=== PATIENT | female | born 1970 | race American Indian/Alaskan Native ===

== ENCOUNTER 2018-08-26 12:09 | Inpatient (IN) | payer MEDICAID, MEDICARE, OTHER ==
[2018-08-26] MEDS ORDERED: NACL 0.9% 1000 ML 1,000 ML IV ONE ×2 (14:43→14:45)
--- NOTE | 2018-08-26 14:50 | Emergency Department Report ---
HPI - General Chief Complaint: Fever Time Seen by Provider: 08/26/18 14:37 - HPI HPI: Room 4 The patient is a 47-year-old female presenting with chief complaint of dislodged nephrostomy tube. The patient is from [facility] reportedly her right ne phrostomy tube became dislodged earlier today. Nephrostomy tubes were reportedly placed at [place]. EMS brought the patient to the ED for management of dislodged nephrostomy tube. Patient is nonverbal and has a history of traumatic brain injury. Location: [See above] Duration: [See above] Quality: [See above] Severity: [See above] Modifying factors: [see above] Context: [see above] Mode of transportation: [not driving] ED Past Medical Hx - Past Medical History Additional medical history: G tube, nephrostomy tube, dysphagia TBI - Surgical History Additional Surgical History: G-tube, bilateral nephrostomy tubes - Family History Family history: no significant - Social History Smoking Status: Unknown if ever smoked ED Review of Systems ROS: Stated complaint: NEPHROSTOMY TUBE DISPLACED Other details as noted in HPI Comment: Unobtainable due to pts medical conditions Physical Exam - Physical Exam Vital Signs: Vital Signs 08/26/18 13:56 Temperature 99.2 F Pulse Rate 124 H Blood Pressure 113/78 O2 Sat by Pulse 98 Oximetry Physical Exam: GENERAL: The patient is well-developed female lying on stretcher nonverbal HEENT: Normocephalic. Atraumatic. Patient has dry mucous membranes. NECK: Trachea midline CHEST/LUNGS: Clear to auscultation. There is no respiratory distress noted. HEART/CARDIOVASCULAR: Regular. There is tachycardia. There is no gallop rub or murmur. ABDOMEN: Abdomen is soft, nontender. Patient has normal bowel sounds. There is no abdominal distention. SKIN: There is no rash. There is no edema. There is no diaphoresis. NEURO: The patient is awake but nonverbal MUSCULOSKELETAL: There is no evidence of acute injury. ED Course Vital Signs 08/26/18 13:56 Temperature 99.2 F Pulse Rate 124 H Blood Pressure 113/78 O2 Sat by Pulse 98 Oximetry - Consultations Consultation #1: 08/26/18 15:[address] Quezada (interventional radiology)- recommends having hospitalist admit, obtain CT scan. We will consult ED Medical Decision Making - Lab Data Result diagrams: 08/26/18 15:02 08/26/18 15:02 Laboratory Tests 08/26/18 08/26/18 08/26/18 15:02 15:02 Unknown WBC 15.7 H RBC 3.81 Hgb 11.9 Hct 35.7 MCV 94 MCH 31 MCHC 33 RDW 17.3 H Plt Count 319 Add Manual Diff Complete Total Counted 100 Seg Neuts % (Manual) 59.0 Band Neutrophils % 30.0 Lymphocytes % (Manual) 5.0 L Reactive Lymphs % (Man) 0 Monocytes % (Manual) 5.0 Eosinophils % (Manual) 1.0 Basophils % (Manual) 0 Metamyelocytes % 0 Myelocytes % 0 Promyelocytes % 0 Blast Cells % 0 Nucleated RBC % Not Reportable Seg Neutrophils # Man 9.3 H Band Neutrophils # 4.7 Lymphocytes # (Manual) 0.8 L Abs React Lymphs (Man) 0.0 Monocytes # (Manual) 0.8 Eosinophils # (Manual) 0.2 Basophils # (Manual) 0.0 Metamyelocytes # 0.0 Myelocytes # 0.0 Promyelocytes # 0.0 Blast Cells # 0.0 WBC Morphology Not Reportable Hypersegmented Neuts Not Reportable Hyposegmented Neuts Not Reportable Hypogranular Neuts Not Reportable Smudge Cells Not Reportable Toxic Granulation Not Reportable Toxic Vacuolation Not Reportable Dohle Bodies Not Reportable Pelger-Huet Anomaly Not Reportable Alondra Rods Not Reportable Platelet Estimate Consistent w auto Clumped Platelets Not Reportable Plt Clumps, EDTA Not Reportable Large Platelets Not Reportable Giant Platelets Not Reportable Platelet Satelliting Not Reportable Plt Morphology Comment Not Reportable RBC Morphology Not Reportable Dimorphic RBCs Not Reportable Polychromasia Few Hypochromasia 1+ Poikilocytosis Not Reportable Anisocytosis 1+ Microcytosis Not Reportable Macrocytosis Not Reportable Spherocytes Not Reportable Pappenheimer Bodies Not Reportable Sickle Cells Not Reportable Target Cells Not Reportable Tear Drop Cells Not Reportable Ovalocytes Not Reportable Stomatocytes Few Helmet Cells Not Reportable [place] Bodies Not Reportable Tracy Rings Not Reportable Caliente Cells Not Reportable Bite Cells Not Reportable Crenated Cell Not Reportable Elliptocytes Not Reportable Acanthocytes (Spur) Not Reportable Rouleaux Not Reportable Hemoglobin C Crystals Not Reportable Schistocytes Not Reportable Malaria parasites Not Reportable Marshall Bodies Not Reportable Hem Pathologist Commnt No Sodium 152 H Potassium 3.3 L Chloride 110.5 H Carbon Dioxide 29 Anion Gap 16 BUN 39 H Creatinine 1.2 Estimated GFR 58 BUN/Creatinine Ratio 33 Glucose 116 H Calcium 13.7 H* Total Bilirubin 0.20 AST 39 ALT 55 Alkaline Phosphatase 172 H Total Protein 8.6 H Albumin 2.9 L Albumin/Globulin Ratio 0.5 Urine Color Yellow Urine Turbidity Cloudy Urine pH 8.0 H Ur Specific Clifford 1.012 Urine Protein 30 mg/dl Urine Glucose (UA) Neg Urine Ketones Neg Urine Blood Lg Urine Nitrite Neg Urine Bilirubin Neg Urine Urobilinogen < 2.0 Ur Leukocyte Esterase Lg Urine WBC (Auto) 139.0 H Urine RBC (Auto) 173.0 U Epithel Cells (Auto) 2.0 Urine Bacteria (Auto) 1+ Urine WBC Clumps 2+ Calcium Oxalate Crystal 1+ Urine Mucus Few Urine Yeast (Budding) 2+ - Radiology Data Radiology results: report reviewed (CT abdomen and pelvis), image reviewed (CT abdomen and pelvis) [address] [address] Cat Scan Report Signed Patient: KEVON COCHRAN MR#: [id number] : 1970 Acct:[id number] Age/Sex: 47 / F ADM Date: 08/26/18 Loc: ED Attending Dr: Ordering Physician: BEN TUBBS MD Date of Service: 08/26/18 Procedure(s): CT abdomen pelvis wo con Accession Number(s): [id number] cc: BEN TUBBS MD PROCEDURE: CT ABDOMEN PELVIS WO CON TECHNIQUE: CT of the abdomen and pelvis was performed. No IV contrast administered. Axial images and coronal and sagittal reformatted images were obtained. HISTORY: right nephrostomy tube dislodged COMPARISON: None FINDINGS: There are bilateral lower lobe infiltrates including consolidation in the posterior right lower lobe. There is mild lower lobe bronchiectasis. There is a gastrostomy tube present. There is a left-sided nephrostomy tube in place. There is no right nephrostomy tube but there is evidence of a nephrostomy tract. There are renal calculi bilaterally. There is dependent gravel-like calculi on the right versus milk of calcium. There is a moderate degree of right hydronephrosis. There may be a punctate calculus in the proximal right ureter. There is fluid, gas and stool distending the colon. There is some nonspecific internal rectal wall thickening. Within the limitations of a noncontrast exam, the visualized liver, spleen, pancreas, adrenal glands demonstrate no significant abnormality. There is no abdominal aortic aneurysm. There is no small bowel obstruction. The appendix is normal. There is no free intraperitoneal air. Bladder is unremarkable. IMPRESSION: There is moderate right hydronephrosis. Bilateral renal calculi. There are dependent gravel-like renal calculi versus milk of calcium dependently in right renal collecting system. There may be a p unctate calculus in the proximal right ureter versus artifact series 602 image 69. Left nephrostomy tube in place. Colonic distention with gas, fluid and stool. There is nonspecific anorectal wall thickening which could be inflammatory or mass. Bilateral lower lobe infiltrates including right lower lobe consolidation. Mild lower lobe bronchiectasis. This document is electronically signed by Marilu Barrios MD., August 26 2018 04:00:36 PM ET Transcribed By: [place] Dictated By: MARILU BARRIOS MD Electronically Authenticated By: MARILU BARRIOS MD Signed Date/Time: 08/26/18 1602 DD/ 1544 TD/TT: 08/26/18 1544 - Differential Diagnosis UTI, renal colic, Critical care attestation.: If time is entered above; I have spent that time in minutes in the direct care of this critically ill patient, excluding procedure time. ED Disposition Clinical Impression: Nephrostomy tube displaced, Pneumonia, Dehydration, Leukocytosis, UTI (urinary tract infection) Disposition: OP ADMIT IP TO THIS HOSP Is pt being admited?: Yes Does the pt Need Aspirin: No Condition: Fair Instructions: Bacterial Pneumonia (ED) Referrals: ALYCIA CHAUDHARY [Other] - 3-5 Days Time of Disposition: 17:37 (hospitalist notified (Dr Levy))
[2018-08-26 15:31] LABS: Hematocrit 35.7 % (30.3-42.9); Hemoglobin 11.9 gm/dl (10.1-14.3); Mean Corpuscular HGB Conc 33 % (30-34); Mean Corpuscular Volume 94 fl (79-97); Platelet Count 319 K/mm3 (140-440); Red Blood Count 3.81 M/mm3 (3.65-5.03); Red Cell Distribution Width 17.3 % (13.2-15.2)
[2018-08-26 15:39] LABS: Albumin 2.9 g/dL (3.9-5)
--- NOTE | 2018-08-26 16:02 | Cat Scan Report ---
PROCEDURE: CT ABDOMEN PELVIS WO CON TECHNIQUE: CT of the abdomen and pelvis was performed. No IV contrast administered. Axial images and coronal and sagittal reformatted images were obtained. HISTORY: right nephrostomy tube dislodged COMPARISON: None FINDINGS: There are bilateral lower lobe infiltrates including consolidation in the posterior right lower lobe. There is mild lower lobe bronchiectasis. There is a gastrostomy tube present. There is a left-sided nephrostomy tube in place. There is no right nephrostomy tube but there is evidence of a nephrostomy tract. There are renal calculi bilaterally. There is dependent gravel-like calculi on the right versus milk of calcium. There is a moderate degree of right hydronephrosis. There may be a punctate calculus in t he proximal right ureter. There is fluid, gas and stool distending the colon. There is some nonspecific internal rectal wall th ickening. Within the limitations of a noncontrast exam, the visualized liver, spleen, pancreas, adrenal glands demonstrate no significant abnormality. There is no abdominal aortic aneurysm. There is no small bowel obstruction. The appendix is normal. There is no free intraperitoneal air. Bladder is unremarkable. IMPRESSION: There is moderate right hydronephrosis. Bilateral renal calculi. There are dependent gravel-like fred l calculi versus milk of calcium dependently in right renal collecting system. There may be a punctat e calculus in the proximal right ureter versus artifact series 602 image 69. Left nephrostomy tube in place. Colonic distention with gas, fluid and stool. There is nonspecific anorectal wall thickening which co uld be inflammatory or mass. Bilateral lower lobe infiltrates including right lower lobe consolidation. Mild lower lobe bronchiect asis. This document is electronically signed by Marilu Barrios MD., August 26 2018 04:00:36 PM ET
[2018-08-26 16:24] LABS: Anisocytosis 1+; Band Neutrophils # (Manual) 4.7 K/mm3; Basophils % (Manual) 0 % (0.0-1.8); Hypochromasia 1+; Total Cells Counted 100
[2018-08-26 16:25] LABS: Platelet Estimate Consistent w Auto; Stomatocytes Few
[2018-08-26 16:38] LABS: Calcium 13.7 mg/dL (8.4-10.2)
[2018-08-26] MEDS ORDERED: ROCEPHIN/NS 2 GM/100 ML 2 GM/100 ML BAG IV ONE (17:00)
[2018-08-26 17:29] LABS: Bacteria,Urine 1+ /HPF (Negative); Bilirubin,Urine NEG (Negative); Blood,Urine LG (Negative); Calcium Oxalate Crystals,Urine 1+; Color,Urine Yellow (Yellow); Mucus,Urine FEW /HPF; Urobilinogen,Urine < 2.0 mg/dL (<2.0)
--- NOTE | 2018-08-26 17:50 | History and Physical Report ---
History of Present Illness Chief complaint: nephrostomy tube came out History of present illness: 47 YO Female SNF Resident at [facility] with Encephalopathy S/P TBI, Debility, Dysphagia, presents to ED for evaluation. Pt is nonverbal and unable to provide history. Pt history taken from ED staff, and [facility] staff. As per staff, the patient was found to have a dislodged Nephrostomy tube this morning. EMS notified, and patient transported to [facility]. Pt seen and evaluated in ED and found to have UTI complicated by SIRS, Volume depletion, as well as dislodged nephrostomy tube. Pt admitted to medical floor. IR team consulted in ED. Pending replacement of nephrostomy tube. No further history obtainable. Pt is able to protect her airway. No prior admission for review. All listed medication reconciled at time of admission. Past History Past Medical History: other (TBI, Encephalopathy) Past Surgical History: Other (G Tube, Nephrostomy tube) Social history: Family history: no significant family history Medications and Allergies Allergies Allergy/AdvReac Type Severity Reaction Status Date / Time No Known Allergies Allergy Unverified 08/26/18 14:14 Review of Systems ROS unobtainable: due to mental status Exam - Constitutional Vitals: Temp Pulse Resp BP Pulse Ox 99.2 F 124 H 16 113/78 98 08/26/18 13:56 08/26/18 13:56 08/26/18 15:00 08/26/18 13:56 08/26/18 13:56 General appearance: Present: mild distress, cachectic - EENT Eyes: Present: PERRL ENT: hearing intact, clear oral mucosa - Neck Neck: Present: supple, normal ROM - Respiratory Respiratory effort: normal Respiratory: bilateral: CTA - Cardiovascular Heart Sounds: Present: S1 & S2. Absent: rub, click - Extremities Extremities: abnormal (contracture) Peripheral Pulses: within normal limits - Abdominal General gastrointestinal: Present: soft, non-tender, non-distended, normal bowel sounds Female genitourinary: Present: normal - Integumentary Integumentary: Present: clear, warm, dry - Musculoskeletal Musculoskeletal: generalized weakness - Psychiatric Psychiatric: no appropriate mood/affect, no intact judgment & insight, no memory intact - Neurologic Neurologic: CNII-XII intact, moves all extremities, no gait normal Results - Labs CBC & Chem 7: 08/26/18 15:02 08/26/18 15:02 Labs: Abnormal lab results 08/26/18 08/26/18 08/26/18 Range/Units 15:02 15:02 Unknown WBC 15.7 H (4.5-11.0) K/mm3 RDW 17.3 H (13.2-15.2) % Lymphocytes % (Manual) 5.0 L (13.4-35.0) % Seg Neutrophils # Man 9.3 H (1.8-7.7) K/mm3 Lymphocytes # (Manual) 0.8 L (1.2-5.4) K/mm3 Sodium 152 H (137-145) mmol/L Potassium 3.3 L (3.6-5.0) mmol/L Chloride 110.5 H (98-107) mmol/L BUN 39 H (7-17) mg/dL Glucose 116 H (65-100) mg/dL Calcium 13.7 H* (8.4-10.2) mg/dL Alkaline Phosphatase 172 H (35-129) units/L Total Protein 8.6 H (6.3-8.2) g/dL Albumin 2.9 L (3.9-5) g/dL Urine pH 8.0 H (5.0-7.0) Urine WBC (Auto) 139.0 H (0.0-6.0) /HPF Assessment and Plan - Patient Problems (1) SIRS (systemic inflammatory response syndrome) Current Visit: Yes Status: Acute Plan to address problem: IV antibiotic therapy, IVF resuscitation, CBC, CMP, Chest x ray, CT Abdomen pelvis. (2) Dehydration Current Visit: Yes Status: Acute (3) Nephrostomy tube displaced Current Visit: Yes Status: Acute Plan to address problem: IR consulted in ED, Pending nephrostomy tube placement, (4) UTI (urinary tract infection) Current Visit: Yes Status: Acute Qualifiers: Encounter type: initial encounter Plan to address problem: IV antibiotic therapy, supportive care. (5) Severe malnutrition Current Visit: Yes Status: Acute Plan to address problem: Nutrition consulted for tube feeding. (6) DVT prophylaxis Current Visit: Yes Status: Acute Plan to address problem: SCD to BLE while in bed, prophylactic lovenox
[2018-08-26] MEDS ORDERED: SODIUM CHLORIDE FLUSH SYRINGE 10 ML IV PRN (17:51)
[2018-08-26] MEDS ORDERED: ZOFRAN IV PRN (17:51)
[2018-08-26] MEDS ORDERED: PROVENTIL IH PRN (17:51)
[2018-08-26] MEDS: NACL 0.45% 1000 ML 1,000 ML IV SCH (19:55)
[2018-08-26] MEDS: LOVENOX SUB-Q SCH (22:56)
[2018-08-26] MEDS: SODIUM CHLORIDE FLUSH SYRINGE 10 ML IV SCH (22:56)
[2018-08-27] MEDS: NACL 0.45% 1000 ML 1,000 ML IV SCH ×2 (04:17→18:21)
[2018-08-27 06:40] LABS: Basophils % (Auto) 0.2 % (0.0-1.8); Eosinophils % (Auto) 0.2 % (0.0-4.3); Hematocrit 30.4 % (30.3-42.9); Hemoglobin 9.9 gm/dl (10.1-14.3); Lymphocytes # (Auto) 2.4 K/mm3 (1.2-5.4); Lymphocytes % (Auto) 15.7 % (13.4-35.0); Mean Corpuscular HGB Conc 33 % (30-34); Mean Corpuscular Volume 95 fl (79-97); Monocytes # (Auto) 1.1 K/mm3 (0.0-0.8); Monocytes % (Auto) 7.5 % (0.0-7.3); Platelet Count 260 K/mm3 (140-440); Red Blood Count 3.22 M/mm3 (3.65-5.03); Red Cell Distribution Width 17.4 % (13.2-15.2)
[2018-08-27 07:02] LABS: Alanine Aminotransferase 36 units/L (7-56); Albumin 2.4 g/dL (3.9-5); BUN/Creatinine Ratio 34; Blood Urea Nitrogen 37 mg/dL (7-17); Hemolysis Index 0
[2018-08-27] MEDS: SODIUM CHLORIDE FLUSH SYRINGE 10 ML IV SCH ×2 (10:07→23:41)
[2018-08-27] MEDS: ROCEPHIN/NS 1 GM/50 ML 1 GM/50 ML BAG IV SCH (10:07)
--- NOTE | 2018-08-27 10:40 | Progress Note ---
Assessment and Plan Assessment and plan: Sepsis. Follow-up blood and urine cultures. Continue IV antibiotics. Serial lactic acid levels. UTI. Follow-up cultures as noted above. Continue IV antibiotics. Nephrostomy tube dislodged. IR consulted in ED, Pending nephrostomy tube placement Severe protein calorie malnutrition. Continue tube feedings per dietitian. Chronic encephalopathy s/p TBI. Supportive care. Debility. Mobility protocols for pressure ulcer prophylaxis. History Interval history: 47 YO Female SNF Resident at [facility] with Encephalopathy S/P TBI, Debility, Dysphagia, presents to ED for evaluation. Pt is nonverbal and unable to provide history. Pt history taken from ED staff, and [facility] staff. As per staff, the patient was found to have a dislodged Nephrostomy tube. The patient was admitted with diagnosis of sepsis with UTI. IR team to replace ne phrostomy tube Hospitalist Physical - Constitutional Vitals: Temp Pulse Resp BP Pulse Ox 97.5 F L 90 12 99/55 98 08/27/18 05:20 08/27/18 05:20 08/27/18 05:20 08/27/18 05:20 08/27/18 09:05 General appearance: Present: no acute distress, cachectic - EENT Eyes: Present: PERRL, EOM intact ENT: hearing intact, clear oral mucosa, dentition normal - Neck Neck: Present: supple, normal ROM - Respiratory Respiratory effort: normal Respiratory: bilateral: CTA - Cardiovascular Rhythm: regular Heart Sounds: Present: S1 & S2. Absent: gallop, rub - Extremities Extremities: no ischemia, No edema, Full ROM - Abdominal General gastrointestinal: soft, non-tender, non-distended, normal bowel sounds - Integumentary Integumentary: Present: clear, warm, dry - Neurologic Neurologic: CNII-XII intact, moves all extremities Results - Labs CBC & Chem 7: 08/27/18 06:11 08/27/18 06:11 Labs: Laboratory Last Values WBC 15.0 K/mm3 (4.5-11.0) H 08/27/18 06:11 RBC 3.22 M/mm3 (3.65-5.03) L 08/27/18 06:11 Hgb 9.9 gm/dl (10.1-14.3) L 08/27/18 06:11 Hct 30.4 % (30.3-42.9) 08/27/18 06:11 MCV 95 fl (79-97) 08/27/18 06:11 MCH 31 pg (28-32) 08/27/18 06:11 MCHC 33 % (30-34) 08/27/18 06:11 RDW 17.4 % (13.2-15.2) H 08/27/18 06:11 Plt Count 260 K/mm3 (140-440) 08/27/18 06:11 Lymph % (Auto) 15.7 % (13.4-35.0) 08/27/18 06:11 [place] % (Auto) 7.5 % (0.0-7.3) H 08/27/18 06:11 Eos % (Auto) 0.2 % (0.0-4.3) 08/27/18 06:11 Baso % (Auto) 0.2 % (0.0-1.8) 08/27/18 06:11 Lymph # 2.4 K/mm3 (1.2-5.4) 08/27/18 06:11 [place] # 1.1 K/mm3 (0.0-0.8) H 08/27/18 06:11 Eos # 0.0 K/mm3 (0.0-0.4) 08/27/18 06:11 Baso # 0.0 K/mm3 (0.0-0.1) 08/27/18 06:11 Add Manual Diff Complete 08/26/18 15:02 Total Counted 100 08/26/18 15:02 Seg Neutrophils % 76.4 % (40.0-70.0) H 08/27/18 06:11 Seg Neuts % (Manual) 59.0 % (40.0-70.0) 08/26/18 15:02 30.0 % 08/26/18 15:02 5.0 % (13.4-35.0) L 08/26/18 15:02 Reactive Lymphs % (Man) 0 % 08/26/18 15:02 5.0 % (0.0-7.3) 08/26/18 15:02 1.0 % (0.0-4.3) 08/26/18 15:02 0 % (0.0-1.8) 08/26/18 15:02 0 % 08/26/18 15:02 0 % 08/26/18 15:02 0 % 08/26/18 15:02 0 % 08/26/18 15:02 Nucleated RBC % Not Reportable 08/26/18 15:02 Seg Neutrophils # 11.5 K/mm3 (1.8-7.7) H 08/27/18 06:11 Seg Neutrophils # Man 9.3 K/mm3 (1.8-7.7) H 08/26/18 15:02 Band Neutrophils # 4.7 K/mm3 08/26/18 15:02 0.8 K/mm3 (1.2-5.4) L 08/26/18 15:02 Abs React Lymphs (Man) 0.0 K/mm3 08/26/18 15:02 0.8 K/mm3 (0.0-0.8) 08/26/18 15:02 0.2 K/mm3 (0.0-0.4) 08/26/18 15:02 0.0 K/mm3 (0.0-0.1) 08/26/18 15:02 0.0 K/mm3 08/26/18 15:02 0.0 K/mm3 08/26/18 15:02 0.0 K/mm3 08/26/18 15:02 Blast Cells # 0.0 K/mm3 08/26/18 15:02 WBC Morphology Not Reportable 08/26/18 15:02 Hypersegmented Neuts Not Reportable 08/26/18 15:02 Hyposegmented Neuts Not Reportable 08/26/18 15:02 Hypogranular Neuts Not Reportable 08/26/18 15:02 Not Reportable 08/26/18 15:02 Not Reportable 08/26/18 15:02 Not Reportable 08/26/18 15:02 Not Reportable 08/26/18 15:02 Not Reportable 08/26/18 15:02 Not Reportable 08/26/18 15:02 Consistent w auto 08/26/18 15:02 Not Reportable 08/26/18 15:02 Plt Clumps, EDTA Not Reportable 08/26/18 15:02 Not Reportable 08/26/18 15:02 Not Reportable 08/26/18 15:02 Not Reportable 08/26/18 15:02 Plt Morphology Comment Not Reportable 08/26/18 15:02 RBC Morphology Not Reportable 08/26/18 15:02 Dimorphic RBCs Not Reportable 08/26/18 15:02 Few 08/26/18 15:02 1+ 08/26/18 15:02 Not Reportable 08/26/18 15:02 1+ 08/26/18 15:02 Not Reportable 08/26/18 15:02 Not Reportable 08/26/18 15:02 Not Reportable 08/26/18 15:02 Not Reportable 08/26/18 15:02 Not Reportable 08/26/18 15:02 Not Reportable 08/26/18 15:02 Not Reportable 08/26/18 15:02 Not Reportable 08/26/18 15:02 Few 08/26/18 15:02 Not Reportable 08/26/18 15:02 Not Reportable 08/26/18 15:02 Not Reportable 08/26/18 15:02 Not Reportable 08/26/18 15:02 Not Reportable 08/26/18 15:02 Not Reportable 08/26/18 15:02 Not Reportable 08/26/18 15:02 Acanthocytes (Spur) Not Reportable 08/26/18 15:02 Rouleaux Not Reportable 08/26/18 15:02 Not Reportable 08/26/18 15:02 Not Reportable 08/26/18 15:02 Not Reportable 08/26/18 15:02 Not Reportable 08/26/18 15:02 Hem Pathologist Commnt No 08/26/18 15:02 Sodium 153 mmol/L (137-145) H 08/27/18 06:11 Potassium 3.4 mmol/L (3.6-5.0) L 08/27/18 06:11 Chloride 114.7 mmol/L (98-107) H 08/27/18 06:11 Carbon Dioxide 28 mmol/L (22-30) 08/27/18 06:11 14 mmol/L 08/27/18 06:11 BUN 37 mg/dL (7-17) H 08/27/18 06:11 1.1 mg/dL (0.7-1.2) 08/27/18 06:11 Estimated GFR > 60 ml/min 08/27/18 06:11 34 % 08/27/18 06:11 Glucose 81 mg/dL (65-100) 08/27/18 06:11 Calcium 13.0 mg/dL (8.4-10.2) H* 08/27/18 06:11 0.20 mg/dL (0.1-1.2) 08/27/18 06:11 AST 20 units/L (5-40) 08/27/18 06:11 ALT 36 units/L (7-56) 08/27/18 06:11 140 units/L (35-129) H 08/27/18 06:11 7.4 g/dL (6.3-8.2) 08/27/18 06:11 2.4 g/dL (3.9-5) L 08/27/18 06:11 0.5 % 08/27/18 06:11 Yellow (Yellow) 08/26/18 Unknown Cloudy (Clear) 08/26/18 Unknown 8.0 (5.0-7.0) H 08/26/18 Unknown Ur Specific [place] 1.012 (1.003-1.030) 08/26/18 Unknown 30 mg/dl mg/dL (Negative) 08/26/18 Unknown Neg mg/dL (Negative) 08/26/18 Unknown Neg mg/dL (Negative) 08/26/18 Unknown Lg (Negative) 08/26/18 Unknown Neg (Negative) 08/26/18 Unknown Neg (Negative) 08/26/18 Unknown < 2.0 mg/dL (<2.0) 08/26/18 Unknown Ur Leukocyte Esterase Lg (Negative) 08/26/18 Unknown 139.0 /HPF (0.0-6.0) H 08/26/18 Unknown 173.0 /HPF (0.0-6.0) 08/26/18 Unknown U Epithel Cells (Auto) 2.0 /HPF (0-13.0) 08/26/18 Unknown 1+ /HPF (Negative) 08/26/18 Unknown 2+ /HPF 08/26/18 Unknown Calcium Oxalate Crystal 1+ 08/26/18 Unknown Few /HPF 08/26/18 Unknown 2+ /HPF 08/26/18 Unknown Active Medications - Current Medications Current Medications: Generic Name Dose Route Start Last Admin Trade Name Freq PRN Reason Stop Dose Admin Acetaminophen 650 mg 08/26/18 17:51 Tylenol PO Q4H PRN Pain MILD(1-3)/Fever >100.5/RENEE Albuterol 2.5 mg 08/26/18 17:51 Proventil IH Q4HRT PRN Shortness Of Breath Enoxaparin Sodium 40 mg 08/26/18 22:00 08/26/18 22:56 Lovenox SUB-Q 40 mg QDAY@2200 ANU Administration Sodium Chloride 1,000 mls @ 125 mls/hr 08/26/18 18:00 08/27/18 04:17 Nacl 0.45% 1000 Ml IV 125 mls/hr DIRECT ANU Administration Ceftriaxone Sodium 1 gm in 50 mls @ 100 mls/hr 08/27/18 10:00 08/27/18 10:07 Rocephin/Ns 1 Gm/50 Ml IV 100 mls/hr Q24HR ANU Administration Protocol Ondansetron HCl 4 mg 08/26/18 17:51 Zofran IV Q8H PRN Nausea And Vomiting Oxycodone/Acetaminophen 1 tab 08/26/18 17:51 Percocet 5/325 PO Q6H PRN Pain, Moderate (4-6) Sodium Chloride 10 ml 08/26/18 22:00 08/27/18 10:07 Sodium Chloride Flush Syringe 10 Ml IV 10 ml BID ANU Administration Sodium Chloride 10 ml 08/26/18 17:51 Sodium Chloride Flush Syringe 10 Ml IV PRN PRN LINE FLUSH
[2018-08-27] MEDS ORDERED: VERSED ONE (11:53)
[2018-08-27] MEDS ORDERED: NACL 0.9% 500 ML IR ONE (11:53)
[2018-08-27] MEDS ORDERED: XYLOCAINE 1%/ EPI 1:100,000 INFILTRATI ONE (11:53)
[2018-08-27] MEDS ORDERED: SUBLIMAZE ONE (11:54)
[2018-08-27] MEDS ORDERED: ANCEF/STERILE WATER 2 GM/20 ML 0 GM/0 ML SYRINGE IV ONE (11:54)
[2018-08-27] MEDS ORDERED: LEVAQUIN 500MG/100ML 500 MG/100 ML BAG IV ONE (11:56)
[2018-08-27] MEDS ORDERED: NACL 0.9% 500 ML 500 ML ONE (12:15)
--- NOTE | 2018-08-27 12:22 | Consultation ---
History of Present Illness - Reason for Consult Consult date: 08/27/18 Nephrostomy tube dislodgement - History of Present Illness 47 year old Female SNF Resident at [facility] with Encephalopathy S/P TBI, Debility, Dysphagia, presents to ED for evaluation. Pt is nonverbal and unable to provide history. Pt history taken from ED staff, and [facility] staff. As per staff, the patient was found to have a dislodged Nephrostomy tube this morning. EMS notified, and patient transported to [facility]. Pt seen and evaluated in ED and found to have UTI complicated by SIRS, Volume depletion, as well as dislodged nephrostomy tube. Pt admitted to medical floor. IR team consulted in ED. Pending replacement of nephrostomy tube. No further history obtainable. Pt is able to protect her airway. No prior admission for review. All listed medication reconciled at time of admission. Reviewed chart and contacted family who told me that the patient has had most of her care at [place] and is scheduled for nephrostomy tube changes this week. I tried to contact the son multiple times, but he was only available some times and for short periods of time. The other times he did not machine pecan picker. Ultimately, consent was obtained. Past History Past Medical History: other (TBI, Encephalopathy) Past Surgical History: Other (G Tube, Nephrostomy tube) Social history: Family history: no significant family history Medications and Allergies Allergies Allergy/AdvReac Type Severity Reaction Status Date / Time No Known Allergies Allergy Unverified 08/26/18 14:14 Active Meds: Active Medications Acetaminophen (Tylenol) 650 mg PO Q4H PRN PRN Reason: Pain MILD(1-3)/Fever >100.5/RENEE Albuterol (Proventil) 2.5 mg IH Q4HRT PRN PRN Reason: Shortness Of Breath Enoxaparin Sodium (Lovenox) 40 mg SUB-Q QDAY@2200 [facility] Last Admin: 08/26/18 22:56 Dose: 40 mg Documented by: Sodium Chloride (Nacl 0.45% 1000 Ml) 1,000 mls @ 125 mls/hr IV DIRECT ANU Last Admin: 08/27/18 04:17 Dose: 125 mls/hr Documented by: Ceftriaxone Sodium (Rocephin/Ns 1 Gm/50 Ml) 1 gm in 50 mls @ 100 mls/hr IV Q24HR [facility]; Protocol Last Admin: 08/27/18 10:07 Dose: 100 mls/hr Documented by: Ondansetron HCl (Zofran) 4 mg IV Q8H PRN PRN Reason: Nausea And Vomiting Oxycodone/Acetaminophen (Percocet 5/325) 1 tab PO Q6H PRN PRN Reason: Pain, Moderate (4-6) Sodium Chloride (Sodium Chloride Flush Syringe 10 Ml) 10 ml IV BID [facility] Last Admin: 08/27/18 10:07 Dose: 10 ml Documented by: Sodium Chloride (Sodium Chloride Flush Syringe 10 Ml) 10 ml IV PRN PRN PRN Reason: LINE FLUSH Review of Systems ROS unobtainable: due to mental status Exam - Constitutional Vitals: Temp Pulse Resp BP Pulse Ox 98.6 F 95 H 18 96/56 98 08/27/18 11:31 08/27/18 11:31 08/27/18 11:31 08/27/18 11:31 08/27/18 11:31 General appearance: Present: no acute distress - EENT Eyes: Present: EOM intact ENT: hearing intact - Respiratory Respiratory effort: normal - Abdominal General gastrointestinal: Present: other (discharge from left nephrostomy tube site, right site is healed without drainage) - Psychiatric Psychiatric: no intact judgment & insight, no memory intact Results - Labs CBC & Chem 7: 08/27/18 06:11 08/27/18 06:11 Labs: Abnormal lab results 08/26/18 08/26/18 08/26/18 Range/Units 15:02 15:02 17:06 WBC 15.7 H (4.5-11.0) K/mm3 RBC (3.65-5.03) M/mm3 Hgb (10.1-14.3) gm/dl RDW 17.3 H (13.2-15.2) % [place] % (Auto) (0.0-7.3) % [place] # (0.0-0.8) K/mm3 Seg Neutrophils % (40.0-70.0) % Lymphocytes % (Manual) 5.0 L (13.4-35.0) % Seg Neutrophils # (1.8-7.7) K/mm3 Seg Neutrophils # Man 9.3 H (1.8-7.7) K/mm3 Lymphocytes # (Manual) 0.8 L (1.2-5.4) K/mm3 Sodium 152 H (137-145) mmol/L Potassium 3.3 L (3.6-5.0) mmol/L Chloride 110.5 H (98-107) mmol/L BUN 39 H (7-17) mg/dL Glucose 116 H (65-100) mg/dL Calcium 13.7 H* 13.1 H* (8.4-10.2) mg/dL Alkaline Phosphatase 172 H (35-129) units/L Total Protein 8.6 H (6.3-8.2) g/dL Albumin 2.9 L (3.9-5) g/dL Urine pH (5.0-7.0) Urine WBC (Auto) (0.0-6.0) /HPF 08/26/18 08/27/18 08/27/18 Range/Units Unknown 06:11 06:11 WBC 15.0 H (4.5-11.0) K/mm3 RBC 3.22 L (3.65-5.03) M/mm3 Hgb 9.9 L (10.1-14.3) gm/dl RDW 17.4 H (13.2-15.2) % [place] % (Auto) 7.5 H (0.0-7.3) % [place] # 1.1 H (0.0-0.8) K/mm3 Seg Neutrophils % 76.4 H (40.0-70.0) % Lymphocytes % (Manual) (13.4-35.0) % Seg Neutrophils # 11.5 H (1.8-7.7) K/mm3 Seg Neutrophils # Man (1.8-7.7) K/mm3 Lymphocytes # (Manual) (1.2-5.4) K/mm3 Sodium 153 H (137-145) mmol/L Potassium 3.4 L (3.6-5.0) mmol/L Chloride 114.7 H (98-107) mmol/L BUN 37 H (7-17) mg/dL Glucose (65-100) mg/dL Calcium 13.0 H* (8.4-10.2) mg/dL Alkaline Phosphatase 140 H (35-129) units/L Total Protein (6.3-8.2) g/dL Albumin 2.4 L (3.9-5) g/dL Urine pH 8.0 H (5.0-7.0) Urine WBC (Auto) 139.0 H (0.0-6.0) /HPF - Imaging and Cardiology CT scan - abdomen: report reviewed, image reviewed Assessment and Plan 47-year-old female with multiple medical issues who is a custodial resident with bilateral nephrostomy tubes. Right-sided nephrostomy tube was dislodged. The site has been completely healed. May need to proceed with the nova nephrostomy tube, or may be able to recanalize the tract. Left nephrostomy tube has some drainage around it and likely requires exchange. Verbal consent was obtained from the family. Risks, benefits, and alternatives discussed. Plan for nephrostomy tube placement/exchange today.
--- NOTE | 2018-08-27 13:17 | Operative Report ---
Operative Report Operative Report: EXAM: 1. Fluoroscopic guided cannulation of the right nephrostomy tube tract 2. Right-sided nephrostogram 3. Fluoroscopic-guided placement of an 8 [place] right-sided nephrostomy tube 4. Nephrostogram through the indwelling left nephrostomy tube. 5. Left-sided 8 [place] nephrostomy tube exchange DATE: 08/27/18 [employer] ENGINEER: BEAN DANIELSON MD INDICATION: Fever, leukocytosis, urinary tract infection with nephrostomy tubes and right-sided nephrostomy tube dislodgment and left-sided nephrostomy tube with some jordi-tract drainage MEDICATIONS: Please see nursing report for full details. DEVICES: Bilateral 8 [place] nephrostomy tube CONTRAST: Please see labour market economist report for full details. PROCEDURE: The risks, benefits, and alternatives were discussed with the patient; written informed consent was obtained. The patient was brought to the angiography suite in satisfactory condition. The patient was placed in a prone position. The left tube was prepped and draped in a sterile fashion. The right flank was prepped and draped in a sterile fashion. RIGHT SIDE: Fluoroscopy was used to evaluate the right flank which demonstrated no indwelling nephrostomy tube. Left sided nephrostomy tube did not have a [place] loop formed and the stitch was broken. The healed nephrostomy tube tract site was evaluated and probed and ultimately cannulated with a cheater device. 0.035 inch Glidewire was then passed into the right-sided collecting system. This was exchanged for a 4 [place] catheter and contrast was injecting confirming moderate right-sided hydronephrosis and hydroureter. Although large amount of contrast required injection, this ultimately passed spontaneously into the bladder. 0.035 inch wire was passed into the ureter. The tract was dilated and a 8 [place] nephrostomy tube with a plastic stiffener was advanced over the wire. [place] loop forming in the right renal pelvis. Urine was aspirated and sent to the lab for urine culture. The catheter was sutured in place with 2 2-0 Ethilon sutures. LEFT SIDE: The left nephrostomy tube was evaluated and determined to be intact. The tract demonstrated mild jordi-tract discharge compatible with a mild superficial tract infection. 1% lidocaine was injected around the nephrostomy tube for local anesthetic. Urine aspirated and sent for culture. Contrast was injected through the existing nephrostomy tube demonstrating moderate hydronephrosis and hydroureter. Although large amount of contrast required injection, this ultimately passed spon taneously into the bladder. The nephrostomy tube was cut. 0.035 inch [place] wire was passed into the nephrostomy tube but was unable to pass into the collecting system. 0.035 inch Glidewire was passed into the left renal collecting system. The nephrostomy tube was removed over the wire. A new nephrostomy tube was advanced over the wire into the collecting system. The wire and plastic stiffener were removed under fluoroscopic guidance. [place] loop was formed in the renal pelvis. Contrast was injected confirming position in the renal pelvis. Contrast was then aspirated and saline was inj ected and aspirated through the collecting system. The catheter was secured with 2, 2-0 Ethilon. Sterile dressing was applied. The patient tolerated the procedure without issue. The patient was transferred to the OPPU area without issue. FINDINGS: Please see procedure note above. IMPRESSION: 1. Right-sided fluoroscopic nephrostomy tube placement. 2. Left-sided fluoroscopic nephrostomy tube exchange.
--- NOTE | 2018-08-27 13:17 | Post Operative Note ---
Date of procedure: 08/27/18 Pre-op diagnosis: Bilateral hydronephrosis Post-op diagnosis: same Procedure: Right nephrostomy tube placement Left nephrostomy tube exchange Anesthesia: local (w/ conscious sedation) Surgeon: BEAN DANIELSON Estimated blood loss: minimal Condition: stable Disposition: floor
[2018-08-27] MEDS ORDERED: PANCREAZE DR 10,500 UNIT FEEDTUBE PRN (17:23)
[2018-08-27] MEDS ORDERED: SIMPLE SYRUP FEEDTUBE PRN ×2 (17:23)
[2018-08-27] MEDS ORDERED: SODIUM BICARBONATE FEEDTUBE PRN (17:23)
[2018-08-27] MEDS: LOVENOX SUB-Q SCH (22:33)
[2018-08-28] MEDS: NACL 0.45% 1000 ML 1,000 ML IV SCH ×3 (04:10→20:40)
[2018-08-28 06:51] LABS: Basophils % (Auto) 0.1 % (0.0-1.8); Eosinophils % (Auto) 0.2 % (0.0-4.3); Hemoglobin 9.6 gm/dl (10.1-14.3); Lymphocytes % (Auto) 12.8 % (13.4-35.0); Mean Corpuscular HGB Conc 32 % (30-34); Mean Corpuscular Volume 95 fl (79-97); Monocytes % (Auto) 6.9 % (0.0-7.3); Platelet Count 288 K/mm3 (140-440); Red Blood Count 3.16 M/mm3 (3.65-5.03); Red Cell Distribution Width 17.3 % (13.2-15.2)
[2018-08-28 06:52] LABS: Lymphocytes # (Auto) 1.8 K/mm3 (1.2-5.4)
[2018-08-28 06:58] LABS: BUN/Creatinine Ratio 39; Blood Urea Nitrogen 39 mg/dL (7-17); Hemolysis Index 3
--- NOTE | 2018-08-28 08:35 | Consultation ---
History of Present Illness - Reason for Consult Consult date: 08/28/18 hypernatremia, other (hypercalcemia) - History of Present Illness The patient is a 47 YO Female from [facility] with significant for Encephalopathy 2/2 TBI, Debility and Dysphagia s/p PEG who presented to [facility] ED for evaluation of dislodged Nephrostomy tube. Pt is nonverbal and unable to provide history. No family member at the bedside. The patient was found to have a dislodged Nephrostomy and EMS transported her to [facility] ED. Pt seen and evaluated in ED and found to have UTI complicated by SIRS, Volume depletion and as well as dislodged nephrostomy tube. Patient is now s/p new nephrostomy tubes by IR. Nephrology was consulted fo evaluation of multiple electrolyte abnormalities. Past History Past Medical History: other (TBI, Encephalopathy) Past Surgical History: Other (G Tube, Nephrostomy tube) Social history: Family history: no significant family history Medications and Allergies Allergies Allergy/AdvReac Type Severity Reaction Status Date / Time No Known Allergies Allergy Unverified 08/26/18 14:14 Active Meds: Active Medications Acetaminophen (Tylenol) 650 mg PO Q4H PRN PRN Reason: Pain MILD(1-3)/Fever >100.5/RENEE Albuterol (Proventil) 2.5 mg IH Q4HRT PRN PRN Reason: Shortness Of Breath Lipase/Protease/Amylase (Pancreaze Dr 10,500 Unit) 1 each FEEDTUBE PRN PRN PRN Reason: For Clogged Feeding Tube Enoxaparin Sodium (Lovenox) 40 mg SUB-Q QDAY@2200 [facility] Last Admin: 08/27/18 22:33 Dose: 40 mg Documented by: Sodium Chloride (Nacl 0.45% 1000 Ml) 1,000 mls @ 125 mls/hr IV DIRECT [facility] Last Admin: 08/28/18 04:10 Dose: 125 mls/hr Documented by: Ceftriaxone Sodium (Rocephin/Ns 1 Gm/50 Ml) 1 gm in 50 mls @ 100 mls/hr IV Q24HR [facility]; Protocol Last Admin: 08/27/18 10:07 Dose: 100 mls/hr Documented by: Ondansetron HCl (Zofran) 4 mg IV Q8H PRN PRN Reason: Nausea And Vomiting Oxycodone/Acetaminophen (Percocet 5/325) 1 tab PO Q6H PRN PRN Reason: Pain, Moderate (4-6) Simple Syrup (Simple Syrup) 15 ml FEEDTUBE PRN PRN PRN Reason: Hypoglycemia Simple Syrup (Simple Syrup) 30 ml FEEDTUBE PRN PRN PRN Reason: Hypoglycemia Sodium Bicarbonate (Sodium Bicarbonate) 325 mg FEEDTUBE PRN PRN PRN Reason: For Clogged Feeding Tube Sodium Chloride (Sodium Chloride Flush Syringe 10 Ml) 10 ml IV BID ANU Last Admin: 08/27/18 23:41 Dose: 10 ml Documented by: Sodium Chloride (Sodium Chloride Flush Syringe 10 Ml) 10 ml IV PRN PRN PRN Reason: LINE FLUSH Review of Systems ROS unobtainable: due to mental status Exam - Vital Signs Vital signs: Vital Signs Temp Pulse BP Pulse Ox 99.2 F 124 H 113/78 98 08/26/18 13:56 08/26/18 13:56 08/26/18 13:56 08/26/18 13:56 - General Appearance General appearance: well-developed, appears stated age, cachectic, other (no distress) EENT: ATNC, PERRL Neck: Present: trachea midline Respiratory: Clear to Ascultation Heart: regular, S1S2, no murmurs Gastrointestinal: Present: normoactive bowel sounds, other (PEG tube noted). Absent: tenderness, distended Integumentary: no rash, warm and dry Neurologic: other (non-verbal, not following any command) Musculoskeletal: Present: other (no edema, muscle atrophy noted) Results - Lab Results 08/28/18 Unknown 08/28/18 Unknown Most recent lab results Calcium 13.0 mg/dL (8.4-10.2) H* 08/28/18 Unknown - Image Kidney/bladder ultrasound: other Assessment and Plan 1. Hypercalcemia: Likely due to volume depletion. Hyperparathyroidism and Myeloma is a consideration. Continue IV fluids to correct volume depletion. PTH, Vitamin D level and SPEP ordeed. 2. Acute kidney injury: Vasomotor RUDI in the setting of volume depletion. Continue IV fluids. Monitor renal function. Avoid nephrotoxic agents. 3. FEN: Hypernatremia, 1/2 NS. Monitor lytes. 4. UTI. 5. Dysfunctional nephrostomy tubes: S/p new nephrostomy tubes. 6. Anemia.
[2018-08-28] MEDS ORDERED: K-DUR PO ONE (09:00)
[2018-08-28] MEDS: SODIUM CHLORIDE FLUSH SYRINGE 10 ML IV SCH ×2 (09:37→21:03)
[2018-08-28] MEDS: ROCEPHIN/NS 1 GM/50 ML 1 GM/50 ML BAG IV SCH (09:37)
[2018-08-28] MEDS: KCL 10MEQ/100ML 10 MEQ/100 ML BAG IV SCH ×4 (10:15→14:16)
--- NOTE | 2018-08-28 11:24 | Progress Note ---
Assessment and Plan Assessment and plan: Sepsis. Follow-up blood and urine cultures. Continue IV antibiotics. Serial lactic acid levels. UTI. Follow-up cultures as noted above. Continue IV antibiotics. Nephrostomy tube dislodged. IR consulted, s/p replaced Hypercalcemia. Persistent. consult Nephrology Hypernatremia Hypokalemia replace and recheck in am Severe protein calorie malnutrition. Continue tube feedings per dietitian. Chronic encephalopathy s/p TBI. Supportive care. Debility. Mobility protocols for pressure ulcer prophylaxis. History Interval history: Patient is nonverbal, was brought to ED for dislodged nephrostomy tube Hospitalist Physical - Physical exam Narrative exam: Gen: Not in acute distress, lying in bed,malnourished HEENT: Normocephalic, atraumatic Neck: supple, no JVD Heart: S1 and S2 reg, no murmurs, rubs or gallop Lungs: Clear, no crackles, no wheeze Abd: soft, non tender, non distended, normal BS Ext: No edema, no clubbing, no cyanosis, Neuro: Non verbal, - Constitutional Vitals: Temp Pulse Resp BP Pulse Ox 98.9 F 89 16 96/57 98 08/28/18 05:51 08/28/18 05:51 08/28/18 05:51 08/28/18 05:51 08/28/18 10:45 General appearance: Present: no acute distress Results - Labs CBC & Chem 7: 08/28/18 Unknown 08/28/18 Unknown Labs: Laboratory Last Values WBC 14.1 K/mm3 (4.5-11.0) H 08/28/18 Unknown RBC 3.16 M/mm3 (3.65-5.03) L 08/28/18 Unknown Hgb 9.6 gm/dl (10.1-14.3) L 08/28/18 Unknown Hct 30.0 % (30.3-42.9) L 08/28/18 Unknown MCV 95 fl (79-97) 08/28/18 Unknown MCH 30 pg (28-32) 08/28/18 Unknown MCHC 32 % (30-34) 08/28/18 Unknown RDW 17.3 % (13.2-15.2) H 08/28/18 Unknown Plt Count 288 K/mm3 (140-440) 08/28/18 Unknown Lymph % (Auto) 12.8 % (13.4-35.0) L 08/28/18 Unknown [place] % (Auto) 6.9 % (0.0-7.3) 08/28/18 Unknown Eos % (Auto) 0.2 % (0.0-4.3) 08/28/18 Unknown Baso % (Auto) 0.1 % (0.0-1.8) 08/28/18 Unknown Lymph # 1.8 K/mm3 (1.2-5.4) 08/28/18 Unknown [place] # 1.0 K/mm3 (0.0-0.8) H 08/28/18 Unknown Eos # 0.0 K/mm3 (0.0-0.4) 08/28/18 Unknown Baso # 0.0 K/mm3 (0.0-0.1) 08/28/18 Unknown Add Manual Diff Complete 08/26/18 15:02 Total Counted 100 08/26/18 15:02 Seg Neutrophils % 80.0 % (40.0-70.0) H 08/28/18 Unknown Seg Neuts % (Manual) 59.0 % (40.0-70.0) 08/26/18 15:02 30.0 % 08/26/18 15:02 5.0 % (13.4-35.0) L 08/26/18 15:02 Reactive Lymphs % (Man) 0 % 08/26/18 15:02 5.0 % (0.0-7.3) 08/26/18 15:02 1.0 % (0.0-4.3) 08/26/18 15:02 0 % (0.0-1.8) 08/26/18 15:02 0 % 08/26/18 15:02 0 % 08/26/18 15:02 0 % 08/26/18 15:02 0 % 08/26/18 15:02 Nucleated RBC % Not Reportable 08/26/18 15:02 Seg Neutrophils # 11.3 K/mm3 (1.8-7.7) H 08/28/18 Unknown Seg Neutrophils # Man 9.3 K/mm3 (1.8-7.7) H 08/26/18 15:02 Band Neutrophils # 4.7 K/mm3 08/26/18 15:02 0.8 K/mm3 (1.2-5.4) L 08/26/18 15:02 Abs React Lymphs (Man) 0.0 K/mm3 08/26/18 15:02 0.8 K/mm3 (0.0-0.8) 08/26/18 15:02 0.2 K/mm3 (0.0-0.4) 08/26/18 15:02 0.0 K/mm3 (0.0-0.1) 08/26/18 15:02 0.0 K/mm3 08/26/18 15:02 0.0 K/mm3 08/26/18 15:02 0.0 K/mm3 08/26/18 15:02 Blast Cells # 0.0 K/mm3 08/26/18 15:02 WBC Morphology Not Reportable 08/26/18 15:02 Hypersegmented Neuts Not Reportable 08/26/18 15:02 Hyposegmented Neuts Not Reportable 08/26/18 15:02 Hypogranular Neuts Not Reportable 08/26/18 15:02 Not Reportable 08/26/18 15:02 Not Reportable 08/26/18 15:02 Not Reportable 08/26/18 15:02 Not Reportable 08/26/18 15:02 Not Reportable 08/26/18 15:02 Not Reportable 08/26/18 15:02 Consistent w auto 08/26/18 15:02 Not Reportable 08/26/18 15:02 Plt Clumps, EDTA Not Reportable 08/26/18 15:02 Not Reportable 08/26/18 15:02 Not Reportable 08/26/18 15:02 Not Reportable 08/26/18 15:02 Plt Morphology Comment Not Reportable 08/26/18 15:02 RBC Morphology Not Reportable 08/26/18 15:02 Dimorphic RBCs Not Reportable 08/26/18 15:02 Few 08/26/18 15:02 1+ 08/26/18 15:02 Not Reportable 08/26/18 15:02 1+ 08/26/18 15:02 Not Reportable 08/26/18 15:02 Not Reportable 08/26/18 15:02 Not Reportable 08/26/18 15:02 Not Reportable 08/26/18 15:02 Not Reportable 08/26/18 15:02 Not Reportable 08/26/18 15:02 Not Reportable 08/26/18 15:02 Not Reportable 08/26/18 15:02 Few 08/26/18 15:02 Not Reportable 08/26/18 15:02 Not Reportable 08/26/18 15:02 Not Reportable 08/26/18 15:02 Not Reportable 08/26/18 15:02 Not Reportable 08/26/18 15:02 Not Reportable 08/26/18 15:02 Not Reportable 08/26/18 15:02 Acanthocytes (Spur) Not Reportable 08/26/18 15:02 Rouleaux Not Reportable 08/26/18 15:02 Not Reportable 08/26/18 15:02 Not Reportable 08/26/18 15:02 Not Reportable 08/26/18 15:02 Not Reportable 08/26/18 15:02 Hem Pathologist Commnt No 08/26/18 15:02 Sodium 148 mmol/L (137-145) H 08/28/18 Unknown Potassium 2.6 mmol/L (3.6-5.0) L* D 08/28/18 Unknown Chloride 112.7 mmol/L (98-107) H 08/28/18 Unknown Carbon Dioxide 25 mmol/L (22-30) 08/28/18 Unknown 13 mmol/L 08/28/18 Unknown BUN 39 mg/dL (7-17) H 08/28/18 Unknown 1.0 mg/dL (0.7-1.2) 08/28/18 Unknown Estimated GFR > 60 ml/min 08/28/18 Unknown 39 % 08/28/18 Unknown Glucose 97 mg/dL (65-100) 08/28/18 Unknown Calcium 13.0 mg/dL (8.4-10.2) H* 08/28/18 Unknown 0.20 mg/dL (0.1-1.2) 08/27/18 06:11 AST 20 units/L (5-40) 08/27/18 06:11 ALT 36 units/L (7-56) 08/27/18 06:11 140 units/L (35-129) H 08/27/18 06:11 7.4 g/dL (6.3-8.2) 08/27/18 06:11 2.4 g/dL (3.9-5) L 08/27/18 06:11 0.5 % 08/27/18 06:11 Yellow (Yellow) 08/26/18 Unknown Cloudy (Clear) 08/26/18 Unknown 8.0 (5.0-7.0) H 08/26/18 Unknown Ur Specific [place] 1.012 (1.003-1.030) 08/26/18 Unknown 30 mg/dl mg/dL (Negative) 08/26/18 Unknown Neg mg/dL (Negative) 08/26/18 Unknown Neg mg/dL (Negative) 08/26/18 Unknown Lg (Negative) 08/26/18 Unknown Neg (Negative) 08/26/18 Unknown Neg (Negative) 08/26/18 Unknown < 2.0 mg/dL (<2.0) 08/26/18 Unknown Ur Leukocyte Esterase Lg (Negative) 08/26/18 Unknown 139.0 /HPF (0.0-6.0) H 08/26/18 Unknown 173.0 /HPF (0.0-6.0) 08/26/18 Unknown U Epithel Cells (Auto) 2.0 /HPF (0-13.0) 08/26/18 Unknown 1+ /HPF (Negative) 08/26/18 Unknown 2+ /HPF 08/26/18 Unknown Calcium Oxalate Crystal 1+ 08/26/18 Unknown Few /HPF 08/26/18 Unknown 2+ /HPF 08/26/18 Unknown Active Medications - Current Medications Current Medications: Generic Name Dose Route Start Last Admin Trade Name Freq PRN Reason Stop Dose Admin Acetaminophen 650 mg 08/26/18 17:51 Tylenol PO Q4H PRN Pain MILD(1-3)/Fever >100.5/RENEE Albuterol 2.5 mg 08/26/18 17:51 Proventil IH Q4HRT PRN Shortness Of Breath Lipase/Protease/Amylase 1 each 08/27/18 17:23 Pancreaze 10,500 Unit FEEDTUBE PRN PRN For Clogged Feeding Tube Enoxaparin Sodium 40 mg 08/26/18 22:00 08/27/18 22:33 Lovenox SUB-Q 40 mg QDAY@2200 ANU Administration Sodium Chloride 1,000 mls @ 125 mls/hr 08/26/18 18:00 08/28/18 09:37 Nacl 0.45% 1000 Ml IV 125 mls/hr DIRECT ANU Administration Ceftriaxone Sodium 1 gm in 50 mls @ 100 mls/hr 08/27/18 10:00 08/28/18 09:37 Rocephin/Ns 1 Gm/50 Ml IV 100 mls/hr Q24HR ANU Administration Protocol Potassium Chloride 10 meq in 100 mls @ 100 mls/hr 08/28/18 10:00 08/28/18 11:20 Kcl 10meq/100ml IV 08/28/18 13:59 100 mls/hr Q1H ANU Administration Ondansetron HCl 4 mg 08/26/18 17:51 Zofran IV Q8H PRN Nausea And Vomiting Oxycodone/Acetaminophen 1 tab 08/26/18 17:51 Percocet 5/325 PO Q6H PRN Pain, Moderate (4-6) Simple Syrup 15 ml 08/27/18 17:23 Simple Syrup FEEDTUBE PRN PRN Hypoglycemia Simple Syrup 30 ml 08/27/18 17:23 Simple Syrup FEEDTUBE PRN PRN Hypoglycemia Sodium Bicarbonate 325 mg 08/27/18 17:23 Sodium Bicarbonate FEEDTUBE PRN PRN For Clogged Feeding Tube Sodium Chloride 10 ml 08/26/18 22:00 08/28/18 09:37 Sodium Chloride Flush Syringe 10 Ml IV 10 ml BID ANU Administration Sodium Chloride 10 ml 08/26/18 17:51 Sodium Chloride Flush Syringe 10 Ml IV PRN PRN LINE FLUSH Nutrition/Malnutrition Assess - Dietary Evaluation Nutrition/Malnutrition Findings: Nutrition Notes Start: 08/27/18 17:13 Freq: Status: Active Protocol: Document 08/27/18 17:13 RM (Rec: 08/27/18 17:23 [id number]) Nutrition Notes Need for Assessment generated from: MD Order Initial or Follow up Assessment Current Diagnosis Sepsis Other Pertinent Diagnosis G tube, Dysphagia, Nonverbal, SIRS, UTI, Neprostomy tube displace, Current Diet NPO Labs/Tests Na 153 Pertinent Medications Reviewed Height 5 ft 5 in Weight 48.2 kg [place] Body Weight (kg) 56.81 BMI 17.6 Subjective/Other Information Consulted for Tf recommendation. Noted temporal wasting. From NH. Burn Absent Trauma Absent #1 Nutrition Diagnosis Malnutrition Etiology unknown As Evidenced by Signs and Symptoms temporal wasting, BMI 17.7 Is patient on ventilator? No Is Patient Ambulatory and/or Out of Bed No REE-(Assumption-[facility]-confined to bed) 1345.380 Kcal/Kg value to use for calculation 38 Approximate Energy Requirements Using 1832 kcal/Kg Calculation Used for Recommendations Kcal/kg Additional Notes Protein Needs: 72-82g (1.5-1. 7g/kg) Fluid Needs: 1 ml/kcal Nutrition Intervention Nutrition Support: Jevity 1.2 at 65 ml/hr. Water flush of 100 mls q 4 hrs . Kcal 1,872 Protein (gm) 87 Fluid (mL) 1,259 Goal #1 TF tolerance Goal #2 Meet at least 75% of calorie and protein needs via TF Anticipated Discharge Needs: TF Follow-Up By: 08/29/18 Additional Comments Follow for new TF
[2018-08-28] MEDS ORDERED: POTASSIUM CHLORIDE FEEDTUBE ONE (12:00)
[2018-08-28] MEDS: PERCOCET 5/325 PO PRN (17:20)
[2018-08-28] MEDS: LOVENOX SUB-Q SCH (21:03)
[2018-08-29] MEDS: NACL 0.45% 1000 ML 1,000 ML IV SCH ×2 (05:05→23:39)
[2018-08-29 07:34] LABS: BUN/Creatinine Ratio 32; Blood Urea Nitrogen 29 mg/dL (7-17); Calcium 11.6 mg/dL (8.4-10.2); Hemolysis Index 2
--- NOTE | 2018-08-29 09:12 | Consultation ---
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 Patient is non verbal, unable to provide a history. She is resident of [facility]. Details of history are unclear. In the ED, temp 99.2-->100.2, HR 124, R20, BP 113/78. WBC 15. Hg 9.9. Plat 26. Creat 1.1. Na 153. Calcium 13. UA with 139 wbc, large LE. Blood cultures 08/26/2018 Pseudomonas aeruginosa 4 of 4 bottles. Urine culture 08/26/2018 10-100K multiple sp. Patient was found septic with right-sided nephrostomy tube dislodgment and left-sided nephrostomy tube with some jordi-tract drainage. CT showed moderate right hydronephrosis, bilateral renal calculi, right renal collecting system gravel-like renal calculi, colonic distention, bilateral infiltrate with RLL consolidation. Patient taken to the OR on 08/27/2018 underwent Fl-guided right ATTEND[employer] C[employer] tube insertion and left NT exchange. Urine culture from right ATTENDANT CAMP[employer] tube 08/27/2018 Pseudomonas and E faecium. Urine culture from left ATTEND[employer] C[employer] tube 08/27/2018 GNR and Enterocccus. ID consulted to [facility] sepsis. Review of Systems: unable to obtain Past History Past Medical History: other (TBI, Encephalopathy) Past Surgical History: Other (G Tube, Nephrostomy tube) Social history: Family history: no significant family history Medications and Allergies Allergies Allergy/AdvReac Type Severity Reaction Status Date / Time No Known Allergies Allergy Unverified 08/26/18 14:14 Active Meds: Active Medications Acetaminophen (Tylenol) 650 mg PO Q4H PRN PRN Reason: Pain MILD(1-3)/Fever >100.5/RENEE Albuterol (Proventil) 2.5 mg IH Q4HRT PRN PRN Reason: Shortness Of Breath Lipase/Protease/Amylase (Pancreaze Dr 10,500 Unit) 1 each FEEDTUBE PRN PRN PRN Reason: For Clogged Feeding Tube Last Admin: 08/28/18 22:00 Dose: 1 each Documented by: Enoxaparin Sodium (Lovenox) 40 mg SUB-Q QDAY@2200 ANU Last Admin: 08/28/18 21:03 Dose: 40 mg Documented by: Sodium Chloride (Nacl 0.45% 1000 Ml) 1,000 mls @ 125 mls/hr IV DIRECT ANU Last Admin: 08/29/18 05:05 Dose: 125 mls/hr Documented by: Ceftriaxone Sodium (Rocephin/Ns 1 Gm/50 Ml) 1 gm in 50 mls @ 100 mls/hr IV Q24HR [facility]; Protocol Last Admin: 08/28/18 09:37 Dose: 100 mls/hr Documented by: Potassium Chloride (Kcl 10meq/100ml) 10 meq in 100 mls @ 100 mls/hr IV Q1H [facility] Stop: 08/29/18 11:59 Ondansetron HCl (Zofran) 4 mg IV Q8H PRN PRN Reason: Nausea And Vomiting Oxycodone/Acetaminophen (Percocet 5/325) 1 tab PO Q6H PRN PRN Reason: Pain, Moderate (4-6) Last Admin: 08/28/18 17:20 Dose: 1 tab Documented by: Potassium Chloride (Potassium Chloride) 40 meq FEEDTUBE Q6H [facility] Stop: 08/29/18 15:01 Simple Syrup (Simple Syrup) 15 ml FEEDTUBE PRN PRN PRN Reason: Hypoglycemia Simple Syrup (Simple Syrup) 30 ml FEEDTUBE PRN PRN PRN Reason: Hypoglycemia Sodium Bicarbonate (Sodium Bicarbonate) 325 mg FEEDTUBE PRN PRN PRN Reason: For Clogged Feeding Tube Last Admin: 08/28/18 22:00 Dose: 325 mg Documented by: Sodium Chloride (Sodium Chloride Flush Syringe 10 Ml) 10 ml IV BID [facility] Last Admin: 08/28/18 21:03 Dose: 10 ml Documented by: Sodium Chloride (Sodium Chloride Flush Syringe 10 Ml) 10 ml IV PRN PRN PRN Reason: LINE FLUSH Physical Examination - Physical Exam Narrative exam: General appearance: alert non verbal in NAD Eyes: anicteric sclerae, moist conjunctivae; no lid-lag; PERRLA HENT: Atraumatic; oropharynx clear with moist mucous membranes and no mucosal ulcerations/no oral thrush; normal hard and soft palate. Normal external ears. Neck: Trachea midline; supple, no thyromegaly or lymphadenopathy Lungs: CTA, with normal respiratory effort and no intercostal retractions CV: RRR no murmur Abdomen: Soft, non-tender; +PEG +Pedro Luis ATTEND[employer] tube Extremities: no edema, cyanosis Skin: Normal temperature, turgor and texture; no rash, ulcers or subcutaneous nodules Psych: no agitated Neuro: alert no agitated - Constitutional Vitals: Vital Signs Temp Pulse Resp BP Pulse Ox 97.7 F 69 16 105/62 99 08/29/18 05:35 08/29/18 05:35 08/29/18 05:35 08/29/18 05:35 08/29/18 05:35 Temperature -Last 24 Hours Temperature 97.7 F Temperature 97.9 F Temperature 98.2 F Temperature 97.8 F Results - Labs CBC & Chem 7: 08/28/18 Unknown 08/29/18 Unknown Labs: Abnormal lab results 08/28/18 08/29/18 Range/Units Unknown Unknown Potassium 3.1 L (3.6-5.0) mmol/L Chloride 109.2 H (98-107) mmol/L BUN 29 H (7-17) mg/dL Glucose 114 H (65-100) mg/dL Calcium 11.6 H (8.4-10.2) mg/dL Phosphorus 6.80 H (2.5-4.5) mg/dL Assessment and Plan Cultures: Blood cultures 08/26/2018 Pseudomonas aeruginosa 4 of 4 bottles. Urine culture 08/26/2018 10-100K multiple sp. Urine culture from right ATTEND[employer] tube 08/27/2018 Pseudomonas and E faecium. Urine culture from left ATTEND[employer] tube 08/27/2018 GNR and Enterocccus. 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 Etiology most likely complicated UTI. 2) Complicated UTI with bilateral nephrostomy tubes and kidney stones: due to Pseudomonas and E faecium. UA with 139 wbc, large LE. Blood cultures 08/26/2018 Pseudomonas aeruginosa 4 of 4 bottles. Urine culture 08/26/2018 10-100K multiple sp. Patient was found septic with right-sided nephrostomy tube dislodgment and left-sided nephrostomy tube with some jordi-tract drainage. CT showed moderate right hydronephrosis, bilateral renal calculi, right renal collecting system gravel-like renal calculi, colonic distention, bilateral infiltrate with RLL consolidation. Patient taken to the OR on 08/27/2018 underwent Fl-guided right ATTEND[employer] tube insertion and left NT exchange. Urine culture from right ATTENDANT C[employer] tube 08/27/2018 Pseudomonas and E faecium. Urine culture from left ATTEND[employer] tube 08/27/2018 GNR and Enterocccus. ID consulted to [facility] sepsis. 3) Pseudomonas bacteremia: from UTI. Blood cultures 08/26/2018 Pseudomonas aeruginosa 4 of 4 bottles. 4) Hypernatremia/hypercalcemia Recommendations: - follow-up blood cultures, urine culture - stop ceftriaxone - start cefepime 2gm IV q8 hour - start vancomycin with PK consult - she will prob need IV antibiotics for 3 weeks Will follow. Sarah Ojeda MD Infectious Diseases [employer] [facility] M [phone] O [phone]
[2018-08-29] MEDS: POTASSIUM CHLORIDE FEEDTUBE SCH ×2 (09:55→20:28)
[2018-08-29] MEDS: ROCEPHIN/NS 1 GM/50 ML 1 GM/50 ML BAG IV SCH (09:56)
[2018-08-29] MEDS: SODIUM CHLORIDE FLUSH SYRINGE 10 ML IV SCH ×2 (10:02→23:43)
[2018-08-29] MEDS: KCL 10MEQ/100ML 10 MEQ/100 ML BAG IV SCH ×2 (10:37→12:08)
--- NOTE | 2018-08-29 14:05 | Progress Note ---
Assessment and Plan Assessment and plan: Sepsis. Follow-up blood and urine cultures. Continue IV antibiotics. Serial lactic acid levels. UTI. Follow-up cultures as noted above. Continue IV antibiotics. Nephrostomy tube dislodged. IR consulted, s/p replaced Hypercalcemia. Improved Will get Ct Chest Nephrology following Hypernatremia Improving Na 145 today Hypokalemia Improving. Give more Potassium and recheck Severe protein calorie malnutrition. Continue tube feedings per dietitian. Chronic encephalopathy s/p TBI. Supportive care. Debility. Mobility protocols for pressure ulcer prophylaxis. History Interval history: Patient is nonverbal, was brought to ED for dislodged nephrostomy tube Hospitalist Physical - Physical exam Narrative exam: Gen: Not in acute distress, lying in bed, malnourished HEENT: Normocephalic, atraumatic Neck: supple, no JVD Heart: S1 and S2 reg, no murmurs, rubs or gallop Lungs: Clear, no crackles, no wheeze Abd: soft, non tender, non distended, normal BS Ext: No edema, no clubbing, no cyanosis, Neuro: Non verbal, - Constitutional Vitals: Temp Pulse Resp BP Pulse Ox 97.7 F 93 H 22 95/62 97 08/29/18 11:38 08/29/18 11:38 08/29/18 11:38 08/29/18 11:38 08/29/18 11:38 General appearance: Present: no acute distress Results - Labs CBC & Chem 7: 08/28/18 Unknown 08/29/18 Unknown Labs: Laboratory Last Values WBC 14.1 K/mm3 (4.5-11.0) H 08/28/18 Unknown RBC 3.16 M/mm3 (3.65-5.03) L 08/28/18 Unknown Hgb 9.6 gm/dl (10.1-14.3) L 08/28/18 Unknown Hct 30.0 % (30.3-42.9) L 08/28/18 Unknown MCV 95 fl (79-97) 08/28/18 Unknown MCH 30 pg (28-32) 08/28/18 Unknown MCHC 32 % (30-34) 08/28/18 Unknown RDW 17.3 % (13.2-15.2) H 08/28/18 Unknown Plt Count 288 K/mm3 (140-440) 08/28/18 Unknown Lymph % (Auto) 12.8 % (13.4-35.0) L 08/28/18 Unknown [place] % (Auto) 6.9 % (0.0-7.3) 08/28/18 Unknown Eos % (Auto) 0.2 % (0.0-4.3) 08/28/18 Unknown Baso % (Auto) 0.1 % (0.0-1.8) 08/28/18 Unknown Lymph # 1.8 K/mm3 (1.2-5.4) 08/28/18 Unknown [place] # 1.0 K/mm3 (0.0-0.8) H 08/28/18 Unknown Eos # 0.0 K/mm3 (0.0-0.4) 08/28/18 Unknown Baso # 0.0 K/mm3 (0.0-0.1) 08/28/18 Unknown Add Manual Diff Complete 08/26/18 15:02 Total Counted 100 08/26/18 15:02 Seg Neutrophils % 80.0 % (40.0-70.0) H 08/28/18 Unknown Seg Neuts % (Manual) 59.0 % (40.0-70.0) 08/26/18 15:02 30.0 % 08/26/18 15:02 5.0 % (13.4-35.0) L 08/26/18 15:02 Reactive Lymphs % (Man) 0 % 08/26/18 15:02 5.0 % (0.0-7.3) 08/26/18 15:02 1.0 % (0.0-4.3) 08/26/18 15:02 0 % (0.0-1.8) 08/26/18 15:02 0 % 08/26/18 15:02 0 % 08/26/18 15:02 0 % 08/26/18 15:02 0 % 08/26/18 15:02 Nucleated RBC % Not Reportable 08/26/18 15:02 Seg Neutrophils # 11.3 K/mm3 (1.8-7.7) H 08/28/18 Unknown Seg Neutrophils # Man 9.3 K/mm3 (1.8-7.7) H 08/26/18 15:02 Band Neutrophils # 4.7 K/mm3 08/26/18 15:02 0.8 K/mm3 (1.2-5.4) L 08/26/18 15:02 Abs React Lymphs (Man) 0.0 K/mm3 08/26/18 15:02 0.8 K/mm3 (0.0-0.8) 08/26/18 15:02 0.2 K/mm3 (0.0-0.4) 08/26/18 15:02 0.0 K/mm3 (0.0-0.1) 08/26/18 15:02 0.0 K/mm3 08/26/18 15:02 0.0 K/mm3 08/26/18 15:02 0.0 K/mm3 08/26/18 15:02 Blast Cells # 0.0 K/mm3 08/26/18 15:02 WBC Morphology Not Reportable 08/26/18 15:02 Hypersegmented Neuts Not Reportable 08/26/18 15:02 Hyposegmented Neuts Not Reportable 08/26/18 15:02 Hypogranular Neuts Not Reportable 08/26/18 15:02 Not Reportable 08/26/18 15:02 Not Reportable 08/26/18 15:02 Not Reportable 08/26/18 15:02 Not Reportable 08/26/18 15:02 Not Reportable 08/26/18 15:02 Not Reportable 08/26/18 15:02 Consistent w auto 08/26/18 15:02 Not Reportable 08/26/18 15:02 Plt Clumps, EDTA Not Reportable 08/26/18 15:02 Not Reportable 08/26/18 15:02 Not Reportable 08/26/18 15:02 Not Reportable 08/26/18 15:02 Plt Morphology Comment Not Reportable 08/26/18 15:02 RBC Morphology Not Reportable 08/26/18 15:02 Dimorphic RBCs Not Reportable 08/26/18 15:02 Few 08/26/18 15:02 1+ 08/26/18 15:02 Not Reportable 08/26/18 15:02 1+ 08/26/18 15:02 Not Reportable 08/26/18 15:02 Not Reportable 08/26/18 15:02 Not Reportable 08/26/18 15:02 Not Reportable 08/26/18 15:02 Not Reportable 08/26/18 15:02 Not Reportable 08/26/18 15:02 Not Reportable 08/26/18 15:02 Not Reportable 08/26/18 15:02 Few 08/26/18 15:02 Not Reportable 08/26/18 15:02 Not Reportable 08/26/18 15:02 Not Reportable 08/26/18 15:02 Not Reportable 08/26/18 15:02 Not Reportable 08/26/18 15:02 Not Reportable 08/26/18 15:02 Not Reportable 08/26/18 15:02 Acanthocytes (Spur) Not Reportable 08/26/18 15:02 Rouleaux Not Reportable 08/26/18 15:02 Not Reportable 08/26/18 15:02 Not Reportable 08/26/18 15:02 Not Reportable 08/26/18 15:02 Not Reportable 08/26/18 15:02 Hem Pathologist Commnt No 08/26/18 15:02 Sodium 145 mmol/L (137-145) 08/29/18 Unknown Potassium 3.1 mmol/L (3.6-5.0) L 08/29/18 Unknown Chloride 109.2 mmol/L (98-107) H 08/29/18 Unknown Carbon Dioxide 26 mmol/L (22-30) 08/29/18 Unknown 13 mmol/L 08/29/18 Unknown BUN 29 mg/dL (7-17) H 08/29/18 Unknown 0.9 mg/dL (0.7-1.2) 08/29/18 Unknown Estimated GFR > 60 ml/min 08/29/18 Unknown 32 % 08/29/18 Unknown Glucose 114 mg/dL (65-100) H 08/29/18 Unknown Calcium 11.6 mg/dL (8.4-10.2) H 08/29/18 Unknown Phosphorus 3.30 mg/dL (2.5-4.5) D 08/29/18 Unknown Magnesium 2.20 mg/dL (1.7-2.3) 08/28/18 Unknown 0.20 mg/dL (0.1-1.2) 08/27/18 06:11 AST 20 units/L (5-40) 08/27/18 06:11 ALT 36 units/L (7-56) 08/27/18 06:11 140 units/L (35-129) H 08/27/18 06:11 7.4 g/dL (6.3-8.2) 08/27/18 06:11 2.4 g/dL (3.9-5) L 08/27/18 06:11 0.5 % 08/27/18 06:11 PTH Intact 17.01 pg/mL (15-65) 08/29/18 Unknown Yellow (Yellow) 08/26/18 Unknown Cloudy (Clear) 08/26/18 Unknown 8.0 (5.0-7.0) H 08/26/18 Unknown Ur Specific [place] 1.012 (1.003-1.030) 08/26/18 Unknown 30 mg/dl mg/dL (Negative) 08/26/18 Unknown Neg mg/dL (Negative) 08/26/18 Unknown Neg mg/dL (Negative) 08/26/18 Unknown Lg (Negative) 08/26/18 Unknown Neg (Negative) 08/26/18 Unknown Neg (Negative) 08/26/18 Unknown < 2.0 mg/dL (<2.0) 08/26/18 Unknown Ur Leukocyte Esterase Lg (Negative) 08/26/18 Unknown 139.0 /HPF (0.0-6.0) H 08/26/18 Unknown 173.0 /HPF (0.0-6.0) 08/26/18 Unknown U Epithel Cells (Auto) 2.0 /HPF (0-13.0) 08/26/18 Unknown 1+ /HPF (Negative) 08/26/18 Unknown 2+ /HPF 08/26/18 Unknown Calcium Oxalate Crystal 1+ 08/26/18 Unknown Few /HPF 08/26/18 Unknown 2+ /HPF 08/26/18 Unknown Active Medications - Current Medications Current Medications: Generic Name Dose Route Start Last Admin Trade Name Freq PRN Reason Stop Dose Admin Acetaminophen 650 mg 08/26/18 17:51 Tylenol PO Q4H PRN Pain MILD(1-3)/Fever >100.5/RENEE Albuterol 2.5 mg 08/26/18 17:51 Proventil IH Q4HRT PRN Shortness Of Breath Lipase/Protease/Amylase 1 each 08/27/18 17:23 08/28/18 22:00 Bertha Henry 10,500 Unit FEEDTUBE 1 each PRN PRN Administration For Clogged Feeding Tube Enoxaparin Sodium 40 mg 08/26/18 22:00 08/28/18 21:03 Lovenox SUB-Q 40 mg QDAY@2200 ANU Administration Sodium Chloride 1,000 mls @ 125 mls/hr 08/26/18 18:00 08/29/18 05:05 Nacl 0.45% 1000 Ml IV 125 mls/hr DIRECT ANU Administration Ceftriaxone Sodium 1 gm in 50 mls @ 100 mls/hr 08/27/18 10:00 08/29/18 09:56 Rocephin/Ns 1 Gm/50 Ml IV 100 mls/hr Q24HR ANU Administration Protocol Ondansetron HCl 4 mg 08/26/18 17:51 Zofran IV Q8H PRN Nausea And Vomiting Oxycodone/Acetaminophen 1 tab 08/26/18 17:51 08/28/18 17:20 Percocet 5/325 PO 1 tab Q6H PRN Administration Pain, Moderate (4-6) Potassium Chloride 40 meq 08/29/18 09:00 08/29/18 09:55 Potassium Chloride FEEDTUBE 08/29/18 15:01 40 meq Q6H ANU Administration Simple Syrup 15 ml 08/27/18 17:23 Simple Syrup FEEDTUBE PRN PRN Hypoglycemia Simple Syrup 30 ml 08/27/18 17:23 Simple Syrup FEEDTUBE PRN PRN Hypoglycemia Sodium Bicarbonate 325 mg 08/27/18 17:23 08/28/18 22:00 Sodium Bicarbonate FEEDTUBE 325 mg PRN PRN Administration For Clogged Feeding Tube Sodium Chloride 10 ml 08/26/18 22:00 08/29/18 10:02 Sodium Chloride Flush Syringe 10 Ml IV Not Given BID ANU Sodium Chloride 10 ml 08/26/18 17:51 Sodium Chloride Flush Syringe 10 Ml IV PRN PRN LINE FLUSH Nutrition/Malnutrition Assess - Dietary Evaluation Nutrition/Malnutrition Findings: Nutrition Notes Start: 08/27/18 17:13 Freq: Status: Active Protocol: Document 08/27/18 17:13 RM (Rec: 08/27/18 17:23 RM [id number]) Nutrition Notes Need for Assessment generated from: MD Order Initial or Follow up Assessment Current Diagnosis Sepsis Other Pertinent Diagnosis G tube, Dysphagia, Nonverbal, SIRS, UTI, Neprostomy tube displace Current Diet NPO Labs/Tests Na 153 Pertinent Medications Reviewed Height 5 ft 5 in Weight 48.2 kg [place] Body Weight (kg) 56.81 BMI 17.6 Subjective/Other Information Consulted for Tf recommendation. Noted temporal wasting. From NH. Burn Absent Trauma Absent #1 Nutrition Diagnosis Malnutrition Etiology unknown As Evidenced by Signs and Symptoms temporal wasting, BMI 17.7 Is patient on ventilator? No Is Patient Ambulatory and/or Out of Bed No REE-([facility]-confined to bed) 1345.380 Kcal/Kg value to use for calculation 38 Approximate Energy Requirements Using 1832 kcal/Kg Calculation Used for Recommendations Kcal/kg Additional Notes Protein Needs: 72-82g (1.5-1. 7g/kg) Fluid Needs: 1 ml/kcal Nutrition Intervention Nutrition Support: Jevity 1.2 at 65 ml/hr. Water flush of 100 mls q 4 hrs . Kcal 1,872 Protein (gm) 87 Fluid (mL) 1,259 Goal #1 TF tolerance Goal #2 Meet at least 75% of calorie and protein needs via TF Anticipated Discharge Needs: TF Follow-Up By: 08/29/18 Additional Comments Follow for new TF
[2018-08-29] MEDS ORDERED: POTASSIUM CHLORIDE FEEDTUBE ONE (18:48)
--- NOTE | 2018-08-29 20:31 | Progress Note ---
Assessment and Plan 1. Hypercalcemia: Likely due to volume depletion. Myeloma is a consideration. PTH level is low, rules out hyperparathyroidism. Continue IV fluids to correct volume depletion. Vitamin D level and SPEP pending. 2. Acute kidney injury: Vasomotor RUDI in the setting of volume depletion. Continue IV fluids. Renal function is improving. Monitor renal function. Avoid nephrotoxic agents. 3. FEN: Hypernatremia, improving with 1/2 NS. Replete K. Monitor lytes. 4. UTI. 5. Dysfunctional nephrostomy tubes: S/p new nephrostomy tubes. 6. Anemia. Subjective Date of service: 08/29/18 Interval history: Patient was seen and examined at the bedside. Objective - Vital Signs Vital signs: Vital Signs - 12hr 08/29/18 08/29/18 11:38 17:33 Temperature 97.7 F 98.5 F Pulse Rate 93 H 89 Respiratory 22 20 Rate Blood Pressure 95/62 103/60 O2 Sat by Pulse 97 97 Oximetry - General Appearance General appearance: well-developed, appears stated age, other (no distress, emaciated) EENT: ATNC, PERRL Neck: other (Trachea midline) Respiratory: Present: Clear to Ascultation Cardiology: regular, S1S2, no murmurs Gastrointestinal: normoactive bowel sounds, no tenderness, no distended, other (PEG tube noted) Integumentary: no rash Neurologic: other (alert, tarcking with eyes, non-verbal, not following any command) Musculoskeletal: other (muscular atrophy noted, no edema) - Lab 08/28/18 Unknown 08/29/18 Unknown Most recent lab results Calcium 11.6 mg/dL (8.4-10.2) H 08/29/18 Unknown Phosphorus 3.30 mg/dL (2.5-4.5) D 08/29/18 Unknown Magnesium 2.20 mg/dL (1.7-2.3) 08/28/18 Unknown Medications & Allergies - Medications Allergies/Adverse Reactions: Allergies No Known Allergies Allergy (Unverified 08/26/18 14:14) Active Medications: Generic Name Dose Route Start Last Admin Trade Name Freq PRN Reason Stop Dose Admin Acetaminophen 650 mg 08/26/18 17:51 Tylenol PO Q4H PRN Pain MILD(1-3)/Fever >100.5/RENEE Albuterol 2.5 mg 08/26/18 17:51 Proventil IH Q4HRT PRN Shortness Of Breath Lipase/Protease/Amylase 1 each 08/27/18 17:23 08/28/18 22:00 Bertha Henry 10,500 Unit FEEDTUBE 1 each PRN PRN Administration For Clogged Feeding Tube Enoxaparin Sodium 40 mg 08/26/18 22:00 08/28/18 21:03 Lovenox SUB-Q 40 mg QDAY@2200 ANU Administration Sodium Chloride 1,000 mls @ 125 mls/hr 08/26/18 18:00 08/29/18 05:05 Nacl 0.45% 1000 Ml IV 125 mls/hr DIRECT ANU Administration Ceftriaxone Sodium 1 gm in 50 mls @ 100 mls/hr 08/27/18 10:00 08/29/18 09:56 Rocephin/Ns 1 Gm/50 Ml IV 100 mls/hr Q24HR ANU Administration Protocol Ondansetron HCl 4 mg 08/26/18 17:51 Zofran IV Q8H PRN Nausea And Vomiting Oxycodone/Acetaminophen 1 tab 08/26/18 17:51 08/28/18 17:20 Percocet 5/325 PO 1 tab Q6H PRN Administration Pain, Moderate (4-6) Simple Syrup 15 ml 08/27/18 17:23 Simple Syrup FEEDTUBE PRN PRN Hypoglycemia Simple Syrup 30 ml 08/27/18 17:23 Simple Syrup FEEDTUBE PRN PRN Hypoglycemia Sodium Bicarbonate 325 mg 08/27/18 17:23 08/28/18 22:00 Sodium Bicarbonate FEEDTUBE 325 mg PRN PRN Administration For Clogged Feeding Tube Sodium Chloride 10 ml 08/26/18 22:00 08/29/18 10:02 Sodium Chloride Flush Syringe 10 Ml IV Not Given BID ANU Sodium Chloride 10 ml 08/26/18 17:51 Sodium Chloride Flush Syringe 10 Ml IV PRN PRN LINE FLUSH
[2018-08-29] MEDS ORDERED: .VANCOMYCIN VIAL 1,000 MG in NACL 0.9% 100 ML IV ONE (21:30)
[2018-08-29] MEDS ORDERED: VANCOMYCIN/NS 1 GM/250 ML 1 GM/250 ML BAG IV ONE (22:00)
[2018-08-29] MEDS: MAXIPIME/NS 2 GM/100 ML 2 GM/100 ML BAG IV SCH (22:42)
[2018-08-29] MEDS: LOVENOX SUB-Q SCH (23:40)
[2018-08-29] MEDS: TYLENOL PO PRN (23:47)
[2018-08-30] MEDS: MAXIPIME/NS 2 GM/100 ML 2 GM/100 ML BAG IV SCH ×3 (05:20→22:25)
[2018-08-30] MEDS: VANCOMYCIN 750 MG in NACL 0.9% 250ML 250 ML IV SCH ×2 (08:28→22:25)
--- NOTE | 2018-08-30 09:28 | Progress Note ---
Assessment and Plan 1. Hypercalcemia: Likely due to volume depletion. Myeloma is a consideration. PTH level is low, rules out hyperparathyroidism. Continue IV fluids to correct volume depletion. Calcium level is improving. Vitamin D level and SPEP pending. 2. Acute kidney injury: Vasomotor RUDI in the setting of volume depletion. Continue IV fluids. Renal function is improving. Monitor renal function. Avoid nephrotoxic agents. 3. FEN: Hypernatremia, improved. Monitor lytes. 4. Severe sepsis: UTI. 5. Dysfunctional nephrostomy tubes: S/p new nephrostomy tubes. 6. Bilateral PE. 7. Anemia. Subjective Date of service: 08/30/18 Interval history: Patient was seen and examined at the bedside. Objective - Vital Signs Vital signs: Vital Signs - 12hr 08/29/18 08/29/18 08/30/18 21:41 22:00 00:14 Temperature 98.0 F Pulse Rate 79 Respiratory 18 12 Rate Blood Pressure 117/62 O2 Sat by Pulse 97 98 Oximetry 08/30/18 08/30/18 05:14 08:50 Temperature 97.6 F Pulse Rate 69 Respiratory 16 Rate Blood Pressure 132/67 O2 Sat by Pulse 97 97 Oximetry - General Appearance General appearance: well-developed, appears stated age, other (no distress, emaciated) EENT: ATNC, PERRL Neck: supple Respiratory: Present: Clear to Ascultation Cardiology: regular, S1S2, no murmurs Gastrointestinal: normoactive bowel sounds, no tenderness, no distended, other (PEG tube noted) Integumentary: no rash Neurologic: other (tracking with eyes, non-verbal, not following any command) Musculoskeletal: other (no edema) - Lab 08/30/18 Unknown 08/30/18 Unknown Most recent lab results Calcium 11.6 mg/dL (8.4-10.2) H 08/29/18 Unknown Phosphorus 3.30 mg/dL (2.5-4.5) D 08/29/18 Unknown Magnesium 2.20 mg/dL (1.7-2.3) 08/28/18 Unknown Medications & Allergies - Medications Allergies/Adverse Reactions: Allergies No Known Allergies Allergy (Unverified 08/26/18 14:14) Active Medications: Generic Name Dose Route Start Last Admin Trade Name Freq PRN Reason Stop Dose Admin Acetaminophen 650 mg 08/26/18 17:51 08/29/18 23:47 Tylenol PO 650 mg Q4H PRN Administration Pain MILD(1-3)/Fever >100.5/RENEE Albuterol 2.5 mg 08/26/18 17:51 Proventil IH Q4HRT PRN Shortness Of Breath Lipase/Protease/Amylase 1 each 08/27/18 17:23 08/28/18 22:00 Bertha Henry 10,500 Unit FEEDTUBE 1 each PRN PRN Administration For Clogged Feeding Tube Enoxaparin Sodium 40 mg 08/26/18 22:00 08/29/18 23:40 Lovenox SUB-Q 40 mg QDAY@2200 ANU Administration Sodium Chloride 1,000 mls @ 125 mls/hr 08/26/18 18:00 08/29/18 23:39 Nacl 0.45% 1000 Ml IV 125 mls/hr DIRECT ANU Administration Cefepime HCl 2 gm in 100 mls @ 200 mls/hr 08/29/18 22:00 08/30/18 06:42 Maxipime/Ns 2 Gm/100 Ml IV Infused Q8HR ANU Infusion Protocol Vancomycin HCl 750 mg/ Sodium 265 mls @ 166.667 mls/hr 08/30/18 09:00 08/30/18 08:28 Chloride IV 166.667 mls/hr Q12H ANU Administration Ondansetron HCl 4 mg 08/26/18 17:51 Zofran IV Q8H PRN Nausea And Vomiting Oxycodone/Acetaminophen 1 tab 08/26/18 17:51 08/28/18 17:20 Percocet 5/325 PO 1 tab Q6H PRN Administration Pain, Moderate (4-6) Simple Syrup 15 ml 08/27/18 17:23 Simple Syrup FEEDTUBE PRN PRN Hypoglycemia Simple Syrup 30 ml 08/27/18 17:23 Simple Syrup FEEDTUBE PRN PRN Hypoglycemia Sodium Bicarbonate 325 mg 08/27/18 17:23 08/28/18 22:00 Sodium Bicarbonate FEEDTUBE 325 mg PRN PRN Administration For Clogged Feeding Tube Sodium Chloride 10 ml 08/26/18 22:00 08/29/18 23:43 Sodium Chloride Flush Syringe 10 Ml IV 10 ml BID ANU Administration Sodium Chloride 10 ml 08/26/18 17:51 Sodium Chloride Flush Syringe 10 Ml IV PRN PRN LINE FLUSH
--- NOTE | 2018-08-30 09:33 | Progress Note ---
Assessment and Plan Cultures: Blood cultures 08/26/2018 Pseudomonas aeruginosa 4 of 4 bottles. Urine culture 08/26/2018 10-100K multiple sp. Urine culture from right SENIOR INSPECTOR tube 08/27/2018 Pseudomonas and E faecium. Urine culture from left SENIOR INSPECTOR tube 08/27/2018 GNR and Enterocccus. 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 leukocytois continuing. Etiology most likely complicated UTI. 2) Complicated UTI with bilateral nephrostomy tubes and kidney stones: due to Pseudomonas and E faecium. UA with 139 wbc, large LE. Blood cultures 08/26/2018 Pseudomonas aeruginosa 4 of 4 bottles. Urine culture 08/26/2018 10-100K multiple sp. Patient was found septic with right-sided nephrostomy tube dislodgment and left-sided nephrostomy tube with some jordi-tract drainage. CT showed moderate right hydronephrosis, bilateral renal calculi, right renal collecting system gravel-like renal calculi, colonic distention, bilateral infiltrate with RLL consolidation. Patient taken to the OR on 08/27/2018 underwent Fl-guided right SENIOR INSPECTOR tube insertion and left NT exchange. Urine culture from right SENIOR INSPECTOR tube 08/27/2018 Pseudomonas and E faecium. Urine culture from left SENIOR INSPECTOR tube 08/27/2018 GNR and Enterocccus. ID consulted to [place] sepsis. 3) Pseudomonas bacteremia: from UTI. Blood cultures 08/26/2018 Pseudomonas aeruginosa 4 of 4 bottles. 4) Hypernatremia/hypercalcemia Recommendations: - follow-up blood cultures, urine culture - continue cefepime 2gm IV q8 hour, D2 - continue vancomycin with PK consult , D2 - she will prob need IV antibiotics for 3 weeks [facility] M: [phone] O:[phone] Subjective Date of service: 08/30/18 Interval history: Patient seen and examined. No acute distress observed. nonverbal. Objective - Exam Narrative Exam: General appearance: alert non verbal in NAD Eyes: anicteric sclerae, moist conjunctivae; no lid-lag; PERRLA HENT: Atraumatic; oropharynx clear with moist mucous membranes and no mucosal ulcerations/no oral thrush; normal hard and soft palate. Normal external ears. Neck: Trachea midline; supple, no thyromegaly or lymphadenopathy Lungs: CTA, with normal respiratory effort and no intercostal retractions CV: RRR no murmur Abdomen: Soft, non-tender; +PEG +Pedro Luis SENIOR INSPECTOR tube Extremities: no edema, cyanosis Skin: Normal temperature, turgor and texture; no rash, ulcers or subcutaneous nodules Psych: no agitated Neuro: alert no agitated - Constitutional Vitals: Vital Signs Temp Pulse Resp BP Pulse Ox 97.6 F 69 16 132/67 97 08/30/18 05:14 08/30/18 05:14 08/30/18 05:14 08/30/18 05:14 08/30/18 08:50 Temperature -Last 24 Hours Temperature 97.6 F Temperature 98.0 F Temperature 98.5 F Temperature 97.7 F - Labs CBC & Chem 7: 08/30/18 Unknown 08/30/18 Unknown
[2018-08-30 09:57] LABS: Hematocrit 34.7 % (30.3-42.9); Hemoglobin 11.6 gm/dl (10.1-14.3); Mean Corpuscular HGB Conc 33 % (30-34); Mean Corpuscular Volume 93 fl (79-97); Platelet Count 293 K/mm3 (140-440); Red Blood Count 3.72 M/mm3 (3.65-5.03); Red Cell Distribution Width 17.4 % (13.2-15.2)
[2018-08-30 10:13] LABS: BUN/Creatinine Ratio 33; Blood Urea Nitrogen 23 mg/dL (7-17); Calcium 11.4 mg/dL (8.4-10.2); Hemolysis Index 10
--- NOTE | 2018-08-30 11:09 | Progress Note ---
Assessment and Plan Assessment and plan: Sepsis. Blood cultures positive Pseudomonas aeruginosa. Continue IV Cefepime as per ID Bilateral pneumonia. cont Cefepime UTI pseudomonas aeruginosa and enterococcus faecium. Continue IV antibiotics. Nephrostomy tube dislodged. IR consulted, s/p replaced Hypercalcemia. Improved Will get CT Chest to r/o malignancy Nephrology following Hypernatremia Improving Na 141 today Hypokalemia Improving. Give more Potassium and recheck Severe protein calorie malnutrition. Continue tube feedings per dietitian. Chronic encephalopathy s/p TBI. Supportive care. Debility. Mobility protocols for pressure ulcer prophylaxis. History Interval history: Patient is nonverbal, was brought to ED for dislodged nephrostomy tube, exchanged fever , now resolved Hospitalist Physical - Physical exam Narrative exam: Gen: Not in acute distress, lying in bed, malnourished HEENT: Normocephalic, atraumatic Neck: supple, no JVD Heart: S1 and S2 reg, no murmurs, rubs or gallop Lungs: Clear, no crackles, no wheeze Abd: soft, non tender, non distended, normal BS Ext: No edema, no clubbing, no cyanosis, Neuro: Non verbal, - Constitutional Vitals: Temp Pulse Resp BP Pulse Ox 97.6 F 69 16 132/67 97 08/30/18 05:14 08/30/18 05:14 08/30/18 05:14 08/30/18 05:14 08/30/18 08:50 General appearance: Present: no acute distress Results - Labs CBC & Chem 7: 08/30/18 Unknown 08/30/18 Unknown Labs: Laboratory Last Values WBC 10.7 K/mm3 (4.5-11.0) 08/30/18 Unknown RBC 3.72 M/mm3 (3.65-5.03) 08/30/18 Unknown Hgb 11.6 gm/dl (10.1-14.3) 08/30/18 Unknown Hct 34.7 % (30.3-42.9) 08/30/18 Unknown MCV 93 fl (79-97) 08/30/18 Unknown MCH 31 pg (28-32) 08/30/18 Unknown MCHC 33 % (30-34) 08/30/18 Unknown RDW 17.4 % (13.2-15.2) H 08/30/18 Unknown Plt Count 293 K/mm3 (140-440) 08/30/18 Unknown Lymph % (Auto) 12.8 % (13.4-35.0) L 08/28/18 Unknown [place] % (Auto) 6.9 % (0.0-7.3) 08/28/18 Unknown Eos % (Auto) 0.2 % (0.0-4.3) 08/28/18 Unknown Baso % (Auto) 0.1 % (0.0-1.8) 08/28/18 Unknown Lymph # 1.8 K/mm3 (1.2-5.4) 08/28/18 Unknown [place] # 1.0 K/mm3 (0.0-0.8) H 08/28/18 Unknown Eos # 0.0 K/mm3 (0.0-0.4) 08/28/18 Unknown Baso # 0.0 K/mm3 (0.0-0.1) 08/28/18 Unknown Add Manual Diff Complete 08/26/18 15:02 Total Counted 100 08/26/18 15:02 Seg Neutrophils % 80.0 % (40.0-70.0) H 08/28/18 Unknown Seg Neuts % (Manual) 59.0 % (40.0-70.0) 08/26/18 15:02 30.0 % 08/26/18 15:02 5.0 % (13.4-35.0) L 08/26/18 15:02 Reactive Lymphs % (Man) 0 % 08/26/18 15:02 5.0 % (0.0-7.3) 08/26/18 15:02 1.0 % (0.0-4.3) 08/26/18 15:02 0 % (0.0-1.8) 08/26/18 15:02 0 % 08/26/18 15:02 0 % 08/26/18 15:02 0 % 08/26/18 15:02 0 % 08/26/18 15:02 Nucleated RBC % Not Reportable 08/26/18 15:02 Seg Neutrophils # 11.3 K/mm3 (1.8-7.7) H 08/28/18 Unknown Seg Neutrophils # Man 9.3 K/mm3 (1.8-7.7) H 08/26/18 15:02 Band Neutrophils # 4.7 K/mm3 08/26/18 15:02 0.8 K/mm3 (1.2-5.4) L 08/26/18 15:02 Abs React Lymphs (Man) 0.0 K/mm3 08/26/18 15:02 0.8 K/mm3 (0.0-0.8) 08/26/18 15:02 0.2 K/mm3 (0.0-0.4) 08/26/18 15:02 0.0 K/mm3 (0.0-0.1) 08/26/18 15:02 0.0 K/mm3 08/26/18 15:02 0.0 K/mm3 08/26/18 15:02 0.0 K/mm3 08/26/18 15:02 Blast Cells # 0.0 K/mm3 08/26/18 15:02 WBC Morphology Not Reportable 08/26/18 15:02 Hypersegmented Neuts Not Reportable 08/26/18 15:02 Hyposegmented Neuts Not Reportable 08/26/18 15:02 Hypogranular Neuts Not Reportable 08/26/18 15:02 Not Reportable 08/26/18 15:02 Not Reportable 08/26/18 15:02 Not Reportable 08/26/18 15:02 Not Reportable 08/26/18 15:02 Not Reportable 08/26/18 15:02 Not Reportable 08/26/18 15:02 Consistent w auto 08/26/18 15:02 Not Reportable 08/26/18 15:02 Plt Clumps, EDTA Not Reportable 08/26/18 15:02 Not Reportable 08/26/18 15:02 Not Reportable 08/26/18 15:02 Not Reportable 08/26/18 15:02 Plt Morphology Comment Not Reportable 08/26/18 15:02 RBC Morphology Not Reportable 08/26/18 15:02 Dimorphic RBCs Not Reportable 08/26/18 15:02 Few 08/26/18 15:02 1+ 08/26/18 15:02 Not Reportable 08/26/18 15:02 1+ 08/26/18 15:02 Not Reportable 08/26/18 15:02 Not Reportable 08/26/18 15:02 Not Reportable 08/26/18 15:02 Not Reportable 08/26/18 15:02 Not Reportable 08/26/18 15:02 Not Reportable 08/26/18 15:02 Not Reportable 08/26/18 15:02 Not Reportable 08/26/18 15:02 Few 08/26/18 15:02 Not Reportable 08/26/18 15:02 Not Reportable 08/26/18 15:02 Not Reportable 08/26/18 15:02 Not Reportable 08/26/18 15:02 Not Reportable 08/26/18 15:02 Not Reportable 08/26/18 15:02 Not Reportable 08/26/18 15:02 Acanthocytes (Spur) Not Reportable 08/26/18 15:02 Rouleaux Not Reportable 08/26/18 15:02 Not Reportable 08/26/18 15:02 Not Reportable 08/26/18 15:02 Not Reportable 08/26/18 15:02 Not Reportable 08/26/18 15:02 Hem Pathologist Commnt No 08/26/18 15:02 Sodium 141 mmol/L (137-145) 08/30/18 Unknown Potassium 4.6 mmol/L (3.6-5.0) D 08/30/18 Unknown Chloride 107.0 mmol/L (98-107) 08/30/18 Unknown Carbon Dioxide 26 mmol/L (22-30) 08/30/18 Unknown 13 mmol/L 08/30/18 Unknown BUN 23 mg/dL (7-17) H 08/30/18 Unknown 0.7 mg/dL (0.7-1.2) 08/30/18 Unknown Estimated GFR > 60 ml/min 08/30/18 Unknown 33 % 08/30/18 Unknown Glucose 104 mg/dL (65-100) H 08/30/18 Unknown Calcium 11.4 mg/dL (8.4-10.2) H 08/30/18 Unknown Phosphorus 3.30 mg/dL (2.5-4.5) D 08/29/18 Unknown Magnesium 2.20 mg/dL (1.7-2.3) 08/28/18 Unknown 0.20 mg/dL (0.1-1.2) 08/27/18 06:11 AST 20 units/L (5-40) 08/27/18 06:11 ALT 36 units/L (7-56) 08/27/18 06:11 140 units/L (35-129) H 08/27/18 06:11 7.4 g/dL (6.3-8.2) 08/27/18 06:11 2.4 g/dL (3.9-5) L 08/27/18 06:11 0.5 % 08/27/18 06:11 PTH Intact 17.01 pg/mL (15-65) 08/29/18 Unknown Yellow (Yellow) 08/26/18 Unknown Cloudy (Clear) 08/26/18 Unknown 8.0 (5.0-7.0) H 08/26/18 Unknown Ur Specific [place] 1.012 (1.003-1.030) 08/26/18 Unknown 30 mg/dl mg/dL (Negative) 08/26/18 Unknown Neg mg/dL (Negative) 08/26/18 Unknown Neg mg/dL (Negative) 08/26/18 Unknown Lg (Negative) 08/26/18 Unknown Neg (Negative) 08/26/18 Unknown Neg (Negative) 08/26/18 Unknown < 2.0 mg/dL (<2.0) 08/26/18 Unknown Ur Leukocyte Esterase Lg (Negative) 08/26/18 Unknown 139.0 /HPF (0.0-6.0) H 08/26/18 Unknown 173.0 /HPF (0.0-6.0) 08/26/18 Unknown U Epithel Cells (Auto) 2.0 /HPF (0-13.0) 08/26/18 Unknown 1+ /HPF (Negative) 08/26/18 Unknown 2+ /HPF 08/26/18 Unknown Calcium Oxalate Crystal 1+ 08/26/18 Unknown Few /HPF 08/26/18 Unknown 2+ /HPF 08/26/18 Unknown Active Medications - Current Medications Current Medications: Generic Name Dose Route Start Last Admin Trade Name Freq PRN Reason Stop Dose Admin Acetaminophen 650 mg 08/26/18 17:51 08/29/18 23:47 Tylenol PO 650 mg Q4H PRN Administration Pain MILD(1-3)/Fever >100.5/RENEE Albuterol 2.5 mg 08/26/18 17:51 Proventil IH Q4HRT PRN Shortness Of Breath Lipase/Protease/Amylase 1 each 08/27/18 17:23 08/28/18 22:00 Pancrejossy Henry 10,500 Unit FEEDTUBE 1 each PRN PRN Administration For Clogged Feeding Tube Enoxaparin Sodium 40 mg 08/26/18 22:00 08/29/18 23:40 Lovenox SUB-Q 40 mg QDAY@2200 ANU Administration Sodium Chloride 1,000 mls @ 125 mls/hr 08/26/18 18:00 08/29/18 23:39 Nacl 0.45% 1000 Ml IV 125 mls/hr DIRECT ANU Administration Cefepime HCl 2 gm in 100 mls @ 200 mls/hr 08/29/18 22:00 08/30/18 06:42 Maxipime/Ns 2 Gm/100 Ml IV Infused Q8HR ANU Infusion Protocol Vancomycin HCl 750 mg/ Sodium 265 mls @ 166.667 mls/hr 08/30/18 09:00 08/30/18 08:28 Chloride IV 166.667 mls/hr Q12H ANU Administration Ondansetron HCl 4 mg 08/26/18 17:51 Zofran IV Q8H PRN Nausea And Vomiting Oxycodone/Acetaminophen 1 tab 08/26/18 17:51 08/28/18 17:20 Percocet 5/325 PO 1 tab Q6H PRN Administration Pain, Moderate (4-6) Simple Syrup 15 ml 08/27/18 17:23 Simple Syrup FEEDTUBE PRN PRN Hypoglycemia Simple Syrup 30 ml 08/27/18 17:23 Simple Syrup FEEDTUBE PRN PRN Hypoglycemia Sodium Bicarbonate 325 mg 08/27/18 17:23 08/28/18 22:00 Sodium Bicarbonate FEEDTUBE 325 mg PRN PRN Administration For Clogged Feeding Tube Sodium Chloride 10 ml 08/26/18 22:00 08/29/18 23:43 Sodium Chloride Flush Syringe 10 Ml IV 10 ml BID ANU Administration Sodium Chloride 10 ml 08/26/18 17:51 Sodium Chloride Flush Syringe 10 Ml IV PRN PRN LINE FLUSH Nutrition/Malnutrition Assess - Dietary Evaluation Nutrition/Malnutrition Findings: Nutrition Notes Start: 08/27/18 17:13 Freq: Status: Active Protocol: Document 08/29/18 17:05 (Rec: 08/29/18 17:08 RM [id number]) Nutrition Notes Initial or Follow up Reassessment Current Diagnosis Sepsis Other Pertinent Diagnosis G tube, Dysphagia, Nonverbal, SIRS, UTI, Neprostomy tube displace Current Diet Jevity 1.2 at 65 ml/hr Labs/Tests Reviewed Pertinent Medications Ceftriaxone Height 5 ft 5 in Weight 49 kg White Body Weight (kg) 56.81 BMI 17.9 Subjective/Other Information Observed Jevity 1.2 infusing at goal rate. Per nurse pt has been having loose stools but has been tolerating TF. Pushcart Peddler stated that loose stools were likely result of antibiotics Burn Absent Trauma Absent #1 Nutrition Diagnosis Malnutrition Diagnosis Progress(for reassessment Continues documentation) Is patient on ventilator? No Is Patient Ambulatory and/or Out of Bed No REE-([facility]-confined to bed) 1354.980 Kcal/Kg value to use for calculation 38 Approximate Energy Requirements Using 1862 kcal/Kg Calculation Used for Recommendations Kcal/kg Additional Notes Protein Needs: 72-82g (1.5-1. 7g/kg) Fluid Needs: 1 ml/kcal Nutrition Intervention Nutrition Support: Jevity 1.2 at 65 ml/hr. Water flush of 100 mls q 4 hrs . Kcal 1,872 Protein (gm) 87 Fluid (mL) 1,259 Goal #1 TF tolerance Goal #2 Meet at least 75% of calorie and protein needs via TF Anticipated Discharge Needs: Jevity 1.2 Follow-Up By: 09/05/18 Additional Comments Follow for TF tolerance
[2018-08-30] MEDS: SODIUM CHLORIDE FLUSH SYRINGE 10 ML IV SCH ×2 (15:03→23:05)
[2018-08-30] MEDS: NACL 0.45% 1000 ML 1,000 ML IV SCH (15:39)
--- NOTE | 2018-08-30 17:04 | Cat Scan Report ---
PROCEDURE: CT CHEST W CON TECHNIQUE: Computerized axial tomography of the chest was performed during the IV injection of iodin ated nonionic contrast. CT DOSE LENGTH PRODUCT: 472.6 mGycm HISTORY: Hypercalcemia COMPARISONS: None . FINDINGS: Heart and pericardium: Normal. Thoracic aorta: Scattered atheromatous calcifications. Conventional branching pattern of the aortic arch. Pulmonary vasculature: There is a saddle embolus. There are multiple filling defects in the distal ma in and right left pulmonary arteries with extension to branches of all lobes of the lung. Lymph nodes: No enlarged thoracic lymph nodes. Lungs: Area of consolidation in the right lower lobe. Scattered peribronchovascular groundglass opac ities in the right upper lobe and bilateral lower lobes. Some areas demonstrate internal cavitation ( for example an area in the right upper lobe, series 2, image 55) . Pleural space: No effusion, thickening, or pneumothorax. Musculoskeletal structures: No suspicious osseous lesions. No acute fracture or dislocation. Multile jacque degenerative changes of the spine.. Upper abdominal structures: Mild bilateral hydronephrosis. Proximal aspect of the bilateral ureteral stents are visualized. IMPRESSION: Extensive pulmonary emboli including large saddle embolus with smaller emboli to arterial branches of all lobes of the lung. Peribronchovascular groundglass opacities in the right upper lobe and bilateral lower lobes. Some of these areas demonstrate internal cavitation. More focal area of consolidation in the right lower lobe . While this airspace disease may reflect sequela from pulmonary emboli, the areas of cavitation and peribronchovascular distribution. The possibility of infection (including atypical infection such as fungus) or inflammation. Findings were discussed with LATOYA Kulkarni at 4:57 PM, Eastern standard time, on 08/30/2018. This document is electronically signed by Kayla Nicole MD., August 30 2018 05:02:31 PM ET
--- NOTE | 2018-08-30 17:24 | Event Note ---
Date: 08/30/18 Contacted about saddle pulmonary embolism. Patient is a nonverbal [facility] patient with multiple comorbidites. Her CT demonstrates saddle pulmonary embolism with some extension. Study is not a CTPA. The RV/LV ratio is less than 0.9. She is hemodynamically stable on 2 L NC. Recommend anticoagulation with heparin with re-evaluation tomorrow. If continues to be stable, will then probably be transitioned to oral anticoagulation.
--- NOTE | 2018-08-30 17:33 | Event Note ---
Date: 08/30/18 CT Chest revealed saddle Pulmonary Embolism. I have started Heparin drip. I consulted and discussed with Dr. Newell. No acute resp distress. her Oxygen sat is 97% on Oxygen at 2 l/min. Will order continuous pulse ox.
[2018-08-30] MEDS: HEPARIN/ 0.45% NACL-25,000 UNIT/500 ML 25,000 UNIT/500 ML BAG IV SCH (18:37)
[2018-08-30 20:22] LABS: Hemoglobin 10.9 gm/dl (10.1-14.3)
[2018-08-30 20:32] LABS: INR 1.08 (0.87-1.13)
[2018-08-30 20:33] LABS: Partial Thromboplastin Time 31.3 Sec. (24.2-36.6)
[2018-08-31] MEDS: MAXIPIME/NS 2 GM/100 ML 2 GM/100 ML BAG IV SCH (05:47)
[2018-08-31] MEDS: NACL 0.45% 1000 ML 1,000 ML IV SCH ×2 (05:47→22:29)
--- NOTE | 2018-08-31 08:51 | Progress Note ---
Assessment and Plan 1. Hypercalcemia: Likely due to volume depletion. Myeloma is a consideration. PTH level is low, rules out hyperparathyroidism. Continue IV fluids to correct volume depletion. Calcium level is improving. Vitamin D level and SPEP pending. 2. Acute kidney injury: Vasomotor RUDI in the setting of volume depletion. Continue IV fluids. Renal function is improving. Monitor renal function. Avoid nephrotoxic agents. 3. FEN: Hypernatremia, improved. Monitor lytes. 4. Severe sepsis: UTI. 5. Dysfunctional nephrostomy tubes: S/p new nephrostomy tubes. 6. Bilateral PE. 7. Anemia. 8. Encephalopathy: Appears to be at baseline. Subjective Date of service: 08/31/18 Interval history: Patient was seen and examined at the bedside. Objective - Vital Signs Vital signs: Vital Signs - 12hr 08/31/18 08/31/18 00:34 06:00 Temperature 98.9 F 97.0 F L Pulse Rate 75 78 Respiratory 16 16 Rate Blood Pressure 117/58 93/56 O2 Sat by Pulse 100 98 Oximetry - General Appearance General appearance: well-developed, appears stated age, other (no distress, emaciated) EENT: ATNC, PERRL Neck: supple Respiratory: Present: Clear to Ascultation Cardiology: regular, S1S2 Gastrointestinal: normoactive bowel sounds, no tenderness, no distended, other (PEG tube, b/i nephrostomy tubes noted) Integumentary: no rash Neurologic: other (not following any command, non-verbal) - Lab 08/30/18 Unknown 08/31/18 07:49 Most recent lab results Calcium 11.4 mg/dL (8.4-10.2) H 08/30/18 Unknown Phosphorus 3.30 mg/dL (2.5-4.5) D 08/29/18 Unknown Magnesium 2.20 mg/dL (1.7-2.3) 08/28/18 Unknown Medications & Allergies - Medications Allergies/Adverse Reactions: Allergies No Known Allergies Allergy (Unverified 08/26/18 14:14) Active Medications: Generic Name Dose Route Start Last Admin Trade Name Freq PRN Reason Stop Dose Admin Acetaminophen 650 mg 08/26/18 17:51 08/29/18 23:47 Tylenol PO 650 mg Q4H PRN Administration Pain MILD(1-3)/Fever >100.5/RENEE Albuterol 2.5 mg 08/26/18 17:51 Proventil IH Q4HRT PRN Shortness Of Breath Lipase/Protease/Amylase 1 each 08/27/18 17:23 08/28/18 22:00 Bertha Henry 10,500 Unit FEEDTUBE 1 each PRN PRN Administration For Clogged Feeding Tube Sodium Chloride 1,000 mls @ 125 mls/hr 08/26/18 18:00 08/31/18 05:47 Nacl 0.45% 1000 Ml IV 125 mls/hr DIRECT ANU Administration Cefepime HCl 2 gm in 100 mls @ 200 mls/hr 08/29/18 22:00 08/31/18 05:47 Maxipime/Ns 2 Gm/100 Ml IV 200 mls/hr Q8HR ANU Administration Protocol Vancomycin HCl 750 mg/ Sodium 265 mls @ 166.667 mls/hr 08/30/18 09:00 08/30/18 22:25 Chloride IV 166.667 mls/hr Q12H ANU Administration Heparin Sodium/Sodium Chloride 25,000 unit in 500 mls @ 14 mls/hr 08/30/18 18:00 08/31/18 02:05 Heparin/ 0.45% Nacl-25,000 Unit/500 Ml IV 750 units/hr TITR ANU 15 mls/hr Titration Protocol 700 UNITS/HR Ondansetron HCl 4 mg 08/26/18 17:51 Zofran IV Q8H PRN Nausea And Vomiting Oxycodone/Acetaminophen 1 tab 08/26/18 17:51 08/28/18 17:20 Percocet 5/325 PO 1 tab Q6H PRN Administration Pain, Moderate (4-6) Simple Syrup 15 ml 08/27/18 17:23 Simple Syrup FEEDTUBE PRN PRN Hypoglycemia Simple Syrup 30 ml 08/27/18 17:23 Simple Syrup FEEDTUBE PRN PRN Hypoglycemia Sodium Bicarbonate 325 mg 08/27/18 17:23 08/28/18 22:00 Sodium Bicarbonate FEEDTUBE 325 mg PRN PRN Administration For Clogged Feeding Tube Sodium Chloride 10 ml 08/26/18 22:00 08/30/18 23:05 Sodium Chloride Flush Syringe 10 Ml IV 10 ml BID ANU Administration Sodium Chloride 10 ml 06/16/19 17:51 Sodium Chloride Flush Syringe 10 Ml IV PRN PRN LINE FLUSH
[2018-08-31 09:24] LABS: BUN/Creatinine Ratio 33; Blood Urea Nitrogen 20 mg/dL (7-17); Calcium 10.8 mg/dL (8.4-10.2); Hemolysis Index 13
--- NOTE | 2018-08-31 09:47 | Progress Note ---
Assessment and Plan Cultures: Blood cultures 08/26/2018 Pseudomonas aeruginosa , MDR Acinetobacter (indeterminate to Cefepime) Urine culture 08/26/2018 10-100K multiple sp. Urine culture from right SAP PORTAL ARCHITECT tube 08/27/2018 VRE Pseudomonas and Enterococcus Urine culture from left SAP PORTAL ARCHITECT tube 08/27/2018 MDR Pseudomonas and Enterocccus. Assessment: 47 y/o female with history of chronic encephalopathy due to traumatic brain injury, dysphagia s/p PEG and bilateral nephrostomy tubes admitted on 08/26/2018 due to right-sided nephrostomy tube dislodgement for 24 hour: 1) Severe sepsis: Improved. leukocytois continuing. Etiology most likely complicated UTI. 2) Complicated UTI with bilateral nephrostomy tubes and kidney stones: due to Pseudomonas and E faecium. UA with 139 wbc, large LE. Urine culture 08/26/2018 10-100K multiple sp. Patient was found septic with right-sided nephrostomy tube dislodgment and left-sided nephrostomy tube with some jordi-tract drainage. CT showed moderate right hydronephrosis, bilateral renal calculi, right renal collecting system gravel-like renal calculi, colonic distention, bilateral infiltrate with RLL consolidation. Patient taken to the OR on 08/27/2018 underwent Fl-guided right SAP PORTAL ARCHITECT tube insertion and left NT exchange. Urine culture from right SAP PORTAL ARCHITECT tube 08/27/2018 VRE Pseudomonas and Enterococcus Urine culture from left SAP PORTAL ARCHITECT tube 08/27/2018 MDR Pseudomonas and Enterocccus. Will discontinue Vancomycin. 3) Pseudomonas and MDR Acinetobacter Bacteremia: from UTI. Blood cultures 08/11 grew Pseudomonas aeruginosa , MDR Acinetobacter (indeterminate to Cefepime). Will discontinue cefepime and start Vabomere. 4) Hypernatremia/hypercalcemia 5) Saddle Pulmonary Embolism: CT demonstrates saddle pulmonary embolism with some extension. Started on heparin. Pulmonary on board. Recommendations: - follow-up blood cultures, urine culture - discontinue cefepime 2gm IV q8 hour, D2 - discontiue vancomycin -Start Linezolid 600mg PO for VRE UTI, D1 of D7 -Contact isolation for VRE -Start Vabomere 4 gms IV every 8 hours to cover Acintobacter -Anticipate discharge on Vabomere 4 gms IV every 8 hours for total 3 weeks ending September 21, 2018 and linezolid 600mg PO bid for total 7 days ending September 06, 2018 -order placed with case management We will round on Monday. Dr. Garland will be impregnator carbon products this weekend, . Please call for questions [facility] M: [phone] O:[phone] Subjective Date of service: 08/31/18 Interval history: Patient seen and examined. No acute distress observed. nonverbal. Objective - Exam Narrative Exam: General appearance: Alert. Awake. Nonverbal. Eyes: anicteric sclerae, moist conjunctivae; no lid-lag; PERRLA HENT: Atraumatic; oropharynx clear with moist mucous membranes and no mucosal ulcerations/no oral thrush; normal hard and soft palate. Normal external ears. Neck: Trachea midline; supple, no thyromegaly or lymphadenopathy Lungs: CTA, with normal respiratory effort and no intercostal retractions CV: RRR no murmur Abdomen: Soft, non-tender; +PEG +Pedro Luis SAP PORTAL ARCHITECT tube Extremities: no edema, cyanosis Skin: Normal temperature, turgor and texture; no rash, ulcers or subcutaneous nodules Psych: no agitated Neuro: alert no agitated - Constitutional Vitals: Vital Signs Temp Pulse Resp BP Pulse Ox 97.0 F L 78 16 93/56 98 08/31/18 06:00 08/31/18 06:00 08/31/18 06:00 08/31/18 06:00 08/31/18 06:00 Temperature -Last 24 Hours Temperature 97.0 F Temperature 98.9 F Temperature 98.0 F Temperature 98.4 F - Labs CBC & Chem 7: 08/30/18 Unknown 08/31/18 07:49 Labs: Abnormal lab results 08/30/18 08/30/18 08/31/18 Range/Units Unknown Unknown 00:50 RDW 17.4 H (13.2-15.2) % Heparin Anti-Xa Level 0.15 L (0.3-0.7) U.I./ml Potassium (3.6-5.0) mmol/L BUN 23 H (7-17) mg/dL Creatinine (0.7-1.2) mg/dL Glucose 104 H (65-100) mg/dL Calcium 11.4 H (8.4-10.2) mg/dL 08/31/18 08/31/18 Range/Units 07:49 07:49 RDW (13.2-15.2) % Heparin Anti-Xa Level < 0.10 L (0.3-0.7) U.I./ml Potassium 3.5 L D (3.6-5.0) mmol/L BUN 20 H (7-17) mg/dL Creatinine 0.6 L (0.7-1.2) mg/dL Glucose 105 H (65-100) mg/dL Calcium 10.8 H (8.4-10.2) mg/dL
--- NOTE | 2018-08-31 10:17 | Progress Note ---
Assessment and Plan Assessment and plan: 47 YO Female SNF Resident at [facility] with Encephalopathy S/P TBI, Debility, Dysphagia, presents to ED for evaluation. Pt is nonverbal and unable to provide history. Patient was found to have a dislodged Nephrostomy tube, EMS notified, and patient transported to [facility]. Pt seen and evaluated in ED and found to have UTI, Volume depletion, as well as dislodged nephrostomy tube. Pt admitted to medical floor. IR team consulted in ED. Patient diagnosed with Sepsis, UTI. bilateral pneumonia. Hypercalcemi improved. CT Chest was done to look for malignancy but revealed saddle pulmonary embolism. Patient started on heparin, consulted Vasc Surgery. Sepsis. Blood cultures positive Pseudomonas aeruginosa. Continue IV Cefepime as per ID Bilateral pneumonia. cont Cefepime saddle pulmonary embolism, seen on Ct cvhest started Heparin Consulted and discussed with Dr. Newell echo ordered UTI pseudomonas aeruginosa and enterococcus faecium. Continue IV antibiotics. Nephrostomy tube dislodged. IR consulted, s/p replaced Hypercalcemia. Improved Nephrology following Consulted Oncology Hypernatremia Now resolved Hypokalemia Improving. Give more Potassium and recheck Severe protein calorie malnutrition. Continue tube feedings per dietitian. Chronic encephalopathy s/p TBI. Supportive care. Debility. Mobility protocols for pressure ulcer prophylaxis. History Interval history: Patient is nonverbal, was brought to ED for dislodged nephrostomy tube, exchanged fever , now resolved CT Chest revealed saddle pulmonary embolism Hospitalist Physical - Physical exam Narrative exam: Gen: Not in acute distress, lying in bed, malnourished HEENT: Normocephalic, atraumatic Neck: supple, no JVD Heart: S1 and S2 reg, no murmurs, rubs or gallop Lungs: Clear, no crackles, no wheeze Abd: soft, non tender, non distended, normal BS Ext: No edema, no clubbing, no cyanosis, Neuro: Non verbal, - Constitutional Vitals: Temp Pulse Resp BP Pulse Ox 97.0 F L 78 16 93/56 98 08/31/18 06:00 08/31/18 06:00 08/31/18 06:00 08/31/18 06:00 08/31/18 06:00 General appearance: Present: no acute distress Results - Labs CBC & Chem 7: 09/01/18 05:15 09/01/18 05:15 Labs: Laboratory Last Values WBC 10.7 K/mm3 (4.5-11.0) 08/30/18 Unknown RBC 3.72 M/mm3 (3.65-5.03) 08/30/18 Unknown Hgb 11.6 gm/dl (10.1-14.3) 08/30/18 Unknown Hct 34.7 % (30.3-42.9) 08/30/18 Unknown MCV 93 fl (79-97) 08/30/18 Unknown MCH 31 pg (28-32) 08/30/18 Unknown MCHC 33 % (30-34) 08/30/18 Unknown RDW 17.4 % (13.2-15.2) H 08/30/18 Unknown Plt Count 293 K/mm3 (140-440) 08/30/18 Unknown Lymph % (Auto) 12.8 % (13.4-35.0) L 08/28/18 Unknown [place] % (Auto) 6.9 % (0.0-7.3) 08/28/18 Unknown Eos % (Auto) 0.2 % (0.0-4.3) 08/28/18 Unknown Baso % (Auto) 0.1 % (0.0-1.8) 08/28/18 Unknown Lymph # 1.8 K/mm3 (1.2-5.4) 08/28/18 Unknown [place] # 1.0 K/mm3 (0.0-0.8) H 08/28/18 Unknown Eos # 0.0 K/mm3 (0.0-0.4) 08/28/18 Unknown Baso # 0.0 K/mm3 (0.0-0.1) 08/28/18 Unknown Add Manual Diff Complete 08/26/18 15:02 Total Counted 100 08/26/18 15:02 Seg Neutrophils % 80.0 % (40.0-70.0) H 08/28/18 Unknown Seg Neuts % (Manual) 59.0 % (40.0-70.0) 08/26/18 15:02 30.0 % 08/26/18 15:02 5.0 % (13.4-35.0) L 08/26/18 15:02 Reactive Lymphs % (Man) 0 % 08/26/18 15:02 5.0 % (0.0-7.3) 08/26/18 15:02 1.0 % (0.0-4.3) 08/26/18 15:02 0 % (0.0-1.8) 08/26/18 15:02 0 % 08/26/18 15:02 0 % 08/26/18 15:02 0 % 08/26/18 15:02 0 % 08/26/18 15:02 Nucleated RBC % Not Reportable 08/26/18 15:02 Seg Neutrophils # 11.3 K/mm3 (1.8-7.7) H 08/28/18 Unknown Seg Neutrophils # Man 9.3 K/mm3 (1.8-7.7) H 08/26/18 15:02 Band Neutrophils # 4.7 K/mm3 08/26/18 15:02 0.8 K/mm3 (1.2-5.4) L 08/26/18 15:02 Abs React Lymphs (Man) 0.0 K/mm3 08/26/18 15:02 0.8 K/mm3 (0.0-0.8) 08/26/18 15:02 0.2 K/mm3 (0.0-0.4) 08/26/18 15:02 0.0 K/mm3 (0.0-0.1) 08/26/18 15:02 0.0 K/mm3 08/26/18 15:02 0.0 K/mm3 08/26/18 15:02 0.0 K/mm3 08/26/18 15:02 Blast Cells # 0.0 K/mm3 08/26/18 15:02 WBC Morphology Not Reportable 08/26/18 15:02 Hypersegmented Neuts Not Reportable 08/26/18 15:02 Hyposegmented Neuts Not Reportable 08/26/18 15:02 Hypogranular Neuts Not Reportable 08/26/18 15:02 Not Reportable 08/26/18 15:02 Not Reportable 08/26/18 15:02 Not Reportable 08/26/18 15:02 Not Reportable 08/26/18 15:02 Not Reportable 08/26/18 15:02 Not Reportable 08/26/18 15:02 Consistent w auto 08/26/18 15:02 Not Reportable 08/26/18 15:02 Plt Clumps, EDTA Not Reportable 08/26/18 15:02 Not Reportable 08/26/18 15:02 Not Reportable 08/26/18 15:02 Not Reportable 08/26/18 15:02 Plt Morphology Comment Not Reportable 08/26/18 15:02 RBC Morphology Not Reportable 08/26/18 15:02 Dimorphic RBCs Not Reportable 08/26/18 15:02 Few 08/26/18 15:02 1+ 08/26/18 15:02 Not Reportable 08/26/18 15:02 1+ 08/26/18 15:02 Not Reportable 08/26/18 15:02 Not Reportable 08/26/18 15:02 Not Reportable 08/26/18 15:02 Not Reportable 08/26/18 15:02 Not Reportable 08/26/18 15:02 Not Reportable 08/26/18 15:02 Not Reportable 08/26/18 15:02 Not Reportable 08/26/18 15:02 Few 08/26/18 15:02 Not Reportable 08/26/18 15:02 Not Reportable 08/26/18 15:02 Not Reportable 08/26/18 15:02 Not Reportable 08/26/18 15:02 Not Reportable 08/26/18 15:02 Not Reportable 08/26/18 15:02 Not Reportable 08/26/18 15:02 Acanthocytes (Spur) Not Reportable 08/26/18 15:02 Rouleaux Not Reportable 08/26/18 15:02 Not Reportable 08/26/18 15:02 Not Reportable 08/26/18 15:02 Not Reportable 08/26/18 15:02 Not Reportable 08/26/18 15:02 Hem Pathologist Commnt No 08/26/18 15:02 PT 13.7 Sec. (12.2-14.9) 08/30/18 20:09 INR 1.08 (0.87-1.13) 08/30/18 20:09 APTT 31.3 Sec. (24.2-36.6) 08/30/18 20:09 Heparin Anti-Xa Level < 0.10 U.I./ml (0.3-0.7) L 08/31/18 07:49 Sodium 138 mmol/L (137-145) 08/31/18 07:49 Potassium 3.5 mmol/L (3.6-5.0) L D 08/31/18 07:49 Chloride 102.4 mmol/L (98-107) 08/31/18 07:49 Carbon Dioxide 24 mmol/L (22-30) 08/31/18 07:49 15 mmol/L 08/31/18 07:49 BUN 20 mg/dL (7-17) H 08/31/18 07:49 0.6 mg/dL (0.7-1.2) L 08/31/18 07:49 Estimated GFR > 60 ml/min 08/31/18 07:49 33 % 08/31/18 07:49 Glucose 105 mg/dL (65-100) H 08/31/18 07:49 Calcium 10.8 mg/dL (8.4-10.2) H 08/31/18 07:49 Phosphorus 3.30 mg/dL (2.5-4.5) D 08/29/18 Unknown Magnesium 2.20 mg/dL (1.7-2.3) 08/28/18 Unknown 0.20 mg/dL (0.1-1.2) 08/27/18 06:11 AST 20 units/L (5-40) 08/27/18 06:11 ALT 36 units/L (7-56) 08/27/18 06:11 140 units/L (35-129) H 08/27/18 06:11 7.4 g/dL (6.3-8.2) 08/27/18 06:11 2.4 g/dL (3.9-5) L 08/27/18 06:11 0.5 % 08/27/18 06:11 PTH Intact 17.01 pg/mL (15-65) 08/29/18 Unknown Yellow (Yellow) 08/26/18 Unknown Cloudy (Clear) 08/26/18 Unknown 8.0 (5.0-7.0) H 08/26/18 Unknown Ur Specific [place] 1.012 (1.003-1.030) 08/26/18 Unknown 30 mg/dl mg/dL (Negative) 08/26/18 Unknown Neg mg/dL (Negative) 08/26/18 Unknown Neg mg/dL (Negative) 08/26/18 Unknown Lg (Negative) 08/26/18 Unknown Neg (Negative) 08/26/18 Unknown Neg (Negative) 08/26/18 Unknown < 2.0 mg/dL (<2.0) 08/26/18 Unknown Ur Leukocyte Esterase Lg (Negative) 08/26/18 Unknown 139.0 /HPF (0.0-6.0) H 08/26/18 Unknown 173.0 /HPF (0.0-6.0) 08/26/18 Unknown U Epithel Cells (Auto) 2.0 /HPF (0-13.0) 08/26/18 Unknown 1+ /HPF (Negative) 08/26/18 Unknown 2+ /HPF 08/26/18 Unknown Calcium Oxalate Crystal 1+ 08/26/18 Unknown Few /HPF 08/26/18 Unknown 2+ /HPF 08/26/18 Unknown Active Medications - Current Medications Current Medications: Generic Name Dose Route Start Last Admin Trade Name Freq PRN Reason Stop Dose Admin Acetaminophen 650 mg 08/26/18 17:51 08/29/18 23:47 Tylenol PO 650 mg Q4H PRN Administration Pain MILD(1-3)/Fever >100.5/RENEE Albuterol 2.5 mg 08/26/18 17:51 Proventil IH Q4HRT PRN Shortness Of Breath Lipase/Protease/Amylase 1 each 08/27/18 17:23 08/28/18 22:00 Pancrejossy Henry 10,500 Unit FEEDTUBE 1 each PRN PRN Administration For Clogged Feeding Tube Sodium Chloride 1,000 mls @ 125 mls/hr 08/26/18 18:00 08/31/18 05:47 Nacl 0.45% 1000 Ml IV 125 mls/hr DIRECT ANU Administration Cefepime HCl 2 gm in 100 mls @ 200 mls/hr 08/29/18 22:00 08/31/18 05:47 Maxipime/Ns 2 Gm/100 Ml IV 200 mls/hr Q8HR ANU Administration Protocol Vancomycin HCl 750 mg/ Sodium 265 mls @ 166.667 mls/hr 08/30/18 09:00 08/30/18 22:25 Chloride IV 166.667 mls/hr Q12H ANU Administration Heparin Sodium/Sodium Chloride 25,000 unit in 500 mls @ 14 mls/hr 08/30/18 18:00 08/31/18 02:05 Heparin/ 0.45% Nacl-25,000 Unit/500 Ml IV 750 units/hr TITR ANU 15 mls/hr Titration Protocol 700 UNITS/HR Ondansetron HCl 4 mg 08/26/18 17:51 Zofran IV Q8H PRN Nausea And Vomiting Oxycodone/Acetaminophen 1 tab 08/26/18 17:51 08/28/18 17:20 Percocet 5/325 PO 1 tab Q6H PRN Administration Pain, Moderate (4-6) Potassium Chloride 40 meq 08/31/18 10:30 Potassium Chloride FEEDTUBE 08/31/18 10:31 ONCE ONE Simple Syrup 15 ml 08/27/18 17:23 Simple Syrup FEEDTUBE PRN PRN Hypoglycemia Simple Syrup 30 ml 08/27/18 17:23 Simple Syrup FEEDTUBE PRN PRN Hypoglycemia Sodium Bicarbonate 325 mg 08/27/18 17:23 08/28/18 22:00 Sodium Bicarbonate FEEDTUBE 325 mg PRN PRN Administration For Clogged Feeding Tube Sodium Chloride 10 ml 08/26/18 22:00 08/30/18 23:05 Sodium Chloride Flush Syringe 10 Ml IV 10 ml BID ANU Administration Sodium Chloride 10 ml 08/26/18 17:51 Sodium Chloride Flush Syringe 10 Ml IV PRN PRN LINE FLUSH Nutrition/Malnutrition Assess - Dietary Evaluation Nutrition/Malnutrition Findings: Nutrition Notes Start: 08/27/18 17:13 Freq: Status: Active Protocol: Document 08/29/18 17:05 (Rec: 08/29/18 17:08 [id number]) Nutrition Notes Initial or Follow up Reassessment Current Diagnosis Sepsis Other Pertinent Diagnosis G tube, Dysphagia, Nonverbal, SIRS, UTI, Neprostomy tube displace Current Diet Jevity 1.2 at 65 ml/hr Labs/Tests Reviewed Pertinent Medications Ceftriaxone Height 5 ft 5 in Weight 49 kg [place] Body Weight (kg) 56.81 BMI 17.9 Subjective/Other Information Observed Jevity 1.2 infusing at goal rate. Per nurse pt has been having loose stools but has been tolerating TF. 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 No Is Patient Ambulatory and/or Out of Bed No REE-([place]-confined to bed) 1354.980 Kcal/Kg value to use for calculation 38 Approximate Energy Requirements Using 1862 kcal/Kg Calculation Used for Recommendations Kcal/kg Additional Notes Protein Needs: 72-82g (1.5-1. 7g/kg) Fluid Needs: 1 ml/kcal Nutrition Intervention Nutrition Support: Jevity 1.2 at 65 ml/hr. Water flush of 100 mls q 4 hrs . Kcal 1,872 Protein (gm) 87 Fluid (mL) 1,259 Goal #1 TF tolerance Goal #2 Meet at least 75% of calorie and protein needs via TF Anticipated Discharge Needs: Jevity 1.2 Follow-Up By: 09/05/18 Additional Comments Follow for TF tolerance
[2018-08-31] MEDS ORDERED: POTASSIUM CHLORIDE FEEDTUBE ONE (10:30)
[2018-08-31] MEDS: VANCOMYCIN 750 MG in NACL 0.9% 250ML 250 ML IV SCH (10:47)
[2018-08-31] MEDS: SODIUM CHLORIDE FLUSH SYRINGE 10 ML IV SCH ×2 (10:47→22:30)
[2018-08-31] MEDS ORDERED: HEPARIN 10,000 UNITS/10 ML IV ONE (11:00)
[2018-08-31] MEDS ORDERED: ZYVOX PO SCH (13:00)
[2018-08-31] MEDS ORDERED: VABOMERE 4 GM in NACL 0.9% 250ML 250 ML IV SCH (14:00)
--- NOTE | 2018-08-31 15:16 | Consultation ---
History of Present Illness Consult date: 08/31/18 Requesting physician: ALYCIA VALENCIA Reason for consult: pulmonary embolism History of present illness: 47 y/o female, nonverbal secondary to TBI who was admitted several days ago form dislodged nephrostomy tube. This was replaced and patient found to be hypercalcemic. During work up of hypercalcemia, CT chest done and patient found to have PE. She has been stable the entire stay with good sats and no respirato ry distress on nasal cannula. There is no family at bedside for any further history. Remainder is negative. Past History Past Medical History: other (TBI, Encephalopathy) Past Surgical History: Other (G Tube, Nephrostomy tube) Social history: Family history: no significant family history Medications and Allergies Allergies Allergy/AdvReac Type Severity Reaction Status Date / Time No Known Allergies Allergy Unverified 08/26/18 14:14 Active Meds: Active Medications Acetaminophen (Tylenol) 650 mg PO Q4H PRN PRN Reason: Pain MILD(1-3)/Fever >100.5/RENEE Last Admin: 08/29/18 23:47 Dose: 650 mg Documented by: Albuterol (Proventil) 2.5 mg IH Q4HRT PRN PRN Reason: Shortness Of Breath Lipase/Protease/Amylase (Pancreaze Dr 10,500 Unit) 1 each FEEDTUBE PRN PRN PRN Reason: For Clogged Feeding Tube Last Admin: 08/28/18 22:00 Dose: 1 each Documented by: Sodium Chloride (Nacl 0.45% 1000 Ml) 1,000 mls @ 125 mls/hr IV DIRECT ANU Last Admin: 08/31/18 05:47 Dose: 125 mls/hr Documented by: Heparin Sodium/Sodium Chloride (Heparin/ 0.45% Nacl-25,000 Unit/500 Ml) 25,000 unit in 500 mls @ 14 mls/hr IV TITR ANU; Protocol Last Titration: 08/31/18 10:44 Dose: 900 units/hr, 18 mls/hr Documented by: CEFTOLOZANE/TAZOBACTAM 1.5 gm/ (Sodium Chloride) 100 mls @ 100 mls/hr IV Q8HR S CH Linezolid (Zyvox) 600 mg PO Q12HR ANU; Protocol Ondansetron HCl (Zofran) 4 mg IV Q8H PRN PRN Reason: Nausea And Vomiting Oxycodone/Acetaminophen (Percocet 5/325) 1 tab PO Q6H PRN PRN Reason: Pain, Moderate (4-6) Last Admin: 08/28/18 17:20 Dose: 1 tab Documented by: Simple Syrup (Simple Syrup) 15 ml FEEDTUBE PRN PRN PRN Reason: Hypoglycemia Simple Syrup (Simple Syrup) 30 ml FEEDTUBE PRN PRN PRN Reason: Hypoglycemia Sodium Bicarbonate (Sodium Bicarbonate) 325 mg FEEDTUBE PRN PRN PRN Reason: For Clogged Feeding Tube Last Admin: 08/28/18 22:00 Dose: 325 mg Documented by: Sodium Chloride (Sodium Chloride Flush Syringe 10 Ml) 10 ml IV BID ANU Last Admin: 08/31/18 10:47 Dose: 10 ml Documented by: Sodium Chloride (Sodium Chloride Flush Syringe 10 Ml) 10 ml IV PRN PRN PRN Reason: LINE FLUSH Review of Systems ROS unobtainable: due to mental status Physical Examination Vital signs: Vital Signs Temp Pulse BP Pulse Ox 99.2 F 124 H 113/78 98 08/26/18 13:56 08/26/18 13:56 08/26/18 13:56 08/26/18 13:56 General appearance: other (eyes open but does not speak) Eyes: non-icteric ENT: oropharynx dry Neck: supple Ascultation: Bilateral: diminished breath sounds Results - Laboratory Findings CBC and BMP: 08/30/18 Unknown 08/31/18 07:49 PT/INR, D-dimer PT 13.7 Sec. (12.2-14.9) 08/30/18 20:09 INR 1.08 (0.87-1.13) 08/30/18 20:09 Abnormal lab findings: Abnormal Labs 08/26/18 08/26/18 08/26/18 15:02 15:02 17:06 WBC 15.7 H RBC Hgb Hct RDW 17.3 H Lymph % (Auto) [place] % (Auto) [place] # Seg Neutrophils % Lymphocytes % (Manual) 5.0 L Seg Neutrophils # Seg Neutrophils # Man 9.3 H Lymphocytes # (Manual) 0.8 L Heparin Anti-Xa Level Sodium 152 H Potassium 3.3 L Chloride 110.5 H BUN 39 H Creatinine Glucose 116 H Calcium 13.7 H* 13.1 H* Phosphorus Alkaline Phosphatase 172 H Total Protein 8.6 H Albumin 2.9 L Urine pH Urine WBC (Auto) 08/26/18 08/27/18 08/27/18 Unknown 06:11 06:11 WBC 15.0 H RBC 3.22 L Hgb 9.9 L Hct RDW 17.4 H Lymph % (Auto) [place] % (Auto) 7.[address] [place] # 1.1 H Seg Neutrophils % 76.4 H Lymphocytes % (Manual) Seg Neutrophils # 11.5 H Seg Neutrophils # Man Lymphocytes # (Manual) Heparin Anti-Xa Level Sodium 153 H Potassium 3.4 L Chloride 114.7 H BUN 37 H Creatinine Glucose Calcium 13.0 H* Phosphorus Alkaline Phosphatase 140 H Total Protein Albumin 2.4 L Urine pH 8.0 H Urine WBC (Auto) 139.0 H 08/28/18 08/28/18 08/28/18 Unknown Unknown Unknown WBC 14.1 H RBC 3.16 L Hgb 9.6 L Hct 30.0 L RDW 17.3 H Lymph % (Auto) 12.[address] [place] % (Auto) [place] # 1.0 H Seg Neutrophils % 80.0 H Lymphocytes % (Manual) Seg Neutrophils # 11.3 H Seg Neutrophils # Man Lymphocytes # (Manual) Heparin Anti-Xa Level Sodium 148 H Potassium 2.6 L* D Chloride 112.7 H BUN 39 H Creatinine Glucose Calcium 13.0 H* Phosphorus 6.80 H Alkaline Phosphatase Total Protein Albumin Urine pH Urine WBC (Auto) 08/29/18 08/30/18 08/30/18 Unknown Unknown Unknown WBC RBC Hgb Hct RDW 17.4 H Lymph % (Auto) [place] % (Auto) [place] # Seg Neutrophils % Lymphocytes % (Manual) Seg Neutrophils # Seg Neutrophils # Man Lymphocytes # (Manual) Heparin Anti-Xa Level Sodium Potassium 3.1 L Chloride 109.2 H BUN 29 H 23 H Creatinine Glucose 114 H 104 H Calcium 11.6 H 11.4 H Phosphorus Alkaline Phosphatase Total Protein Albumin Urine pH Urine WBC (Auto) 08/31/18 08/31/18 08/31/18 00:50 07:49 07:49 WBC RBC Hgb Hct RDW Lymph % (Auto) [place] % (Auto) [place] # Seg Neutrophils % Lymphocytes % (Manual) Seg Neutrophils # Seg Neutrophils # Man Lymphocytes # (Manual) Heparin Anti-Xa Level 0.15 L < 0.10 L Sodium Potassium 3.5 L D Chloride BUN 20 H Creatinine 0.6 L Glucose 105 H Calcium 10.8 H Phosphorus Alkaline Phosphatase Total Protein Albumin Urine pH Urine WBC (Auto) - Diagnostic Findings CT scan - chest: image reviewed Assessment and Plan 47 y/o with incidental finding of pulmonary emboli while working up hypercalcemia. 1. Agree with Vascular recs 2. No preference to oral anticoagulation 3. Not sure about initial clinical presentation, but consolidation seen on right lower lobe consolidation seen on abdominal CT and now current chest CT could be wedge infarct from PE but clinically she appears stable. ID following and treating with abx therapy.
[2018-08-31] MEDS: TAZOBACTAM IV SCH ×2 (16:00→22:30)
[2018-08-31] MEDS: CEFTOLOZANE IV SCH ×2 (16:00→22:30)
[2018-08-31] MEDS: SODIUM CHLORIDE 0.9% IV SCH ×2 (16:00→22:30)
[2018-08-31] MEDS: ZYVOX PO SCH (18:08)
[2018-08-31] MEDS: HEPARIN/ 0.45% NACL-25,000 UNIT/500 ML 25,000 UNIT/500 ML BAG IV SCH (22:30)
--- NOTE | 2018-08-31 23:53 | Event Note ---
Date: 08/31/18
[2018-09-01] MEDS: ZYVOX PO SCH ×4 (00:15→17:55)
[2018-09-01 05:43] LABS: Hematocrit 31.6 % (30.3-42.9); Hemoglobin 10.6 gm/dl (10.1-14.3); Mean Corpuscular HGB Conc 34 % (30-34); Mean Corpuscular Volume 93 fl (79-97); Platelet Count 299 K/mm3 (140-440); Red Blood Count 3.39 M/mm3 (3.65-5.03)
[2018-09-01] MEDS: SODIUM CHLORIDE 0.9% IV SCH ×3 (05:47→21:33)
[2018-09-01] MEDS: TAZOBACTAM IV SCH ×3 (05:47→21:33)
[2018-09-01] MEDS: CEFTOLOZANE IV SCH ×3 (05:47→21:33)
[2018-09-01 06:00] LABS: BUN/Creatinine Ratio 30; Blood Urea Nitrogen 18 mg/dL (7-17); Calcium 11.2 mg/dL (8.4-10.2); Hemolysis Index 2
--- NOTE | 2018-09-01 09:20 | Consultation ---
History of Present Illness - Reason for Consult Consult date: 09/01/18 pulmonary embolism - History of Present Illness Patient is a nonverbal minimally responsive care home patient who initially presented for dislodgment of her nephrostomy tube. Subsequent evaluation demonstrated pulmonary embolism. Patient is clinically stable. On CT, the patient does not have evidence of right heart strain. Echo is pending. Past History Past Medical History: other (TBI, Encephalopathy) Past Surgical History: Other (G Tube, Nephrostomy tube) Social history: Family history: no significant family history Medications and Allergies Allergies Allergy/AdvReac Type Severity Reaction Status Date / Time No Known Allergies Allergy Unverified 08/26/18 14:14 Active Meds: Active Medications Acetaminophen (Tylenol) 650 mg PO Q4H PRN PRN Reason: Pain MILD(1-3)/Fever >100.5/RENEE Last Admin: 08/29/18 23:47 Dose: 650 mg Documented by: Albuterol (Proventil) 2.5 mg IH Q4HRT PRN PRN Reason: Shortness Of Breath Lipase/Protease/Amylase (Pancreaze Dr 10,500 Unit) 1 each FEEDTUBE PRN PRN PRN Reason: For Clogged Feeding Tube Last Admin: 08/28/18 22:00 Dose: 1 each Documented by: Sodium Chloride (Nacl 0.45% 1000 Ml) 1,000 mls @ 125 mls/hr IV DIRECT ANU Last Admin: 08/31/18 22:29 Dose: 125 mls/hr Documented by: Heparin Sodium/Sodium Chloride (Heparin/ 0.45% Nacl-25,000 Unit/500 Ml) 25,000 unit in 500 mls @ 14 mls/hr IV TITR ANU; Protocol Last Titration: 09/01/18 02:01 Dose: 950 units/hr, 19 mls/hr Documented by: CEFTOLOZANE/TAZOBACTAM 1.5 gm/ (Sodium Chloride) 100 mls @ 100 mls/hr IV Q8HR ANU Last Admin: 09/01/18 05:47 Dose: 100 mls/hr Documented by: Linezolid (Zyvox) 600 mg PO Q12H ANU; Protocol Last Admin: 09/01/18 06:10 Dose: 600 mg Documented by: Ondansetron HCl (Zofran) 4 mg IV Q8H PRN PRN Reason: Nausea And Vomiting Oxycodone/Acetaminophen (Percocet 5/325) 1 tab PO Q6H PRN PRN Reason: Pain, Moderate (4-6) Last Admin: 08/28/18 17:20 Dose: 1 tab Documented by: Simple Syrup (Simple Syrup) 15 ml FEEDTUBE PRN PRN PRN Reason: Hypoglycemia Simple Syrup (Simple Syrup) 30 ml FEEDTUBE PRN PRN PRN Reason: Hypoglycemia Sodium Bicarbonate (Sodium Bicarbonate) 325 mg FEEDTUBE PRN PRN PRN Reason: For Clogged Feeding Tube Last Admin: 08/28/18 22:00 Dose: 325 mg Documented by: Sodium Chloride (Sodium Chloride Flush Syringe 10 Ml) 10 ml IV BID ANU Last Admin: 08/31/18 22:30 Dose: 10 ml Documented by: Sodium Chloride (Sodium Chloride Flush Syringe 10 Ml) 10 ml IV PRN PRN PRN Reason: LINE FLUSH Review of Systems ROS unobtainable: due to mental status Exam - Constitutional Vitals: Temp Pulse Resp BP Pulse Ox 97.6 F 74 18 94/53 100 09/01/18 08:48 09/01/18 05:00 09/01/18 08:48 09/01/18 08:48 09/01/18 05:00 General appearance: Present: no acute distress - Neck Neck: Present: supple - Respiratory Respiratory effort: normal - Abdominal General gastrointestinal: Present: deferred Female genitourinary: Present: deferred - Rectal Rectal Exam: deferred Results - Labs CBC & Chem 7: 09/01/18 05:15 09/01/18 05:15 Labs: Abnormal lab results 08/31/18 08/31/18 09/01/18 Range/Units 07:49 07:49 00:00 RBC (3.65-5.03) M/mm3 RDW (13.2-15.2) % Heparin Anti-Xa Level < 0.10 L 0.25 L (0.3-0.7) U.I./ml Potassium 3.5 L D (3.6-5.0) mmol/L BUN 20 H (7-17) mg/dL Creatinine 0.6 L (0.7-1.2) mg/dL Glucose 105 H (65-100) mg/dL Calcium 10.8 H (8.4-10.2) mg/dL 09/01/18 09/01/18 Range/Units 05:15 05:15 RBC 3.39 L (3.65-5.03) M/mm3 RDW 17.0 H (13.2-15.2) % Heparin Anti-Xa Level (0.3-0.7) U.I./ml Potassium (3.6-5.0) mmol/L BUN 18 H (7-17) mg/dL Creatinine 0.6 L (0.7-1.2) mg/dL Glucose (65-100) mg/dL Calcium 11.2 H (8.4-10.2) mg/dL - Imaging and Cardiology CT scan - chest: image reviewed Assessment and Plan Patient with development of pulmonary embolism. Would recommend initiation of oral anticoagulation with Xarelto or Eliquis. She is clinically stable with no evidence of right heart dysfunction.
[2018-09-01] MEDS: SODIUM CHLORIDE FLUSH SYRINGE 10 ML IV SCH ×2 (10:05→21:33)
[2018-09-01] MEDS: NACL 0.45% 1000 ML 1,000 ML IV SCH ×2 (10:06→20:40)
--- NOTE | 2018-09-01 10:11 | Progress Note ---
Assessment and Plan 1. Hypercalcemia: Likely due to volume depletion. Myeloma is a consideration. PTH level is low. Continue IV fluids to correct volume depletion. Calcium level is better. Vitamin D level and SPEP are pending. 2. Acute kidney injury: Vasomotor RUDI in the setting of volume depletion. Continue IV fluids. Renal function is improving. Monitor renal function. Avoid nephrotoxic agents. 3. FEN: Hypernatremia, improved. Monitor lytes. 4. Severe sepsis: UTI. 5. Dysfunctional nephrostomy tubes: S/p new nephrostomy tubes. 6. Bilateral PE. 7. Anemia. 8. Encephalopathy: Likely at baseline. Subjective Date of service: 09/01/18 Interval history: Patient was seen and examined at the bedside. Objective - Vital Signs Vital signs: Vital Signs - 12hr 08/31/18 09/01/18 09/01/18 23:00 05:00 08:48 Temperature 98 F 98.3 F 97.6 F Pulse Rate 76 74 Respiratory 16 16 18 Rate Blood Pressure 94/53 Blood Pressure 98/68 101/16 [Left] O2 Sat by Pulse 99 100 Oximetry - General Appearance General appearance: well-developed, appears stated age, other (no distress, appears emaciated) EENT: ATNC, PERRL Neck: supple Respiratory: Present: Clear to Ascultation Cardiology: regular, S1S2, no murmurs Gastrointestinal: normoactive bowel sounds, no tenderness, no distended, other (PEG tube, b/l nephrostomy tubes noted) Integumentary: no rash Neurologic: other (alert, not following any command, non-verbal) Musculoskeletal: other (no edema) - Lab 09/01/18 05:15 09/01/18 05:15 Most recent lab results Calcium 11.2 mg/dL (8.4-10.2) H 09/01/18 05:15 Phosphorus 3.30 mg/dL (2.5-4.5) D 08/29/18 Unknown Magnesium 2.20 mg/dL (1.7-2.3) 08/28/18 Unknown Medications & Allergies - Medications Allergies/Adverse Reactions: Allergies No Known Allergies Allergy (Unverified 08/26/18 14:14) Active Medications: Generic Name Dose Route Start Last Admin Trade Name Freq PRN Reason Stop Dose Admin Acetaminophen 650 mg 08/26/18 17:51 08/29/18 23:47 Tylenol PO 650 mg Q4H PRN Administration Pain MILD(1-3)/Fever >100.5/RENEE Albuterol 2.5 mg 08/26/18 17:51 Proventil IH Q4HRT PRN Shortness Of Breath Lipase/Protease/Amylase 1 each 08/27/18 17:23 08/28/18 22:00 Bertha Henry 10,500 Unit FEEDTUBE 1 each PRN PRN Administration For Clogged Feeding Tube Sodium Chloride 1,000 mls @ 125 mls/hr 08/26/18 18:00 09/01/18 10:06 Nacl 0.45% 1000 Ml IV 125 mls/hr DIRECT ANU Administration Heparin Sodium/Sodium Chloride 25,000 unit in 500 mls @ 14 mls/hr 08/30/18 18:00 09/01/18 02:01 Heparin/ 0.45% Nacl-25,000 Unit/500 Ml IV 950 units/hr TITR ANU 19 mls/hr Titration Protocol 700 UNITS/HR CEFTOLOZANE/TAZOBACTAM 1.5 gm/ 100 mls @ 100 mls/hr 08/31/18 14:00 09/01/18 05:47 Sodium Chloride IV 100 mls/hr Q8HR ANU Administration Linezolid 600 mg 09/01/18 06:00 09/01/18 06:10 Zyvox PO 600 mg Q12H NAU Administration Protocol Ondansetron HCl 4 mg 08/26/18 17:51 Zofran IV Q8H PRN Nausea And Vomiting Oxycodone/Acetaminophen 1 tab 08/26/18 17:51 08/28/18 17:20 Percocet 5/325 PO 1 tab Q6H PRN Administration Pain, Moderate (4-6) Simple Syrup 15 ml 08/27/18 17:23 Simple Syrup FEEDTUBE PRN PRN Hypoglycemia Simple Syrup 30 ml 08/27/18 17:23 Simple Syrup FEEDTUBE PRN PRN Hypoglycemia Sodium Bicarbonate 325 mg 08/27/18 17:23 08/28/18 22:00 Sodium Bicarbonate FEEDTUBE 325 mg PRN PRN Administration For Clogged Feeding Tube Sodium Chloride 10 ml 08/26/18 22:00 09/01/18 10:05 Sodium Chloride Flush Syringe 10 Ml IV 10 ml BID ANU Administration Sodium Chloride 10 ml 08/26/18 17:51 Sodium Chloride Flush Syringe 10 Ml IV PRN PRN LINE FLUSH
--- NOTE | 2018-09-01 10:43 | Progress Note ---
Assessment and Plan Assessment and plan: 47 YO Female SNF Resident at [facility] with Encephalopathy S/P TBI, Debility, Dysphagia, presents to ED for evaluation. Pt is nonverbal and unable to provide history. Patient was found to have a dislodged Nephrostomy tube, EMS notified, and patient transported to [facility]. Pt seen and evaluated in ED and found to have UTI, Volume depletion, as well as dislodged nephrostomy tube. Pt admitted to medical floor. IR team consulted in ED. Patient diagnosed with Sepsis, UTI. bilateral pneumonia. Hypercalcemi improved. CT Chest was done to look for malignancy but revealed saddle pulmonary embolism. Patient started on heparin, consulted Vasc Surgery. Sepsis. Blood cultures positive Pseudomonas aeruginosa. Continue IV Cefepime as per ID Bilateral pneumonia. cont Cefepime saddle pulmonary embolism, seen on Ct cvhest started Heparin Consulted and discussed with Dr. Newell Echo ordered UTI pseudomonas aeruginosa and enterococcus faecium. Continue IV antibiotics. Nephrostomy tube dislodged. IR consulted, s/p replaced Hypercalcemia. Improved Nephrology following Consulted Oncology Hypernatremia Now resolved Hypokalemia Improving. Give more Potassium and recheck Severe protein calorie malnutrition. Continue tube feedings per dietitian. Chronic encephalopathy s/p TBI. Supportive care. Debility. Mobility protocols for pressure ulcer prophylaxis. History Interval history: Patient is nonverbal, was brought to ED for dislodged nephrostomy tube, exchanged fever , now resolved CT Chest revealed saddle pulmonary embolism Hospitalist Physical - Physical exam Narrative exam: Gen: Not in acute distress, lying in bed, malnourished HEENT: Normocephalic, atraumatic Neck: supple, no JVD Heart: S1 and S2 reg, no murmurs, rubs or gallop Lungs: Clear, no crackles, no wheeze Abd: soft, non tender, non distended, normal BS Ext: No edema, no clubbing, no cyanosis, Neuro: Non verbal, - Constitutional Vitals: Temp Pulse Resp BP Pulse Ox 97.6 F 74 18 94/53 100 09/01/18 08:48 09/01/18 05:00 09/01/18 08:48 09/01/18 08:48 09/01/18 05:00 General appearance: Present: no acute distress Results - Labs CBC & Chem 7: 09/01/18 05:15 09/01/18 05:15 Labs: Laboratory Last Values WBC 9.7 K/mm3 (4.5-11.0) 09/01/18 05:15 RBC 3.39 M/mm3 (3.65-5.03) L 09/01/18 05:15 Hgb 10.6 gm/dl (10.1-14.3) 09/01/18 05:15 Hct 31.6 % (30.3-42.9) 09/01/18 05:15 MCV 93 fl (79-97) 09/01/18 05:15 MCH 31 pg (28-32) 09/01/18 05:15 MCHC 34 % (30-34) 09/01/18 05:15 RDW 17.0 % (13.2-15.2) H 09/01/18 05:15 Plt Count 299 K/mm3 (140-440) 09/01/18 05:15 Lymph % (Auto) 12.8 % (13.4-35.0) L 08/28/18 Unknown [place] % (Auto) 6.9 % (0.0-7.3) 08/28/18 Unknown Eos % (Auto) 0.2 % (0.0-4.3) 08/28/18 Unknown Baso % (Auto) 0.1 % (0.0-1.8) 08/28/18 Unknown Lymph # 1.8 K/mm3 (1.2-5.4) 08/28/18 Unknown Mobile # 1.0 K/mm3 (0.0-0.8) H 08/28/18 Unknown Eos # 0.0 K/mm3 (0.0-0.4) 08/28/18 Unknown Baso # 0.0 K/mm3 (0.0-0.1) 08/28/18 Unknown Add Manual Diff Complete 08/26/18 15:02 Total Counted 100 08/26/18 15:02 Seg Neutrophils % 80.0 % (40.0-70.0) H 08/28/18 Unknown Seg Neuts % (Manual) 59.0 % (40.0-70.0) 08/26/18 15:02 30.0 % 08/26/18 15:02 5.0 % (13.4-35.0) L 08/26/18 15:02 Reactive Lymphs % (Man) 0 % 08/26/18 15:02 5.0 % (0.0-7.3) 08/26/18 15:02 1.0 % (0.0-4.3) 08/26/18 15:02 0 % (0.0-1.8) 08/26/18 15:02 0 % 08/26/18 15:02 0 % 08/26/18 15:02 0 % 08/26/18 15:02 0 % 08/26/18 15:02 Nucleated RBC % Not Reportable 08/26/18 15:02 Seg Neutrophils # 11.3 K/mm3 (1.8-7.7) H 08/28/18 Unknown Seg Neutrophils # Man 9.3 K/mm3 (1.8-7.7) H 08/26/18 15:02 Band Neutrophils # 4.7 K/mm3 08/26/18 15:02 0.8 K/mm3 (1.2-5.4) L 08/26/18 15:02 Abs React Lymphs (Man) 0.0 K/mm3 08/26/18 15:02 0.8 K/mm3 (0.0-0.8) 08/26/18 15:02 0.2 K/mm3 (0.0-0.4) 08/26/18 15:02 0.0 K/mm3 (0.0-0.1) 08/26/18 15:02 0.0 K/mm3 08/26/18 15:02 0.0 K/mm3 08/26/18 15:02 0.0 K/mm3 08/26/18 15:02 Blast Cells # 0.0 K/mm3 08/26/18 15:02 WBC Morphology Not Reportable 08/26/18 15:02 Hypersegmented Neuts Not Reportable 08/26/18 15:02 Hyposegmented Neuts Not Reportable 08/26/18 15:02 Hypogranular Neuts Not Reportable 08/26/18 15:02 Not Reportable 08/26/18 15:02 Not Reportable 08/26/18 15:02 Not Reportable 08/26/18 15:02 Not Reportable 08/26/18 15:02 Not Reportable 08/26/18 15:02 Not Reportable 08/26/18 15:02 Consistent w auto 08/26/18 15:02 Not Reportable 08/26/18 15:02 Plt Clumps, EDTA Not Reportable 08/26/18 15:02 Not Reportable 08/26/18 15:02 Not Reportable 08/26/18 15:02 Not Reportable 08/26/18 15:02 Plt Morphology Comment Not Reportable 08/26/18 15:02 RBC Morphology Not Reportable 08/26/18 15:02 Dimorphic RBCs Not Reportable 08/26/18 15:02 Few 08/26/18 15:02 1+ 08/26/18 15:02 Not Reportable 08/26/18 15:02 1+ 08/26/18 15:02 Not Reportable 08/26/18 15:02 Not Reportable 08/26/18 15:02 Not Reportable 08/26/18 15:02 Not Reportable 08/26/18 15:02 Not Reportable 08/26/18 15:02 Not Reportable 08/26/18 15:02 Not Reportable 08/26/18 15:02 Not Reportable 08/26/18 15:02 Few 08/26/18 15:02 Not Reportable 08/26/18 15:02 Not Reportable 08/26/18 15:02 Not Reportable 08/26/18 15:02 Not Reportable 08/26/18 15:02 Not Reportable 08/26/18 15:02 Not Reportable 08/26/18 15:02 Not Reportable 08/26/18 15:02 Acanthocytes (Spur) Not Reportable 08/26/18 15:02 Rouleaux Not Reportable 08/26/18 15:02 Not Reportable 08/26/18 15:02 Not Reportable 08/26/18 15:02 Not Reportable 08/26/18 15:02 Not Reportable 08/26/18 15:02 Hem Pathologist Commnt No 08/26/18 15:02 PT 13.7 Sec. (12.2-14.9) 08/30/18 20:09 INR 1.08 (0.87-1.13) 08/30/18 20:09 APTT 31.3 Sec. (24.2-36.6) 08/30/18 20:09 Heparin Anti-Xa Level 0.26 U.I./ml (0.3-0.7) L 09/01/18 08:17 Sodium 140 mmol/L (137-145) 09/01/18 05:15 Potassium 3.7 mmol/L (3.6-5.0) 09/01/18 05:15 Chloride 103.7 mmol/L (98-107) 09/01/18 05:15 Carbon Dioxide 25 mmol/L (22-30) 09/01/18 05:15 15 mmol/L 09/01/18 05:15 BUN 18 mg/dL (7-17) H 09/01/18 05:15 0.6 mg/dL (0.7-1.2) L 09/01/18 05:15 Estimated GFR > 60 ml/min 09/01/18 05:15 30 % 09/01/18 05:15 Glucose 91 mg/dL (65-100) 09/01/18 05:15 Calcium 11.2 mg/dL (8.4-10.2) H 09/01/18 05:15 Phosphorus 3.30 mg/dL (2.5-4.5) D 08/29/18 Unknown Magnesium 2.20 mg/dL (1.7-2.3) 08/28/18 Unknown 0.20 mg/dL (0.1-1.2) 08/27/18 06:11 AST 20 units/L (5-40) 08/27/18 06:11 ALT 36 units/L (7-56) 08/27/18 06:11 140 units/L (35-129) H 08/27/18 06:11 7.4 g/dL (6.3-8.2) 08/27/18 06:11 2.4 g/dL (3.9-5) L 08/27/18 06:11 0.5 % 08/27/18 06:11 PTH Intact 17.01 pg/mL (15-65) 08/29/18 Unknown Yellow (Yellow) 08/26/18 Unknown Cloudy (Clear) 08/26/18 Unknown 8.0 (5.0-7.0) H 08/26/18 Unknown Ur Specific [place] 1.012 (1.003-1.030) 08/26/18 Unknown 30 mg/dl mg/dL (Negative) 08/26/18 Unknown Neg mg/dL (Negative) 08/26/18 Unknown Neg mg/dL (Negative) 08/26/18 Unknown Lg (Negative) 08/26/18 Unknown Neg (Negative) 08/26/18 Unknown Neg (Negative) 08/26/18 Unknown < 2.0 mg/dL (<2.0) 08/26/18 Unknown Ur Leukocyte Esterase Lg (Negative) 08/26/18 Unknown 139.0 /HPF (0.0-6.0) H 08/26/18 Unknown 173.0 /HPF (0.0-6.0) 08/26/18 Unknown U Epithel Cells (Auto) 2.0 /HPF (0-13.0) 08/26/18 Unknown 1+ /HPF (Negative) 08/26/18 Unknown 2+ /HPF 08/26/18 Unknown Calcium Oxalate Crystal 1+ 08/26/18 Unknown Few /HPF 08/26/18 Unknown 2+ /HPF 08/26/18 Unknown Active Medications - Current Medications Current Medications: Generic Name Dose Route Start Last Admin Trade Name Freq PRN Reason Stop Dose Admin Acetaminophen 650 mg 08/26/18 17:51 08/29/18 23:47 Tylenol PO 650 mg Q4H PRN Administration Pain MILD(1-3)/Fever >100.5/RENEE Albuterol 2.5 mg 08/26/18 17:51 Proventil IH Q4HRT PRN Shortness Of Breath Lipase/Protease/Amylase 1 each 08/27/18 17:23 08/28/18 22:00 Pancrejossy Henry 10,500 Unit FEEDTUBE 1 each PRN PRN Administration For Clogged Feeding Tube Sodium Chloride 1,000 mls @ 125 mls/hr 08/26/18 18:00 09/01/18 10:06 Nacl 0.45% 1000 Ml IV 125 mls/hr DIRECT ANU Administration Heparin Sodium/Sodium Chloride 25,000 unit in 500 mls @ 14 mls/hr 08/30/18 18:00 09/01/18 02:01 Heparin/ 0.45% Nacl-25,000 Unit/500 Ml IV 950 units/hr TITR ANU 19 mls/hr Titration Protocol 700 UNITS/HR CEFTOLOZANE/TAZOBACTAM 1.5 gm/ 100 mls @ 100 mls/hr 08/31/18 14:00 09/01/18 05:47 Sodium Chloride IV 100 mls/hr Q8HR ANU Administration Linezolid 600 mg 09/01/18 06:00 09/01/18 06:10 Zyvox PO 600 mg Q12H ANU Administration Protocol Ondansetron HCl 4 mg 08/26/18 17:51 Zofran IV Q8H PRN Nausea And Vomiting Oxycodone/Acetaminophen 1 tab 08/26/18 17:51 08/28/18 17:20 Percocet 5/325 PO 1 tab Q6H PRN Administration Pain, Moderate (4-6) Simple Syrup 15 ml 08/27/18 17:23 Simple Syrup FEEDTUBE PRN PRN Hypoglycemia Simple Syrup 30 ml 08/27/18 17:23 Simple Syrup FEEDTUBE PRN PRN Hypoglycemia Sodium Bicarbonate 325 mg 08/27/18 17:23 08/28/18 22:00 Sodium Bicarbonate FEEDTUBE 325 mg PRN PRN Administration For Clogged Feeding Tube Sodium Chloride 10 ml 08/26/18 22:00 09/01/18 10:05 Sodium Chloride Flush Syringe 10 Ml IV 10 ml BID ANU Administration Sodium Chloride 10 ml 08/26/18 17:51 Sodium Chloride Flush Syringe 10 Ml IV PRN PRN LINE FLUSH Nutrition/Malnutrition Assess - Dietary Evaluation Nutrition/Malnutrition Findings: Nutrition Notes Start: 08/27/18 17:13 Freq: Status: Active Protocol: Document 08/29/18 17:05 (Rec: 08/29/18 17:08 [id number]) Nutrition Notes Initial or Follow up Reassessment Current Diagnosis Sepsis Other Pertinent Diagnosis G tube, Dysphagia, Nonverbal, SIRS, UTI, Neprostomy tube displace Current Diet Jevity 1.2 at 65 ml/hr Labs/Tests Reviewed Pertinent Medications Ceftriaxone Height 5 ft 5 in Weight 49 kg [place] Body Weight (kg) 56.81 BMI 17.9 Subjective/Other Information Observed Jevity 1.2 infusing at goal rate. Per nurse pt has been having loose stools but has been tolerating TF. Herbicide Sprayer stated that loose stools were likely result of antibiotics Burn Absent Trauma Absent #1 Nutrition Diagnosis Malnutrition Diagnosis Progress(for reassessment Continues documentation) Is patient on ventilator? No Is Patient Ambulatory and/or Out of Bed No REE-([place]. or-confined to bed) 1354.980 Kcal/Kg value to use for calculation 38 Approximate Energy Requirements Using 1862 kcal/Kg Calculation Used for Recommendations Kcal/kg Additional Notes Protein Needs: 72-82g (1.5-1. 7g/kg) Fluid Needs: 1 ml/kcal Nutrition Intervention Nutrition Support: Jevity 1.2 at 65 ml/hr. Water flush of 100 mls q 4 hrs . Kcal 1,872 Protein (gm) 87 Fluid (mL) 1,259 Goal #1 TF tolerance Goal #2 Meet at least 75% of calorie and protein needs via TF Anticipated Discharge Needs: Jevity 1.2 Follow-Up By: 09/05/18 Additional Comments Follow for TF tolerance
[2018-09-01] MEDS: HEPARIN/ 0.45% NACL-25,000 UNIT/500 ML 25,000 UNIT/500 ML BAG IV SCH ×2 (10:48→18:23)
--- NOTE | 2018-09-01 16:30 | Progress Note ---
Assessment and Plan 47 y/o with incidental finding of pulmonary emboli while working up hypercalcemia. 1. Agree with Vascular recs 2. No preference to oral anticoagulation 3. Will see PRN Subjective Date of service: 09/01/18 Interval history: No acute events. Objective Vital Signs - 12hr 09/01/18 09/01/18 09/01/18 05:00 08:48 11:15 Temperature 98.3 F 97.6 F Pulse Rate 74 82 Respiratory 16 18 Rate Blood Pressure 94/53 Blood Pressure 101/16 [Left] O2 Sat by Pulse 100 Oximetry 09/01/18 12:29 Temperature Pulse Rate Respiratory Rate Blood Pressure Blood Pressure [Left] O2 Sat by Pulse 98 Oximetry Constitutional: other (eyes open but does not speak) Eyes: non-icteric ENT: oropharynx dry Neck: supple Ascultation: Bilateral: diminished breath sounds CBC and BMP: 09/01/18 05:15 09/01/18 05:15 ABG, PT/INR, D-dimer: PT/INR, D-dimer PT 13.7 Sec. (12.2-14.9) 08/30/18 20:09 INR 1.08 (0.87-1.13) 08/30/18 20:09 Abnormal lab findings: Abnormal Labs 08/26/18 08/26/18 08/26/18 15:02 15:02 17:06 WBC 15.7 H RBC Hgb Hct RDW 17.3 H Lymph % (Auto) [place] % (Auto) [place] # Seg Neutrophils % Lymphocytes % (Manual) 5.0 L Seg Neutrophils # Seg Neutrophils # Man 9.3 H Lymphocytes # (Manual) 0.8 L Heparin Anti-Xa Level Sodium 152 H Potassium 3.3 L Chloride 110.5 H BUN 39 H Creatinine Glucose 116 H Calcium 13.7 H* 13.1 H* Phosphorus Alkaline Phosphatase 172 H Total Protein 8.6 H Albumin 2.9 L Urine pH Urine WBC (Auto) 08/26/18 08/27/18 08/27/18 Unknown 06:11 06:11 WBC 15.0 H RBC 3.22 L Hgb 9.9 L Hct RDW 17.4 H Lymph % (Auto) [place] % (Auto) 7.5 H [place] # 1.1 H Seg Neutrophils % 76.4 H Lymphocytes % (Manual) Seg Neutrophils # 11.5 H Seg Neutrophils # Man Lymphocytes # (Manual) Heparin Anti-Xa Level Sodium 153 H Potassium 3.4 L Chloride 114.7 H BUN 37 H Creatinine Glucose Calcium 13.0 H* Phosphorus Alkaline Phosphatase 140 H Total Protein Albumin 2.4 L Urine pH 8.0 H Urine WBC (Auto) 139.0 H 08/28/18 08/28/18 08/28/18 Unknown Unknown Unknown WBC 14.1 H RBC 3.16 L Hgb 9.6 L Hct 30.0 L RDW 17.3 H Lymph % (Auto) 12.8 L [place] % (Auto) [place] # 1.0 H Seg Neutrophils % 80.0 H Lymphocytes % (Manual) Seg Neutrophils # 11.3 H Seg Neutrophils # Man Lymphocytes # (Manual) Heparin Anti-Xa Level Sodium 148 H Potassium 2.6 L* D Chloride 112.7 H BUN 39 H Creatinine Glucose Calcium 13.0 H* Phosphorus 6.80 H Alkaline Phosphatase Total Protein Albumin Urine pH Urine WBC (Auto) 08/29/18 08/30/18 08/30/18 Unknown Unknown Unknown WBC RBC Hgb Hct RDW 17.4 H Lymph % (Auto) [place] % (Auto) [place] # Seg Neutrophils % Lymphocytes % (Manual) Seg Neutrophils # Seg Neutrophils # Man Lymphocytes # (Manual) Heparin Anti-Xa Level Sodium Potassium 3.1 L Chloride 109.2 H BUN 29 H 23 H Creatinine Glucose 114 H 104 H Calcium 11.6 H 11.4 H Phosphorus Alkaline Phosphatase Total Protein Albumin Urine pH Urine WBC (Auto) 08/31/18 08/31/18 08/31/18 00:50 07:49 07:49 WBC RBC Hgb Hct RDW Lymph % (Auto) [place] % (Auto) [place] # Seg Neutrophils % Lymphocytes % (Manual) Seg Neutrophils # Seg Neutrophils # Man Lymphocytes # (Manual) Heparin Anti-Xa Level 0.15 L < 0.10 L Sodium Potassium 3.5 L D Chloride BUN 20 H Creatinine 0.6 L Glucose 105 H Calcium 10.8 H Phosphorus Alkaline Phosphatase Total Protein Albumin Urine pH Urine WBC (Auto) 09/01/18 09/01/18 09/01/18 00:00 05:15 05:15 WBC RBC 3.39 L Hgb Hct RDW 17.0 H Lymph % (Auto) [place] % (Auto) [place] # Seg Neutrophils % Lymphocytes % (Manual) Seg Neutrophils # Seg Neutrophils # Man Lymphocytes # (Manual) Heparin Anti-Xa Level 0.25 L Sodium Potassium Chloride BUN 18 H Creatinine 0.6 L Glucose Calcium 11.2 H Phosphorus Alkaline Phosphatase Total Protein Albumin Urine pH Urine WBC (Auto) 09/01/18 08:17 WBC RBC Hgb Hct RDW Lymph % (Auto) [place] % (Auto) [place] # Seg Neutrophils % Lymphocytes % (Manual) Seg Neutrophils # Seg Neutrophils # Man Lymphocytes # (Manual) Heparin Anti-Xa Level 0.26 L Sodium Potassium Chloride BUN Creatinine Glucose Calcium Phosphorus Alkaline Phosphatase Total Protein Albumin Urine pH Urine WBC (Auto)
--- NOTE | 2018-09-02 00:24 | Consultation ---
PHYSICIAN: Gonzalez Goodwin MD REASON FOR CONSULTATION: PE and hypercalcemia. HISTORY OF PRESENT ILLNESS: I saw the patient, a 47-year-old female in the medical floor. The patient was admitted on 08/26/2018 for dehydration and the nephrostomy tube had come out. [facility], status post traumatic brain injury, debility and dysphagia. The patient is nonverbal. Most of the information comes from the medical records. The nephrostomy tube had dislodged since the patient came to the hospital. The patient also was found to have hypercalcemia. At admission, it was 13.7. On 07/30/2018, CT scan of the chest showed PE. I have been consulted for these issues. REVIEW OF SYSTEMS: Not reliable. PAST MEDICAL HISTORY: As above, traumatic brain injury and encephalopathy. PAST SURGICAL HISTORY: G-tube and nephrostomy tubes. SOCIAL HISTORY: . FAMILY HISTORY: Not available. MEDICAL ALLERGIES: None. PRESENT MEDICATIONS: Includes, Lipase and Amylase, heparin, and Zofran. PHYSICAL EXAMINATION: VITAL SIGNS: Temperature 98, pulse 76, respirations 16, BP 98/68. HEENT: No pallor. No icterus. The patient is nonverbal. HEART: S1, S2. LUNGS: Clear to auscultation anteriorly. ABDOMEN: Soft. EXTREMITIES: No edema. NEUROLOGIC: Nonverbal. LABORATORY DATA: White cell 10, hemoglobin 10.9, MCV 93 and platelets 295. PT/INR is normal. Potassium is 4.6, creatinine 0.7, calcium 11.4, admission, it was 13. Radiology also mentions renal stones, nephrostomy tube on the left side. CT scan of the chest shows extensive pulmonary emboli including large saddle emboli. ASSESSMENT: 1. Large emboli, would need anticoagulation. 2. Hypercalcemia with renal stones, most likely either secondary to immobilization or parathyroid related issue. 3. Radiology shows bronchiectasis, cultures mentioned pseudomonas, heparin for the pulmonary embolism, nephrostomy tube issues. 4. The patient has a history of traumatic brain injury, nonverbal. 5. History of G-tube. 6. I will follow the patient during inpatient stay and then in the clinic setting. The patient would need long-term anticoagulation. NOAC suggested at full dose for now and after a few months to 2.5 of Eliquis q. 12 hours. JOB# [id number] VEDA/MICHELLE
[2018-09-02 01:24] LABS: Gamma Globulin 1.7 g/dL (0.8-1.7)
[2018-09-02] MEDS: HEPARIN/ 0.45% NACL-25,000 UNIT/500 ML 25,000 UNIT/500 ML BAG IV SCH (02:47)
[2018-09-02] MEDS: ZYVOX PO SCH ×2 (05:01→19:29)
[2018-09-02] MEDS: CEFTOLOZANE IV SCH ×3 (05:02→22:55)
[2018-09-02] MEDS: SODIUM CHLORIDE 0.9% IV SCH ×3 (05:02→22:55)
[2018-09-02] MEDS: TAZOBACTAM IV SCH ×3 (05:02→22:55)
[2018-09-02] MEDS: NACL 0.45% 1000 ML 1,000 ML IV SCH ×2 (05:11→16:19)
[2018-09-02 05:40] LABS: BUN/Creatinine Ratio 25; Blood Urea Nitrogen 15 mg/dL (7-17); Calcium 10.4 mg/dL (8.4-10.2); Hemolysis Index 33
[2018-09-02] MEDS ORDERED: POTASSIUM CHLORIDE FEEDTUBE ONE (10:44)
[2018-09-02] MEDS: TYLENOL PO PRN (11:43)
--- NOTE | 2018-09-02 12:16 | Progress Note ---
Assessment and Plan 1. Hypercalcemia: Likely due to volume depletion. PTH level is low. Continue IV fluids to correct volume depletion. Calcium level is improving. Vitamin D level pending. Myeloma is a consideration. SPEP - faint M-spike. Immunofixation ordered. 2. Acute kidney injury: Vasomotor RUDI in the setting of volume depletion. Continue IV fluids. Renal function is improving. Monitor renal function. Avoid nephrotoxic agents. 3. FEN: Hypernatremia, improved. Monitor lytes. 4. Severe sepsis: UTI. 5. Dysfunctional nephrostomy tubes: S/p new nephrostomy tubes. 6. Bilateral PE. 7. Anemia. 8. Encephalopathy: Likely at baseline. Subjective Date of service: 09/02/18 Interval history: Patient was seen and examined at the bedside. Objective - Vital Signs Vital signs: Vital Signs - 12hr 09/02/18 09/02/18 09/02/18 01:00 05:00 06:11 Temperature 97.5 F L Pulse Rate 74 79 Respiratory 16 Rate Blood Pressure 92/49 O2 Sat by Pulse 100 Oximetry 09/02/18 09/02/18 09/02/18 09:14 10:07 11:43 Temperature 98.2 F Pulse Rate 96 H 83 Respiratory 14 20 Rate Blood Pressure 95/48 O2 Sat by Pulse 100 Oximetry - General Appearance General appearance: well-developed, appears stated age, other (no distress, emaciated) EENT: ATNC, PERRL Neck: supple Respiratory: Present: Clear to Ascultation Cardiology: regular, S1S2, no murmurs Gastrointestinal: normoactive bowel sounds, no tenderness, no distended, other (PEG tube, b/l nephrostomy tubes noted) Integumentary: no rash Neurologic: other (alert, not following any command, non-verbal) Musculoskeletal: other (no edema) - Lab 09/01/18 05:15 09/02/18 05:00 Most recent lab results Calcium 10.4 mg/dL (8.4-10.2) H 09/02/18 05:00 Phosphorus 2.90 mg/dL (2.5-4.5) 09/02/18 05:00 Magnesium 2.20 mg/dL (1.7-2.3) 08/28/18 Unknown Medications & Allergies - Medications Allergies/Adverse Reactions: Allergies No Known Allergies Allergy (Unverified 08/26/18 14:14) Active Medications: Generic Name Dose Route Start Last Admin Trade Name Freq PRN Reason Stop Dose Admin Acetaminophen 650 mg 08/26/18 17:51 09/02/18 11:43 Tylenol PO 650 mg Q4H PRN Administration Pain MILD(1-3)/Fever >100.5/RENEE Albuterol 2.5 mg 08/26/18 17:51 Proventil IH Q4HRT PRN Shortness Of Breath Lipase/Protease/Amylase 1 each 08/27/18 17:23 08/28/18 22:00 Pancrejossy Henry 10,500 Unit FEEDTUBE 1 each PRN PRN Administration For Clogged Feeding Tube Sodium Chloride 1,000 mls @ 125 mls/hr 08/26/18 18:00 09/02/18 05:11 Nacl 0.45% 1000 Ml IV 125 mls/hr DIRECT ANU Administration Heparin Sodium/Sodium Chloride 25,000 unit in 500 mls @ 14 mls/hr 08/30/18 18:00 09/02/18 07:03 Heparin/ 0.45% Nacl-25,000 Unit/500 Ml IV 950 units/hr TITR ANU 19 mls/hr Titration Protocol 700 UNITS/HR CEFTOLOZANE/TAZOBACTAM 1.5 gm/ 100 mls @ 100 mls/hr 08/31/18 14:00 09/02/18 05:02 Sodium Chloride IV 100 mls/hr Q8HR ANU Administration Linezolid 600 mg 09/01/18 06:00 09/02/18 05:01 Zyvox PO 600 mg Q12H ANU Administration Protocol Ondansetron HCl 4 mg 08/26/18 17:51 Zofran IV Q8H PRN Nausea And Vomiting Oxycodone/Acetaminophen 1 tab 08/26/18 17:51 08/28/18 17:20 Percocet 5/325 PO 1 tab Q6H PRN Administration Pain, Moderate (4-6) Simple Syrup 15 ml 08/27/18 17:23 Simple Syrup FEEDTUBE PRN PRN Hypoglycemia Simple Syrup 30 ml 08/27/18 17:23 Simple Syrup FEEDTUBE PRN PRN Hypoglycemia Sodium Bicarbonate 325 mg 08/27/18 17:23 08/28/18 22:00 Sodium Bicarbonate FEEDTUBE 325 mg PRN PRN Administration For Clogged Feeding Tube Sodium Chloride 10 ml 08/26/18 22:00 09/01/18 21:33 Sodium Chloride Flush Syringe 10 Ml IV 10 ml BID ANU Administration Sodium Chloride 10 ml 08/26/18 17:51 Sodium Chloride Flush Syringe 10 Ml IV PRN PRN LINE FLUSH
--- NOTE | 2018-09-02 12:41 | Progress Note ---
Assessment and Plan 47 y/o with incidental finding of pulmonary emboli while working up hypercalcemia. 1. Agree with Vascular recs 2. No preference to oral anticoagulation 3. Will sign off. Subjective Date of service: 09/02/18 Interval history: Remains stable. has not been started on oral therapy yet. Vascular left recs yesterday. Objective Vital Signs - 12hr 09/02/18 09/02/18 09/02/18 01:00 05:00 06:11 Temperature 97.5 F L Pulse Rate 74 79 Respiratory 16 Rate Blood Pressure 92/49 O2 Sat by Pulse 100 Oximetry 09/02/18 09/02/18 09/02/18 09:14 10:07 11:43 Temperature 98.2 F Pulse Rate 96 H 83 Respiratory 14 20 Rate Blood Pressure 95/48 O2 Sat by Pulse 100 Oximetry Constitutional: other (eyes open but does not speak) Eyes: non-icteric ENT: oropharynx dry Neck: supple Ascultation: Bilateral: diminished breath sounds CBC and BMP: 09/01/18 05:15 09/02/18 05:00 ABG, PT/INR, D-dimer: PT/INR, D-dimer PT 13.7 Sec. (12.2-14.9) 08/30/18 20:09 INR 1.08 (0.87-1.13) 08/30/18 20:09 Abnormal lab findings: Abnormal Labs 08/26/18 08/26/18 08/26/18 15:02 15:02 17:06 WBC 15.7 H RBC Hgb Hct RDW 17.3 H Lymph % (Auto) [place] % (Auto) [place] # Seg Neutrophils % Lymphocytes % (Manual) 5.0 L Seg Neutrophils # Seg Neutrophils # Man 9.3 H Lymphocytes # (Manual) 0.8 L Heparin Anti-Xa Level Sodium 152 H Potassium 3.3 L Chloride 110.5 H BUN 39 H Creatinine Glucose 116 H Calcium 13.7 H* 13.1 H* Phosphorus Alkaline Phosphatase 172 H Serum Total Protein Total Protein 8.6 H Albumin 2.9 L Aahxn-5-Cpzdihwgq Minba-8-Jkgnkfqwn PEP Interpretation Urine pH Urine WBC (Auto) 08/26/18 08/27/18 08/27/18 Unknown 06:11 06:11 WBC 15.0 H RBC 3.22 L Hgb 9.9 L Hct RDW 17.4 H Lymph % (Auto) [place] % (Auto) 7.5 H [place] # 1.1 H Seg Neutrophils % 76.4 H Lymphocytes % (Manual) Seg Neutrophils # 11.5 H Seg Neutrophils # Man Lymphocytes # (Manual) Heparin Anti-Xa Level Sodium 153 H Potassium 3.4 L Chloride 114.7 H BUN 37 H Creatinine Glucose Calcium 13.0 H* Phosphorus Alkaline Phosphatase 140 H Serum Total Protein Total Protein Albumin 2.4 L Lhkug-2-Xiwzgvlcn Suwax-8-Qvidndjxj PEP Interpretation Urine pH 8.0 H Urine WBC (Auto) 139.0 H 08/28/18 08/28/18 08/28/18 Unknown Unknown Unknown WBC 14.1 H RBC 3.16 L Hgb 9.6 L Hct 30.0 L RDW 17.3 H Lymph % (Auto) 12.8 L [place] % (Auto) [place] # 1.0 H Seg Neutrophils % 80.0 H Lymphocytes % (Manual) Seg Neutrophils # 11.3 H Seg Neutrophils # Man Lymphocytes # (Manual) Heparin Anti-Xa Level Sodium 148 H Potassium 2.6 L* D Chloride 112.7 H BUN 39 H Creatinine Glucose Calcium 13.0 H* Phosphorus 6.80 H Alkaline Phosphatase Serum Total Protein Total Protein Albumin Fjeyu-3-Ikkhowclc Ptkkl-7-Rbszojuhr PEP Interpretation Urine pH Urine WBC (Auto) 08/29/18 08/29/18 08/30/18 Unknown Unknown Unknown WBC RBC Hgb Hct RDW Lymph % (Auto) [place] % (Auto) [place] # Seg Neutrophils % Lymphocytes % (Manual) Seg Neutrophils # Seg Neutrophils # Man Lymphocytes # (Manual) Heparin Anti-Xa Level Sodium Potassium 3.1 L Chloride 109.2 H BUN 29 H 23 H Creatinine Glucose 114 H 104 H Calcium 11.6 H 11.4 H Phosphorus Alkaline Phosphatase Serum Total Protein 6.0 L Total Protein Albumin 2.0 L Ujsls-9-Vkejmylnk 0.4 H Kysvu-3-Bvhdntcpn 1.2 H PEP Interpretation see below H Urine pH Urine WBC (Auto) 08/30/18 08/31/18 08/31/18 Unknown 00:50 07:49 WBC RBC Hgb Hct RDW 17.4 H Lymph % (Auto) [place] % (Auto) [place] # Seg Neutrophils % Lymphocytes % (Manual) Seg Neutrophils # Seg Neutrophils # Man Lymphocytes # (Manual) Heparin Anti-Xa Level 0.15 L Sodium Potassium 3.5 L D Chloride BUN 20 H Creatinine 0.6 L Glucose 105 H Calcium 10.8 H Phosphorus Alkaline Phosphatase Serum Total Protein Total Protein Albumin Wgqji-8-Hhhsyqoyh Pmltu-9-Zpuvquuum PEP Interpretation Urine pH Urine WBC (Auto) 08/31/18 09/01/18 09/01/18 07:49 00:00 05:15 WBC RBC 3.39 L Hgb Hct RDW 17.0 H Lymph % (Auto) [place] % (Auto) [place] # Seg Neutrophils % Lymphocytes % (Manual) Seg Neutrophils # Seg Neutrophils # Man Lymphocytes # (Manual) Heparin Anti-Xa Level < 0.10 L 0.25 L Sodium Potassium Chloride BUN Creatinine Glucose Calcium Phosphorus Alkaline Phosphatase Serum Total Protein Total Protein Albumin Mpabc-1-Gynqbizsp Iwllx-3-Drsapgfrv PEP Interpretation Urine pH Urine WBC (Auto) 09/01/18 09/01/18 09/02/18 05:15 08:17 05:00 WBC RBC Hgb Hct RDW Lymph % (Auto) [place] % (Auto) [place] # Seg Neutrophils % Lymphocytes % (Manual) Seg Neutrophils # Seg Neutrophils # Man Lymphocytes # (Manual) Heparin Anti-Xa Level 0.26 L Sodium Potassium 3.4 L Chloride BUN 18 H Creatinine 0.6 L 0.6 L Glucose 121 H Calcium 11.2 H 10.4 H Phosphorus Alkaline Phosphatase Serum Total Protein Total Protein Albumin Ekxha-1-Uaqefrbta Wthxc-8-Bwihurygw PEP Interpretation Urine pH Urine WBC (Auto)
--- NOTE | 2018-09-02 12:56 | Progress Note ---
Assessment and Plan Assessment and plan: 47 YO Female SNF Resident at [facility] with Encephalopathy S/P TBI, Debility, Dysphagia, presents to ED for evaluation. Pt is nonverbal and unable to provide history. Patient was found to have a dislodged Nephrostomy tube, EMS notified, and patient transported to [facility]. Pt seen and evaluated in ED and found to have UTI, Volume depletion, as well as dislodged nephrostomy tube. Pt admitted to medical floor. IR team consulted in ED. Patient diagnosed with Sepsis, UTI. bilateral pneumonia. Hypercalcemia improved. CT Chest was done to look for malignancy but revealed saddle pulmonary embolism. Patient started on heparin, consulted Vasc Surgery, now to start Eliquis today. Blood cultures grew Pseudomonas Aeurginosa and A, baumani and urine cultures grew Pseudomonas aeruginosa and Enterococcus faecium. Now started on Ceftolozane/Tazobactam and Zyvox by ID Physician. She was on Cefepime. Follow clinically. Discharge planning in conjunction with ID. Sepsis. Blood cultures positive for multiple organisms Pseudomonas aeruginosa. A, Baumani Urune Pseudomonas and Enterococcus fecium contact isolation Now started on Ceftolozane/Tazobactam and Zyvox Multidrug resistant bacteria Discussed with ID Bilateral pneumonia. On Antibiotics saddle pulmonary embolism, seen on Ct cvhest started Heparin Consulted and discussed with Dr. Newell, Dr. Quezada Echo unremarkable, no right ventricle strain Will transition to Eliquis, stop Heparin UTI pseudomonas aeruginosa and enterococcus faecium. Continue IV antibiotics. Nephrostomy tube dislodged. IR consulted, s/p replaced Hypercalcemia. Improved Nephrology following Consulted Oncology Hypernatremia Now resolved Hypokalemia Improving. Give more Potassium and recheck Severe protein calorie malnutrition. Continue tube feedings per dietitian. Chronic encephalopathy s/p TBI. Supportive care. Debility. Mobility protocols for pressure ulcer prophylaxis. History Interval history: Patient is nonverbal, was brought to ED for dislodged nephrostomy tube, exchanged fever , now resolved CT Chest revealed saddle pulmonary embolism Hospitalist Physical - Physical exam Narrative exam: Gen: Not in acute distress, lying in bed, malnourished,ill looking HEENT: Normocephalic, atraumatic Neck: supple, no JVD Heart: S1 and S2 reg, no murmurs, rubs or gallop Lungs: Clear, no crackles, no wheeze Abd: soft, non tender, non distended, normal BS,PEG tube, Bilateral nephrostomy tubes Ext: No edema, no clubbing, no cyanosis, Neuro: Non verbal, - Constitutional Vitals: Temp Pulse Resp BP Pulse Ox 98.2 F 83 20 95/48 100 09/02/18 09:14 09/02/18 10:07 09/02/18 11:43 09/02/18 09:14 09/02/18 09:14 General appearance: Present: no acute distress Results - Labs CBC & Chem 7: 09/01/18 05:15 09/02/18 05:00 Labs: Laboratory Last Values WBC 9.7 K/mm3 (4.5-11.0) 09/01/18 05:15 RBC 3.39 M/mm3 (3.65-5.03) L 09/01/18 05:15 Hgb 10.6 gm/dl (10.1-14.3) 09/01/18 05:15 Hct 31.6 % (30.3-42.9) 09/01/18 05:15 MCV 93 fl (79-97) 09/01/18 05:15 MCH 31 pg (28-32) 09/01/18 05:15 MCHC 34 % (30-34) 09/01/18 05:15 RDW 17.0 % (13.2-15.2) H 09/01/18 05:15 Plt Count 299 K/mm3 (140-440) 09/01/18 05:15 Lymph % (Auto) 12.8 % (13.4-35.0) L 08/28/18 Unknown [place] % (Auto) 6.9 % (0.0-7.3) 08/28/18 Unknown Eos % (Auto) 0.2 % (0.0-4.3) 08/28/18 Unknown Baso % (Auto) 0.1 % (0.0-1.8) 08/28/18 Unknown Lymph # 1.8 K/mm3 (1.2-5.4) 08/28/18 Unknown [place] # 1.0 K/mm3 (0.0-0.8) H 08/28/18 Unknown Eos # 0.0 K/mm3 (0.0-0.4) 08/28/18 Unknown Baso # 0.0 K/mm3 (0.0-0.1) 08/28/18 Unknown Add Manual Diff Complete 08/26/18 15:02 Total Counted 100 08/26/18 15:02 Seg Neutrophils % 80.0 % (40.0-70.0) H 08/28/18 Unknown Seg Neuts % (Manual) 59.0 % (40.0-70.0) 08/26/18 15:02 30.0 % 08/26/18 15:02 5.0 % (13.4-35.0) L 08/26/18 15:02 Reactive Lymphs % (Man) 0 % 08/26/18 15:02 5.0 % (0.0-7.3) 08/26/18 15:02 1.0 % (0.0-4.3) 08/26/18 15:02 0 % (0.0-1.8) 08/26/18 15:02 0 % 08/26/18 15:02 0 % 08/26/18 15:02 0 % 08/26/18 15:02 0 % 08/26/18 15:02 Nucleated RBC % Not Reportable 08/26/18 15:02 Seg Neutrophils # 11.3 K/mm3 (1.8-7.7) H 08/28/18 Unknown Seg Neutrophils # Man 9.3 K/mm3 (1.8-7.7) H 08/26/18 15:02 Band Neutrophils # 4.7 K/mm3 08/26/18 15:02 0.8 K/mm3 (1.2-5.4) L 08/26/18 15:02 Abs React Lymphs (Man) 0.0 K/mm3 08/26/18 15:02 0.8 K/mm3 (0.0-0.8) 08/26/18 15:02 0.2 K/mm3 (0.0-0.4) 08/26/18 15:02 0.0 K/mm3 (0.0-0.1) 08/26/18 15:02 0.0 K/mm3 08/26/18 15:02 0.0 K/mm3 08/26/18 15:02 0.0 K/mm3 08/26/18 15:02 Blast Cells # 0.0 K/mm3 08/26/18 15:02 WBC Morphology Not Reportable 08/26/18 15:02 Hypersegmented Neuts Not Reportable 08/26/18 15:02 Hyposegmented Neuts Not Reportable 08/26/18 15:02 Hypogranular Neuts Not Reportable 08/26/18 15:02 Not Reportable 08/26/18 15:02 Not Reportable 08/26/18 15:02 Not Reportable 08/26/18 15:02 Not Reportable 08/26/18 15:02 Not Reportable 08/26/18 15:02 Not Reportable 08/26/18 15:02 Consistent w auto 08/26/18 15:02 Not Reportable 08/26/18 15:02 Plt Clumps, EDTA Not Reportable 08/26/18 15:02 Not Reportable 08/26/18 15:02 Not Reportable 08/26/18 15:02 Not Reportable 08/26/18 15:02 Plt Morphology Comment Not Reportable 08/26/18 15:02 RBC Morphology Not Reportable 08/26/18 15:02 Dimorphic RBCs Not Reportable 08/26/18 15:02 Few 08/26/18 15:02 1+ 08/26/18 15:02 Not Reportable 08/26/18 15:02 1+ 08/26/18 15:02 Not Reportable 08/26/18 15:02 Not Reportable 08/26/18 15:02 Not Reportable 08/26/18 15:02 Not Reportable 08/26/18 15:02 Not Reportable 08/26/18 15:02 Not Reportable 08/26/18 15:02 Not Reportable 08/26/18 15:02 Not Reportable 08/26/18 15:02 Few 08/26/18 15:02 Not Reportable 08/26/18 15:02 Not Reportable 08/26/18 15:02 Not Reportable 08/26/18 15:02 Not Reportable 08/26/18 15:02 Not Reportable 08/26/18 15:02 Not Reportable 08/26/18 15:02 Not Reportable 08/26/18 15:02 Acanthocytes (Spur) Not Reportable 08/26/18 15:02 Rouleaux Not Reportable 08/26/18 15:02 Not Reportable 08/26/18 15:02 Not Reportable 08/26/18 15:02 Not Reportable 08/26/18 15:02 Not Reportable 08/26/18 15:02 Hem Pathologist Commnt No 08/26/18 15:02 PT 13.7 Sec. (12.2-14.9) 08/30/18 20:09 INR 1.08 (0.87-1.13) 08/30/18 20:09 APTT 31.3 Sec. (24.2-36.6) 08/30/18 20:09 Heparin Anti-Xa Level 0.42 U.I./ml (0.3-0.7) 09/02/18 05:00 Sodium 139 mmol/L (137-145) 09/02/18 05:00 Potassium 3.4 mmol/L (3.6-5.0) L 09/02/18 05:00 Chloride 103.1 mmol/L (98-107) 09/02/18 05:00 Carbon Dioxide 24 mmol/L (22-30) 09/02/18 05:00 15 mmol/L 09/02/18 05:00 BUN 15 mg/dL (7-17) 09/02/18 05:00 0.6 mg/dL (0.7-1.2) L 09/02/18 05:00 Estimated GFR > 60 ml/min 09/02/18 05:00 25 % 09/02/18 05:00 Glucose 121 mg/dL (65-100) H 09/02/18 05:00 Calcium 10.4 mg/dL (8.4-10.2) H 09/02/18 05:00 Phosphorus 2.90 mg/dL (2.5-4.5) 09/02/18 05:00 Magnesium 2.20 mg/dL (1.7-2.3) 08/28/18 Unknown 0.20 mg/dL (0.1-1.2) 08/27/18 06:11 AST 20 units/L (5-40) 08/27/18 06:11 ALT 36 units/L (7-56) 08/27/18 06:11 140 units/L (35-129) H 08/27/18 06:11 6.0 g/dL (6.1-8.1) L 08/29/18 Unknown 7.4 g/dL (6.3-8.2) 08/27/18 06:11 2.0 g/dL (3.8-4.8) L 08/29/18 Unknown 0.5 % 08/27/18 06:11 0.4 g/dL (0.2-0.3) H 08/29/18 Unknown 1.2 g/dL (0.5-0.9) H 08/29/18 Unknown 0.4 g/dL (0.2-0.5) 08/29/18 Unknown 1.7 g/dL (0.8-1.7) 08/29/18 Unknown Abnorm Protein Band 1 see below 08/29/18 Unknown PEP Interpretation see below H 08/29/18 Unknown PTH Intact 17.01 pg/mL (15-65) 08/29/18 Unknown Yellow (Yellow) 08/26/18 Unknown Cloudy (Clear) 08/26/18 Unknown 8.0 (5.0-7.0) H 08/26/18 Unknown Ur Specific [place] 1.012 (1.003-1.030) 08/26/18 Unknown 30 mg/dl mg/dL (Negative) 08/26/18 Unknown Neg mg/dL (Negative) 08/26/18 Unknown Neg mg/dL (Negative) 08/26/18 Unknown Lg (Negative) 08/26/18 Unknown Neg (Negative) 08/26/18 Unknown Neg (Negative) 08/26/18 Unknown < 2.0 mg/dL (<2.0) 08/26/18 Unknown Ur Leukocyte Esterase Lg (Negative) 08/26/18 Unknown 139.0 /HPF (0.0-6.0) H 08/26/18 Unknown 173.0 /HPF (0.0-6.0) 08/26/18 Unknown U Epithel Cells (Auto) 2.0 /HPF (0-13.0) 08/26/18 Unknown 1+ /HPF (Negative) 08/26/18 Unknown 2+ /HPF 08/26/18 Unknown Calcium Oxalate Crystal 1+ 08/26/18 Unknown Few /HPF 08/26/18 Unknown 2+ /HPF 08/26/18 Unknown Active Medications - Current Medications Current Medications: Generic Name Dose Route Start Last Admin Trade Name Freq PRN Reason Stop Dose Admin Acetaminophen 650 mg 08/26/18 17:51 09/02/18 11:43 Tylenol PO 650 mg Q4H PRN Administration Pain MILD(1-3)/Fever >100.5/RENEE Albuterol 2.5 mg 08/26/18 17:51 Proventil IH Q4HRT PRN Shortness Of Breath Lipase/Protease/Amylase 1 each 08/27/18 17:23 08/28/18 22:00 Bertha Henry 10,500 Unit FEEDTUBE 1 each PRN PRN Administration For Clogged Feeding Tube Sodium Chloride 1,000 mls @ 125 mls/hr 08/26/18 18:00 09/02/18 05:11 Nacl 0.45% 1000 Ml IV 125 mls/hr DIRECT ANU Administration Heparin Sodium/Sodium Chloride 25,000 unit in 500 mls @ 14 mls/hr 08/30/18 18:00 09/02/18 07:03 Heparin/ 0.45% Nacl-25,000 Unit/500 Ml IV 950 units/hr TITR ANU 19 mls/hr Titration Protocol 700 UNITS/HR CEFTOLOZANE/TAZOBACTAM 1.5 gm/ 100 mls @ 100 mls/hr 08/31/18 14:00 09/02/18 05:02 Sodium Chloride IV 100 mls/hr Q8HR ANU Administration Linezolid 600 mg 09/01/18 06:00 09/02/18 05:01 Zyvox PO 600 mg Q12H ANU Administration Protocol Ondansetron HCl 4 mg 08/26/18 17:51 Zofran IV Q8H PRN Nausea And Vomiting Oxycodone/Acetaminophen 1 tab 08/26/18 17:51 08/28/18 17:20 Percocet 5/325 PO 1 tab Q6H PRN Administration Pain, Moderate (4-6) Simple Syrup 15 ml 08/27/18 17:23 Simple Syrup FEEDTUBE PRN PRN Hypoglycemia Simple Syrup 30 ml 08/27/18 17:23 Simple Syrup FEEDTUBE PRN PRN Hypoglycemia Sodium Bicarbonate 325 mg 08/27/18 17:23 08/28/18 22:00 Sodium Bicarbonate FEEDTUBE 325 mg PRN PRN Administration For Clogged Feeding Tube Sodium Chloride 10 ml 08/26/18 22:00 09/01/18 21:33 Sodium Chloride Flush Syringe 10 Ml IV 10 ml BID ANU Administration Sodium Chloride 10 ml 08/26/18 17:51 Sodium Chloride Flush Syringe 10 Ml IV PRN PRN LINE FLUSH Nutrition/Malnutrition Assess - Dietary Evaluation Nutrition/Malnutrition Findings: Nutrition Notes Start: 08/27/18 17:13 Freq: Status: Active Protocol: Document 08/29/18 17:05 RM (Rec: 08/29/18 17:08 RM [id number]) Nutrition Notes Initial or Follow up Reassessment Current Diagnosis Sepsis Other Pertinent Diagnosis G tube, Dysphagia, Nonverbal, SIRS, UTI, Neprostomy tube displace Current Diet Jevity 1.2 at 65 ml/hr Labs/Tests Reviewed Pertinent Medications Ceftriaxone Height 5 ft 5 in Weight 49 kg [place] Body Weight (kg) 56.81 BMI 17.9 Subjective/Other Information Observed Jevity 1.2 infusing at goal rate. Per nurse pt has been having loose stools but has been tolerating TF. [employer] stated that loose stools were likely result of antibiotics Burn Absent Trauma Absent #1 Nutrition Diagnosis Malnutrition Diagnosis Progress(for reassessment Continues documentation) Is patient on ventilator? No Is Patient Ambulatory and/or Out of Bed No REE-([facility]-confined to bed) 1354.980 Kcal/Kg value to use for calculation 38 Approximate Energy Requirements Using 1862 kcal/Kg Calculation Used for Recommendations Kcal/kg Additional Notes Protein Needs: 72-82g (1.5-1. 7g/kg) Fluid Needs: 1 ml/kcal Nutrition Intervention Nutrition Support: Jevity 1.2 at 65 ml/hr. Water flush of 100 mls q 4 hrs . Kcal 1,872 Protein (gm) 87 Fluid (mL) 1,259 Goal #1 TF tolerance Goal #2 Meet at least 75% of calorie and protein needs via TF Anticipated Discharge Needs: Jevity 1.2 Follow-Up By: 09/05/18 Additional Comments Follow for TF tolerance
[2018-09-02 14:56] LABS: Vitamin D, 25-OH, D2 <4 ng/mL
[2018-09-02] MEDS: ELIQUIS PO SCH ×2 (19:28→22:55)
[2018-09-03] MEDS: PERCOCET 5/325 PO PRN (00:13)
[2018-09-03] MEDS: SODIUM CHLORIDE FLUSH SYRINGE 10 ML IV SCH ×3 (00:16→21:27)
[2018-09-03] MEDS: ZYVOX PO SCH ×2 (06:09→18:40)
[2018-09-03] MEDS: CEFTOLOZANE IV SCH ×2 (06:41→18:40)
[2018-09-03] MEDS: SODIUM CHLORIDE 0.9% IV SCH ×2 (06:41→18:40)
[2018-09-03] MEDS: TAZOBACTAM IV SCH ×2 (06:41→18:40)
--- NOTE | 2018-09-03 08:13 | Hem/Onc Progress Note ---
Assessment and Plan 1. Large emboli, would need anticoagulation. 2. Hypercalcemia with renal stones, most likely either secondary to immobili zation or parathyroid related issue. 3. Radiology shows bronchiectasis, cultures mentioned pseudomonas, heparin for the pulmonary embolism, nephrostomy tube issues. 4. The patient has a history of traumatic brain injury, nonverbal. 5. History of G-tube. 6. I will follow the patient during inpatient stay and then in the clinic setting. The patient would need long-term anticoagulation. NOAC suggested at full dose for now and after a few months to 2.5 of Eliquis q. 12 hours. - Patient Problems (1) Pulmonary embolism Current Visit: Yes Status: Acute Subjective Date of service: 09/03/18 Objective - Exam Narrative Exam: Pain none General appearance no acute distress Performance status - completely disabled Eyes blank stare ENT does not respond to questions LNs cervical not palpable Neck no mass Respiratory Normal Breath sounds - diminished b/l CVS S1 S2 + Extremities normal temperature General GI Soft non tender PEG + Rectal deferred Female - deferred Skin warm Musculoskeletal generalized weakness Neurologically contracted extremities - Constitutional Vitals: Last Vital Signs Temp 97.4 F L 09/03/18 04:06 Pulse 67 09/03/18 04:06 Resp 20 09/03/18 04:06 BP 102/53 09/03/18 04:06 Pulse Ox 96 09/03/18 04:06 - Labs Lab Results: Laboratory Results - last 24 hr 08/29/18 09/03/18 04:00 06:10 Heparin Anti-Xa Level 1.46 H 25-Hydroxy Vitamin D2 <4 1,25 Dihydroxy Vit D2 <8 25-Hydroxy Vitamin D3 51 1,25 Dihydroxy Vit D3 30 Medications & Allergies - Medications Allergies/Adverse Reactions: Allergies No Known Allergies Allergy (Unverified 08/26/18 14:14) Active Medications: Generic Name Dose Route Start Last Admin Trade Name Freq PRN Reason Stop Dose Admin Acetaminophen 650 mg 08/26/18 17:51 09/02/18 11:43 Tylenol PO 650 mg Q4H PRN Administration Pain MILD(1-3)/Fever >100.5/RENEE Albuterol 2.5 mg 08/26/18 17:51 Proventil IH Q4HRT PRN Shortness Of Breath Lipase/Protease/Amylase 1 each 08/27/18 17:23 08/28/18 22:[address] 10,500 Unit FEEDTUBE 1 each PRN PRN Administration For Clogged Feeding Tube Apixaban 10 mg 09/02/18 18:00 09/02/18 22:55 Eliquis PO 09/08/18 22:01 10 mg Q12HR ANU Administration Protocol Apixaban 5 mg 09/09/18 10:00 Eliquis PO Q12HR ANU Protocol Sodium Chloride 1,000 mls @ 125 mls/hr 08/26/18 18:00 09/02/18 16:19 Nacl 0.45% 1000 Ml IV 125 mls/hr DIRECT ANU Administration CEFTOLOZANE/TAZOBACTAM 1.5 gm/ 100 mls @ 100 mls/hr 08/31/18 14:00 09/03/18 06:41 Sodium Chloride IV 100 mls/hr Q8HR ANU Administration Linezolid 600 mg 09/01/18 06:00 09/03/18 06:09 Zyvox PO 600 mg Q12H ANU Administration Protocol Ondansetron HCl 4 mg 08/26/18 17:51 Zofran IV Q8H PRN Nausea And Vomiting Oxycodone/Acetaminophen 1 tab 08/26/18 17:51 09/03/18 00:13 Percocet 5/325 PO 1 tab Q6H PRN Administration Pain, Moderate (4-6) Simple Syrup 15 ml 08/27/18 17:23 Simple Syrup FEEDTUBE PRN PRN Hypoglycemia Simple Syrup 30 ml 08/27/18 17:23 Simple Syrup FEEDTUBE PRN PRN Hypoglycemia Sodium Bicarbonate 325 mg 08/27/18 17:23 08/28/18 22:00 Sodium Bicarbonate FEEDTUBE 325 mg PRN PRN Administration For Clogged Feeding Tube Sodium Chloride 10 ml 08/26/18 22:00 09/03/18 00:16 Sodium Chloride Flush Syringe 10 Ml IV Not Given BID ANU Sodium Chloride 10 ml 08/26/18 17:51 Sodium Chloride Flush Syringe 10 Ml IV PRN PRN LINE FLUSH
[2018-09-03 08:42] LABS: Hematocrit 31.7 % (30.3-42.9); Hemoglobin 10.6 gm/dl (10.1-14.3); Mean Corpuscular HGB Conc 33 % (30-34); Mean Corpuscular Volume 92 fl (79-97); Platelet Count 364 K/mm3 (140-440); Red Blood Count 3.43 M/mm3 (3.65-5.03); Red Cell Distribution Width 17.5 % (13.2-15.2)
[2018-09-03 08:54] LABS: BUN/Creatinine Ratio 22; Blood Urea Nitrogen 13 mg/dL (7-17); Calcium 10.6 mg/dL (8.4-10.2); Hemolysis Index 3
--- NOTE | 2018-09-03 09:50 | Progress Note ---
Assessment and Plan 1. Hypercalcemia: Likely due to volume depletion. PTH level is low. Continue IV fluids to correct volume depletion. Calcium level is improving. Vitamin D level is not elevated. Myeloma is a consideration. SPEP - faint M-spike. Immunofixation ordered. 2. Acute kidney injury: Vasomotor RUDI in the setting of volume depletion. Continue IV fluids. Renal function is better. Monitor renal function. Avoid nephrotoxic agents. 3. FEN: Hypernatremia, improved. Monitor lytes. 4. Severe sepsis: UTI. 5. Dysfunctional nephrostomy tubes: S/p new nephrostomy tubes. 6. Bilateral PE. 7. Anemia. 8. Encephalopathy: Likely at baseline. Subjective Date of service: 09/03/18 Interval history: Patient was seen and examined at the bedside. Mother and sister at the bedside. Objective - Vital Signs Vital signs: Vital Signs - 12hr 09/02/18 09/03/18 09/03/18 22:00 00:36 04:06 Temperature 97.6 F 97.4 F L Pulse Rate 76 67 Respiratory 21 20 20 Rate Blood Pressure 97/52 102/53 O2 Sat by Pulse 98 98 96 Oximetry - General Appearance General appearance: well-developed, appears stated age, other (no distress, emaciated) EENT: ATNC, PERRL Neck: supple Respiratory: Present: Clear to Ascultation Cardiology: regular, S1S2, no murmurs Gastrointestinal: normoactive bowel sounds, no tenderness, no distended, other (PEG tube noted, b/l nephrostomy tubes noted) Integumentary: no rash Neurologic: other (alert, non-verbal, not following any command) Musculoskeletal: other (no edema) - Lab 09/03/18 08:24 09/03/18 08:24 Most recent lab results Calcium 10.6 mg/dL (8.4-10.2) H 09/03/18 08:24 Phosphorus 2.90 mg/dL (2.5-4.5) 09/02/18 05:00 Magnesium 2.20 mg/dL (1.7-2.3) 08/28/18 Unknown Medications & Allergies - Medications Allergies/Adverse Reactions: Allergies No Known Allergies Allergy (Unverified 08/26/18 14:14) Active Medications: Generic Name Dose Route Start Last Admin Trade Name Freq PRN Reason Stop Dose Admin Acetaminophen 650 mg 08/26/18 17:51 09/02/18 11:43 Tylenol PO 650 mg Q4H PRN Administration Pain MILD(1-3)/Fever >100.5/RENEE Albuterol 2.5 mg 08/26/18 17:51 Proventil IH Q4HRT PRN Shortness Of Breath Lipase/Protease/Amylase 1 each 08/27/18 17:23 08/28/18 22:00 Bertha Henry 10,500 Unit FEEDTUBE 1 each PRN PRN Administration For Clogged Feeding Tube Apixaban 10 mg 09/02/18 18:00 09/02/18 22:55 Eliquis PO 09/08/18 22:01 10 mg Q12HR ANU Administration Protocol Apixaban 5 mg 09/09/18 10:00 Eliquis PO Q12HR ANU Protocol Sodium Chloride 1,000 mls @ 125 mls/hr 08/26/18 18:00 09/02/18 16:19 Nacl 0.45% 1000 Ml IV 125 mls/hr DIRECT ANU Administration CEFTOLOZANE/TAZOBACTAM 1.5 gm/ 100 mls @ 100 mls/hr 08/31/18 14:00 09/03/18 06:41 Sodium Chloride IV 100 mls/hr Q8HR ANU Administration Linezolid 600 mg 09/01/18 06:00 09/03/18 06:09 Zyvox PO 600 mg Q12H ANU Administration Protocol Ondansetron HCl 4 mg 08/26/18 17:51 Zofran IV Q8H PRN Nausea And Vomiting Oxycodone/Acetaminophen 1 tab 08/26/18 17:51 09/03/18 00:13 Percocet 5/325 PO 1 tab Q6H PRN Administration Pain, Moderate (4-6) Simple Syrup 15 ml 08/27/18 17:23 Simple Syrup FEEDTUBE PRN PRN Hypoglycemia Simple Syrup 30 ml 08/27/18 17:23 Simple Syrup FEEDTUBE PRN PRN Hypoglycemia Sodium Bicarbonate 325 mg 08/27/18 17:23 08/28/18 22:00 Sodium Bicarbonate FEEDTUBE 325 mg PRN PRN Administration For Clogged Feeding Tube Sodium Chloride 10 ml 08/26/18 22:00 09/03/18 00:16 Sodium Chloride Flush Syringe 10 Ml IV Not Given BID ANU Sodium Chloride 10 ml 08/26/18 17:51 Sodium Chloride Flush Syringe 10 Ml IV PRN PRN LINE FLUSH
[2018-09-03] MEDS: NACL 0.45% 1000 ML 1,000 ML IV SCH ×2 (10:54→18:47)
[2018-09-03] MEDS: ELIQUIS PO SCH ×2 (10:55→21:27)
--- NOTE | 2018-09-03 11:40 | Progress Note ---
Assessment and Plan Cultures: Blood cultures 08/26/2018 Pseudomonas aeruginosa (carbapenem-resistant) and MDR Acinetobacter (indeterminate to Cefepime) Urine culture 08/26/2018 10-100K multiple sp. 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 Etiology most likely complicated UTI. 2) Complicated UTI with bilateral nephrostomy tubes and kidney stones: due to Pseudomonas and VRE. UA with 139 wbc, large LE. Patient was found septic with right-sided nephrostomy tube dislodgment and left-sided nephrostomy tube with some jordi-tract drainage. CT showed moderate right hydronephrosis, bilateral renal calculi, right renal collecting system gravel-like renal calculi, colonic distention, bilateral infiltrate with RLL consolidation. Patient taken to the OR on 08/27/2018 underwent Fl-guided right DOCUMENT MANAGEMENT TECHNICIAN tube insertion and left NT exchange. Urine culture from right DOCUMENT MANAGEMENT TECHNICIAN tube 08/27/2018 Pseudomonas and VRE. Urine culture from left DOCUMENT MANAGEMENT TECHNICIAN tube 08/27/2018 GNR and Enterocccus. ID consulted to [facility] sepsis. 3) Carbapenem-resistant Pseudomonas and MDR-Acinetobacter bacteremia: from UTI. Blood cultures 08/26/2018 Pseudomonas aeruginosa 4 of 4 bottles and MDR Acinetobacter (indeterminate to Cefepime) 1 of 4. 4) Hypernatremia/hypercalcemia: better 5) Presumed bilateral pneumonia. 6) Saddle pulmonary embolism: on anticoagulation Recommendations: continue zerbaxa (ceftolozane-tazobactam) 1.5 gm IV q8 hours D 4 total 14 days until 09/13/2018. Order sent to complex case manager continue linezolid 600 mg PO BID D3 of 10 until 09/10/2018 Guarded prognosis Will follow. Sarah Ojeda MD Infectious Diseases Inside Sales Supervisor [facility] M [phone] O [phone] Subjective Date of service: 09/03/18 Principal diagnosis: complicated UTI Interval history: Patient is more alert, no fever, family at bedside. Objective - Exam Narrative Exam: General appearance: alert non verbal in NAD Eyes: anicteric sclerae, moist conjunctivae; no lid-lag; PERRLA HENT: Atraumatic; oropharynx limited Neck: Trachea midline; supple, no thyromegaly or lymphadenopathy Lungs: CTA CV: RRR no murmur Abdomen: Soft, non-tender; +PEG +Pedro Luis DOCUMENT MANAGEMENT TECHNICIAN tube Extremities: no edema, cyanosis Skin: Normal temperature, turgor and texture; no rash, ulcers or subcutaneous nodules Psych: no agitated Neuro: alert no agitated - Constitutional Vitals: Vital Signs Temp Pulse Resp BP Pulse Ox 97.4 F L 72 20 91/47 87 09/03/18 04:06 09/03/18 09:48 09/03/18 04:06 09/03/18 09:48 09/03/18 09:48 Temperature -Last 24 Hours Temperature 97.4 F Temperature 97.6 F Temperature 98.5 F Temperature 99.4 F - Labs CBC & Chem 7: 09/03/18 08:24 09/03/18 08:24 Labs: Abnormal lab results 09/03/18 09/03/18 09/03/18 Range/Units 06:10 08:24 08:24 RBC 3.43 L (3.65-5.03) M/mm3 RDW 17.5 H (13.2-15.2) % Heparin Anti-Xa Level 1.46 H (0.3-0.7) U.I./ml Creatinine 0.6 L (0.7-1.2) mg/dL Glucose 132 H (65-100) mg/dL Calcium 10.6 H (8.4-10.2) mg/dL
--- NOTE | 2018-09-03 18:07 | Progress Note ---
Assessment and Plan - Patient Problems (1) Pulmonary embolism Current Visit: Yes Status: Acute Plan to address problem: Patient has bilateral saddle embolus. Heparin has been converted toelaquis. (2) Severe malnutrition Current Visit: Yes Status: Acute Plan to address problem: Continue PEG tube feedings protein deficiency malnutrition. Dietitian involved (3) UTI (urinary tract infection) Current Visit: Yes Status: Acute Qualifiers: Encounter type: initial encounter Plan to address problem: [place] complicated UTI with dislodged nephrostomy tubes. Blood grew Pseudomonas and A baumani. Early on Cefotan was on and Tazo as well as Zyvox. ID following we'll continue further management per ID. (4) Sepsis Current Visit: Yes Status: Acute Plan to address problem: Secondary to complicated UTI. Currently being treated with IV antibiotics. Hemodynamically stable now. History Interval history: Patient encephalopathic status posttraumatic brain injury debility dysphagia currently nonverbal. Does not appear to be any acute distress being clean by staff services. No new problems overnight. Hospitalist Physical - Constitutional Vitals: Temp Pulse Resp BP Pulse Ox 97.4 F L 72 20 91/47 87 09/03/18 04:06 09/03/18 09:48 09/03/18 04:06 09/03/18 09:48 09/03/18 09:48 General appearance: Present: no acute distress, cachectic, other - EENT Eyes: Present: PERRL, EOM intact (O distress chronically ill-appearing) ENT: poor dentition, other (temporal wasting), no hearing decreased, no oropharyngeal erythema, no ulcerations - Neck Neck: Present: supple, normal ROM - Respiratory Respiratory: bilateral: diminished, negative: other (poor inspiratory effort decreased breath sounds.) - Cardiovascular Rhythm: regular Heart Sounds: Present: S1 & S2 - Extremities Extremities: pulses symmetrical, No edema, normal temperature, normal color Extremity abnormal: other (fixed contractures upper extremity.) Peripheral Pulses: within normal limits - Abdominal General gastrointestinal: soft, non-tender, non-distended - Integumentary Integumentary: Present: clear, warm, dry - Neurologic Neurologic: focal deficits Results - Labs CBC & Chem 7: 09/03/18 08:24 09/03/18 08:24 Labs: Laboratory Last Values WBC 9.4 K/mm3 (4.5-11.0) 09/03/18 08:24 RBC 3.43 M/mm3 (3.65-5.03) L 09/03/18 08:24 Hgb 10.6 gm/dl (10.1-14.3) 09/03/18 08:24 Hct 31.7 % (30.3-42.9) 09/03/18 08:24 MCV 92 fl (79-97) 09/03/18 08:24 MCH 31 pg (28-32) 09/03/18 08:24 MCHC 33 % (30-34) 09/03/18 08:24 RDW 17.5 % (13.2-15.2) H 09/03/18 08:24 Plt Count 364 K/mm3 (140-440) 09/03/18 08:24 Lymph % (Auto) 12.8 % (13.4-35.0) L 08/28/18 Unknown [place] % (Auto) 6.9 % (0.0-7.3) 08/28/18 Unknown Eos % (Auto) 0.2 % (0.0-4.3) 08/28/18 Unknown Baso % (Auto) 0.1 % (0.0-1.8) 08/28/18 Unknown Lymph # 1.8 K/mm3 (1.2-5.4) 08/28/18 Unknown [place] # 1.0 K/mm3 (0.0-0.8) H 08/28/18 Unknown Eos # 0.0 K/mm3 (0.0-0.4) 08/28/18 Unknown Baso # 0.0 K/mm3 (0.0-0.1) 08/28/18 Unknown Add Manual Diff Complete 08/26/18 15:02 Total Counted 100 08/26/18 15:02 Seg Neutrophils % 80.0 % (40.0-70.0) H 08/28/18 Unknown Seg Neuts % (Manual) 59.0 % (40.0-70.0) 08/26/18 15:02 30.0 % 08/26/18 15:02 5.0 % (13.4-35.0) L 08/26/18 15:02 Reactive Lymphs % (Man) 0 % 08/26/18 15:02 5.0 % (0.0-7.3) 08/26/18 15:02 1.0 % (0.0-4.3) 08/26/18 15:02 0 % (0.0-1.8) 08/26/18 15:02 0 % 08/26/18 15:02 0 % 08/26/18 15:02 0 % 08/26/18 15:02 0 % 08/26/18 15:02 Nucleated RBC % Not Reportable 08/26/18 15:02 Seg Neutrophils # 11.3 K/mm3 (1.8-7.7) H 08/28/18 Unknown Seg Neutrophils # Man 9.3 K/mm3 (1.8-7.7) H 08/26/18 15:02 Band Neutrophils # 4.7 K/mm3 08/26/18 15:02 0.8 K/mm3 (1.2-5.4) L 08/26/18 15:02 Abs React Lymphs (Man) 0.0 K/mm3 08/26/18 15:02 0.8 K/mm3 (0.0-0.8) 08/26/18 15:02 0.2 K/mm3 (0.0-0.4) 08/26/18 15:02 0.0 K/mm3 (0.0-0.1) 08/26/18 15:02 0.0 K/mm3 08/26/18 15:02 0.0 K/mm3 08/26/18 15:02 0.0 K/mm3 08/26/18 15:02 Blast Cells # 0.0 K/mm3 08/26/18 15:02 WBC Morphology Not Reportable 08/26/18 15:02 Hypersegmented Neuts Not Reportable 08/26/18 15:02 Hyposegmented Neuts Not Reportable 08/26/18 15:02 Hypogranular Neuts Not Reportable 08/26/18 15:02 Not Reportable 08/26/18 15:02 Not Reportable 08/26/18 15:02 Not Reportable 08/26/18 15:02 Not Reportable 08/26/18 15:02 Not Reportable 08/26/18 15:02 Not Reportable 08/26/18 15:02 Consistent w auto 08/26/18 15:02 Not Reportable 08/26/18 15:02 Plt Clumps, EDTA Not Reportable 08/26/18 15:02 Not Reportable 08/26/18 15:02 Not Reportable 08/26/18 15:02 Not Reportable 08/26/18 15:02 Plt Morphology Comment Not Reportable 08/26/18 15:02 RBC Morphology Not Reportable 08/26/18 15:02 Dimorphic RBCs Not Reportable 08/26/18 15:02 Few 08/26/18 15:02 1+ 08/26/18 15:02 Not Reportable 08/26/18 15:02 1+ 08/26/18 15:02 Not Reportable 08/26/18 15:02 Not Reportable 08/26/18 15:02 Not Reportable 08/26/18 15:02 Not Reportable 08/26/18 15:02 Not Reportable 08/26/18 15:02 Not Reportable 08/26/18 15:02 Not Reportable 08/26/18 15:02 Not Reportable 08/26/18 15:02 Few 08/26/18 15:02 Not Reportable 08/26/18 15:02 Not Reportable 08/26/18 15:02 Not Reportable 08/26/18 15:02 Not Reportable 08/26/18 15:02 Not Reportable 08/26/18 15:02 Not Reportable 08/26/18 15:02 Not Reportable 08/26/18 15:02 Acanthocytes (Spur) Not Reportable 08/26/18 15:02 Rouleaux Not Reportable 08/26/18 15:02 Not Reportable 08/26/18 15:02 Not Reportable 08/26/18 15:02 Not Reportable 08/26/18 15:02 Not Reportable 08/26/18 15:02 Hem Pathologist Commnt No 08/26/18 15:02 PT 13.7 Sec. (12.2-14.9) 08/30/18 20:09 INR 1.08 (0.87-1.13) 08/30/18 20:09 APTT 31.3 Sec. (24.2-36.6) 08/30/18 20:09 Heparin Anti-Xa Level 1.46 U.I./ml (0.3-0.7) H 09/03/18 06:10 Sodium 138 mmol/L (137-145) 09/03/18 08:24 Potassium 3.7 mmol/L (3.6-5.0) 09/03/18 08:24 Chloride 103.0 mmol/L (98-107) 09/03/18 08:24 Carbon Dioxide 25 mmol/L (22-30) 09/03/18 08:24 14 mmol/L 09/03/18 08:24 BUN 13 mg/dL (7-17) 09/03/18 08:24 0.6 mg/dL (0.7-1.2) L 09/03/18 08:24 Estimated GFR > 60 ml/min 09/03/18 08:24 22 % 09/03/18 08:24 Glucose 132 mg/dL (65-100) H 09/03/18 08:24 Calcium 10.6 mg/dL (8.4-10.2) H 09/03/18 08:24 Phosphorus 2.90 mg/dL (2.5-4.5) 09/02/18 05:00 Magnesium 2.20 mg/dL (1.7-2.3) 08/28/18 Unknown 0.20 mg/dL (0.1-1.2) 08/27/18 06:11 AST 20 units/L (5-40) 08/27/18 06:11 ALT 36 units/L (7-56) 08/27/18 06:11 140 units/L (35-129) H 08/27/18 06:11 6.0 g/dL (6.1-8.1) L 08/29/18 Unknown 7.4 g/dL (6.3-8.2) 08/27/18 06:11 2.0 g/dL (3.8-4.8) L 08/29/18 Unknown 0.5 % 08/27/18 06:11 0.4 g/dL (0.2-0.3) H 08/29/18 Unknown 1.2 g/dL (0.5-0.9) H 08/29/18 Unknown 0.4 g/dL (0.2-0.5) 08/29/18 Unknown 1.7 g/dL (0.8-1.7) 08/29/18 Unknown Abnorm Protein Band 1 see below 08/29/18 Unknown PEP Interpretation see below H 08/29/18 Unknown <4 ng/mL 08/29/18 04:00 1,25 Dihydroxy Vit D2 <8 pg/mL 08/29/18 04:00 51 ng/mL 08/29/18 04:00 1,25 Dihydroxy Vit D3 30 pg/mL 08/29/18 04:00 PTH Intact 17.01 pg/mL (15-65) 08/29/18 Unknown Yellow (Yellow) 08/26/18 Unknown Cloudy (Clear) 08/26/18 Unknown 8.0 (5.0-7.0) H 08/26/18 Unknown Ur Specific [place] 1.012 (1.003-1.030) 08/26/18 Unknown 30 mg/dl mg/dL (Negative) 08/26/18 Unknown Neg mg/dL (Negative) 08/26/18 Unknown Neg mg/dL (Negative) 08/26/18 Unknown Lg (Negative) 08/26/18 Unknown Neg (Negative) 08/26/18 Unknown Neg (Negative) 08/26/18 Unknown < 2.0 mg/dL (<2.0) 08/26/18 Unknown Ur Leukocyte Esterase Lg (Negative) 08/26/18 Unknown 139.0 /HPF (0.0-6.0) H 08/26/18 Unknown 173.0 /HPF (0.0-6.0) 08/26/18 Unknown U Epithel Cells (Auto) 2.0 /HPF (0-13.0) 08/26/18 Unknown 1+ /HPF (Negative) 08/26/18 Unknown 2+ /HPF 08/26/18 Unknown Calcium Oxalate Crystal 1+ 08/26/18 Unknown Few /HPF 08/26/18 Unknown 2+ /HPF 08/26/18 Unknown Active Medications - Current Medications Current Medications: Generic Name Dose Route Start Last Admin Trade Name Freq PRN Reason Stop Dose Admin Acetaminophen 650 mg 08/26/18 17:51 09/02/18 11:43 Tylenol PO 650 mg Q4H PRN Administration Pain MILD(1-3)/Fever >100.5/RENEE Albuterol 2.5 mg 08/26/18 17:51 Proventil IH Q4HRT PRN Shortness Of Breath Lipase/Protease/Amylase 1 each 08/27/18 17:23 08/28/18 22:[address] 10,500 Unit FEEDTUBE 1 each PRN PRN Administration For Clogged Feeding Tube Apixaban 10 mg 09/02/18 18:00 09/03/18 10:55 Eliquis PO 09/08/18 22:01 10 mg Q12HR ANU Administration Protocol Apixaban 5 mg 09/09/18 10:00 Eliquis PO Q12HR ANU Protocol Sodium Chloride 1,000 mls @ 125 mls/hr 08/26/18 18:00 09/03/18 10:54 Nacl 0.45% 1000 Ml IV 125 mls/hr DIRECT ANU Administration CEFTOLOZANE/TAZOBACTAM 1.5 gm/ 100 mls @ 100 mls/hr 08/31/18 14:00 09/03/18 06:41 Sodium Chloride IV 09/13/18 23:59 100 mls/hr Q8HR ANU Administration Linezolid 600 mg 09/01/18 06:00 09/03/18 06:09 Zyvox PO 09/10/18 23:59 600 mg Q12H ANU Administration Protocol Ondansetron HCl 4 mg 08/26/18 17:51 Zofran IV Q8H PRN Nausea And Vomiting Oxycodone/Acetaminophen 1 tab 08/26/18 17:51 09/03/18 00:13 Percocet 5/325 PO 1 tab Q6H PRN Administration Pain, Moderate (4-6) Simple Syrup 15 ml 08/27/18 17:23 Simple Syrup FEEDTUBE PRN PRN Hypoglycemia Simple Syrup 30 ml 08/27/18 17:23 Simple Syrup FEEDTUBE PRN PRN Hypoglycemia Sodium Bicarbonate 325 mg 08/27/18 17:23 08/28/18 22:00 Sodium Bicarbonate FEEDTUBE 325 mg PRN PRN Administration For Clogged Feeding Tube Sodium Chloride 10 ml 08/26/18 22:00 09/03/18 10:56 Sodium Chloride Flush Syringe 10 Ml IV 10 ml BID ANU Administration Sodium Chloride 10 ml 08/26/18 17:51 Sodium Chloride Flush Syringe 10 Ml IV PRN PRN LINE FLUSH Nutrition/Malnutrition Assess - Dietary Evaluation Nutrition/Malnutrition Findings: Nutrition Notes Start: 08/27/18 17:13 Freq: Status: Active Protocol: Document 08/29/18 17:05 RM (Rec: 08/29/18 17:08 RM [id number]) Nutrition Notes Initial or Follow up Reassessment Current Diagnosis Sepsis Other Pertinent Diagnosis G tube, Dysphagia, Nonverbal, SIRS, UTI, Neprostomy tube displace Current Diet Jevity 1.2 at 65 ml/hr Labs/Tests Reviewed Pertinent Medications Ceftriaxone Height 5 ft 5 in Weight 49 kg [place] Body Weight (kg) 56.81 BMI 17.9 Subjective/Other Information Observed Jevity 1.2 infusing at goal rate. Per nurse pt has been having loose stools but has been tolerating TF. Distribution Agent stated that loose stools were likely result of antibiotics Burn Absent Trauma Absent #1 Nutrition Diagnosis Malnutrition Diagnosis Progress(for reassessment Continues documentation) Is patient on ventilator? No Is Patient Ambulatory and/or Out of Bed No REE-([facility]-confined to bed) 1354.980 Kcal/Kg value to use for calculation 38 Approximate Energy Requirements Using 1862 kcal/Kg Calculation Used for Recommendations Kcal/kg Additional Notes Protein Needs: 72-82g (1.5-1. 7g/kg) Fluid Needs: 1 ml/kcal Nutrition Intervention Nutrition Support: Jevity 1.2 at 65 ml/hr. Water flush of 100 mls q 4 hrs . Kcal 1,872 Protein (gm) 87 Fluid (mL) 1,259 Goal #1 TF tolerance Goal #2 Meet at least 75% of calorie and protein needs via TF Anticipated Discharge Needs: Jevity 1.2 Follow-Up By: 09/05/18 Additional Comments Follow for TF tolerance
[2018-09-04] MEDS: SODIUM CHLORIDE 0.9% IV SCH ×3 (00:46→20:18)
[2018-09-04] MEDS: CEFTOLOZANE IV SCH ×3 (00:46→20:18)
[2018-09-04] MEDS: TAZOBACTAM IV SCH ×3 (00:46→20:18)
[2018-09-04] MEDS: NACL 0.45% 1000 ML 1,000 ML IV SCH ×3 (04:43→20:19)
[2018-09-04] MEDS: ZYVOX PO SCH ×2 (06:29→17:27)
--- NOTE | 2018-09-04 08:07 | Hem/Onc Progress Note ---
Assessment and Plan 1. Large emboli, would need anticoagulation. 2. Hypercalcemia with renal stones, most likely either secondary to immobili zation or parathyroid related issue. 3. Radiology shows bronchiectasis, cultures mentioned pseudomonas, heparin for the pulmonary embolism, nephrostomy tube issues. 4. The patient has a history of traumatic brain injury, nonverbal. 5. History of G-tube. 6. I will follow the patient during inpatient stay and then in the clinic setting. The patient would need long-term anticoagulation. NOAC suggested at full dose for now and after a few months to 2.5 of Eliquis q. 12 hours. 09/04 - eliquis - Patient Problems (1) Pulmonary embolism Current Visit: Yes Status: Acute Subjective Date of service: 09/04/18 Principal diagnosis: PE Interval history: no bleeding Objective - Exam Narrative Exam: Pain none General appearance no acute distress Performance status - completely disabled Eyes blank stare ENT does not respond to questions LNs cervical not palpable Neck no mass Respiratory Normal Breath sounds - diminished b/l CVS S1 S2 + Extremities normal temperature - contracted limbs General GI Soft non tender PEG + Rectal deferred Female - deferred Skin warm Musculoskeletal generalized weakness Neurologically contracted extremities - Constitutional Vitals: Last Vital Signs Temp 97.7 F 09/04/18 05:03 Pulse 90 09/04/18 05:03 Resp 18 09/04/18 05:03 BP 98/68 09/04/18 05:03 Pulse Ox 74 L 09/04/18 05:03 - Labs Lab Results: Laboratory Results - last 24 hr 09/03/18 09/03/18 08:24 08:24 WBC 9.4 RBC 3.43 L Hgb 10.6 Hct 31.7 MCV 92 MCH 31 MCHC 33 RDW 17.5 H Plt Count 364 Sodium 138 Potassium 3.7 Chloride 103.0 Carbon Dioxide 25 Anion Gap 14 BUN 13 Creatinine 0.6 L Estimated GFR > 60 BUN/Creatinine Ratio 22 Glucose 132 H Calcium 10.6 H Medications & Allergies - Medications Allergies/Adverse Reactions: Allergies No Known Allergies Allergy (Unverified 08/26/18 14:14) Active Medications: Generic Name Dose Route Start Last Admin Trade Name Freq PRN Reason Stop Dose Admin Acetaminophen 650 mg 08/26/18 17:51 09/02/18 11:43 Tylenol PO 650 mg Q4H PRN Administration Pain MILD(1-3)/Fever >100.5/RENEE Albuterol 2.5 mg 08/26/18 17:51 Proventil IH Q4HRT PRN Shortness Of Breath Lipase/Protease/Amylase 1 each 08/27/18 17:23 08/28/18 22:00 Bertha Henry 10,500 Unit FEEDTUBE 1 each PRN PRN Administration For Clogged Feeding Tube Apixaban 10 mg 09/02/18 18:00 09/03/18 21:27 Eliquis PO 09/08/18 22:01 10 mg Q12HR ANU Administration Protocol Apixaban 5 mg 09/09/18 10:00 Eliquis PO Q12HR ANU Protocol Sodium Chloride 1,000 mls @ 125 mls/hr 08/26/18 18:00 09/04/18 04:43 Nacl 0.45% 1000 Ml IV 125 mls/hr DIRECT ANU Administration CEFTOLOZANE/TAZOBACTAM 1.5 gm/ 100 mls @ 100 mls/hr 09/04/18 00:00 09/04/18 00:46 Sodium Chloride IV 09/13/18 23:59 100 mls/hr Q8H ANU Administration Linezolid 600 mg 09/01/18 06:00 09/04/18 06:29 Zyvox PO 09/10/18 23:59 600 mg Q12H ANU Administration Protocol Ondansetron HCl 4 mg 08/26/18 17:51 Zofran IV Q8H PRN Nausea And Vomiting Oxycodone/Acetaminophen 1 tab 08/26/18 17:51 09/03/18 00:13 Percocet 5/325 PO 1 tab Q6H PRN Administration Pain, Moderate (4-6) Simple Syrup 15 ml 08/27/18 17:23 Simple Syrup FEEDTUBE PRN PRN Hypoglycemia Simple Syrup 30 ml 08/27/18 17:23 Simple Syrup FEEDTUBE PRN PRN Hypoglycemia Sodium Bicarbonate 325 mg 08/27/18 17:23 08/28/18 22:00 Sodium Bicarbonate FEEDTUBE 325 mg PRN PRN Administration For Clogged Feeding Tube Sodium Chloride 10 ml 08/26/18 22:00 09/03/18 21:27 Sodium Chloride Flush Syringe 10 Ml IV 10 ml BID ANU Administration Sodium Chloride 10 ml 08/26/18 17:51 Sodium Chloride Flush Syringe 10 Ml IV PRN PRN LINE FLUSH
[2018-09-04 08:51] LABS: BUN/Creatinine Ratio 25; Blood Urea Nitrogen 15 mg/dL (7-17); Hemolysis Index 3
--- NOTE | 2018-09-04 09:42 | Progress Note ---
Assessment and Plan 1. Hypercalcemia: Likely due to volume depletion. PTH level is low. Continue IV fluids to correct volume depletion. Calcium level is better but remains high. Vitamin D level is not elevated. Myeloma is a consideration. SPEP - faint M-spike. Immunofixation pending. Per family patient had high Calcium level while at [place]. 2. Acute kidney injury: Vasomotor RUDI in the setting of volume depletion. Continue IV fluids. Renal function is better. Monitor renal function. Avoid nephrotoxic agents. 3. FEN: Hypernatremia, improved. Monitor lytes. 4. Severe sepsis: UTI. 5. Dysfunctional nephrostomy tubes: S/p new nephrostomy tubes. 6. Bilateral PE. 7. Anemia. 8. Encephalopathy: Likely at baseline. Subjective Date of service: 09/04/18 Principal diagnosis: complicated UTI Interval history: Patient was seen and examined at the bedside. Objective - Vital Signs Vital signs: Vital Signs - 12hr 09/04/18 09/04/18 09/04/18 00:24 05:03 07:33 Temperature 97.5 F L 97.7 F 97.6 F Pulse Rate 90 89 Respiratory 21 18 14 Rate Blood Pressure 102/62 98/68 89/43 O2 Sat by Pulse 74 L 99 Oximetry 09/04/18 08:38 Temperature Pulse Rate Respiratory Rate Blood Pressure O2 Sat by Pulse 100 Oximetry - General Appearance General appearance: well-developed, appears stated age, other (no distress, emaciated) EENT: ATNC, PERRL Neck: other (Trachea midline) Respiratory: Present: Clear to Ascultation Cardiology: regular, S1S2, no murmurs Gastrointestinal: normoactive bowel sounds, no tenderness, no distended, other (PEG tube noted, b/l nephrostomy tubes noted) Integumentary: no rash, warm and dry Neurologic: other (non-verbal, not following any command) Musculoskeletal: other (no edema) - Lab 09/03/18 08:24 09/04/18 08:10 Most recent lab results Calcium 11.0 mg/dL (8.4-10.2) H 09/04/18 08:10 Phosphorus 2.90 mg/dL (2.5-4.5) 09/02/18 05:00 Magnesium 2.20 mg/dL (1.7-2.3) 08/28/18 Unknown Medications & Allergies - Medications Allergies/Adverse Reactions: Allergies No Known Allergies Allergy (Unverified 08/26/18 14:14) Active Medications: Generic Name Dose Route Start Last Admin Trade Name Freq PRN Reason Stop Dose Admin Acetaminophen 650 mg 08/26/18 17:51 09/02/18 11:43 Tylenol PO 650 mg Q4H PRN Administration Pain MILD(1-3)/Fever >100.5/RENEE Albuterol 2.5 mg 08/26/18 17:51 Proventil IH Q4HRT PRN Shortness Of Breath Lipase/Protease/Amylase 1 each 08/27/18 17:23 08/28/18 22:00 Pancrejossy Henry 10,500 Unit FEEDTUBE 1 each PRN PRN Administration For Clogged Feeding Tube Apixaban 10 mg 09/02/18 18:00 09/03/18 21:27 Eliquis PO 09/08/18 22:01 10 mg Q12HR ANU Administration Protocol Apixaban 5 mg 09/09/18 10:00 Eliquis PO Q12HR ANU Protocol Sodium Chloride 1,000 mls @ 125 mls/hr 08/26/18 18:00 09/04/18 04:43 Nacl 0.45% 1000 Ml IV 125 mls/hr DIRECT ANU Administration CEFTOLOZANE/TAZOBACTAM 1.5 gm/ 100 mls @ 100 mls/hr 09/04/18 00:00 09/04/18 00:46 Sodium Chloride IV 09/13/18 23:59 100 mls/hr Q8H ANU Administration Linezolid 600 mg 09/01/18 06:00 09/04/18 06:29 Zyvox PO 09/10/18 23:59 600 mg Q12H ANU Administration Protocol Ondansetron HCl 4 mg 08/26/18 17:51 Zofran IV Q8H PRN Nausea And Vomiting Oxycodone/Acetaminophen 1 tab 08/26/18 17:51 09/03/18 00:13 Percocet 5/325 PO 1 tab Q6H PRN Administration Pain, Moderate (4-6) Simple Syrup 15 ml 08/27/18 17:23 Simple Syrup FEEDTUBE PRN PRN Hypoglycemia Simple Syrup 30 ml 08/27/18 17:23 Simple Syrup FEEDTUBE PRN PRN Hypoglycemia Sodium Bicarbonate 325 mg 08/27/18 17:23 08/28/18 22:00 Sodium Bicarbonate FEEDTUBE 325 mg PRN PRN Administration For Clogged Feeding Tube Sodium Chloride 10 ml 08/26/18 22:00 09/03/18 21:27 Sodium Chloride Flush Syringe 10 Ml IV 10 ml BID ANU Administration Sodium Chloride 10 ml 08/26/18 17:51 Sodium Chloride Flush Syringe 10 Ml IV PRN PRN LINE FLUSH
[2018-09-04] MEDS: ELIQUIS PO SCH ×2 (10:05→22:34)
[2018-09-04] MEDS: SODIUM CHLORIDE FLUSH SYRINGE 10 ML IV SCH ×2 (10:21→22:34)
[2018-09-04] MEDS ORDERED: POTASSIUM CHLORIDE FEEDTUBE ONE (10:30)
--- NOTE | 2018-09-04 11:56 | Progress Note ---
Assessment and Plan Assessment and plan: Sepsis. Blood cultures positive for multiple organisms Pseudomonas aeruginosa. A, Baumani Urune Pseudomonas and Enterococcus fecium contact isolation Multidrug resistant bacteria Discussed with ID Cont Zerbaxa Bilateral pneumonia. On Antibiotics saddle pulmonary embolism, seen on Ct chest started Heparin Consulted Dr. Newell, Dr. Quezada Echo unremarkable, no right ventricle strain Transitioned to Eliquis, off Heparin UTI pseudomonas aeruginosa and enterococcus faecium. Continue IV antibiotics. Nephrostomy tube dislodged. IR consulted, s/p replacement Hypercalcemia. Improved Nephrology following Consulted Oncology Hypernatremia Now resolved Hypokalemia Improving. Give more Potassium and recheck Severe protein calorie malnutrition. Continue tube feedings per dietitian. Chronic encephalopathy s/p TBI. Supportive care. Debility. Mobility protocols for pressure ulcer prophylaxis. History Interval history: 47 YO Female SNF Resident at [facility] with Encephalopathy S/P TBI, Debility, Dysphagia, presents to ED for evaluation. Pt is nonverbal and unable to provide history. Patient was found to have a dislodged Nephrostomy tube, EMS notified, and patient transported to [facility]. Pt seen and evaluated in ED and found to have UTI, Volume depletion, as well as dislodged nephrostomy tube. Pt admitted to medical floor. IR team consulted in ED. Patient diagnosed with Sepsis, UTI. bilateral pneumonia. Hypercalcemia improved. CT Chest was done to look for malignancy but revealed saddle pulmonary embolism. Patient started on heparin, consulted Vasc Surgery, now to start Eliquis today. Blood cultures grew Pseudomonas Aeurginosa and A, baumani and urine cultures grew Pseudomonas aeruginosa and Enterococcus faecium. Now started on Ceftolozane/Tazobactam and Zyvox by ID Physician. She was on Cefepime. Follow clinically. Discharge planning in conjunction with ID. Hospitalist Physical - Constitutional Vitals: Temp Pulse Resp BP Pulse Ox 97.6 F 89 14 89/43 100 09/04/18 07:33 09/04/18 07:33 09/04/18 07:33 09/04/18 07:33 09/04/18 08:38 General appearance: Present: no acute distress, cachectic, other - EENT Eyes: Present: PERRL, EOM intact ENT: hearing intact, clear oral mucosa, dentition normal - Neck Neck: Present: supple, normal ROM - Respiratory Respiratory effort: normal Respiratory: bilateral: CTA - Cardiovascular Rhythm: regular Heart Sounds: Present: S1 & S2. Absent: gallop, rub - Extremities Extremities: no ischemia, No edema, Full ROM - Abdominal General gastrointestinal: soft, non-tender, non-distended, normal bowel sounds - Integumentary Integumentary: Present: clear, warm, dry - Neurologic Neurologic: CNII-XII intact, moves all extremities Results - Labs CBC & Chem 7: 09/03/18 08:24 09/04/18 08:10 Labs: Laboratory Last Values WBC 9.4 K/mm3 (4.5-11.0) 09/03/18 08:24 RBC 3.43 M/mm3 (3.65-5.03) L 09/03/18 08:24 Hgb 10.6 gm/dl (10.1-14.3) 09/03/18 08:24 Hct 31.7 % (30.3-42.9) 09/03/18 08:24 MCV 92 fl (79-97) 09/03/18 08:24 MCH 31 pg (28-32) 09/03/18 08:24 MCHC 33 % (30-34) 09/03/18 08:24 RDW 17.5 % (13.2-15.2) H 09/03/18 08:24 Plt Count 364 K/mm3 (140-440) 09/03/18 08:24 Lymph % (Auto) 12.8 % (13.4-35.0) L 08/28/18 Unknown [place] % (Auto) 6.9 % (0.0-7.3) 08/28/18 Unknown Eos % (Auto) 0.2 % (0.0-4.3) 08/28/18 Unknown Baso % (Auto) 0.1 % (0.0-1.8) 08/28/18 Unknown Lymph # 1.8 K/mm3 (1.2-5.4) 08/28/18 Unknown [place] # 1.0 K/mm3 (0.0-0.8) H 08/28/18 Unknown Eos # 0.0 K/mm3 (0.0-0.4) 08/28/18 Unknown Baso # 0.0 K/mm3 (0.0-0.1) 08/28/18 Unknown Add Manual Diff Complete 08/26/18 15:02 Total Counted 100 08/26/18 15:02 Seg Neutrophils % 80.0 % (40.0-70.0) H 08/28/18 Unknown Seg Neuts % (Manual) 59.0 % (40.0-70.0) 08/26/18 15:02 30.0 % 08/26/18 15:02 5.0 % (13.4-35.0) L 08/26/18 15:02 Reactive Lymphs % (Man) 0 % 08/26/18 15:02 5.0 % (0.0-7.3) 08/26/18 15:02 1.0 % (0.0-4.3) 08/26/18 15:02 0 % (0.0-1.8) 08/26/18 15:02 0 % 08/26/18 15:02 0 % 08/26/18 15:02 0 % 08/26/18 15:02 0 % 08/26/18 15:02 Nucleated RBC % Not Reportable 08/26/18 15:02 Seg Neutrophils # 11.3 K/mm3 (1.8-7.7) H 08/28/18 Unknown Seg Neutrophils # Man 9.3 K/mm3 (1.8-7.7) H 08/26/18 15:02 Band Neutrophils # 4.7 K/mm3 08/26/18 15:02 0.8 K/mm3 (1.2-5.4) L 08/26/18 15:02 Abs React Lymphs (Man) 0.0 K/mm3 08/26/18 15:02 0.8 K/mm3 (0.0-0.8) 08/26/18 15:02 0.2 K/mm3 (0.0-0.4) 08/26/18 15:02 0.0 K/mm3 (0.0-0.1) 08/26/18 15:02 0.0 K/mm3 08/26/18 15:02 0.0 K/mm3 08/26/18 15:02 0.0 K/mm3 08/26/18 15:02 Blast Cells # 0.0 K/mm3 08/26/18 15:02 WBC Morphology Not Reportable 08/26/18 15:02 Hypersegmented Neuts Not Reportable 08/26/18 15:02 Hyposegmented Neuts Not Reportable 08/26/18 15:02 Hypogranular Neuts Not Reportable 08/26/18 15:02 Not Reportable 08/26/18 15:02 Not Reportable 08/26/18 15:02 Not Reportable 08/26/18 15:02 Not Reportable 08/26/18 15:02 Not Reportable 08/26/18 15:02 Not Reportable 08/26/18 15:02 Consistent w auto 08/26/18 15:02 Not Reportable 08/26/18 15:02 Plt Clumps, EDTA Not Reportable 08/26/18 15:02 Not Reportable 08/26/18 15:02 Not Reportable 08/26/18 15:02 Not Reportable 08/26/18 15:02 Plt Morphology Comment Not Reportable 08/26/18 15:02 RBC Morphology Not Reportable 08/26/18 15:02 Dimorphic RBCs Not Reportable 08/26/18 15:02 Few 08/26/18 15:02 1+ 08/26/18 15:02 Not Reportable 08/26/18 15:02 1+ 08/26/18 15:02 Not Reportable 08/26/18 15:02 Not Reportable 08/26/18 15:02 Not Reportable 08/26/18 15:02 Not Reportable 08/26/18 15:02 Not Reportable 08/26/18 15:02 Not Reportable 08/26/18 15:02 Not Reportable 08/26/18 15:02 Not Reportable 08/26/18 15:02 Few 08/26/18 15:02 Not Reportable 08/26/18 15:02 Not Reportable 08/26/18 15:02 Not Reportable 08/26/18 15:02 Not Reportable 08/26/18 15:02 Not Reportable 08/26/18 15:02 Not Reportable 08/26/18 15:02 Not Reportable 08/26/18 15:02 Acanthocytes (Spur) Not Reportable 08/26/18 15:02 Rouleaux Not Reportable 08/26/18 15:02 Not Reportable 08/26/18 15:02 Not Reportable 08/26/18 15:02 Not Reportable 08/26/18 15:02 Not Reportable 08/26/18 15:02 Hem Pathologist Commnt No 08/26/18 15:02 PT 13.7 Sec. (12.2-14.9) 08/30/18 20:09 INR 1.08 (0.87-1.13) 08/30/18 20:09 APTT 31.3 Sec. (24.2-36.6) 08/30/18 20:09 Heparin Anti-Xa Level 1.46 U.I./ml (0.3-0.7) H 09/03/18 06:10 Sodium 139 mmol/L (137-145) 09/04/18 08:10 Potassium 3.5 mmol/L (3.6-5.0) L 09/04/18 08:10 Chloride 102.2 mmol/L (98-107) 09/04/18 08:10 Carbon Dioxide 26 mmol/L (22-30) 09/04/18 08:10 14 mmol/L 09/04/18 08:10 BUN 15 mg/dL (7-17) 09/04/18 08:10 0.6 mg/dL (0.7-1.2) L 09/04/18 08:10 Estimated GFR > 60 ml/min 09/04/18 08:10 25 % 09/04/18 08:10 Glucose 121 mg/dL (65-100) H 09/04/18 08:10 Calcium 11.0 mg/dL (8.4-10.2) H 09/04/18 08:10 Phosphorus 2.90 mg/dL (2.5-4.5) 09/02/18 05:00 Magnesium 2.20 mg/dL (1.7-2.3) 08/28/18 Unknown 0.20 mg/dL (0.1-1.2) 08/27/18 06:11 AST 20 units/L (5-40) 08/27/18 06:11 ALT 36 units/L (7-56) 08/27/18 06:11 140 units/L (35-129) H 08/27/18 06:11 6.0 g/dL (6.1-8.1) L 08/29/18 Unknown 7.4 g/dL (6.3-8.2) 08/27/18 06:11 2.0 g/dL (3.8-4.8) L 08/29/18 Unknown 0.5 % 08/27/18 06:11 0.4 g/dL (0.2-0.3) H 08/29/18 Unknown 1.2 g/dL (0.5-0.9) H 08/29/18 Unknown 0.4 g/dL (0.2-0.5) 08/29/18 Unknown 1.7 g/dL (0.8-1.7) 08/29/18 Unknown Abnorm Protein Band 1 see below 08/29/18 Unknown PEP Interpretation see below H 08/29/18 Unknown <4 ng/mL 08/29/18 04:00 1,25 Dihydroxy Vit D2 <8 pg/mL 08/29/18 04:00 51 ng/mL 08/29/18 04:00 1,25 Dihydroxy Vit D3 30 pg/mL 08/29/18 04:00 PTH Intact 17.01 pg/mL (15-65) 08/29/18 Unknown Yellow (Yellow) 08/26/18 Unknown Cloudy (Clear) 08/26/18 Unknown 8.0 (5.0-7.0) H 08/26/18 Unknown Ur Specific [place] 1.012 (1.003-1.030) 08/26/18 Unknown 30 mg/dl mg/dL (Negative) 08/26/18 Unknown Neg mg/dL (Negative) 08/26/18 Unknown Neg mg/dL (Negative) 08/26/18 Unknown Lg (Negative) 08/26/18 Unknown Neg (Negative) 08/26/18 Unknown Neg (Negative) 08/26/18 Unknown < 2.0 mg/dL (<2.0) 08/26/18 Unknown Ur Leukocyte Esterase Lg (Negative) 08/26/18 Unknown 139.0 /HPF (0.0-6.0) H 08/26/18 Unknown 173.0 /HPF (0.0-6.0) 08/26/18 Unknown U Epithel Cells (Auto) 2.0 /HPF (0-13.0) 08/26/18 Unknown 1+ /HPF (Negative) 08/26/18 Unknown 2+ /HPF 08/26/18 Unknown Calcium Oxalate Crystal 1+ 08/26/18 Unknown Few /HPF 08/26/18 Unknown 2+ /HPF 08/26/18 Unknown Active Medications - Current Medications Current Medications: Generic Name Dose Route Start Last Admin Trade Name Freq PRN Reason Stop Dose Admin Acetaminophen 650 mg 08/26/18 17:51 09/02/18 11:43 Tylenol PO 650 mg Q4H PRN Administration Pain MILD(1-3)/Fever >100.5/RENEE Albuterol 2.5 mg 08/26/18 17:51 Proventil IH Q4HRT PRN Shortness Of Breath Lipase/Protease/Amylase 1 each 08/27/18 17:23 08/28/18 22:00 Pancrejossy Henry 10,500 Unit FEEDTUBE 1 each PRN PRN Administration For Clogged Feeding Tube Apixaban 10 mg 09/02/18 18:00 09/04/18 10:05 Eliquis PO 09/08/18 22:01 10 mg Q12HR ANU Administration Protocol Apixaban 5 mg 09/09/18 10:00 Eliquis PO Q12HR ANU Protocol Sodium Chloride 1,000 mls @ 125 mls/hr 08/26/18 18:00 09/04/18 10:08 Nacl 0.45% 1000 Ml IV 125 mls/hr DIRECT ANU Administration CEFTOLOZANE/TAZOBACTAM 1.5 gm/ 100 mls @ 100 mls/hr 09/04/18 00:00 09/04/18 10:05 Sodium Chloride IV 09/13/18 23:59 100 mls/hr Q8H ANU Administration Linezolid 600 mg 09/01/18 06:00 09/04/18 06:29 Zyvox PO 09/10/18 23:59 600 mg Q12H ANU Administration Protocol Ondansetron HCl 4 mg 08/26/18 17:51 Zofran IV Q8H PRN Nausea And Vomiting Oxycodone/Acetaminophen 1 tab 08/26/18 17:51 09/03/18 00:13 Percocet 5/325 PO 1 tab Q6H PRN Administration Pain, Moderate (4-6) Simple Syrup 15 ml 08/27/18 17:23 Simple Syrup FEEDTUBE PRN PRN Hypoglycemia Simple Syrup 30 ml 08/27/18 17:23 Simple Syrup FEEDTUBE PRN PRN Hypoglycemia Sodium Bicarbonate 325 mg 08/27/18 17:23 08/28/18 22:00 Sodium Bicarbonate FEEDTUBE 325 mg PRN PRN Administration For Clogged Feeding Tube Sodium Chloride 10 ml 08/26/18 22:00 09/04/18 10:21 Sodium Chloride Flush Syringe 10 Ml IV 10 ml BID ANU Administration Sodium Chloride 10 ml 08/26/18 17:51 Sodium Chloride Flush Syringe 10 Ml IV PRN PRN LINE FLUSH Nutrition/Malnutrition Assess - Dietary Evaluation Nutrition/Malnutrition Findings: Nutrition Notes Start: 08/27/18 17:13 Freq: Status: Active Protocol: Document 08/29/18 17:05 RM (Rec: 08/29/18 17:08 RM [id number]) Nutrition Notes Initial or Follow up Reassessment Current Diagnosis Sepsis Other Pertinent Diagnosis G tube, Dysphagia, Nonverbal, SIRS, UTI, Neprostomy tube displace Current Diet Jevity 1.2 at 65 ml/hr Labs/Tests Reviewed Pertinent Medications Ceftriaxone Height 5 ft 5 in Weight 49 kg [place] Body Weight (kg) 56.81 BMI 17.9 Subjective/Other Information Observed Jevity 1.2 infusing at goal rate. Per nurse pt has been having loose stools but has been tolerating TF. Worship Leader stated that loose stools were likely result of antibiotics Burn Absent Trauma Absent #1 Nutrition Diagnosis Malnutrition Diagnosis Progress(for reassessment Continues documentation) Is patient on ventilator? No Is Patient Ambulatory and/or Out of Bed No REE-([facility]-confined to bed) 1354.980 Kcal/Kg value to use for calculation 38 Approximate Energy Requirements Using 1862 kcal/Kg Calculation Used for Recommendations Kcal/kg Additional Notes Protein Needs: 72-82g (1.5-1. 7g/kg) Fluid Needs: 1 ml/kcal Nutrition Intervention Nutrition Support: Jevity 1.2 at 65 ml/hr. Water flush of 100 mls q 4 hrs . Kcal 1,872 Protein (gm) 87 Fluid (mL) 1,259 Goal #1 TF tolerance Goal #2 Meet at least 75% of calorie and protein needs via TF Anticipated Discharge Needs: Jevity 1.2 Follow-Up By: 09/05/18 Additional Comments Follow for TF tolerance
--- NOTE | 2018-09-04 16:31 | Progress Note ---
Assessment and Plan Cultures: Blood cultures 08/26/2018 Pseudomonas aeruginosa (carbapenem-resistant) and MDR Acinetobacter (indeterminate to Cefepime) Urine culture 08/26/2018 10-100K multiple sp. Urine culture from right [employer] tube 08/27/2018 Pseudomonas and VRE Urine culture from left [employer] tube 08/27/2018 Pseudomonas and VRE Assessment: 47 y/o female with history of chronic encephalopathy due to traumatic brain i njury, dysphagia s/p PEG and bilateral nephrostomy tubes admitted on 08/26/2018 due to right-sided nephrostomy tube dislodgement for 24 hour: 1) Severe sepsis: resolved. Etiology most likely complicated UTI. 2) Complicated UTI with bilateral nephrostomy tubes and kidney stones: due to Pseudomonas and VRE. UA with 139 wbc, large LE. Patient was found septic with right-sided nephrostomy tube dislodgment and left-sided nephrostomy tube with some jordi-tract drainage. CT showed moderate right hydronephrosis, bilateral renal calculi, right renal collecting system gravel-like renal calculi, colonic distention, bilateral infiltrate with RLL consolidation. Patient taken to the OR on 08/27/2018 underwent Fl-guided right [employer] tube insertion and left NT exchange. Urine culture from right [employer] tube 08/27/2018 Pseudomonas and VRE. Urine culture from left [employer] tube 08/27/2018 GNR and Enterocccus. ID consulted to [facility] sepsis. 3) Carbapenem-resistant Pseudomonas and MDR-Acinetobacter bacteremia: from UTI. Blood cultures 08/26/2018 Pseudomonas aeruginosa 4 of 4 bottles and MDR Acinetobacter (indeterminate to Cefepime) 1 of 4. 4) Hypernatremia/hypercalcemia: better 5) Presumed bilateral pneumonia. 6) Saddle pulmonary embolism: on anticoagulation Recommendations: continue zerbaxa (ceftolozane-tazobactam) 1.5 gm IV q8 hours D5 total 14 days until 09/13/2018. Order sent to case management specialist continue linezolid 600 mg PO BID D4 of 10 until 09/10/2018 Guarded prognosis Will follow. Sarah Ojeda MD Infectious Diseases [place] [facility] M [phone] O [phone] Subjective Date of service: 09/04/18 Principal diagnosis: complicated UTI Interval history: Patient non verbal, alert. Objective - Exam Narrative Exam: General appearance: alert non verbal in NAD Eyes: anicteric sclerae, moist conjunctivae; no lid-lag; PERRLA HENT: Atraumatic; oropharynx limited Neck: Trachea midline; supple, no thyromegaly or lymphadenopathy Lungs: CTA CV: RRR no murmur Abdomen: Soft, non-tender; +PEG +Pedro Luis [employer] tube clear urine Extremities: no edema, cyanosis Skin: Normal temperature, turgor and texture; no rash, ulcers or subcutaneous nodules Psych: no agitated Neuro: alert no agitated - Constitutional Vitals: Vital Signs Temp Pulse Resp BP Pulse Ox 97.4 F L 84 14 94/49 100 09/04/18 12:24 09/04/18 12:24 09/04/18 12:24 09/04/18 12:24 09/04/18 12:24 Temperature -Last 24 Hours Temperature 97.4 F Temperature 97.6 F Temperature 97.7 F Temperature 97.5 F Temperature 97.6 F - Labs CBC & Chem 7: 09/03/18 08:24 09/04/18 08:10 Labs: Abnormal lab results 09/04/18 Range/Units 08:10 Potassium 3.5 L (3.6-5.0) mmol/L Creatinine 0.6 L (0.7-1.2) mg/dL Glucose 121 H (65-100) mg/dL Calcium 11.0 H (8.4-10.2) mg/dL
[2018-09-05] MEDS: CEFTOLOZANE IV SCH ×3 (03:09→23:38)
[2018-09-05] MEDS: SODIUM CHLORIDE 0.9% IV SCH ×3 (03:09→23:38)
[2018-09-05] MEDS: TAZOBACTAM IV SCH ×3 (03:09→23:38)
[2018-09-05] MEDS: ZYVOX PO SCH ×2 (05:53→23:37)
[2018-09-05] MEDS: NACL 0.45% 1000 ML 1,000 ML IV SCH (06:04)
[2018-09-05 07:41] LABS: BUN/Creatinine Ratio 23; Blood Urea Nitrogen 14 mg/dL (7-17); Hemolysis Index 0
--- NOTE | 2018-09-05 07:55 | Hem/Onc Progress Note ---
Assessment and Plan 1. Large PE- emboli, - anticoagulation. 2. Hypercalcemia with renal stones, most likely either secondary to immobilization or parathyroid related issue. 3. Radiology shows bronchiectasis, cultures mentioned pseudomonas, heparin for the pulmonary embolism, nephrostomy tube issues. 4. The patient has a history of traumatic brain injury, nonverbal. 5. History of G-tube. h/o nephrostomy tube 6. I will follow the patient during inpatient stay and then in the clinic setting. The patient would need long-term anticoagulation. NOAC suggested at full dose for now and after a few months to 2.5 of Eliquis q. 12 hours. 09/05 - ct eliquis after ~ 6 months option of reducing to 2.5 q 12 - Patient Problems (1) Pulmonary embolism Current Visit: Yes Status: Acute Subjective Date of service: 09/05/18 Principal diagnosis: PE Interval history: not verbal Objective - Exam Narrative Exam: Pain none General appearance no acute distress Performance status - completely disabled Eyes blank stare ENT does not respond to questions LNs cervical not palpable Neck no mass Respiratory Normal Breath sounds - diminished b/l CVS S1 S2 + Extremities normal temperature - contracted limbs General GI Soft non tender PEG + Rectal deferred Female - deferred Skin warm Musculoskeletal generalized weakness Neurologically contracted extremities - Constitutional Vitals: Last Vital Signs Temp 97.9 F 09/05/18 03:27 Pulse 74 09/05/18 03:27 Resp 20 09/05/18 03:27 BP 95/59 09/05/18 03:27 Pulse Ox 100 09/05/18 03:27 - Labs Lab Results: Laboratory Results - last 24 hr 09/04/18 09/04/18 09/04/18 08:10 12:29 18:27 Sodium 139 Potassium 3.5 L Chloride 102.2 Carbon Dioxide 26 Anion Gap 14 BUN 15 Creatinine 0.6 L Estimated GFR > 60 BUN/Creatinine Ratio 25 Glucose 121 H POC Glucose 98 90 Calcium 11.0 H 09/05/18 06:49 Sodium 144 Potassium 4.0 Chloride 105.7 Carbon Dioxide 27 Anion Gap 15 BUN 14 Creatinine 0.6 L Estimated GFR > 60 BUN/Creatinine Ratio 23 Glucose 85 POC Glucose Calcium 11.0 H Medications & Allergies - Medications Allergies/Adverse Reactions: Allergies No Known Allergies Allergy (Unverified 08/26/18 14:14) Active Medications: Generic Name Dose Route Start Last Admin Trade Name Freq PRN Reason Stop Dose Admin Acetaminophen 650 mg 08/26/18 17:51 09/02/18 11:43 Tylenol PO 650 mg Q4H PRN Administration Pain MILD(1-3)/Fever >100.5/RENEE Albuterol 2.5 mg 08/26/18 17:51 Proventil IH Q4HRT PRN Shortness Of Breath Lipase/Protease/Amylase 1 each 08/27/18 17:23 08/28/18 22:00 Bertha Henry 10,500 Unit FEEDTUBE 1 each PRN PRN Administration For Clogged Feeding Tube Apixaban 10 mg 09/02/18 18:00 09/04/18 22:34 Eliquis PO 09/08/18 22:01 10 mg Q12HR ANU Administration Protocol Apixaban 5 mg 09/09/18 10:00 Eliquis PO Q12HR ANU Protocol Sodium Chloride 1,000 mls @ 125 mls/hr 08/26/18 18:00 09/05/18 06:04 Nacl 0.45% 1000 Ml IV 125 mls/hr DIRECT ANU Administration CEFTOLOZANE/TAZOBACTAM 1.5 gm/ 100 mls @ 100 mls/hr 09/04/18 00:00 09/05/18 03:09 Sodium Chloride IV 09/13/18 23:59 100 mls/hr Q8H ANU Administration Linezolid 600 mg 09/01/18 06:00 09/05/18 05:53 Zyvox PO 09/10/18 23:59 600 mg Q12H ANU Administration Protocol Ondansetron HCl 4 mg 08/26/18 17:51 Zofran IV Q8H PRN Nausea And Vomiting Oxycodone/Acetaminophen 1 tab 08/26/18 17:51 09/03/18 00:13 Percocet 5/325 PO 1 tab Q6H PRN Administration Pain, Moderate (4-6) Simple Syrup 15 ml 08/27/18 17:23 Simple Syrup FEEDTUBE PRN PRN Hypoglycemia Simple Syrup 30 ml 08/27/18 17:23 Simple Syrup FEEDTUBE PRN PRN Hypoglycemia Sodium Bicarbonate 325 mg 08/27/18 17:23 08/28/18 22:00 Sodium Bicarbonate FEEDTUBE 325 mg PRN PRN Administration For Clogged Feeding Tube Sodium Chloride 10 ml 08/26/18 22:00 09/04/18 22:34 Sodium Chloride Flush Syringe 10 Ml IV 10 ml BID ANU Administration Sodium Chloride 10 ml 08/26/18 17:51 Sodium Chloride Flush Syringe 10 Ml IV PRN PRN LINE FLUSH
--- NOTE | 2018-09-05 09:31 | Progress Note ---
Assessment and Plan 1. Hypercalcemia: Likely from combination of volume depletion and immobilization. Continue IV fluids to correct volume depletion. Calcium level is better but remains high. Vitamin D level is not elevated. Immunofixation negative for paraprotein. 2. Acute kidney injury: Vasomotor RUDI in the setting of volume depletion. Renal function is better. Monitor renal function. Avoid nephrotoxic agents. 3. FEN: Hypernatremia, improved. Monitor lytes. 4. Severe sepsis: UTI. 5. Dysfunctional nephrostomy tubes: S/p new nephrostomy tubes. 6. Bilateral PE: Eliquis. 7. Anemia. 8. Encephalopathy: 2/2 to TBI. At her baseline. Subjective Date of service: 09/05/18 Principal diagnosis: PE Interval history: Patient was seen and examined at the bedside. Objective - Vital Signs Vital signs: Vital Signs - 12hr 09/04/18 09/05/18 09/05/18 22:59 03:27 07:32 Temperature 98.3 F 97.9 F 97.3 F L Pulse Rate 76 74 77 Respiratory 20 20 14 Rate Blood Pressure 98/61 95/59 94/53 O2 Sat by Pulse 96 100 99 Oximetry 09/05/18 08:55 Temperature Pulse Rate 71 Respiratory Rate Blood Pressure O2 Sat by Pulse Oximetry - General Appearance General appearance: well-developed, appears stated age, other (no distress) EENT: ATNC, PERRL Neck: supple Respiratory: Present: Clear to Ascultation Cardiology: regular, S1S2, no murmurs Gastrointestinal: normoactive bowel sounds, no tenderness, no distended, other (PEG tube, b/l nephrostomy tubes noted) Neurologic: other (opens eyes, non-verbal, not following any command) Musculoskeletal: other (no edema) - Lab 09/03/18 08:24 09/05/18 06:49 Most recent lab results Calcium 11.0 mg/dL (8.4-10.2) H 09/05/18 06:49 Phosphorus 2.90 mg/dL (2.5-4.5) 09/02/18 05:00 Magnesium 2.20 mg/dL (1.7-2.3) 08/28/18 Unknown Medications & Allergies - Medications Allergies/Adverse Reactions: Allergies No Known Allergies Allergy (Unverified 08/26/18 14:14) Active Medications: Generic Name Dose Route Start Last Admin Trade Name Freq PRN Reason Stop Dose Admin Acetaminophen 650 mg 08/26/18 17:51 09/02/18 11:43 Tylenol PO 650 mg Q4H PRN Administration Pain MILD(1-3)/Fever >100.5/RENEE Albuterol 2.5 mg 08/26/18 17:51 Proventil IH Q4HRT PRN Shortness Of Breath Lipase/Protease/Amylase 1 each 08/27/18 17:23 08/28/18 22:00 Bertha Henry 10,500 Unit FEEDTUBE 1 each PRN PRN Administration For Clogged Feeding Tube Apixaban 10 mg 09/02/18 18:00 09/04/18 22:34 Eliquis PO 09/08/18 22:01 10 mg Q12HR ANU Administration Protocol Apixaban 5 mg 09/09/18 10:00 Eliquis PO Q12HR ANU Protocol Sodium Chloride 1,000 mls @ 125 mls/hr 08/26/18 18:00 09/05/18 06:04 Nacl 0.45% 1000 Ml IV 125 mls/hr DIRECT ANU Administration CEFTOLOZANE/TAZOBACTAM 1.5 gm/ 100 mls @ 100 mls/hr 09/04/18 00:00 09/05/18 03:09 Sodium Chloride IV 09/13/18 23:59 100 mls/hr Q8H ANU Administration Linezolid 600 mg 09/01/18 06:00 09/05/18 05:53 Zyvox PO 09/10/18 23:59 600 mg Q12H ANU Administration Protocol Ondansetron HCl 4 mg 08/26/18 17:51 Zofran IV Q8H PRN Nausea And Vomiting Oxycodone/Acetaminophen 1 tab 08/26/18 17:51 09/03/18 00:13 Percocet 5/325 PO 1 tab Q6H PRN Administration Pain, Moderate (4-6) Simple Syrup 15 ml 08/27/18 17:23 Simple Syrup FEEDTUBE PRN PRN Hypoglycemia Simple Syrup 30 ml 08/27/18 17:23 Simple Syrup FEEDTUBE PRN PRN Hypoglycemia Sodium Bicarbonate 325 mg 08/27/18 17:23 08/28/18 22:00 Sodium Bicarbonate FEEDTUBE 325 mg PRN PRN Administration For Clogged Feeding Tube Sodium Chloride 10 ml 08/26/18 22:00 09/04/18 22:34 Sodium Chloride Flush Syringe 10 Ml IV 10 ml BID ANU Administration Sodium Chloride 10 ml 08/26/18 17:51 Sodium Chloride Flush Syringe 10 Ml IV PRN PRN LINE FLUSH
--- NOTE | 2018-09-05 10:50 | Progress Note ---
Assessment and Plan Cultures: Blood cultures 08/26/2018 Pseudomonas aeruginosa (carbapenem-resistant) and MDR Acinetobacter (indeterminate to Cefepime) Urine culture 08/26/2018 10-100K multiple sp. 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 Etiology most likely complicated UTI. 2) Complicated UTI with bilateral nephrostomy tubes and kidney stones: due to Pseudomonas and VRE. UA with 139 wbc, large LE. Patient was found septic with right-sided nephrostomy tube dislodgment and left-sided nephrostomy tube with some jordi-tract drainage. CT showed moderate right hydronephrosis, bilateral renal calculi, right renal collecting system gravel-like renal calculi, colonic distention, bilateral infiltrate with RLL consolidation. Patient taken to the OR on 08/27/2018 underwent Fl-guided right MAGNET[employer] TAPE COMPOSER OPERATOR tube insertion and left NT exchange. Urine culture from right MAGNETIC TAPE COMPOSER OPERATOR tube 08/27/2018 Pseudomonas and VRE. Urine culture from left MAGNETIC TAPE COMPOSER OPERATOR tube 08/27/2018 GNR and Enterocccus 3) Carbapenem-resistant Pseudomonas and MDR-Acinetobacter bacteremia: from UTI. Blood cultures 08/26/2018 Pseudomonas aeruginosa 4 of 4 bottles and MDR Acinetobacter (indeterminate to Cefepime) 1 of 4. 4) Hypernatremia/hypercalcemia: better 5) Presumed bilateral pneumonia. 6) Saddle pulmonary embolism: on anticoagulation Recommendations: family member reports right MAGNET[employer] TAPE COMPOSER OPERATOR tube is leaking, I will ask IR to evaluate continue zerbaxa (ceftolozane-tazobactam) 1.5 gm IV q8 hours D6 total 14 days until 09/13/2018. Order sent to test case developer continue linezolid 600 mg PO BID D6 of 10 until 09/10/2018 always contact isolation, patient at risk of readmissions needs to f/u with [facility] for further management of bilateral MAGNETIC TAPE COMPOSER OPERATOR tubes Guarded prognosis Will follow. Sarah Ojeda MD Infectious Diseases Energy And Sustainability Manager [facility] M [phone] O [phone] Subjective Date of service: 09/05/18 Principal diagnosis: PE Interval history: Patient non verbal, alert. Objective - Exam Narrative Exam: General appearance: alert non verbal in NAD Eyes: anicteric sclerae, moist conjunctivae; no lid-lag; PERRLA HENT: Atraumatic; oropharynx limited Neck: Trachea midline; supple, no thyromegaly or lymphadenopathy Lungs: CTA CV: RRR no murmur Abdomen: Soft, non-tender; +PEG +Pedro Luis MAGNETIC TAPE COMPOSER OPERATOR tube clear urine Extremities: no edema, cyanosis Skin: Normal temperature, turgor and texture; no rash, ulcers or subcutaneous nodules Psych: no agitated Neuro: alert no agitated - Constitutional Vitals: Vital Signs Temp Pulse Resp BP Pulse Ox 97.3 F L 71 14 94/53 99 09/05/18 07:32 09/05/18 08:55 09/05/18 07:32 09/05/18 07:32 09/05/18 07:32 Temperature -Last 24 Hours Temperature 97.3 F Temperature 97.9 F Temperature 98.3 F Temperature 97.8 F Temperature 97.5 F Temperature 97.4 F - Labs CBC & Chem 7: 09/03/18 08:24 09/05/18 06:49 Labs: Abnormal lab results 09/05/18 Range/Units 06:49 Creatinine 0.6 L (0.7-1.2) mg/dL Calcium 11.0 H (8.4-10.2) mg/dL
[2018-09-05] MEDS: ELIQUIS PO SCH ×2 (11:23→23:36)
[2018-09-05] MEDS: SODIUM CHLORIDE FLUSH SYRINGE 10 ML IV SCH ×3 (11:38→23:37)
--- NOTE | 2018-09-05 12:23 | Progress Note ---
Assessment and Plan Assessment and plan: Sepsis. Blood cultures positive for multiple organisms Pseudomonas aeruginosa. A, Baumani Urine Pseudomonas and Enterococcus fecium contact isolation Multidrug resistant bacteria Discussed with ID Cont Zerbaxa until 09/13/18, continue Zyvox until 09/10/18 Bilateral pneumonia. On Antibiotics saddle pulmonary embolism, seen on Ct chest started Heparin Consulted Dr. Newell, Dr. Quezada Echo unremarkable, no right ventricle strain Transitioned to Eliquis, off Heparin UTI pseudomonas aeruginosa and enterococcus faecium. Continue IV antibiotics. Nephrostomy tube dislodged a second time. IR consulted per ID, s/p replacement on admission Hypercalcemia. Improved Nephrology following Consulted Oncology Hypernatremia Now resolved Hypokalemia Improving. Give more Potassium and recheck Severe protein calorie malnutrition. Continue tube feedings per dietitian. Chronic encephalopathy s/p TBI. Supportive care. Debility. Mobility protocols for pressure ulcer prophylaxis. History Interval history: 47 YO Female SNF Resident at [facility] with Encephalopathy S/P TBI, Debility, Dysphagia, presents to ED for evaluation. Pt is nonverbal and unable to provide history. Patient was found to have a dislodged Nephrostomy tube, EMS notified, and patient transported to [facility]. Pt seen and evaluated in ED and found to have UTI, Volume depletion, as well as dislodged nephrostomy tube. Pt admitted to medical floor. IR team consulted in ED. Patient diagnosed with Sepsis, UTI. bilateral pneumonia. Hypercalcemia improved. CT Chest was done to look for malignancy but revealed saddle pulmonary embolism. Patient started on heparin, consulted Vasc Surgery, now to start Eliquis today. Blood cultures grew Pseudomonas Aeurginosa and A, baumani and urine cultures grew Pseudomonas aeruginosa and Enterococcus faecium. Now started on Ceftolozane/Tazobactam and Zyvox by ID Physician. She was on Cefepime. Follow clinically. Discharge planning in conjunction with ID. Hospitalist Physical - Constitutional Vitals: Temp Pulse Resp BP Pulse Ox 97.3 F L 71 14 94/53 99 09/05/18 07:32 09/05/18 08:55 09/05/18 07:32 09/05/18 07:32 09/05/18 07:32 General appearance: Present: no acute distress, cachectic, other - EENT Eyes: Present: PERRL, EOM intact ENT: hearing intact, clear oral mucosa, dentition normal - Neck Neck: Present: supple, normal ROM - Respiratory Respiratory effort: normal Respiratory: bilateral: CTA - Cardiovascular Rhythm: regular Heart Sounds: Present: S1 & S2. Absent: gallop, rub - Extremities Extremities: no ischemia, No edema, Full ROM - Abdominal General gastrointestinal: soft, non-tender, non-distended, normal bowel sounds - Integumentary Integumentary: Present: clear, warm, dry - Neurologic Neurologic: CNII-XII intact, moves all extremities Results - Labs CBC & Chem 7: 09/03/18 08:24 09/05/18 06:49 Labs: Laboratory Last Values WBC 9.4 K/mm3 (4.5-11.0) 09/03/18 08:24 RBC 3.43 M/mm3 (3.65-5.03) L 09/03/18 08:24 Hgb 10.6 gm/dl (10.1-14.3) 09/03/18 08:24 Hct 31.7 % (30.3-42.9) 09/03/18 08:24 MCV 92 fl (79-97) 09/03/18 08:24 MCH 31 pg (28-32) 09/03/18 08:24 MCHC 33 % (30-34) 09/03/18 08:24 RDW 17.5 % (13.2-15.2) H 09/03/18 08:24 Plt Count 364 K/mm3 (140-440) 09/03/18 08:24 Lymph % (Auto) 12.8 % (13.4-35.0) L 08/28/18 Unknown Andrews % (Auto) 6.9 % (0.0-7.3) 08/28/18 Unknown Eos % (Auto) 0.2 % (0.0-4.3) 08/28/18 Unknown Baso % (Auto) 0.1 % (0.0-1.8) 08/28/18 Unknown Lymph # 1.8 K/mm3 (1.2-5.4) 08/28/18 Unknown Andrews # 1.0 K/mm3 (0.0-0.8) H 08/28/18 Unknown Eos # 0.0 K/mm3 (0.0-0.4) 08/28/18 Unknown Baso # 0.0 K/mm3 (0.0-0.1) 08/28/18 Unknown Add Manual Diff Complete 08/26/18 15:02 Total Counted 100 08/26/18 15:02 Seg Neutrophils % 80.0 % (40.0-70.0) H 08/28/18 Unknown Seg Neuts % (Manual) 59.0 % (40.0-70.0) 08/26/18 15:02 30.0 % 08/26/18 15:02 5.0 % (13.4-35.0) L 08/26/18 15:02 Reactive Lymphs % (Man) 0 % 08/26/18 15:02 5.0 % (0.0-7.3) 08/26/18 15:02 1.0 % (0.0-4.3) 08/26/18 15:02 0 % (0.0-1.8) 08/26/18 15:02 0 % 08/26/18 15:02 0 % 08/26/18 15:02 0 % 08/26/18 15:02 0 % 08/26/18 15:02 Nucleated RBC % Not Reportable 08/26/18 15:02 Seg Neutrophils # 11.3 K/mm3 (1.8-7.7) H 08/28/18 Unknown Seg Neutrophils # Man 9.3 K/mm3 (1.8-7.7) H 08/26/18 15:02 Band Neutrophils # 4.7 K/mm3 08/26/18 15:02 0.8 K/mm3 (1.2-5.4) L 08/26/18 15:02 Abs React Lymphs (Man) 0.0 K/mm3 08/26/18 15:02 0.8 K/mm3 (0.0-0.8) 08/26/18 15:02 0.2 K/mm3 (0.0-0.4) 08/26/18 15:02 0.0 K/mm3 (0.0-0.1) 08/26/18 15:02 0.0 K/mm3 08/26/18 15:02 0.0 K/mm3 08/26/18 15:02 0.0 K/mm3 08/26/18 15:02 Blast Cells # 0.0 K/mm3 08/26/18 15:02 WBC Morphology Not Reportable 08/26/18 15:02 Hypersegmented Neuts Not Reportable 08/26/18 15:02 Hyposegmented Neuts Not Reportable 08/26/18 15:02 Hypogranular Neuts Not Reportable 08/26/18 15:02 Not Reportable 08/26/18 15:02 Not Reportable 08/26/18 15:02 Not Reportable 08/26/18 15:02 Not Reportable 08/26/18 15:02 Not Reportable 08/26/18 15:02 Not Reportable 08/26/18 15:02 Consistent w auto 08/26/18 15:02 Not Reportable 08/26/18 15:02 Plt Clumps, EDTA Not Reportable 08/26/18 15:02 Not Reportable 08/26/18 15:02 Not Reportable 08/26/18 15:02 Not Reportable 08/26/18 15:02 Plt Morphology Comment Not Reportable 08/26/18 15:02 RBC Morphology Not Reportable 08/26/18 15:02 Dimorphic RBCs Not Reportable 08/26/18 15:02 Few 08/26/18 15:02 1+ 08/26/18 15:02 Not Reportable 08/26/18 15:02 1+ 08/26/18 15:02 Not Reportable 08/26/18 15:02 Not Reportable 08/26/18 15:02 Not Reportable 08/26/18 15:02 Not Reportable 08/26/18 15:02 Not Reportable 08/26/18 15:02 Not Reportable 08/26/18 15:02 Not Reportable 08/26/18 15:02 Not Reportable 08/26/18 15:02 Few 08/26/18 15:02 Not Reportable 08/26/18 15:02 Not Reportable 08/26/18 15:02 Not Reportable 08/26/18 15:02 Not Reportable 08/26/18 15:02 Not Reportable 08/26/18 15:02 Not Reportable 08/26/18 15:02 Not Reportable 08/26/18 15:02 Acanthocytes (Spur) Not Reportable 08/26/18 15:02 Rouleaux Not Reportable 08/26/18 15:02 Not Reportable 08/26/18 15:02 Not Reportable 08/26/18 15:02 Not Reportable 08/26/18 15:02 Not Reportable 08/26/18 15:02 Hem Pathologist Commnt No 08/26/18 15:02 PT 13.7 Sec. (12.2-14.9) 08/30/18 20:09 INR 1.08 (0.87-1.13) 08/30/18 20:09 APTT 31.3 Sec. (24.2-36.6) 08/30/18 20:09 Heparin Anti-Xa Level 1.46 U.I./ml (0.3-0.7) H 09/03/18 06:10 Sodium 144 mmol/L (137-145) 09/05/18 06:49 Potassium 4.0 mmol/L (3.6-5.0) 09/05/18 06:49 Chloride 105.7 mmol/L (98-107) 09/05/18 06:49 Carbon Dioxide 27 mmol/L (22-30) 09/05/18 06:49 15 mmol/L 09/05/18 06:49 BUN 14 mg/dL (7-17) 09/05/18 06:49 0.6 mg/dL (0.7-1.2) L 09/05/18 06:49 Estimated GFR > 60 ml/min 09/05/18 06:49 23 % 09/05/18 06:49 Glucose 85 mg/dL (65-100) 09/05/18 06:49 POC Glucose 90 (70-105) 09/04/18 18:27 Calcium 11.0 mg/dL (8.4-10.2) H 09/05/18 06:49 Phosphorus 2.90 mg/dL (2.5-4.5) 09/02/18 05:00 Magnesium 2.20 mg/dL (1.7-2.3) 08/28/18 Unknown 0.20 mg/dL (0.1-1.2) 08/27/18 06:11 AST 20 units/L (5-40) 08/27/18 06:11 ALT 36 units/L (7-56) 08/27/18 06:11 140 units/L (35-129) H 08/27/18 06:11 6.0 g/dL (6.1-8.1) L 08/29/18 Unknown 7.4 g/dL (6.3-8.2) 08/27/18 06:11 2.0 g/dL (3.8-4.8) L 08/29/18 Unknown 0.5 % 08/27/18 06:11 0.4 g/dL (0.2-0.3) H 08/29/18 Unknown 1.2 g/dL (0.5-0.9) H 08/29/18 Unknown 0.4 g/dL (0.2-0.5) 08/29/18 Unknown 1.7 g/dL (0.8-1.7) 08/29/18 Unknown Abnorm Protein Band 1 see below 08/29/18 Unknown PEP Interpretation see below H 08/29/18 Unknown <4 ng/mL 08/29/18 04:00 1,25 Dihydroxy Vit D2 <8 pg/mL 08/29/18 04:00 51 ng/mL 08/29/18 04:00 1,25 Dihydroxy Vit D3 30 pg/mL 08/29/18 04:00 PTH Intact 17.01 pg/mL (15-65) 08/29/18 Unknown Yellow (Yellow) 08/26/18 Unknown Cloudy (Clear) 08/26/18 Unknown 8.0 (5.0-7.0) H 08/26/18 Unknown Ur Specific [place] 1.012 (1.003-1.030) 08/26/18 Unknown 30 mg/dl mg/dL (Negative) 08/26/18 Unknown Neg mg/dL (Negative) 08/26/18 Unknown Neg mg/dL (Negative) 08/26/18 Unknown Lg (Negative) 08/26/18 Unknown Neg (Negative) 08/26/18 Unknown Neg (Negative) 08/26/18 Unknown < 2.0 mg/dL (<2.0) 08/26/18 Unknown Ur Leukocyte Esterase Lg (Negative) 08/26/18 Unknown 139.0 /HPF (0.0-6.0) H 08/26/18 Unknown 173.0 /HPF (0.0-6.0) 08/26/18 Unknown U Epithel Cells (Auto) 2.0 /HPF (0-13.0) 08/26/18 Unknown 1+ /HPF (Negative) 08/26/18 Unknown 2+ /HPF 08/26/18 Unknown Calcium Oxalate Crystal 1+ 08/26/18 Unknown Few /HPF 08/26/18 Unknown 2+ /HPF 08/26/18 Unknown Active Medications - Current Medications Current Medications: Generic Name Dose Route Start Last Admin Trade Name Freq PRN Reason Stop Dose Admin Acetaminophen 650 mg 08/26/18 17:51 09/02/18 11:43 Tylenol PO 650 mg Q4H PRN Administration Pain MILD(1-3)/Fever >100.5/RENEE Albuterol 2.5 mg 08/26/18 17:51 Proventil IH Q4HRT PRN Shortness Of Breath Lipase/Protease/Amylase 1 each 08/27/18 17:23 08/28/18 22:00 Bertha Henry 10,500 Unit FEEDTUBE 1 each PRN PRN Administration For Clogged Feeding Tube Apixaban 10 mg 09/02/18 18:00 09/05/18 11:23 Eliquis PO 09/08/18 22:01 10 mg Q12HR ANU Administration Protocol Apixaban 5 mg 09/09/18 10:00 Eliquis PO Q12HR ANU Protocol Sodium Chloride 1,000 mls @ 125 mls/hr 08/26/18 18:00 09/05/18 06:04 Nacl 0.45% 1000 Ml IV 125 mls/hr DIRECT ANU Administration CEFTOLOZANE/TAZOBACTAM 1.5 gm/ 100 mls @ 100 mls/hr 09/04/18 00:00 09/05/18 10:37 Sodium Chloride IV 09/13/18 23:59 100 mls/hr Q8H ANU Administration Linezolid 600 mg 09/01/18 06:00 09/05/18 05:53 Zyvox PO 09/10/18 23:59 600 mg Q12H ANU Administration Protocol Ondansetron HCl 4 mg 08/26/18 17:51 Zofran IV Q8H PRN Nausea And Vomiting Oxycodone/Acetaminophen 1 tab 08/26/18 17:51 09/03/18 00:13 Percocet 5/325 PO 1 tab Q6H PRN Administration Pain, Moderate (4-6) Simple Syrup 15 ml 08/27/18 17:23 Simple Syrup FEEDTUBE PRN PRN Hypoglycemia Simple Syrup 30 ml 08/27/18 17:23 Simple Syrup FEEDTUBE PRN PRN Hypoglycemia Sodium Bicarbonate 325 mg 08/27/18 17:23 08/28/18 22:00 Sodium Bicarbonate FEEDTUBE 325 mg PRN PRN Administration For Clogged Feeding Tube Sodium Chloride 10 ml 08/26/18 22:00 09/05/18 11:38 Sodium Chloride Flush Syringe 10 Ml IV 10 ml BID ANU Administration Sodium Chloride 10 ml 08/26/18 17:51 Sodium Chloride Flush Syringe 10 Ml IV PRN PRN LINE FLUSH Nutrition/Malnutrition Assess - Dietary Evaluation Nutrition/Malnutrition Findings: Nutrition Notes Start: 08/27/18 17:13 Freq: Status: Active Protocol: Document 08/29/18 17:05 RM (Rec: 08/29/18 17:08 RM [id number]) Nutrition Notes Initial or Follow up Reassessment Current Diagnosis Sepsis Other Pertinent Diagnosis G tube, Dysphagia, Nonverbal, SIRS, UTI, Neprostomy tube displace Current Diet Jevity 1.2 at 65 ml/hr Labs/Tests Reviewed Pertinent Medications Ceftriaxone Height 5 ft 5 in Weight 49 kg [place] Body Weight (kg) 56.81 BMI 17.9 Subjective/Other Information Observed Jevity 1.2 infusing at goal rate. Per nurse pt has been having loose stools but has been tolerating TF. Environmental Officer stated that loose stools were likely result of antibiotics Burn Absent Trauma Absent #1 Nutrition Diagnosis Malnutrition Diagnosis Progress(for reassessment Continues documentation) Is patient on ventilator? No Is Patient Ambulatory and/or Out of Bed No REE-([facility]-confined to bed) 1354.980 Kcal/Kg value to use for calculation 38 Approximate Energy Requirements Using 1862 kcal/Kg Calculation Used for Recommendations Kcal/kg Additional Notes Protein Needs: 72-82g (1.5-1. 7g/kg) Fluid Needs: 1 ml/kcal Nutrition Intervention Nutrition Support: Jevity 1.2 at 65 ml/hr. Water flush of 100 mls q 4 hrs . Kcal 1,872 Protein (gm) 87 Fluid (mL) 1,259 Goal #1 TF tolerance Goal #2 Meet at least 75% of calorie and protein needs via TF Anticipated Discharge Needs: Jevity 1.2 Follow-Up By: 09/05/18 Additional Comments Follow for TF tolerance
--- NOTE | 2018-09-05 13:00 | Event Note ---
Date: 09/05/18 Notified by nurse that patient is incontinent and urinating. Her nephrostomy tubes are putting a large amount of urine. No leakage from the nephrostomy tubes. There is no dislodgement of the catheters. Family is concerned because patient they believe the nephrostomy tubes should divert all the urine. However, nephrostograms have demonstrates no obstruction to flow from the renal pelvis to the bladder. The patient has a neurogenic bladder. This is usually treated with permanent kathleen or suprapubic catheter placement. Instead, at [place], it was treated with bilateral nephrostomy tubes. I will upsize the nephrostomy tubes tomorrow to 10 Fr tubes. This may help divert more of the urine, but the lack of obstruction to flow will allow some urine to go to her bladder and she will urinate it because she is incontinent. This is expected.
[2018-09-06] MEDS: TAZOBACTAM IV SCH ×3 (00:12→16:23)
[2018-09-06] MEDS: CEFTOLOZANE IV SCH ×3 (00:12→16:23)
[2018-09-06] MEDS: SODIUM CHLORIDE 0.9% IV SCH ×3 (00:12→16:23)
[2018-09-06] MEDS: NACL 0.45% 1000 ML 1,000 ML IV SCH ×3 (00:13→22:42)
[2018-09-06] MEDS: ZYVOX PO SCH ×2 (05:55→17:29)
--- NOTE | 2018-09-06 08:01 | Hem/Onc Progress Note ---
Assessment and Plan 1. Large PE- emboli, - anticoagulation. 2. Hypercalcemia with renal stones, most likely either secondary to immobilization or parathyroid related issue. 3. Radiology shows bronchiectasis, cultures mentioned pseudomonas, heparin for the pulmonary embolism, nephrostomy tube issues. 4. The patient has a history of traumatic brain injury, nonverbal. 5. History of G-tube. h/o nephrostomy tube 6. I will follow the patient during inpatient stay and then in the clinic setting. The patient would need long-term anticoagulation. NOAC suggested at full dose for now and after a few months to 2.5 of Eliquis q. 12 hours. 09/06 - ct eliquis after ~ 6 months option of reducing to 2.5 q 12 hypercalcemia - CT CAP - no bone or other neoplastic lesion PTH also not high - her immobilization may have a role - endocrine eval suggested - Patient Problems (1) Pulmonary embolism Current Visit: Yes Status: Acute Subjective Date of service: 09/06/18 Principal diagnosis: PE Interval history: no bleeding Objective - Exam Narrative Exam: Pain none General appearance no acute distress Performance status - completely disabled Eyes blank stare ENT does not respond to questions LNs cervical not palpable Neck no mass Respiratory Normal Breath sounds - diminished b/l CVS S1 S2 + Extremities normal temperature - contracted limbs General GI Soft non tender PEG + Rectal deferred Female - deferred Skin warm Musculoskeletal generalized weakness Neurologically contracted extremities - Constitutional Vitals: Last Vital Signs Temp 97.4 F L 09/06/18 04:30 Pulse 66 09/06/18 04:30 Resp 18 09/06/18 04:30 BP 98/51 09/06/18 04:30 Pulse Ox 100 09/06/18 04:30 - Labs Lab Results: Laboratory Results - last 24 hr 09/03/18 09/05/18 08:24 13:34 POC Glucose 121 H Immunofix Electrophor see below H Medications & Allergies - Medications Allergies/Adverse Reactions: Allergies No Known Allergies Allergy (Unverified 08/26/18 14:14) Active Medications: Generic Name Dose Route Start Last Admin Trade Name Freq PRN Reason Stop Dose Admin Acetaminophen 650 mg 08/26/18 17:51 09/02/18 11:43 Tylenol PO 650 mg Q4H PRN Administration Pain MILD(1-3)/Fever >100.5/RENEE Albuterol 2.5 mg 08/26/18 17:51 Proventil IH Q4HRT PRN Shortness Of Breath Lipase/Protease/Amylase 1 each 08/27/18 17:23 08/28/18 22:00 Bertha Henry 10,500 Unit FEEDTUBE 1 each PRN PRN Administration For Clogged Feeding Tube Apixaban 10 mg 09/02/18 18:00 09/05/18 23:36 Eliquis PO 09/08/18 22:01 10 mg Q12HR ANU Administration Protocol Apixaban 5 mg 09/09/18 10:00 Eliquis PO Q12HR ANU Protocol Sodium Chloride 1,000 mls @ 125 mls/hr 08/26/18 18:00 09/06/18 00:13 Nacl 0.45% 1000 Ml IV 125 mls/hr DIRECT ANU Administration CEFTOLOZANE/TAZOBACTAM 1.5 gm/ 100 mls @ 100 mls/hr 09/04/18 00:00 09/06/18 00:12 Sodium Chloride IV 09/13/18 23:59 100 mls/hr Q8H ANU Administration Linezolid 600 mg 09/01/18 06:00 09/06/18 05:55 Zyvox PO 09/10/18 23:59 600 mg Q12H ANU Administration Protocol Ondansetron HCl 4 mg 08/26/18 17:51 Zofran IV Q8H PRN Nausea And Vomiting Oxycodone/Acetaminophen 1 tab 08/26/18 17:51 09/03/18 00:13 Percocet 5/325 PO 1 tab Q6H PRN Administration Pain, Moderate (4-6) Simple Syrup 15 ml 08/27/18 17:23 Simple Syrup FEEDTUBE PRN PRN Hypoglycemia Simple Syrup 30 ml 08/27/18 17:23 Simple Syrup FEEDTUBE PRN PRN Hypoglycemia Sodium Bicarbonate 325 mg 08/27/18 17:23 08/28/18 22:00 Sodium Bicarbonate FEEDTUBE 325 mg PRN PRN Administration For Clogged Feeding Tube Sodium Chloride 10 ml 08/26/18 22:00 09/05/18 23:37 Sodium Chloride Flush Syringe 10 Ml IV 10 ml BID ANU Administration Sodium Chloride 10 ml 08/26/18 17:51 Sodium Chloride Flush Syringe 10 Ml IV PRN PRN LINE FLUSH
[2018-09-06 08:29] LABS: BUN/Creatinine Ratio 30; Blood Urea Nitrogen 15 mg/dL (7-17); Hemolysis Index 3
--- NOTE | 2018-09-06 10:28 | Progress Note ---
Assessment and Plan Cultures: Blood cultures 08/26/2018 Pseudomonas aeruginosa (carbapenem-resistant) and MDR Acinetobacter (indeterminate to Cefepime) Urine culture 08/26/2018 10-100K multiple sp. 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 Etiology most likely complicated UTI. 2) Complicated UTI with bilateral nephrostomy tubes and kidney stones: due to Pseudomonas and VRE. UA with 139 wbc, large LE. Patient was found septic with right-sided nephrostomy tube dislodgment and left-sided nephrostomy tube with some jordi-tract drainage. CT showed moderate right hydronephrosis, bilateral renal calculi, right renal collecting system gravel-like renal calculi, colonic distention, bilateral infiltrate with RLL consolidation. Patient taken to the OR on 08/27/2018 underwent Fl-guided right TOWER EQUIPMENT INSTALLER tube insertion and left NT exchange. Urine culture from right TOWER EQUIPMENT INSTALLER tube 08/27/2018 Pseudomonas and VRE. Urine culture from left TOWER EQUIPMENT INSTALLER tube 08/27/2018 GNR and Enterocccus 3) Carbapenem-resistant Pseudomonas and MDR-Acinetobacter bacteremia: from UTI. Blood cultures 08/26/2018 Pseudomonas aeruginosa 4 of 4 bottles and MDR Acinetobacter (indeterminate to Cefepime) 1 of 4. 4) Hypernatremia/hypercalcemia: better 5) Presumed bilateral pneumonia. 6) Saddle pulmonary embolism: on anticoagulation Recommendations: family member reports right TOWER EQUIPMENT INSTALLER tube is leaking, I will ask IR to evaluate continue zerbaxa (ceftolozane-tazobactam) 1.5 gm IV q8 hours D6 total 14 days until 09/13/2018. Order sent to pillowcase cleaner continue linezolid 600 mg PO BID D6 of 10 until 09/10/2018 always contact isolation, patient at risk of readmissions needs to f/u with [facility] for further management of bilateral TOWER EQUIPMENT INSTALLER tubes [employer] M: [phone] O:[phone] Subjective Date of service: 09/06/18 Principal diagnosis: PE Interval history: Patient seen and examined. Awake. Alet. Nonverbal. no fevers. Objective - Exam Narrative Exam: General appearance: Alert. Awake. Nonverbal. Eyes: anicteric sclerae, moist conjunctivae; no lid-lag; PERRLA HENT: Atraumatic; oropharynx clear with moist mucous membranes and no mucosal ulcerations/no oral thrush; normal hard and soft palate. Normal external ears. Neck: Trachea midline; supple, no thyromegaly or lymphadenopathy Lungs: CTA, with normal respiratory effort and no intercostal retractions CV: RRR no murmur Abdomen: Soft, non-tender; +PEG +Pedro Luis TOWER EQUIPMENT INSTALLER tube Extremities: no edema, cyanosis Skin: Normal temperature, turgor and texture; no rash, ulcers or subcutaneous nodules Psych: no agitated Neuro: alert, calm - Constitutional Vitals: Vital Signs Temp Pulse Resp BP Pulse Ox 97.1 F L 77 18 109/50 100 09/06/18 07:51 09/06/18 07:51 09/06/18 07:51 09/06/18 07:51 09/06/18 07:51 Temperature -Last 24 Hours Temperature 97.1 F Temperature 97.4 F Temperature 97.8 F Temperature 98.1 F Temperature 98.0 F - Labs CBC & Chem 7: 09/03/18 08:24 09/06/18 07:29 Labs: Abnormal lab results 09/03/18 09/05/18 09/06/18 Range/Units 08:24 13:34 07:29 Creatinine 0.5 L (0.7-1.2) mg/dL POC Glucose 121 H (70-105) Calcium 11.0 H (8.4-10.2) mg/dL Immunofix Electrophor see below H
[2018-09-06] MEDS: ELIQUIS PO SCH ×3 (10:36→22:40)
[2018-09-06] MEDS: SODIUM CHLORIDE FLUSH SYRINGE 10 ML IV SCH ×2 (10:37→22:41)
--- NOTE | 2018-09-06 11:24 | Progress Note ---
Assessment and Plan Assessment and plan: Sepsis. Blood cultures positive for multiple organisms Pseudomonas aeruginosa. A, Baumani Urine Pseudomonas and Enterococcus fecium contact isolation Multidrug resistant bacteria Discussed with ID Cont Zerbaxa until 09/13/18, continue Zyvox until 09/10/18 Bilateral pneumonia. On Antibiotics saddle pulmonary embolism, seen on Ct chest started Heparin Consulted Dr. Newell, Dr. Quezada Echo unremarkable, no right ventricle strain Transitioned to Eliquis, off Heparin UTI pseudomonas aeruginosa and enterococcus faecium. Continue IV antibiotics. Neurogenic bladder. IR to upsize the nephrostomy tubes. This may help divert more of the urine, but the lack of obstruction to flow will allow some urine to go to her bladder and she will urinate it because she is incontinent. This is expected. Hypercalcemia. Improved Nephrology following Consulted Oncology Hypernatremia Now resolved Hypokalemia Improving. Give more Potassium and recheck Severe protein calorie malnutrition. Continue tube feedings per dietitian. Chronic encephalopathy s/p TBI. Supportive care. Debility. Mobility protocols for pressure ulcer prophylaxis. History Interval history: 47 YO Female SNF Resident at [facility] with Encephalopathy S/P TBI, Debility, Dysphagia, presents to ED for evaluation. Pt is nonverbal and unable to provide history. Patient was found to have a dislodged Nephrostomy tube, EMS notified, and patient transported to [facility]. Pt seen and evaluated in ED and found to have UTI, Volume depletion, as well as dislodged nephrostomy tube. Pt admitted to medical floor. IR team consulted in ED. Patient diagnosed with Sepsis, UTI. bilateral pneumonia. Hypercalcemia improved. CT Chest was done to look for malignancy but revealed saddle pulmonary embolism. Patient started on heparin, consulted Vasc Surgery, now to start Eliquis today. Blood cultures grew Pseudomonas Aeurginosa and A, baumani and urine cultures grew Pseudomonas aeruginosa and Enterococcus faecium. Now started on Ceftolozane/Tazobactam and Zyvox by ID Physician. She was on Cefepime. Follow clinically. Discharge planning in conjunction with ID. Hospitalist Physical - Constitutional Vitals: Temp Pulse Resp BP Pulse Ox 97.1 F L 77 18 109/50 100 09/06/18 07:51 09/06/18 07:51 09/06/18 07:51 09/06/18 07:51 09/06/18 07:51 General appearance: Present: no acute distress, cachectic, other - EENT Eyes: Present: PERRL, EOM intact ENT: hearing intact, clear oral mucosa, dentition normal - Neck Neck: Present: supple, normal ROM - Respiratory Respiratory effort: normal Respiratory: bilateral: CTA - Cardiovascular Rhythm: regular Heart Sounds: Present: S1 & S2. Absent: gallop, rub - Extremities Extremities: no ischemia, No edema, Full ROM - Abdominal General gastrointestinal: soft, non-tender, non-distended, normal bowel sounds - Integumentary Integumentary: Present: clear, warm, dry - Neurologic Neurologic: CNII-XII intact, moves all extremities Results - Labs CBC & Chem 7: 09/03/18 08:24 09/06/18 07:29 Labs: Laboratory Last Values WBC 9.4 K/mm3 (4.5-11.0) 09/03/18 08:24 RBC 3.43 M/mm3 (3.65-5.03) L 09/03/18 08:24 Hgb 10.6 gm/dl (10.1-14.3) 09/03/18 08:24 Hct 31.7 % (30.3-42.9) 09/03/18 08:24 MCV 92 fl (79-97) 09/03/18 08:24 MCH 31 pg (28-32) 09/03/18 08:24 MCHC 33 % (30-34) 09/03/18 08:24 RDW 17.5 % (13.2-15.2) H 09/03/18 08:24 Plt Count 364 K/mm3 (140-440) 09/03/18 08:24 Lymph % (Auto) 12.8 % (13.4-35.0) L 08/28/18 Unknown [place] % (Auto) 6.9 % (0.0-7.3) 08/28/18 Unknown Eos % (Auto) 0.2 % (0.0-4.3) 08/28/18 Unknown Baso % (Auto) 0.1 % (0.0-1.8) 08/28/18 Unknown Lymph # 1.8 K/mm3 (1.2-5.4) 08/28/18 Unknown [place] # 1.0 K/mm3 (0.0-0.8) H 08/28/18 Unknown Eos # 0.0 K/mm3 (0.0-0.4) 08/28/18 Unknown Baso # 0.0 K/mm3 (0.0-0.1) 08/28/18 Unknown Add Manual Diff Complete 08/26/18 15:02 Total Counted 100 08/26/18 15:02 Seg Neutrophils % 80.0 % (40.0-70.0) H 08/28/18 Unknown Seg Neuts % (Manual) 59.0 % (40.0-70.0) 08/26/18 15:02 30.0 % 08/26/18 15:02 5.0 % (13.4-35.0) L 08/26/18 15:02 Reactive Lymphs % (Man) 0 % 08/26/18 15:02 5.0 % (0.0-7.3) 08/26/18 15:02 1.0 % (0.0-4.3) 08/26/18 15:02 0 % (0.0-1.8) 08/26/18 15:02 0 % 08/26/18 15:02 0 % 08/26/18 15:02 0 % 08/26/18 15:02 0 % 08/26/18 15:02 Nucleated RBC % Not Reportable 08/26/18 15:02 Seg Neutrophils # 11.3 K/mm3 (1.8-7.7) H 08/28/18 Unknown Seg Neutrophils # Man 9.3 K/mm3 (1.8-7.7) H 08/26/18 15:02 Band Neutrophils # 4.7 K/mm3 08/26/18 15:02 0.8 K/mm3 (1.2-5.4) L 08/26/18 15:02 Abs React Lymphs (Man) 0.0 K/mm3 08/26/18 15:02 0.8 K/mm3 (0.0-0.8) 08/26/18 15:02 0.2 K/mm3 (0.0-0.4) 08/26/18 15:02 0.0 K/mm3 (0.0-0.1) 08/26/18 15:02 0.0 K/mm3 08/26/18 15:02 0.0 K/mm3 08/26/18 15:02 0.0 K/mm3 08/26/18 15:02 Blast Cells # 0.0 K/mm3 08/26/18 15:02 WBC Morphology Not Reportable 08/26/18 15:02 Hypersegmented Neuts Not Reportable 08/26/18 15:02 Hyposegmented Neuts Not Reportable 08/26/18 15:02 Hypogranular Neuts Not Reportable 08/26/18 15:02 Not Reportable 08/26/18 15:02 Not Reportable 08/26/18 15:02 Not Reportable 08/26/18 15:02 Not Reportable 08/26/18 15:02 Not Reportable 08/26/18 15:02 Not Reportable 08/26/18 15:02 Consistent w auto 08/26/18 15:02 Not Reportable 08/26/18 15:02 Plt Clumps, EDTA Not Reportable 08/26/18 15:02 Not Reportable 08/26/18 15:02 Not Reportable 08/26/18 15:02 Not Reportable 08/26/18 15:02 Plt Morphology Comment Not Reportable 08/26/18 15:02 RBC Morphology Not Reportable 08/26/18 15:02 Dimorphic RBCs Not Reportable 08/26/18 15:02 Few 08/26/18 15:02 1+ 08/26/18 15:02 Not Reportable 08/26/18 15:02 1+ 08/26/18 15:02 Not Reportable 08/26/18 15:02 Not Reportable 08/26/18 15:02 Not Reportable 08/26/18 15:02 Not Reportable 08/26/18 15:02 Not Reportable 08/26/18 15:02 Not Reportable 08/26/18 15:02 Not Reportable 08/26/18 15:02 Not Reportable 08/26/18 15:02 Few 08/26/18 15:02 Not Reportable 08/26/18 15:02 Not Reportable 08/26/18 15:02 Not Reportable 08/26/18 15:02 Not Reportable 08/26/18 15:02 Not Reportable 08/26/18 15:02 Not Reportable 08/26/18 15:02 Not Reportable 08/26/18 15:02 Acanthocytes (Spur) Not Reportable 08/26/18 15:02 Rouleaux Not Reportable 08/26/18 15:02 Not Reportable 08/26/18 15:02 Not Reportable 08/26/18 15:02 Not Reportable 08/26/18 15:02 Not Reportable 08/26/18 15:02 Hem Pathologist Commnt No 08/26/18 15:02 PT 13.7 Sec. (12.2-14.9) 08/30/18 20:09 INR 1.08 (0.87-1.13) 08/30/18 20:09 APTT 31.3 Sec. (24.2-36.6) 08/30/18 20:09 Heparin Anti-Xa Level 1.46 U.I./ml (0.3-0.7) H 09/03/18 06:10 Sodium 139 mmol/L (137-145) 09/06/18 07:29 Potassium 4.1 mmol/L (3.6-5.0) 09/06/18 07:29 Chloride 101.7 mmol/L (98-107) 09/06/18 07:29 Carbon Dioxide 26 mmol/L (22-30) 09/06/18 07:29 15 mmol/L 09/06/18 07:29 BUN 15 mg/dL (7-17) 09/06/18 07:29 0.5 mg/dL (0.7-1.2) L 09/06/18 07:29 Estimated GFR > 60 ml/min 09/06/18 07:29 30 % 09/06/18 07:29 Glucose 84 mg/dL (65-100) 09/06/18 07:29 POC Glucose 121 (70-105) H 09/05/18 13:34 Calcium 11.0 mg/dL (8.4-10.2) H 09/06/18 07:29 Phosphorus 2.90 mg/dL (2.5-4.5) 09/02/18 05:00 Magnesium 2.20 mg/dL (1.7-2.3) 08/28/18 Unknown 0.20 mg/dL (0.1-1.2) 08/27/18 06:11 AST 20 units/L (5-40) 08/27/18 06:11 ALT 36 units/L (7-56) 08/27/18 06:11 140 units/L (35-129) H 08/27/18 06:11 6.0 g/dL (6.1-8.1) L 08/29/18 Unknown 7.4 g/dL (6.3-8.2) 08/27/18 06:11 2.0 g/dL (3.8-4.8) L 08/29/18 Unknown 0.5 % 08/27/18 06:11 0.4 g/dL (0.2-0.3) H 08/29/18 Unknown 1.2 g/dL (0.5-0.9) H 08/29/18 Unknown 0.4 g/dL (0.2-0.5) 08/29/18 Unknown 1.7 g/dL (0.8-1.7) 08/29/18 Unknown Abnorm Protein Band 1 see below 08/29/18 Unknown PEP Interpretation see below H 08/29/18 Unknown <4 ng/mL 08/29/18 04:00 1,25 Dihydroxy Vit D2 <8 pg/mL 08/29/18 04:00 51 ng/mL 08/29/18 04:00 1,25 Dihydroxy Vit D3 30 pg/mL 08/29/18 04:00 PTH Intact 17.01 pg/mL (15-65) 08/29/18 Unknown Yellow (Yellow) 08/26/18 Unknown Cloudy (Clear) 08/26/18 Unknown 8.0 (5.0-7.0) H 08/26/18 Unknown Ur Specific [place] 1.012 (1.003-1.030) 08/26/18 Unknown 30 mg/dl mg/dL (Negative) 08/26/18 Unknown Neg mg/dL (Negative) 08/26/18 Unknown Neg mg/dL (Negative) 08/26/18 Unknown Lg (Negative) 08/26/18 Unknown Neg (Negative) 08/26/18 Unknown Neg (Negative) 08/26/18 Unknown < 2.0 mg/dL (<2.0) 08/26/18 Unknown Ur Leukocyte Esterase Lg (Negative) 08/26/18 Unknown 139.0 /HPF (0.0-6.0) H 08/26/18 Unknown 173.0 /HPF (0.0-6.0) 08/26/18 Unknown U Epithel Cells (Auto) 2.0 /HPF (0-13.0) 08/26/18 Unknown 1+ /HPF (Negative) 08/26/18 Unknown 2+ /HPF 08/26/18 Unknown Calcium Oxalate Crystal 1+ 08/26/18 Unknown Few /HPF 08/26/18 Unknown 2+ /HPF 08/26/18 Unknown Immunofix Electrophor see below H 09/03/18 08:24 Active Medications - Current Medications Current Medications: Generic Name Dose Route Start Last Admin Trade Name Freq PRN Reason Stop Dose Admin Acetaminophen 650 mg 08/26/18 17:51 09/02/18 11:43 Tylenol PO 650 mg Q4H PRN Administration Pain MILD(1-3)/Fever >100.5/RENEE Albuterol 2.5 mg 08/26/18 17:51 Proventil IH Q4HRT PRN Shortness Of Breath Lipase/Protease/Amylase 1 each 08/27/18 17:23 08/28/18 22:00 Pancrejossy Henry 10,500 Unit FEEDTUBE 1 each PRN PRN Administration For Clogged Feeding Tube Apixaban 10 mg 09/02/18 18:00 09/06/18 10:39 Eliquis PO 09/08/18 22:01 10 mg Q12HR ANU Administration Protocol Apixaban 5 mg 09/09/18 10:00 Eliquis PO Q12HR ANU Protocol Sodium Chloride 1,000 mls @ 125 mls/hr 08/26/18 18:00 09/06/18 10:32 Nacl 0.45% 1000 Ml IV 125 mls/hr DIRECT ANU Administration CEFTOLOZANE/TAZOBACTAM 1.5 gm/ 100 mls @ 100 mls/hr 09/04/18 00:00 09/06/18 10:35 Sodium Chloride IV 09/13/18 23:59 100 mls/hr Q8H ANU Administration Linezolid 600 mg 09/01/18 06:00 09/06/18 05:55 Zyvox PO 09/10/18 23:59 600 mg Q12H ANU Administration Protocol Ondansetron HCl 4 mg 08/26/18 17:51 Zofran IV Q8H PRN Nausea And Vomiting Oxycodone/Acetaminophen 1 tab 08/26/18 17:51 09/03/18 00:13 Percocet 5/325 PO 1 tab Q6H PRN Administration Pain, Moderate (4-6) Simple Syrup 15 ml 08/27/18 17:23 Simple Syrup FEEDTUBE PRN PRN Hypoglycemia Simple Syrup 30 ml 08/27/18 17:23 Simple Syrup FEEDTUBE PRN PRN Hypoglycemia Sodium Bicarbonate 325 mg 08/27/18 17:23 08/28/18 22:00 Sodium Bicarbonate FEEDTUBE 325 mg PRN PRN Administration For Clogged Feeding Tube Sodium Chloride 10 ml 08/26/18 22:00 09/06/18 10:37 Sodium Chloride Flush Syringe 10 Ml IV 10 ml BID ANU Administration Sodium Chloride 10 ml 08/26/18 17:51 Sodium Chloride Flush Syringe 10 Ml IV PRN PRN LINE FLUSH Nutrition/Malnutrition Assess - Dietary Evaluation Nutrition/Malnutrition Findings: Nutrition Notes Start: 08/27/18 17:13 Freq: Status: Active Protocol: Document 09/05/18 15:13 RM (Rec: 09/05/18 15:17 [id number]) Nutrition Notes Initial or Follow up Reassessment Current Diagnosis Sepsis Other Pertinent Diagnosis G tube, Dysphagia, Nonverbal, SIRS, UTI, Neprostomy tube displace Current Diet Jevity 1.2 at 65 ml/hr Labs/Tests Reviewed Pertinent Medications Reviewed Height 5 ft 5 in Weight 47.4 kg [place] Body Weight (kg) 56.81 BMI 17.4 Subjective/Other Information Observed Jevity 1.2 at goal rate. Per nurse pt is tolerating TF. Percent of energy/protein needs met: 100%/100% Burn Absent Trauma Absent #1 Nutrition Diagnosis Malnutrition Diagnosis Progress(for reassessment Continues documentation) Is patient on ventilator? No Is Patient Ambulatory and/or Out of Bed No REE-([facility]-confined to bed) 1335.792 Kcal/Kg value to use for calculation 38 Approximate Energy Requirements Using 1801 kcal/Kg Calculation Used for Recommendations Kcal/kg Additional Notes Protein Needs: 72-82g (1.5-1. 7g/kg) Fluid Needs: 1 ml/kcal Nutrition Intervention Nutrition Support: Jevity 1.2 at 65 ml/hr. Water flush of 100 mls q 4 hrs . Kcal 1,872 Protein (gm) 87 Fluid (mL) 1,259 Goal #1 TF tolerance Goal #2 Continue to meet at least 75% of calorie and protein needs via TF Anticipated Discharge Needs: Jevity 1.2 Follow-Up By: 09/12/18 Additional Comments Follow for TF tolerance
[2018-09-06] MEDS ORDERED: VERSED ONE (12:14)
[2018-09-06] MEDS ORDERED: SUBLIMAZE ONE (12:15)
[2018-09-06] MEDS ORDERED: NACL 0.9% 500 ML IR ONE (12:17)
[2018-09-06] MEDS ORDERED: XYLOCAINE 1%/ EPI 1:100,000 INFILTRATI ONE (12:19)
--- NOTE | 2018-09-06 12:38 | Post Operative Note ---
Date of procedure: 09/06/18 Pre-op diagnosis: PCN with malfunction Post-op diagnosis: same Procedure: Bilateral nephrostomy tube exchange and upsize to 10 Fr Anesthesia: local (w/ conscious sedation) Surgeon: BEAN DANIELSON Estimated blood loss: minimal Condition: stable Disposition: floor
--- NOTE | 2018-09-06 13:56 | Progress Note ---
Assessment and Plan 1. Hypercalcemia: Likely from combination of volume depletion and immobilization. Continue IV fluids to correct volume depletion. Calcium level is better but remains high. Vitamin D level is not elevated. Immunofixation negative for paraprotein. 2. Acute kidney injury: Vasomotor RUDI in the setting of volume depletion. Renal function is better. Monitor renal function. Avoid nephrotoxic agents. 3. FEN: Hypernatremia, improved. Replete K. Monitor lytes. 4. Severe sepsis: UTI. 5. Dysfunctional nephrostomy tubes: S/p new nephrostomy tubes. 6. Bilateral PE: Eliquis. 7. Anemia. 8. Encephalopathy: 2/2 to TBI. At her baseline. Subjective Date of service: 09/06/18 Principal diagnosis: PE Interval history: Patient was seen and examined at the bedside. Objective - Vital Signs Vital signs: Vital Signs - 12hr 09/06/18 09/06/18 09/06/18 04:30 07:51 10:00 Temperature 97.4 F L 97.1 F L Pulse Rate 66 77 77 Respiratory 18 18 Rate Blood Pressure 98/51 109/50 O2 Sat by Pulse 100 100 Oximetry - General Appearance General appearance: well-developed, appears stated age, other (no distress) EENT: ATNC, PERRL Neck: supple Respiratory: Present: Clear to Ascultation Cardiology: regular, S1S2, no murmurs Gastrointestinal: normoactive bowel sounds, no tenderness, no distended, other (PEG tube, b/l nephrostomy noted) Integumentary: no rash Neurologic: other (opens eyes, not following any command, non-verbal) Musculoskeletal: other (no edema) - Lab 09/03/18 08:24 09/06/18 07:29 Most recent lab results Calcium 11.0 mg/dL (8.4-10.2) H 09/06/18 07:29 Phosphorus 2.90 mg/dL (2.5-4.5) 09/02/18 05:00 Magnesium 2.20 mg/dL (1.7-2.3) 08/28/18 Unknown Medications & Allergies - Medications Allergies/Adverse Reactions: Allergies No Known Allergies Allergy (Unverified 08/26/18 14:14) Active Medications: Generic Name Dose Route Start Last Admin Trade Name Freq PRN Reason Stop Dose Admin Acetaminophen 650 mg 08/26/18 17:51 09/02/18 11:43 Tylenol PO 650 mg Q4H PRN Administration Pain MILD(1-3)/Fever >100.5/RENEE Albuterol 2.5 mg 08/26/18 17:51 Proventil IH Q4HRT PRN Shortness Of Breath Lipase/Protease/Amylase 1 each 08/27/18 17:23 08/28/18 22:00 Bertha Henry 10,500 Unit FEEDTUBE 1 each PRN PRN Administration For Clogged Feeding Tube Apixaban 10 mg 09/02/18 18:00 09/06/18 10:39 Eliquis PO 09/08/18 22:01 10 mg Q12HR ANU Administration Protocol Apixaban 5 mg 09/09/18 10:00 Eliquis PO Q12HR ANU Protocol Sodium Chloride 1,000 mls @ 125 mls/hr 08/26/18 18:00 09/06/18 10:32 Nacl 0.45% 1000 Ml IV 125 mls/hr DIRECT ANU Administration CEFTOLOZANE/TAZOBACTAM 1.5 gm/ 100 mls @ 100 mls/hr 09/04/18 00:00 09/06/18 10:35 Sodium Chloride IV 09/13/18 23:59 100 mls/hr Q8H ANU Administration Linezolid 600 mg 09/01/18 06:00 09/06/18 05:55 Zyvox PO 09/10/18 23:59 600 mg Q12H ANU Administration Protocol Ondansetron HCl 4 mg 08/26/18 17:51 Zofran IV Q8H PRN Nausea And Vomiting Oxycodone/Acetaminophen 1 tab 08/26/18 17:51 09/03/18 00:13 Percocet 5/325 PO 1 tab Q6H PRN Administration Pain, Moderate (4-6) Simple Syrup 15 ml 08/27/18 17:23 Simple Syrup FEEDTUBE PRN PRN Hypoglycemia Simple Syrup 30 ml 08/27/18 17:23 Simple Syrup FEEDTUBE PRN PRN Hypoglycemia Sodium Bicarbonate 325 mg 08/27/18 17:23 08/28/18 22:00 Sodium Bicarbonate FEEDTUBE 325 mg PRN PRN Administration For Clogged Feeding Tube Sodium Chloride 10 ml 08/26/18 22:00 09/06/18 10:37 Sodium Chloride Flush Syringe 10 Ml IV 10 ml BID ANU Administration Sodium Chloride 10 ml 08/26/18 17:51 Sodium Chloride Flush Syringe 10 Ml IV PRN PRN LINE FLUSH
--- NOTE | 2018-09-06 15:14 | Operative Report ---
Operative Report Operative Report: EXAM: 1. Nephrostogram through the indwelling left nephrostomy tube. 2. Exchange of left 8 Mauritian nephrostomy tube to 10 Mauritian nephrostomy tube 3. Nephrostogram through indwelling right nephrostomy tube. 4. Exchange of right 8 Mauritian nephrostomy tube to 10 Mauritian nephrostomy tube DATE: 09/06/18 MANAGER PLANT: BEAN DANIELSON MD INDICATION: 47-year-old female with bilateral nephrostomy tubes and incomplete urinary diversion with urinary incontinence. Plan to increased size of tubes to increase urinary diversion. MEDICATIONS: Please see nursing report for full details. DEVICES: 10 Mauritian nephrostomy tube CONTRAST: Please see skilled labor report for full details. PROCEDURE: The risks, benefits, and alternatives were discussed with the patient; written informed consent was obtained. The patient was brought to the angiography suite in satisfactory condition. The patient was placed in a prone position. The tubes were prepped and draped in a sterile fashion. LEFT SIDE: The left nephrostomy tube was evaluated and determined to be intact. The tract demonstrated no evidence of superficial tract infection. 1% lidocaine was injected around the nephrostomy tube for local anesthetic. Contrast was injected through the existing nephrostomy tube confirming position. The nephrostomy tube was cut. 0.035 inch Calderon wire was passed into the renal collecting system. The nephrostomy tube was removed over a wire. A new nephrostomy tube was advanced over the wire into the collecting system. The wire and plastic stiffener were removed under fluoroscopic guidance. Perry loop was formed in the renal pelvis. Contrast was injected confirming position in the renal pelvis. Contrast was then aspirated and saline was injected and aspirated through the collecting system. The catheter was secured with a 2-0 Ethilon x 2. Sterile dressing was applied. RIGHT SIDE: The right nephrostomy tube was evaluated and determined to be intact. The tract demonstrated no evidence of superficial tract infection. 1% lidocaine was injected around the nephrostomy tube for local anesthetic. Contrast was injected through the existing nephrostomy tube confirming position. The nephrostomy tube was cut. 0.035 inch Calderon wire was passed into the renal collecting system. The nephrostomy tube was removed over a wire. A new nephrostomy tube was advanced over the wire into the collecting system. The wire and plastic stiffener were removed under fluoroscopic guidance. Perry loop was formed in the renal pelvis. Contrast was injected confirming position in the renal pelvis. Contrast was then aspirated and saline was injected and aspirated through the collecting system. The catheter was secured with a 2-0 Ethilon x 2. Sterile dressing was applied. Each nephrostomy tube was connected to a drainage bag. The patient tolerated the procedure without issue. The patient was transferred to the OPPU area without issue. FINDINGS: 1. The left sided nephrostogram demonstrated moderate hydronephrosis and hydroureter. 2. Successful fluoroscopic guided exchange of a left 8 Mauritian nephrostomy tube to a 10 Mauritian nephrostomy tube. 3. The right sided nephrostogram demonstrated moderate hydronephrosis and hydroureter. 2. Successful fluoroscopic guided exchange of a right 8 Mauritian nephrostomy tube to a 10 Mauritian nephrostomy tube. IMPRESSION: Successful nephrostogram and nephrostomy tube exchange of bilateral nephrostomy tubes.
[2018-09-07] MEDS: CEFTOLOZANE IV SCH ×3 (01:09→18:49)
[2018-09-07] MEDS: SODIUM CHLORIDE 0.9% IV SCH ×3 (01:09→18:49)
[2018-09-07] MEDS: TAZOBACTAM IV SCH ×3 (01:09→18:49)
[2018-09-07] MEDS: ZYVOX PO SCH ×2 (05:11→17:24)
[2018-09-07 07:31] LABS: Basophils # (Auto) 0.1 K/mm3 (0.0-0.1); Basophils % (Auto) 0.9 % (0.0-1.8); Eosinophils # (Auto) 0.1 K/mm3 (0.0-0.4); Eosinophils % (Auto) 1.9 % (0.0-4.3); Hematocrit 29.2 % (30.3-42.9); Hemoglobin 9.8 gm/dl (10.1-14.3); Lymphocytes # (Auto) 2.1 K/mm3 (1.2-5.4); Lymphocytes % (Auto) 27.9 % (13.4-35.0); Mean Corpuscular HGB Conc 34 % (30-34); Mean Corpuscular Volume 93 fl (79-97); Monocytes # (Auto) 0.7 K/mm3 (0.0-0.8); Monocytes % (Auto) 8.6 % (0.0-7.3); Platelet Count 383 K/mm3 (140-440); Red Blood Count 3.15 M/mm3 (3.65-5.03); Red Cell Distribution Width 18.7 % (13.2-15.2)
[2018-09-07 07:54] LABS: BUN/Creatinine Ratio 25; Blood Urea Nitrogen 15 mg/dL (7-17); Calcium 10.8 mg/dL (8.4-10.2); Hemolysis Index 4
--- NOTE | 2018-09-07 08:14 | Hem/Onc Progress Note ---
Assessment and Plan 1. Large PE- emboli, - anticoagulation. 2. Hypercalcemia with renal stones, most likely either secondary to immobilization or parathyroid related issue. 3. Radiology shows bronchiectasis, cultures mentioned pseudomonas, heparin for the pulmonary embolism, nephrostomy tube issues. 4. The patient has a history of traumatic brain injury, nonverbal. 5. History of G-tube. h/o nephrostomy tube 6. I will follow the patient during inpatient stay and then in the clinic setting. The patient would need long-term anticoagulation. NOAC suggested at full dose for now and after a few months to 2.5 of Eliquis q. 12 hours. 09/07 - ct eliquis after ~ 6 months option of reducing to 2.5 q 12 hypercalcemia - CT CAP - no bone or other neoplastic lesion PTH also not high - her immobilization may have a role - endocrine eval suggested - Patient Problems (1) Pulmonary embolism Current Visit: Yes Status: Acute Subjective Date of service: 09/07/18 Principal diagnosis: PE Interval history: in isolation Objective - Exam Narrative Exam: Pain none General appearance no acute distress Performance status - completely disabled Eyes blank stare ENT does not respond to questions LNs cervical not palpable Neck no mass Respiratory Normal Breath sounds - diminished b/l CVS S1 S2 + Extremities normal temperature - contracted limbs General GI Soft non tender PEG + Rectal deferred Female - deferred Skin warm Musculoskeletal generalized weakness Neurologically contracted extremities - Constitutional Vitals: Last Vital Signs Temp 98.0 F 09/07/18 03:35 Pulse 82 09/07/18 03:35 Resp 20 09/07/18 03:35 BP 94/54 09/07/18 03:35 Pulse Ox 100 09/07/18 03:35 - Labs Lab Results: Laboratory Results - last 24 hr 09/06/18 09/07/18 09/07/18 07:29 07:15 07:15 WBC 7.7 RBC 3.15 L Hgb 9.8 L Hct 29.2 L MCV 93 MCH 31 MCHC 34 RDW 18.7 H Plt Count 383 Lymph % (Auto) 27.9 [place] % (Auto) 8.6 H Eos % (Auto) 1.9 Baso % (Auto) 0.9 Lymph # 2.1 [place] # 0.7 Eos # 0.1 Baso # 0.1 Seg Neutrophils % 60.7 Seg Neutrophils # 4.7 Sodium 139 137 Potassium 4.1 3.7 Chloride 101.7 101.5 Carbon Dioxide 26 26 Anion Gap 15 13 BUN 15 15 Creatinine 0.5 L 0.6 L Estimated GFR > 60 > 60 BUN/Creatinine Ratio 30 25 Glucose 84 118 H Calcium 11.0 H 10.8 H Magnesium 1.90 Medications & Allergies - Medications Allergies/Adverse Reactions: Allergies No Known Allergies Allergy (Unverified 08/26/18 14:14) Home Medications: Home Medications Medication Instructions Recorded Confirmed Last Taken Type Unobtainable 09/08/18 09/08/18 Unknown History Active Medications: Generic Name Dose Route Start Last Admin Trade Name Freq PRN Reason Stop Dose Admin Acetaminophen 650 mg 08/26/18 17:51 09/02/18 11:43 Tylenol PO 650 mg Q4H PRN Administration Pain MILD(1-3)/Fever >100.5/RENEE Albuterol 2.5 mg 08/26/18 17:51 Proventil IH Q4HRT PRN Shortness Of Breath Lipase/Protease/Amylase 1 each 08/27/18 17:23 08/28/18 22:00 Pancrejossy Henry 10,500 Unit FEEDTUBE 1 each PRN PRN Administration For Clogged Feeding Tube Apixaban 10 mg 09/02/18 18:00 09/06/18 22:40 Eliquis PO 09/08/18 22:01 10 mg Q12HR ANU Administration Protocol Apixaban 5 mg 09/09/18 10:00 Eliquis PO Q12HR ANU Protocol Sodium Chloride 1,000 mls @ 125 mls/hr 08/26/18 18:00 09/06/18 22:42 Nacl 0.45% 1000 Ml IV 125 mls/hr DIRECT ANU Administration CEFTOLOZANE/TAZOBACTAM 1.5 gm/ 100 mls @ 100 mls/hr 09/04/18 00:00 09/07/18 01:09 Sodium Chloride IV 09/13/18 23:59 100 mls/hr Q8H ANU Administration Linezolid 600 mg 09/01/18 06:00 09/07/18 05:11 Zyvox PO 09/10/18 23:59 600 mg Q12H ANU Administration Protocol Ondansetron HCl 4 mg 08/26/18 17:51 Zofran IV Q8H PRN Nausea And Vomiting Oxycodone/Acetaminophen 1 tab 08/26/18 17:51 09/03/18 00:13 Percocet 5/325 PO 1 tab Q6H PRN Administration Pain, Moderate (4-6) Simple Syrup 15 ml 08/27/18 17:23 Simple Syrup FEEDTUBE PRN PRN Hypoglycemia Simple Syrup 30 ml 08/27/18 17:23 Simple Syrup FEEDTUBE PRN PRN Hypoglycemia Sodium Bicarbonate 325 mg 08/27/18 17:23 08/28/18 22:00 Sodium Bicarbonate FEEDTUBE 325 mg PRN PRN Administration For Clogged Feeding Tube Sodium Chloride 10 ml 08/26/18 22:00 09/06/18 22:41 Sodium Chloride Flush Syringe 10 Ml IV 10 ml BID ANU Administration Sodium Chloride 10 ml 08/26/18 17:51 Sodium Chloride Flush Syringe 10 Ml IV PRN PRN LINE FLUSH
--- NOTE | 2018-09-07 10:06 | Progress Note ---
Assessment and Plan Cultures: Blood cultures 08/26/2018 Pseudomonas aeruginosa (carbapenem-resistant) and MDR Acinetobacter (indeterminate to Cefepime) Urine culture 08/26/2018 10-100K multiple sp. 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 Etiology most likely complicated UTI. 2) Complicated UTI with bilateral nephrostomy tubes and kidney stones: due to Pseudomonas and VRE. UA with 139 wbc, large LE. Patient was found septic with right-sided nephrostomy tube dislodgment and left-sided nephrostomy tube with some jordi-tract drainage. CT showed moderate right hydronephrosis, bilateral renal calculi, right renal collecting system gravel-like renal calculi, colonic distention, bilateral infiltrate with RLL consolidation. Patient taken to the OR on 08/27/2018 underwent Fl-guided right RETAIL ACCOUNT SPECIALIST tube insertion and left NT exchange. Urine culture from right RETAIL ACCOUNT SPECIALIST tube 08/27/2018 Pseudomonas and VRE. Urine culture from left RETAIL ACCOUNT SPECIALIST tube 08/27/2018 GNR and Enterocccus. s/p nephrostogram and nephrostomy tube exchange of bilateral nephrostomy tubes 09/06/18 - Dr. Newell following 3) Carbapenem-resistant Pseudomonas and MDR-Acinetobacter bacteremia: from UTI. Blood cultures 08/26/2018 Pseudomonas aeruginosa 4 of 4 bottles and MDR Acinetobacter (indeterminate to Cefepime) 1 of 4. 4) Hypernatremia/hypercalcemia: better 5) Presumed bilateral pneumonia. 6) Saddle pulmonary embolism: on anticoagulation Recommendations: continue zerbaxa (ceftolozane-tazobactam) 1.5 gm IV q8 hours D6 total 14 days until 09/13/2018. Order sent to continuous pillowcase cutter continue linezolid 600 mg PO BID D6 of 10 until 09/10/2018 always contact isolation, patient at risk of readmissions needs to f/u with [facility] for further management of bilateral RETAIL ACCOUNT SPECIALIST tubes Dr. Garland will be chyron operator this weekend [phone], please call for questions, Dr. Garland will be rounding on this patient on Monday. Monica De Jesus NP [facility] M: [id number] O:[phone] Subjective Date of service: 09/07/18 Principal diagnosis: PE Interval history: Patient seen and examined. Awake. Alet. Nonverbal. no fevers. Objective - Exam Narrative Exam: General appearance: Alert. Awake. Nonverbal. Eyes: anicteric sclerae, moist conjunctivae; no lid-lag; PERRLA HENT: Atraumatic; oropharynx clear with moist mucous membranes and no mucosal ulcerations/no oral thrush; normal hard and soft palate. Normal external ears. Neck: Trachea midline; supple, no thyromegaly or lymphadenopathy Lungs: CTA, with normal respiratory effort and no intercostal retractions CV: RRR no murmur Abdomen: Soft, non-tender; +PEG +Pedro Luis RETAIL ACCOUNT SPECIALIST tube Extremities: no edema, cyanosis Skin: Normal temperature, turgor and texture; no rash, ulcers or subcutaneous nodules Psych: no agitated Neuro: alert, calm - Constitutional Vitals: Vital Signs Temp Pulse Resp BP Pulse Ox 98.0 F 82 20 94/54 100 09/07/18 03:35 09/07/18 03:35 09/07/18 03:35 09/07/18 03:35 09/07/18 03:35 Temperature -Last 24 Hours Temperature 98.0 F Temperature 98.0 F Temperature 98.0 F Temperature 96.8 F - Labs CBC & Chem 7: 09/07/18 07:15 09/07/18 07:15 Labs: Abnormal lab results 09/07/18 09/07/18 Range/Units 07:15 07:15 RBC 3.15 L (3.65-5.03) M/mm3 Hgb 9.8 L (10.1-14.3) gm/dl Hct 29.2 L (30.3-42.9) % RDW 18.7 H (13.2-15.2) % [place] % (Auto) 8.6 H (0.0-7.3) % Creatinine 0.6 L (0.7-1.2) mg/dL Glucose 118 H (65-100) mg/dL Calcium 10.8 H (8.4-10.2) mg/dL
[2018-09-07] MEDS: SODIUM CHLORIDE FLUSH SYRINGE 10 ML IV SCH ×2 (10:35→22:41)
[2018-09-07] MEDS: ELIQUIS PO SCH ×2 (10:35→22:40)
--- NOTE | 2018-09-07 12:09 | Progress Note ---
Assessment and Plan 1. Hypercalcemia: Likely from combination of volume depletion and immobilization. Continue IV fluids to correct volume depletion. Calcium level is better but remains high. Vitamin D level is not elevated. Immunofixation negative for paraprotein. 2. Acute kidney injury: Vasomotor RUDI in the setting of volume depletion. Renal function is better. Monitor renal function. Avoid nephrotoxic agents. 3. FEN: Hypernatremia, improved. Monitor lytes. 4. Severe sepsis: UTI. 5. Dysfunctional nephrostomy tubes: S/p new nephrostomy tubes. 6. Bilateral PE: Eliquis. 7. Anemia. 8. Encephalopathy: 2/2 to TBI. At her baseline. Subjective Date of service: 09/07/18 Principal diagnosis: PE Interval history: Patient was seen and examined at the bedside. Objective - Vital Signs Vital signs: Vital Signs - 12hr 09/07/18 03:35 Temperature 98.0 F Pulse Rate 82 Respiratory 20 Rate Blood Pressure 94/54 O2 Sat by Pulse 100 Oximetry - General Appearance General appearance: well-developed, appears stated age, other (no distress) EENT: ATNC, PERRL Neck: supple Respiratory: Present: Clear to Ascultation Cardiology: regular, S1S2, no murmurs Gastrointestinal: normoactive bowel sounds, other (PEG tube, b/l nephrostomy tubes noted) Integumentary: other (no edema) Neurologic: other (opens eyes, non-verbal, not following any command) Musculoskeletal: other (no edema) - Lab 09/07/18 07:15 09/07/18 07:15 Most recent lab results Calcium 10.8 mg/dL (8.4-10.2) H 09/07/18 07:15 Phosphorus 2.90 mg/dL (2.5-4.5) 09/02/18 05:00 Magnesium 1.90 mg/dL (1.7-2.3) 09/07/18 07:15 Medications & Allergies - Medications Allergies/Adverse Reactions: Allergies No Known Allergies Allergy (Unverified 08/26/18 14:14) Active Medications: Generic Name Dose Route Start Last Admin Trade Name Freq PRN Reason Stop Dose Admin Acetaminophen 650 mg 08/26/18 17:51 09/02/18 11:43 Tylenol PO 650 mg Q4H PRN Administration Pain MILD(1-3)/Fever >100.5/RENEE Albuterol 2.5 mg 08/26/18 17:51 Proventil IH Q4HRT PRN Shortness Of Breath Lipase/Protease/Amylase 1 each 08/27/18 17:23 08/28/18 22:00 Bertha Henry 10,500 Unit FEEDTUBE 1 each PRN PRN Administration For Clogged Feeding Tube Apixaban 10 mg 09/02/18 18:00 09/07/18 10:35 Eliquis PO 09/08/18 22:01 10 mg Q12HR ANU Administration Protocol Apixaban 5 mg 09/09/18 10:00 Eliquis PO Q12HR ANU Protocol Sodium Chloride 1,000 mls @ 125 mls/hr 08/26/18 18:00 09/06/18 22:42 Nacl 0.45% 1000 Ml IV 125 mls/hr DIRECT ANU Administration CEFTOLOZANE/TAZOBACTAM 1.5 gm/ 100 mls @ 100 mls/hr 09/04/18 00:00 09/07/18 10:35 Sodium Chloride IV 09/13/18 23:59 100 mls/hr Q8H ANU Administration Linezolid 600 mg 09/01/18 06:00 09/07/18 05:11 Zyvox PO 09/10/18 23:59 600 mg Q12H ANU Administration Protocol Ondansetron HCl 4 mg 08/26/18 17:51 Zofran IV Q8H PRN Nausea And Vomiting Oxycodone/Acetaminophen 1 tab 08/26/18 17:51 09/03/18 00:13 Percocet 5/325 PO 1 tab Q6H PRN Administration Pain, Moderate (4-6) Simple Syrup 15 ml 08/27/18 17:23 Simple Syrup FEEDTUBE PRN PRN Hypoglycemia Simple Syrup 30 ml 08/27/18 17:23 Simple Syrup FEEDTUBE PRN PRN Hypoglycemia Sodium Bicarbonate 325 mg 08/27/18 17:23 08/28/18 22:00 Sodium Bicarbonate FEEDTUBE 325 mg PRN PRN Administration For Clogged Feeding Tube Sodium Chloride 10 ml 08/26/18 22:00 09/07/18 10:35 Sodium Chloride Flush Syringe 10 Ml IV 10 ml BID ANU Administration Sodium Chloride 10 ml 08/26/18 17:51 Sodium Chloride Flush Syringe 10 Ml IV PRN PRN LINE FLUSH
--- NOTE | 2018-09-07 16:52 | Progress Note ---
Assessment and Plan Assessment and plan: Sepsis. Blood cultures positive for multiple organisms Pseudomonas aeruginosa. A, Baumani Urine Pseudomonas and Enterococcus fecium contact isolation Multidrug resistant bacteria Discussed with ID Cont Zerbaxa until 09/13/18, continue Zyvox until 09/10/18 Bilateral pneumonia. On Antibiotics saddle pulmonary embolism, seen on Ct chest started Heparin Consulted Dr. Newell, Dr. Quezada Echo unremarkable, no right ventricle strain Transitioned to Eliquis, off Heparin UTI pseudomonas aeruginosa and enterococcus faecium. Continue IV antibiotics. Neurogenic bladder. Cont. nephrostomy tube Toxic metabolic encephalopathy. Ca remains high. Needs Endo eval. Cont. per Nephrology Hypercalcemia. As above Hypernatremia Now resolved Hypokalemia Resolved Severe protein calorie malnutrition. Continue tube feedings per dietitian. Chronic encephalopathy s/p TBI. Supportive care. Debility. Mobility protocols for pressure ulcer prophylaxis. History Interval history: 47 YO Female SNF Resident at [facility] with Encephalopathy S/P TBI, Debility, Dysphagia, presents to ED for evaluation. Pt is nonverbal and unable to provide history. Patient was found to have a dislodged Nephrostomy tube, EMS notified, and patient transported to [facility]. Pt seen and evaluated in ED and found to have UTI, Volume depletion, as well as dislodged nephrostomy tube. Pt admitted to medical floor. IR team consulted in ED. Patient diagnosed with Sepsis, UTI. bilateral pneumonia. Hypercalcemia improved. CT Chest was done to look for malignancy but revealed saddle pulmonary embolism. Patient started on heparin, consulted Vasc Surgery, now to start Eliquis today. Blood cultures grew Pseudomonas Aeurginosa and A, baumani and urine cultures grew Pseudomonas aeruginosa and Enterococcus faecium. Now started on Ceftolozane/Tazobactam and Zyvox by ID Physician. She was on Cefepime. Follow clinically. Discharge planning in conjunction with ID. Hospitalist Physical - Constitutional Vitals: Temp Pulse Resp BP Pulse Ox 98.0 F 82 20 94/54 100 09/07/18 03:35 09/07/18 03:35 09/07/18 03:35 09/07/18 03:35 09/07/18 03:35 General appearance: Present: no acute distress, cachectic, other - EENT Eyes: Present: PERRL, EOM intact ENT: hearing intact, clear oral mucosa, dentition normal - Neck Neck: Present: supple, normal ROM - Respiratory Respiratory effort: normal Respiratory: bilateral: CTA - Cardiovascular Rhythm: regular Heart Sounds: Present: S1 & S2. Absent: gallop, rub - Extremities Extremities: no ischemia, No edema, Full ROM - Abdominal General gastrointestinal: soft, non-tender, non-distended, normal bowel sounds - Integumentary Integumentary: Present: clear, warm, dry - Neurologic Neurologic: CNII-XII intact, moves all extremities Results - Labs CBC & Chem 7: 09/07/18 07:15 09/07/18 07:15 Labs: Laboratory Last Values WBC 7.7 K/mm3 (4.5-11.0) 09/07/18 07:15 RBC 3.15 M/mm3 (3.65-5.03) L 09/07/18 07:15 Hgb 9.8 gm/dl (10.1-14.3) L 09/07/18 07:15 Hct 29.2 % (30.3-42.9) L 09/07/18 07:15 MCV 93 fl (79-97) 09/07/18 07:15 MCH 31 pg (28-32) 09/07/18 07:15 MCHC 34 % (30-34) 09/07/18 07:15 RDW 18.7 % (13.2-15.2) H 09/07/18 07:15 Plt Count 383 K/mm3 (140-440) 09/07/18 07:15 Lymph % (Auto) 27.9 % (13.4-35.0) 09/07/18 07:15 [place] % (Auto) 8.6 % (0.0-7.3) H 09/07/18 07:15 Eos % (Auto) 1.9 % (0.0-4.3) 09/07/18 07:15 Baso % (Auto) 0.9 % (0.0-1.8) 09/07/18 07:15 Lymph # 2.1 K/mm3 (1.2-5.4) 09/07/18 07:15 [place] # 0.7 K/mm3 (0.0-0.8) 09/07/18 07:15 Eos # 0.1 K/mm3 (0.0-0.4) 09/07/18 07:15 Baso # 0.1 K/mm3 (0.0-0.1) 09/07/18 07:15 Add Manual Diff Complete 08/26/18 15:02 Total Counted 100 08/26/18 15:02 Seg Neutrophils % 60.7 % (40.0-70.0) 09/07/18 07:15 Seg Neuts % (Manual) 59.0 % (40.0-70.0) 08/26/18 15:02 30.0 % 08/26/18 15:02 5.0 % (13.4-35.0) L 08/26/18 15:02 Reactive Lymphs % (Man) 0 % 08/26/18 15:02 5.0 % (0.0-7.3) 08/26/18 15:02 1.0 % (0.0-4.3) 08/26/18 15:02 0 % (0.0-1.8) 08/26/18 15:02 0 % 08/26/18 15:02 0 % 08/26/18 15:02 0 % 08/26/18 15:02 0 % 08/26/18 15:02 Nucleated RBC % Not Reportable 08/26/18 15:02 Seg Neutrophils # 4.7 K/mm3 (1.8-7.7) 09/07/18 07:15 Seg Neutrophils # Man 9.3 K/mm3 (1.8-7.7) H 08/26/18 15:02 Band Neutrophils # 4.7 K/mm3 08/26/18 15:02 0.8 K/mm3 (1.2-5.4) L 08/26/18 15:02 Abs React Lymphs (Man) 0.0 K/mm3 08/26/18 15:02 0.8 K/mm3 (0.0-0.8) 08/26/18 15:02 0.2 K/mm3 (0.0-0.4) 08/26/18 15:02 0.0 K/mm3 (0.0-0.1) 08/26/18 15:02 0.0 K/mm3 08/26/18 15:02 0.0 K/mm3 08/26/18 15:02 0.0 K/mm3 08/26/18 15:02 Blast Cells # 0.0 K/mm3 08/26/18 15:02 WBC Morphology Not Reportable 08/26/18 15:02 Hypersegmented Neuts Not Reportable 08/26/18 15:02 Hyposegmented Neuts Not Reportable 08/26/18 15:02 Hypogranular Neuts Not Reportable 08/26/18 15:02 Not Reportable 08/26/18 15:02 Not Reportable 08/26/18 15:02 Not Reportable 08/26/18 15:02 Not Reportable 08/26/18 15:02 Not Reportable 08/26/18 15:02 Not Reportable 08/26/18 15:02 Consistent w auto 08/26/18 15:02 Not Reportable 08/26/18 15:02 Plt Clumps, EDTA Not Reportable 08/26/18 15:02 Not Reportable 08/26/18 15:02 Not Reportable 08/26/18 15:02 Not Reportable 08/26/18 15:02 Plt Morphology Comment Not Reportable 08/26/18 15:02 RBC Morphology Not Reportable 08/26/18 15:02 Dimorphic RBCs Not Reportable 08/26/18 15:02 Few 08/26/18 15:02 1+ 08/26/18 15:02 Not Reportable 08/26/18 15:02 1+ 08/26/18 15:02 Not Reportable 08/26/18 15:02 Not Reportable 08/26/18 15:02 Not Reportable 08/26/18 15:02 Not Reportable 08/26/18 15:02 Not Reportable 08/26/18 15:02 Not Reportable 08/26/18 15:02 Not Reportable 08/26/18 15:02 Not Reportable 08/26/18 15:02 Few 08/26/18 15:02 Not Reportable 08/26/18 15:02 Not Reportable 08/26/18 15:02 Not Reportable 08/26/18 15:02 Not Reportable 08/26/18 15:02 Not Reportable 08/26/18 15:02 Not Reportable 08/26/18 15:02 Not Reportable 08/26/18 15:02 Acanthocytes (Spur) Not Reportable 08/26/18 15:02 Rouleaux Not Reportable 08/26/18 15:02 Not Reportable 08/26/18 15:02 Not Reportable 08/26/18 15:02 Not Reportable 08/26/18 15:02 Not Reportable 08/26/18 15:02 Hem Pathologist Commnt No 08/26/18 15:02 PT 13.7 Sec. (12.2-14.9) 08/30/18 20:09 INR 1.08 (0.87-1.13) 08/30/18 20:09 APTT 31.3 Sec. (24.2-36.6) 08/30/18 20:09 Heparin Anti-Xa Level 1.46 U.I./ml (0.3-0.7) H 09/03/18 06:10 Sodium 137 mmol/L (137-145) 09/07/18 07:15 Potassium 3.7 mmol/L (3.6-5.0) 09/07/18 07:15 Chloride 101.5 mmol/L (98-107) 09/07/18 07:15 Carbon Dioxide 26 mmol/L (22-30) 09/07/18 07:15 13 mmol/L 09/07/18 07:15 BUN 15 mg/dL (7-17) 09/07/18 07:15 0.6 mg/dL (0.7-1.2) L 09/07/18 07:15 Estimated GFR > 60 ml/min 09/07/18 07:15 25 % 09/07/18 07:15 Glucose 118 mg/dL (65-100) H 09/07/18 07:15 POC Glucose 120 (70-105) H 09/07/18 16:24 Calcium 10.8 mg/dL (8.4-10.2) H 09/07/18 07:15 Phosphorus 2.90 mg/dL (2.5-4.5) 09/02/18 05:00 Magnesium 1.90 mg/dL (1.7-2.3) 09/07/18 07:15 0.20 mg/dL (0.1-1.2) 08/27/18 06:11 AST 20 units/L (5-40) 08/27/18 06:11 ALT 36 units/L (7-56) 08/27/18 06:11 140 units/L (35-129) H 08/27/18 06:11 6.0 g/dL (6.1-8.1) L 08/29/18 Unknown 7.4 g/dL (6.3-8.2) 08/27/18 06:11 2.0 g/dL (3.8-4.8) L 08/29/18 Unknown 0.5 % 08/27/18 06:11 0.4 g/dL (0.2-0.3) H 08/29/18 Unknown 1.2 g/dL (0.5-0.9) H 08/29/18 Unknown 0.4 g/dL (0.2-0.5) 08/29/18 Unknown 1.7 g/dL (0.8-1.7) 08/29/18 Unknown Abnorm Protein Band 1 see below 08/29/18 Unknown PEP Interpretation see below H 08/29/18 Unknown 25-OH Vitamin D Total See scanned result 08/29/18 04:00 <4 ng/mL 08/29/18 04:00 1,25 Dihydroxy Vit D2 <8 pg/mL 08/29/18 04:00 51 ng/mL 08/29/18 04:00 1,25 Dihydroxy Vit D3 30 pg/mL 08/29/18 04:00 PTH Intact 17.01 pg/mL (15-65) 08/29/18 Unknown Yellow (Yellow) 08/26/18 Unknown Cloudy (Clear) 08/26/18 Unknown 8.0 (5.0-7.0) H 08/26/18 Unknown Ur Specific [place] 1.012 (1.003-1.030) 08/26/18 Unknown 30 mg/dl mg/dL (Negative) 08/26/18 Unknown Neg mg/dL (Negative) 08/26/18 Unknown Neg mg/dL (Negative) 08/26/18 Unknown Lg (Negative) 08/26/18 Unknown Neg (Negative) 08/26/18 Unknown Neg (Negative) 08/26/18 Unknown < 2.0 mg/dL (<2.0) 08/26/18 Unknown Ur Leukocyte Esterase Lg (Negative) 08/26/18 Unknown 139.0 /HPF (0.0-6.0) H 08/26/18 Unknown 173.0 /HPF (0.0-6.0) 08/26/18 Unknown U Epithel Cells (Auto) 2.0 /HPF (0-13.0) 08/26/18 Unknown 1+ /HPF (Negative) 08/26/18 Unknown 2+ /HPF 08/26/18 Unknown Calcium Oxalate Crystal 1+ 08/26/18 Unknown Few /HPF 08/26/18 Unknown 2+ /HPF 08/26/18 Unknown Immunofix Electrophor see below H 09/03/18 08:24 Active Medications - Current Medications Current Medications: Generic Name Dose Route Start Last Admin Trade Name Freq PRN Reason Stop Dose Admin Acetaminophen 650 mg 08/26/18 17:51 09/02/18 11:43 Tylenol PO 650 mg Q4H PRN Administration Pain MILD(1-3)/Fever >100.5/RENEE Albuterol 2.5 mg 08/26/18 17:51 Proventil IH Q4HRT PRN Shortness Of Breath Lipase/Protease/Amylase 1 each 08/27/18 17:23 08/28/18 22:00 Pancrejossy Henry 10,500 Unit FEEDTUBE 1 each PRN PRN Administration For Clogged Feeding Tube Apixaban 10 mg 09/02/18 18:00 09/07/18 10:35 Eliquis PO 09/08/18 22:01 10 mg Q12HR ANU Administration Protocol Apixaban 5 mg 09/09/18 10:00 Eliquis PO Q12HR AUN Protocol Sodium Chloride 1,000 mls @ 125 mls/hr 08/26/18 18:00 09/06/18 22:42 Nacl 0.45% 1000 Ml IV 125 mls/hr DIRECT ANU Administration CEFTOLOZANE/TAZOBACTAM 1.5 gm/ 100 mls @ 100 mls/hr 09/04/18 00:00 09/07/18 10:35 Sodium Chloride IV 09/13/18 23:59 100 mls/hr Q8H ANU Administration Linezolid 600 mg 09/01/18 06:00 09/07/18 05:11 Zyvox PO 09/10/18 23:59 600 mg Q12H ANU Administration Protocol Ondansetron HCl 4 mg 08/26/18 17:51 Zofran IV Q8H PRN Nausea And Vomiting Oxycodone/Acetaminophen 1 tab 08/26/18 17:51 09/03/18 00:13 Percocet 5/325 PO 1 tab Q6H PRN Administration Pain, Moderate (4-6) Simple Syrup 15 ml 08/27/18 17:23 Simple Syrup FEEDTUBE PRN PRN Hypoglycemia Simple Syrup 30 ml 08/27/18 17:23 Simple Syrup FEEDTUBE PRN PRN Hypoglycemia Sodium Bicarbonate 325 mg 08/27/18 17:23 08/28/18 22:00 Sodium Bicarbonate FEEDTUBE 325 mg PRN PRN Administration For Clogged Feeding Tube Sodium Chloride 10 ml 08/26/18 22:00 09/07/18 10:35 Sodium Chloride Flush Syringe 10 Ml IV 10 ml BID ANU Administration Sodium Chloride 10 ml 08/26/18 17:51 Sodium Chloride Flush Syringe 10 Ml IV PRN PRN LINE FLUSH Nutrition/Malnutrition Assess - Dietary Evaluation Nutrition/Malnutrition Findings: Nutrition Notes Start: 08/27/18 17:13 Freq: Status: Active Protocol: Document 09/05/18 15:13 RM (Rec: 09/05/18 15:17 RM [id number]) Nutrition Notes Initial or Follow up Reassessment Current Diagnosis Sepsis Other Pertinent Diagnosis G tube, Dysphagia, Nonverbal, SIRS, UTI, Neprostomy tube displace Current Diet Jevity 1.2 at 65 ml/hr Labs/Tests Reviewed Pertinent Medications Reviewed Height 5 ft 5 in Weight 47.4 kg [place] Body Weight (kg) 56.81 BMI 17.4 Subjective/Other Information Observed Jevity 1.2 at goal rate. Per nurse pt is tolerating TF. Percent of energy/protein needs met: 100%/100% Burn Absent Trauma Absent #1 Nutrition Diagnosis Malnutrition Diagnosis Progress(for reassessment Continues documentation) Is patient on ventilator? No Is Patient Ambulatory and/or Out of Bed No [facility]EE[facility] 1335.792 Kcal/Kg value to use for calculation 38 Approximate Energy Requirements Using 1801 kcal/Kg Calculation Used for Recommendations Kcal/kg Additional Notes Protein Needs: 72-82g (1.5-1. 7g/kg) Fluid Needs: 1 ml/kcal Nutrition Intervention Nutrition Support: Jevity 1.2 at 65 ml/hr. Water flush of 100 mls q 4 hrs . Kcal 1,872 Protein (gm) 87 Fluid (mL) 1,259 Goal #1 TF tolerance Goal #2 Continue to meet at least 75% of calorie and protein needs via TF Anticipated Discharge Needs: Jevity 1.2 Follow-Up By: 09/12/18 Additional Comments Follow for TF tolerance
[2018-09-07] MEDS: NACL 0.45% 1000 ML 1,000 ML IV SCH (17:23)
[2018-09-08] MEDS: TAZOBACTAM IV SCH ×4 (00:49→23:43)
[2018-09-08] MEDS: CEFTOLOZANE IV SCH ×4 (00:49→23:43)
[2018-09-08] MEDS: SODIUM CHLORIDE 0.9% IV SCH ×4 (00:49→23:43)
[2018-09-08] MEDS: NACL 0.45% 1000 ML 1,000 ML IV SCH ×3 (04:52→23:02)
[2018-09-08] MEDS: ZYVOX PO SCH ×2 (05:04→17:21)
[2018-09-08] MEDS: ELIQUIS PO SCH ×2 (10:00→22:57)
[2018-09-08] MEDS: SODIUM CHLORIDE FLUSH SYRINGE 10 ML IV SCH ×2 (10:01→22:58)
--- NOTE | 2018-09-08 13:06 | Progress Note ---
Assessment and Plan 1. Hypercalcemia: Likely from combination of volume depletion and immobilization. Continue IV fluids to correct volume depletion. Calcium level is better but remains high. Vitamin D level is not elevated. Immunofixation negative for paraprotein. 2. Acute kidney injury: Vasomotor RUDI in the setting of volume depletion. Renal function is better. Monitor renal function. Avoid nephrotoxic agents. 3. FEN: Hypernatremia, improved. Monitor lytes. 4. Severe sepsis: UTI. 5. Dysfunctional nephrostomy tubes: S/p new nephrostomy tubes. 6. Bilateral PE: Eliquis. 7. Anemia. 8. Encephalopathy: 2/2 to TBI. At her baseline. Will see patient periodically. Subjective Date of service: 09/08/18 Principal diagnosis: PE Interval history: Patient was seen and examined at the bedside. Objective - Vital Signs Vital signs: Vital Signs - 12hr 09/08/18 09/08/18 09/08/18 04:29 08:39 10:00 Temperature 98.2 F 98.5 F Pulse Rate 82 80 77 Pulse Rate [ 82 Apical] Pulse Rate [ 82 Left Radial] Pulse Rate [ 82 Right Radial] Respiratory 19 18 19 Rate Blood Pressure 107/47 91/48 O2 Sat by Pulse 100 98 98 Oximetry 09/08/18 11:45 Temperature 98.3 F Pulse Rate 83 Pulse Rate [ Apical] Pulse Rate [ Left Radial] Pulse Rate [ Right Radial] Respiratory 18 Rate Blood Pressure 94/42 O2 Sat by Pulse 100 Oximetry - General Appearance General appearance: well-developed, appears stated age, other (no distress) EENT: ATNC, PERRL Neck: supple Respiratory: Present: Clear to Ascultation Cardiology: regular, S1S2, no murmurs Gastrointestinal: normoactive bowel sounds, no tenderness, no distended, other (PEG tube, b/l nephrostomy tubes noted) Integumentary: no rash Neurologic: other (alert, non-verbal, not following any command) Musculoskeletal: other (no edema) - Lab 09/07/18 07:15 09/07/18 07:15 Most recent lab results Calcium 10.8 mg/dL (8.4-10.2) H 09/07/18 07:15 Phosphorus 2.90 mg/dL (2.5-4.5) 09/02/18 05:00 Magnesium 1.90 mg/dL (1.7-2.3) 09/07/18 07:15 Medications & Allergies - Medications Allergies/Adverse Reactions: Allergies No Known Allergies Allergy (Unverified 08/26/18 14:14) Active Medications: Generic Name Dose Route Start Last Admin Trade Name Freq PRN Reason Stop Dose Admin Acetaminophen 650 mg 08/26/18 17:51 09/02/18 11:43 Tylenol PO 650 mg Q4H PRN Administration Pain MILD(1-3)/Fever >100.5/RENEE Albuterol 2.5 mg 08/26/18 17:51 Proventil IH Q4HRT PRN Shortness Of Breath Lipase/Protease/Amylase 1 each 08/27/18 17:23 08/28/18 22:00 Bertha Henry 10,500 Unit FEEDTUBE 1 each PRN PRN Administration For Clogged Feeding Tube Apixaban 10 mg 09/02/18 18:00 09/08/18 10:00 Eliquis PO 09/08/18 22:01 10 mg Q12HR ANU Administration Protocol Apixaban 5 mg 09/09/18 10:00 Eliquis PO Q12HR ANU Protocol Sodium Chloride 1,000 mls @ 125 mls/hr 08/26/18 18:00 09/08/18 04:52 Nacl 0.45% 1000 Ml IV 125 mls/hr DIRECT ANU Administration CEFTOLOZANE/TAZOBACTAM 1.5 gm/ 100 mls @ 100 mls/hr 09/04/18 00:00 09/08/18 09:00 Sodium Chloride IV 09/13/18 23:59 100 mls/hr Q8H ANU Administration Linezolid 600 mg 09/01/18 06:00 09/08/18 05:04 Zyvox PO 09/10/18 23:59 600 mg Q12H ANU Administration Protocol Ondansetron HCl 4 mg 08/26/18 17:51 Zofran IV Q8H PRN Nausea And Vomiting Oxycodone/Acetaminophen 1 tab 08/26/18 17:51 09/03/18 00:13 Percocet 5/325 PO 1 tab Q6H PRN Administration Pain, Moderate (4-6) Simple Syrup 15 ml 08/27/18 17:23 Simple Syrup FEEDTUBE PRN PRN Hypoglycemia Simple Syrup 30 ml 08/27/18 17:23 Simple Syrup FEEDTUBE PRN PRN Hypoglycemia Sodium Bicarbonate 325 mg 08/27/18 17:23 08/28/18 22:00 Sodium Bicarbonate FEEDTUBE 325 mg PRN PRN Administration For Clogged Feeding Tube Sodium Chloride 10 ml 08/26/18 22:00 09/08/18 10:01 Sodium Chloride Flush Syringe 10 Ml IV 10 ml BID ANU Administration Sodium Chloride 10 ml 08/26/18 17:51 Sodium Chloride Flush Syringe 10 Ml IV PRN PRN LINE FLUSH
--- NOTE | 2018-09-08 14:22 | Progress Note ---
Assessment and Plan Assessment and plan: Sepsis. Blood cultures positive for multiple organisms Pseudomonas aeruginosa. A, Baumani Urine Pseudomonas and Enterococcus fecium contact isolation Multidrug resistant bacteria Discussed with ID Cont Zerbaxa until 09/13/18, continue Zyvox until 09/10/18 Bilateral pneumonia. On Antibiotics saddle pulmonary embolism, seen on Ct chest started Heparin Consulted Dr. Newell, Dr. Quezada Echo unremarkable, no right ventricle strain Transitioned to Eliquis, off Heparin UTI pseudomonas aeruginosa and enterococcus faecium. Continue IV antibiotics. Neurogenic bladder. Cont. nephrostomy tube Toxic metabolic encephalopathy. Ca remains high. Hypercalcemia. Likely from combination of volume depletion and immobilization. Continue IV fluids to correct volume depletion. Calcium level is better but remains high. Hypernatremia Now resolved Hypokalemia Resolved Severe protein calorie malnutrition. Continue tube feedings per dietitian. Chronic encephalopathy s/p TBI. Supportive care. Debility. Mobility protocols for pressure ulcer prophylaxis. History Interval history: 47 YO Female SNF Resident at [facility] with Encephalopathy S/P TBI, De bility, Dysphagia, presents to ED for evaluation. Pt is nonverbal and unable to provide history. Patient was found to have a dislodged Nephrostomy tube, EMS notified, and patient transported to [facility]. Pt seen and evaluated in ED and found to have UTI, Volume depletion, as well as dislodged nephrostomy tube. Pt admitted to medical floor. IR team consulted in ED. Patient diagnosed with Sepsis, UTI. bilateral pneumonia. Hypercalcemia improved. CT Chest was done to look for malignancy but revealed saddle pulmonary embolism. Patient started on heparin, consulted Vasc Surgery, now to start Eliquis today. Blood cultures grew Pseudomonas Aeurginosa and A, baumani and urine cultures grew Pseudomonas a eruginosa and Enterococcus faecium. Now started on Ceftolozane/Tazobactam and Zyvox by ID Physician. She was on Cefepime. Follow clinically. Discharge planning in conjunction with ID. Hospitalist Physical - Constitutional Vitals: Temp Pulse Resp BP Pulse Ox 98.3 F 83 18 94/42 100 09/08/18 11:45 09/08/18 11:45 09/08/18 11:45 09/08/18 11:45 09/08/18 11:45 General appearance: Present: no acute distress, cachectic, other - EENT Eyes: Present: PERRL, EOM intact ENT: hearing intact, clear oral mucosa, dentition normal - Neck Neck: Present: supple, normal ROM - Respiratory Respiratory effort: normal Respiratory: bilateral: CTA - Cardiovascular Rhythm: regular Heart Sounds: Present: S1 & S2. Absent: gallop, rub - Extremities Extremities: no ischemia, No edema, Full ROM - Abdominal General gastrointestinal: soft, non-tender, non-distended, normal bowel sounds - Integumentary Integumentary: Present: clear, warm, dry - Neurologic Neurologic: CNII-XII intact, moves all extremities Results - Labs CBC & Chem 7: 09/07/18 07:15 09/07/18 07:15 Labs: Laboratory Last Values WBC 7.7 K/mm3 (4.5-11.0) 09/07/18 07:15 RBC 3.15 M/mm3 (3.65-5.03) L 09/07/18 07:15 Hgb 9.8 gm/dl (10.1-14.3) L 09/07/18 07:15 Hct 29.2 % (30.3-42.9) L 09/07/18 07:15 MCV 93 fl (79-97) 09/07/18 07:15 MCH 31 pg (28-32) 09/07/18 07:15 MCHC 34 % (30-34) 09/07/18 07:15 RDW 18.7 % (13.2-15.2) H 09/07/18 07:15 Plt Count 383 K/mm3 (140-440) 09/07/18 07:15 Lymph % (Auto) 27.9 % (13.4-35.0) 09/07/18 07:15 [place] % (Auto) 8.6 % (0.0-7.3) H 09/07/18 07:15 Eos % (Auto) 1.9 % (0.0-4.3) 09/07/18 07:15 Baso % (Auto) 0.9 % (0.0-1.8) 09/07/18 07:15 Lymph # 2.1 K/mm3 (1.2-5.4) 09/07/18 07:15 [place] # 0.7 K/mm3 (0.0-0.8) 09/07/18 07:15 Eos # 0.1 K/mm3 (0.0-0.4) 09/07/18 07:15 Baso # 0.1 K/mm3 (0.0-0.1) 09/07/18 07:15 Add Manual Diff Complete 08/26/18 15:02 Total Counted 100 08/26/18 15:02 Seg Neutrophils % 60.7 % (40.0-70.0) 09/07/18 07:15 Seg Neuts % (Manual) 59.0 % (40.0-70.0) 08/26/18 15:02 30.0 % 08/26/18 15:02 5.0 % (13.4-35.0) L 08/26/18 15:02 Reactive Lymphs % (Man) 0 % 08/26/18 15:02 5.0 % (0.0-7.3) 08/26/18 15:02 1.0 % (0.0-4.3) 08/26/18 15:02 0 % (0.0-1.8) 08/26/18 15:02 0 % 08/26/18 15:02 0 % 08/26/18 15:02 0 % 08/26/18 15:02 0 % 08/26/18 15:02 Nucleated RBC % Not Reportable 08/26/18 15:02 Seg Neutrophils # 4.7 K/mm3 (1.8-7.7) 09/07/18 07:15 Seg Neutrophils # Man 9.3 K/mm3 (1.8-7.7) H 08/26/18 15:02 Band Neutrophils # 4.7 K/mm3 08/26/18 15:02 0.8 K/mm3 (1.2-5.4) L 08/26/18 15:02 Abs React Lymphs (Man) 0.0 K/mm3 08/26/18 15:02 0.8 K/mm3 (0.0-0.8) 08/26/18 15:02 0.2 K/mm3 (0.0-0.4) 08/26/18 15:02 0.0 K/mm3 (0.0-0.1) 08/26/18 15:02 0.0 K/mm3 08/26/18 15:02 0.0 K/mm3 08/26/18 15:02 0.0 K/mm3 08/26/18 15:02 Blast Cells # 0.0 K/mm3 08/26/18 15:02 WBC Morphology Not Reportable 08/26/18 15:02 Hypersegmented Neuts Not Reportable 08/26/18 15:02 Hyposegmented Neuts Not Reportable 08/26/18 15:02 Hypogranular Neuts Not Reportable 08/26/18 15:02 Not Reportable 08/26/18 15:02 Not Reportable 08/26/18 15:02 Not Reportable 08/26/18 15:02 Not Reportable 08/26/18 15:02 Not Reportable 08/26/18 15:02 Not Reportable 08/26/18 15:02 Consistent w auto 08/26/18 15:02 Not Reportable 08/26/18 15:02 Plt Clumps, EDTA Not Reportable 08/26/18 15:02 Not Reportable 08/26/18 15:02 Not Reportable 08/26/18 15:02 Not Reportable 08/26/18 15:02 Plt Morphology Comment Not Reportable 08/26/18 15:02 RBC Morphology Not Reportable 08/26/18 15:02 Dimorphic RBCs Not Reportable 08/26/18 15:02 Few 08/26/18 15:02 1+ 08/26/18 15:02 Not Reportable 08/26/18 15:02 1+ 08/26/18 15:02 Not Reportable 08/26/18 15:02 Not Reportable 08/26/18 15:02 Not Reportable 08/26/18 15:02 Not Reportable 08/26/18 15:02 Not Reportable 08/26/18 15:02 Not Reportable 08/26/18 15:02 Not Reportable 08/26/18 15:02 Not Reportable 08/26/18 15:02 Few 08/26/18 15:02 Not Reportable 08/26/18 15:02 Not Reportable 08/26/18 15:02 Not Reportable 08/26/18 15:02 Not Reportable 08/26/18 15:02 Not Reportable 08/26/18 15:02 Not Reportable 08/26/18 15:02 Not Reportable 08/26/18 15:02 Acanthocytes (Spur) Not Reportable 08/26/18 15:02 Rouleaux Not Reportable 08/26/18 15:02 Not Reportable 08/26/18 15:02 Not Reportable 08/26/18 15:02 Not Reportable 08/26/18 15:02 Not Reportable 08/26/18 15:02 Hem Pathologist Commnt No 08/26/18 15:02 PT 13.7 Sec. (12.2-14.9) 08/30/18 20:09 INR 1.08 (0.87-1.13) 08/30/18 20:09 APTT 31.3 Sec. (24.2-36.6) 08/30/18 20:09 Heparin Anti-Xa Level 1.46 U.I./ml (0.3-0.7) H 09/03/18 06:10 Sodium 137 mmol/L (137-145) 09/07/18 07:15 Potassium 3.7 mmol/L (3.6-5.0) 09/07/18 07:15 Chloride 101.5 mmol/L (98-107) 09/07/18 07:15 Carbon Dioxide 26 mmol/L (22-30) 09/07/18 07:15 13 mmol/L 09/07/18 07:15 BUN 15 mg/dL (7-17) 09/07/18 07:15 0.6 mg/dL (0.7-1.2) L 09/07/18 07:15 Estimated GFR > 60 ml/min 09/07/18 07:15 25 % 09/07/18 07:15 Glucose 118 mg/dL (65-100) H 09/07/18 07:15 POC Glucose 116 (70-105) H 09/07/18 21:13 Calcium 10.8 mg/dL (8.4-10.2) H 09/07/18 07:15 Phosphorus 2.90 mg/dL (2.5-4.5) 09/02/18 05:00 Magnesium 1.90 mg/dL (1.7-2.3) 09/07/18 07:15 0.20 mg/dL (0.1-1.2) 08/27/18 06:11 AST 20 units/L (5-40) 08/27/18 06:11 ALT 36 units/L (7-56) 08/27/18 06:11 140 units/L (35-129) H 08/27/18 06:11 6.0 g/dL (6.1-8.1) L 08/29/18 Unknown 7.4 g/dL (6.3-8.2) 08/27/18 06:11 2.0 g/dL (3.8-4.8) L 08/29/18 Unknown 0.5 % 08/27/18 06:11 0.4 g/dL (0.2-0.3) H 08/29/18 Unknown 1.2 g/dL (0.5-0.9) H 08/29/18 Unknown 0.4 g/dL (0.2-0.5) 08/29/18 Unknown 1.7 g/dL (0.8-1.7) 08/29/18 Unknown Abnorm Protein Band 1 see below 08/29/18 Unknown PEP Interpretation see below H 08/29/18 Unknown 25-OH Vitamin D Total See scanned result 08/29/18 04:00 <4 ng/mL 08/29/18 04:00 1,25 Dihydroxy Vit D2 <8 pg/mL 08/29/18 04:00 51 ng/mL 08/29/18 04:00 1,25 Dihydroxy Vit D3 30 pg/mL 08/29/18 04:00 PTH Intact 17.01 pg/mL (15-65) 08/29/18 Unknown Yellow (Yellow) 08/26/18 Unknown Cloudy (Clear) 08/26/18 Unknown 8.0 (5.0-7.0) H 08/26/18 Unknown Ur Specific [place] 1.012 (1.003-1.030) 08/26/18 Unknown 30 mg/dl mg/dL (Negative) 08/26/18 Unknown Neg mg/dL (Negative) 08/26/18 Unknown Neg mg/dL (Negative) 08/26/18 Unknown Lg (Negative) 08/26/18 Unknown Neg (Negative) 08/26/18 Unknown Neg (Negative) 08/26/18 Unknown < 2.0 mg/dL (<2.0) 08/26/18 Unknown Ur Leukocyte Esterase Lg (Negative) 08/26/18 Unknown 139.0 /HPF (0.0-6.0) H 08/26/18 Unknown 173.0 /HPF (0.0-6.0) 08/26/18 Unknown U Epithel Cells (Auto) 2.0 /HPF (0-13.0) 08/26/18 Unknown 1+ /HPF (Negative) 08/26/18 Unknown 2+ /HPF 08/26/18 Unknown Calcium Oxalate Crystal 1+ 08/26/18 Unknown Few /HPF 08/26/18 Unknown 2+ /HPF 08/26/18 Unknown Immunofix Electrophor see below H 09/03/18 08:24 Active Medications - Current Medications Current Medications: Generic Name Dose Route Start Last Admin Trade Name Freq PRN Reason Stop Dose Admin Acetaminophen 650 mg 08/26/18 17:51 09/02/18 11:43 Tylenol PO 650 mg Q4H PRN Administration Pain MILD(1-3)/Fever >100.5/RENEE Albuterol 2.5 mg 08/26/18 17:51 Proventil IH Q4HRT PRN Shortness Of Breath Lipase/Protease/Amylase 1 each 08/27/18 17:23 08/28/18 22:00 Bertha Henry 10,500 Unit FEEDTUBE 1 each PRN PRN Administration For Clogged Feeding Tube Apixaban 10 mg 09/02/18 18:00 09/08/18 10:00 Eliquis PO 09/08/18 22:01 10 mg Q12HR ANU Administration Protocol Apixaban 5 mg 09/09/18 10:00 Eliquis PO Q12HR ANU Protocol Sodium Chloride 1,000 mls @ 125 mls/hr 08/26/18 18:00 09/08/18 13:40 Nacl 0.45% 1000 Ml IV 125 mls/hr DIRECT ANU Administration CEFTOLOZANE/TAZOBACTAM 1.5 gm/ 100 mls @ 100 mls/hr 09/04/18 00:00 09/08/18 09:00 Sodium Chloride IV 09/13/18 23:59 100 mls/hr Q8H ANU Administration Linezolid 600 mg 09/01/18 06:00 09/08/18 05:04 Zyvox PO 09/10/18 23:59 600 mg Q12H ANU Administration Protocol Ondansetron HCl 4 mg 08/26/18 17:51 Zofran IV Q8H PRN Nausea And Vomiting Oxycodone/Acetaminophen 1 tab 08/26/18 17:51 09/03/18 00:13 Percocet 5/325 PO 1 tab Q6H PRN Administration Pain, Moderate (4-6) Simple Syrup 15 ml 08/27/18 17:23 Simple Syrup FEEDTUBE PRN PRN Hypoglycemia Simple Syrup 30 ml 08/27/18 17:23 Simple Syrup FEEDTUBE PRN PRN Hypoglycemia Sodium Bicarbonate 325 mg 08/27/18 17:23 08/28/18 22:00 Sodium Bicarbonate FEEDTUBE 325 mg PRN PRN Administration For Clogged Feeding Tube Sodium Chloride 10 ml 08/26/18 22:00 09/08/18 10:01 Sodium Chloride Flush Syringe 10 Ml IV 10 ml BID ANU Administration Sodium Chloride 10 ml 08/26/18 17:51 Sodium Chloride Flush Syringe 10 Ml IV PRN PRN LINE FLUSH Nutrition/Malnutrition Assess - Dietary Evaluation Nutrition/Malnutrition Findings: Nutrition Notes Start: 08/27/18 17:13 Freq: Status: Active Protocol: Document 09/05/18 15:13 RM (Rec: 09/05/18 15:17 RM [id number]) Nutrition Notes Initial or Follow up Reassessment Current Diagnosis Sepsis Other Pertinent Diagnosis G tube, Dysphagia, Nonverbal, SIRS, UTI, Neprostomy tube displace Current Diet Jevity 1.2 at 65 ml/hr Labs/Tests Reviewed Pertinent Medications Reviewed Height 5 ft 5 in Weight 47.4 kg [place] Body Weight (kg) 56.81 BMI 17.4 Subjective/Other Information Observed Jevity 1.2 at goal rate. Per nurse pt is tolerating TF. Percent of energy/protein needs met: 100%/100% Burn Absent Trauma Absent #1 Nutrition Diagnosis Malnutrition Diagnosis Progress(for reassessment Continues documentation) Is patient on ventilator? No Is Patient Ambulatory and/or Out of Bed No REE-([place]-confined to bed) 1335.792 Kcal/Kg value to use for calculation 38 Approximate Energy Requirements Using 1801 kcal/Kg Calculation Used for Recommendations Kcal/kg Additional Notes Protein Needs: 72-82g (1.5-1. 7g/kg) Fluid Needs: 1 ml/kcal Nutrition Intervention Nutrition Support: Jevity 1.2 at 65 ml/hr. Water flush of 100 mls q 4 hrs . Kcal 1,872 Protein (gm) 87 Fluid (mL) 1,259 Goal #1 TF tolerance Goal #2 Continue to meet at least 75% of calorie and protein needs via TF Anticipated Discharge Needs: Jevity 1.2 Follow-Up By: 09/12/18 Additional Comments Follow for TF tolerance
[2018-09-09] MEDS: ZYVOX PO SCH ×2 (05:49→17:32)
[2018-09-09] MEDS: NACL 0.45% 1000 ML 1,000 ML IV SCH ×2 (07:48→16:25)
[2018-09-09] MEDS: CEFTOLOZANE IV SCH ×2 (08:19→15:30)
[2018-09-09] MEDS: TAZOBACTAM IV SCH ×2 (08:19→15:30)
[2018-09-09] MEDS: SODIUM CHLORIDE 0.9% IV SCH ×2 (08:19→15:30)
[2018-09-09] MEDS: ELIQUIS PO SCH ×2 (09:45→22:02)
[2018-09-09] MEDS: SODIUM CHLORIDE FLUSH SYRINGE 10 ML IV SCH ×2 (09:46→22:02)
--- NOTE | 2018-09-09 13:28 | Hem/Onc Progress Note ---
Assessment and Plan 1. Large PE- emboli, - anticoagulation. 2. Hypercalcemia with renal stones, most likely either secondary to immobilization or parathyroid related issue. 3. Radiology shows bronchiectasis, cultures mentioned pseudomonas, heparin for the pulmonary embolism, nephrostomy tube issues. 4. The patient has a history of traumatic brain injury, nonverbal. 5. History of G-tube. h/o nephrostomy tube 6. I will follow the patient during inpatient stay and then in the clinic setting. The patient would need long-term anticoagulation. NOAC suggested at full dose for now and after a few months to 2.5 of Eliquis q. 12 hours. 09/09 - ct eliquis - pt on 5 q 12 after ~ 6 months option of reducing to 2.5 q 12 hypercalcemia - CT CAP - no bone or other neoplastic lesion PTH also not high - her immobilization may have a role - endocrine eval suggested - Patient Problems (1) Pulmonary embolism Current Visit: Yes Status: Acute Subjective Date of service: 09/09/18 Principal diagnosis: PE Interval history: non verbal Objective - Exam Narrative Exam: Pain none General appearance no acute distress Performance status - completely disabled Eyes blank stare ENT does not respond to questions LNs cervical not palpable Neck no mass Respiratory Normal Breath sounds - diminished b/l CVS S1 S2 + Extremities normal temperature - contracted limbs General GI Soft non tender PEG + Rectal deferred Female - deferred Skin warm Musculoskeletal generalized weakness Neurologically contracted extremities - Constitutional Vitals: Last Vital Signs Temp 97.9 F 09/09/18 11:42 Pulse 88 09/09/18 11:42 Resp 18 09/09/18 11:42 BP 108/56 09/09/18 11:42 Pulse Ox 96 09/09/18 12:54 Medications & Allergies - Medications Allergies/Adverse Reactions: Allergies No Known Allergies Allergy (Unverified 08/26/18 14:14) Home Medications: Home Medications Medication Instructions Recorded Confirmed Last Taken Type Unobtainable 09/08/18 09/08/18 Unknown History Active Medications: Generic Name Dose Route Start Last Admin Trade Name Freq PRN Reason Stop Dose Admin Acetaminophen 650 mg 08/26/18 17:51 09/02/18 11:43 Tylenol PO 650 mg Q4H PRN Administration Pain MILD(1-3)/Fever >100.5/RENEE Albuterol 2.5 mg 08/26/18 17:51 Proventil IH Q4HRT PRN Shortness Of Breath Lipase/Protease/Amylase 1 each 08/27/18 17:23 08/28/18 22:00 Bertha Henry 10,500 Unit FEEDTUBE 1 each PRN PRN Administration For Clogged Feeding Tube Apixaban 5 mg 09/09/18 10:00 09/09/18 09:45 Eliquis PO 5 mg Q12HR ANU Administration Protocol Sodium Chloride 1,000 mls @ 125 mls/hr 08/26/18 18:00 09/09/18 07:48 Nacl 0.45% 1000 Ml IV 125 mls/hr DIRECT ANU Administration CEFTOLOZANE/TAZOBACTAM 1.5 gm/ 100 mls @ 100 mls/hr 09/04/18 00:00 09/09/18 08:19 Sodium Chloride IV 09/13/18 23:59 100 mls/hr Q8H ANU Administration Linezolid 600 mg 09/01/18 06:00 09/09/18 05:49 Zyvox PO 09/10/18 23:59 600 mg Q12H ANU Administration Protocol Ondansetron HCl 4 mg 08/26/18 17:51 Zofran IV Q8H PRN Nausea And Vomiting Oxycodone/Acetaminophen 1 tab 08/26/18 17:51 09/03/18 00:13 Percocet 5/325 PO 1 tab Q6H PRN Administration Pain, Moderate (4-6) Simple Syrup 15 ml 08/27/18 17:23 Simple Syrup FEEDTUBE PRN PRN Hypoglycemia Simple Syrup 30 ml 08/27/18 17:23 Simple Syrup FEEDTUBE PRN PRN Hypoglycemia Sodium Bicarbonate 325 mg 08/27/18 17:23 08/28/18 22:00 Sodium Bicarbonate FEEDTUBE 325 mg PRN PRN Administration For Clogged Feeding Tube Sodium Chloride 10 ml 08/26/18 22:00 09/09/18 09:46 Sodium Chloride Flush Syringe 10 Ml IV 10 ml BID ANU Administration Sodium Chloride 10 ml 08/26/18 17:51 Sodium Chloride Flush Syringe 10 Ml IV PRN PRN LINE FLUSH
--- NOTE | 2018-09-09 18:24 | Progress Note ---
Assessment and Plan Assessment and plan: Sepsis. Blood cultures positive for multiple organisms Pseudomonas aeruginosa. A, Baumani Urine Pseudomonas and Enterococcus fecium contact isolation Multidrug resistant bacteria Discussed with ID Cont Zerbaxa until 09/13/18, continue Zyvox until 09/10/18 Bilateral pneumonia. On Antibiotics saddle pulmonary embolism, seen on Ct chest started Heparin Consulted Dr. Newell, Dr. Quezada Echo unremarkable, no right ventricle strain Transitioned to Eliquis, off Heparin UTI pseudomonas aeruginosa and enterococcus faecium. Continue IV antibiotics. Neurogenic bladder. Cont. nephrostomy tube Toxic metabolic encephalopathy. Ca remains high. Hypercalcemia. Likely from combination of volume depletion and immobilization. Continue IV fluids to correct volume depletion. Calcium level is better but remains high. Hypernatremia Now resolved Hypokalemia Resolved Severe protein calorie malnutrition. Continue tube feedings per dietitian. Chronic encephalopathy s/p TBI. Supportive care. Debility. Mobility protocols for pressure ulcer prophylaxis. History Interval history: 47 YO Female SNF Resident at [facility] with Encephalopathy S/P TBI, De bility, Dysphagia, presents to ED for evaluation. Pt is nonverbal and unable to provide history. Patient was found to have a dislodged Nephrostomy tube, EMS notified, and patient transported to [facility]. Pt seen and evaluated in ED and found to have UTI, Volume depletion, as well as dislodged nephrostomy tube. Pt admitted to medical floor. IR team consulted in ED. Patient diagnosed with Sepsis, UTI. bilateral pneumonia. Hypercalcemia improved. CT Chest was done to look for malignancy but revealed saddle pulmonary embolism. Patient started on heparin, consulted Vasc Surgery, now to start Eliquis today. Blood cultures grew Pseudomonas Aeurginosa and A, baumani and urine cultures grew Pseudomonas a eruginosa and Enterococcus faecium. Now started on Ceftolozane/Tazobactam and Zyvox by ID Physician. She was on Cefepime. Follow clinically. Discharge planning in conjunction with ID. Hospitalist Physical - Constitutional Vitals: Temp Pulse Resp BP Pulse Ox 97.9 F 91 H 18 96/52 99 09/09/18 16:14 09/09/18 16:14 09/09/18 16:14 09/09/18 16:14 09/09/18 16:14 General appearance: Present: no acute distress, cachectic, other - EENT Eyes: Present: PERRL, EOM intact ENT: hearing intact, clear oral mucosa, dentition normal - Neck Neck: Present: supple, normal ROM - Respiratory Respiratory effort: normal Respiratory: bilateral: CTA - Cardiovascular Rhythm: regular Heart Sounds: Present: S1 & S2. Absent: gallop, rub - Extremities Extremities: no ischemia, No edema, Full ROM - Abdominal General gastrointestinal: soft, non-tender, non-distended, normal bowel sounds - Integumentary Integumentary: Present: clear, warm, dry - Neurologic Neurologic: CNII-XII intact, moves all extremities Results - Labs CBC & Chem 7: 09/07/18 07:15 09/07/18 07:15 Labs: Laboratory Last Values WBC 7.7 K/mm3 (4.5-11.0) 09/07/18 07:15 RBC 3.15 M/mm3 (3.65-5.03) L 09/07/18 07:15 Hgb 9.8 gm/dl (10.1-14.3) L 09/07/18 07:15 Hct 29.2 % (30.3-42.9) L 09/07/18 07:15 MCV 93 fl (79-97) 09/07/18 07:15 MCH 31 pg (28-32) 09/07/18 07:15 MCHC 34 % (30-34) 09/07/18 07:15 RDW 18.7 % (13.2-15.2) H 09/07/18 07:15 Plt Count 383 K/mm3 (140-440) 09/07/18 07:15 Lymph % (Auto) 27.9 % (13.4-35.0) 09/07/18 07:15 [place] % (Auto) 8.6 % (0.0-7.3) H 09/07/18 07:15 Eos % (Auto) 1.9 % (0.0-4.3) 09/07/18 07:15 Baso % (Auto) 0.9 % (0.0-1.8) 09/07/18 07:15 Lymph # 2.1 K/mm3 (1.2-5.4) 09/07/18 07:15 [place] # 0.7 K/mm3 (0.0-0.8) 09/07/18 07:15 Eos # 0.1 K/mm3 (0.0-0.4) 09/07/18 07:15 Baso # 0.1 K/mm3 (0.0-0.1) 09/07/18 07:15 Add Manual Diff Complete 08/26/18 15:02 Total Counted 100 08/26/18 15:02 Seg Neutrophils % 60.7 % (40.0-70.0) 09/07/18 07:15 Seg Neuts % (Manual) 59.0 % (40.0-70.0) 08/26/18 15:02 30.0 % 08/26/18 15:02 5.0 % (13.4-35.0) L 08/26/18 15:02 Reactive Lymphs % (Man) 0 % 08/26/18 15:02 5.0 % (0.0-7.3) 08/26/18 15:02 1.0 % (0.0-4.3) 08/26/18 15:02 0 % (0.0-1.8) 08/26/18 15:02 0 % 08/26/18 15:02 0 % 08/26/18 15:02 0 % 08/26/18 15:02 0 % 08/26/18 15:02 Nucleated RBC % Not Reportable 08/26/18 15:02 Seg Neutrophils # 4.7 K/mm3 (1.8-7.7) 09/07/18 07:15 Seg Neutrophils # Man 9.3 K/mm3 (1.8-7.7) H 08/26/18 15:02 Band Neutrophils # 4.7 K/mm3 08/26/18 15:02 0.8 K/mm3 (1.2-5.4) L 08/26/18 15:02 Abs React Lymphs (Man) 0.0 K/mm3 08/26/18 15:02 0.8 K/mm3 (0.0-0.8) 08/26/18 15:02 0.2 K/mm3 (0.0-0.4) 08/26/18 15:02 0.0 K/mm3 (0.0-0.1) 08/26/18 15:02 0.0 K/mm3 08/26/18 15:02 0.0 K/mm3 08/26/18 15:02 0.0 K/mm3 08/26/18 15:02 Blast Cells # 0.0 K/mm3 08/26/18 15:02 WBC Morphology Not Reportable 08/26/18 15:02 Hypersegmented Neuts Not Reportable 08/26/18 15:02 Hyposegmented Neuts Not Reportable 08/26/18 15:02 Hypogranular Neuts Not Reportable 08/26/18 15:02 Not Reportable 08/26/18 15:02 Not Reportable 08/26/18 15:02 Not Reportable 08/26/18 15:02 Not Reportable 08/26/18 15:02 Not Reportable 08/26/18 15:02 Not Reportable 08/26/18 15:02 Consistent w auto 08/26/18 15:02 Not Reportable 08/26/18 15:02 Plt Clumps, EDTA Not Reportable 08/26/18 15:02 Not Reportable 08/26/18 15:02 Not Reportable 08/26/18 15:02 Not Reportable 08/26/18 15:02 Plt Morphology Comment Not Reportable 08/26/18 15:02 RBC Morphology Not Reportable 08/26/18 15:02 Dimorphic RBCs Not Reportable 08/26/18 15:02 Few 08/26/18 15:02 1+ 08/26/18 15:02 Not Reportable 08/26/18 15:02 1+ 08/26/18 15:02 Not Reportable 08/26/18 15:02 Not Reportable 08/26/18 15:02 Not Reportable 08/26/18 15:02 Not Reportable 08/26/18 15:02 Not Reportable 08/26/18 15:02 Not Reportable 08/26/18 15:02 Not Reportable 08/26/18 15:02 Not Reportable 08/26/18 15:02 Few 08/26/18 15:02 Not Reportable 08/26/18 15:02 Not Reportable 08/26/18 15:02 Not Reportable 08/26/18 15:02 Not Reportable 08/26/18 15:02 Not Reportable 08/26/18 15:02 Not Reportable 08/26/18 15:02 Not Reportable 08/26/18 15:02 Acanthocytes (Spur) Not Reportable 08/26/18 15:02 Rouleaux Not Reportable 08/26/18 15:02 Not Reportable 08/26/18 15:02 Not Reportable 08/26/18 15:02 Not Reportable 08/26/18 15:02 Not Reportable 08/26/18 15:02 Hem Pathologist Commnt No 08/26/18 15:02 PT 13.7 Sec. (12.2-14.9) 08/30/18 20:09 INR 1.08 (0.87-1.13) 08/30/18 20:09 APTT 31.3 Sec. (24.2-36.6) 08/30/18 20:09 Heparin Anti-Xa Level 1.46 U.I./ml (0.3-0.7) H 09/03/18 06:10 Sodium 137 mmol/L (137-145) 09/07/18 07:15 Potassium 3.7 mmol/L (3.6-5.0) 09/07/18 07:15 Chloride 101.5 mmol/L (98-107) 09/07/18 07:15 Carbon Dioxide 26 mmol/L (22-30) 09/07/18 07:15 13 mmol/L 09/07/18 07:15 BUN 15 mg/dL (7-17) 09/07/18 07:15 0.6 mg/dL (0.7-1.2) L 09/07/18 07:15 Estimated GFR > 60 ml/min 09/07/18 07:15 25 % 09/07/18 07:15 Glucose 118 mg/dL (65-100) H 09/07/18 07:15 POC Glucose 116 (70-105) H 09/07/18 21:13 Calcium 10.8 mg/dL (8.4-10.2) H 09/07/18 07:15 Phosphorus 2.90 mg/dL (2.5-4.5) 09/02/18 05:00 Magnesium 1.90 mg/dL (1.7-2.3) 09/07/18 07:15 0.20 mg/dL (0.1-1.2) 08/27/18 06:11 AST 20 units/L (5-40) 08/27/18 06:11 ALT 36 units/L (7-56) 08/27/18 06:11 140 units/L (35-129) H 08/27/18 06:11 6.0 g/dL (6.1-8.1) L 08/29/18 Unknown 7.4 g/dL (6.3-8.2) 08/27/18 06:11 2.0 g/dL (3.8-4.8) L 08/29/18 Unknown 0.5 % 08/27/18 06:11 0.4 g/dL (0.2-0.3) H 08/29/18 Unknown 1.2 g/dL (0.5-0.9) H 08/29/18 Unknown 0.4 g/dL (0.2-0.5) 08/29/18 Unknown 1.7 g/dL (0.8-1.7) 08/29/18 Unknown Abnorm Protein Band 1 see below 08/29/18 Unknown PEP Interpretation see below H 08/29/18 Unknown 25-OH Vitamin D Total See scanned result 08/29/18 04:00 <4 ng/mL 08/29/18 04:00 1,25 Dihydroxy Vit D2 <8 pg/mL 08/29/18 04:00 51 ng/mL 08/29/18 04:00 1,25 Dihydroxy Vit D3 30 pg/mL 08/29/18 04:00 PTH Intact 17.01 pg/mL (15-65) 08/29/18 Unknown Yellow (Yellow) 08/26/18 Unknown Cloudy (Clear) 08/26/18 Unknown 8.0 (5.0-7.0) H 08/26/18 Unknown Ur Specific [place] 1.012 (1.003-1.030) 08/26/18 Unknown 30 mg/dl mg/dL (Negative) 08/26/18 Unknown Neg mg/dL (Negative) 08/26/18 Unknown Neg mg/dL (Negative) 08/26/18 Unknown Lg (Negative) 08/26/18 Unknown Neg (Negative) 08/26/18 Unknown Neg (Negative) 08/26/18 Unknown < 2.0 mg/dL (<2.0) 08/26/18 Unknown Ur Leukocyte Esterase Lg (Negative) 08/26/18 Unknown 139.0 /HPF (0.0-6.0) H 08/26/18 Unknown 173.0 /HPF (0.0-6.0) 08/26/18 Unknown U Epithel Cells (Auto) 2.0 /HPF (0-13.0) 08/26/18 Unknown 1+ /HPF (Negative) 08/26/18 Unknown 2+ /HPF 08/26/18 Unknown Calcium Oxalate Crystal 1+ 08/26/18 Unknown Few /HPF 08/26/18 Unknown 2+ /HPF 08/26/18 Unknown Immunofix Electrophor see below H 09/03/18 08:24 Active Medications - Current Medications Current Medications: Generic Name Dose Route Start Last Admin Trade Name Freq PRN Reason Stop Dose Admin Acetaminophen 650 mg 08/26/18 17:51 09/02/18 11:43 Tylenol PO 650 mg Q4H PRN Administration Pain MILD(1-3)/Fever >100.5/RENEE Albuterol 2.5 mg 08/26/18 17:51 Proventil IH Q4HRT PRN Shortness Of Breath Lipase/Protease/Amylase 1 each 08/27/18 17:23 08/28/18 22:00 Pancrejossy Henry 10,500 Unit FEEDTUBE 1 each PRN PRN Administration For Clogged Feeding Tube Apixaban 5 mg 09/09/18 10:00 09/09/18 09:45 Eliquis PO 5 mg Q12HR ANU Administration Protocol Sodium Chloride 1,000 mls @ 125 mls/hr 08/26/18 18:00 09/09/18 16:25 Nacl 0.45% 1000 Ml IV 125 mls/hr DIRECT ANU Administration CEFTOLOZANE/TAZOBACTAM 1.5 gm/ 100 mls @ 100 mls/hr 09/04/18 00:00 09/09/18 15:30 Sodium Chloride IV 09/13/18 23:59 100 mls/hr Q8H ANU Administration Linezolid 600 mg 09/01/18 06:00 09/09/18 17:32 Zyvox PO 09/10/18 23:59 600 mg Q12H ANU Administration Protocol Ondansetron HCl 4 mg 08/26/18 17:51 Zofran IV Q8H PRN Nausea And Vomiting Oxycodone/Acetaminophen 1 tab 08/26/18 17:51 09/03/18 00:13 Percocet 5/325 PO 1 tab Q6H PRN Administration Pain, Moderate (4-6) Simple Syrup 15 ml 08/27/18 17:23 Simple Syrup FEEDTUBE PRN PRN Hypoglycemia Simple Syrup 30 ml 08/27/18 17:23 Simple Syrup FEEDTUBE PRN PRN Hypoglycemia Sodium Bicarbonate 325 mg 08/27/18 17:23 08/28/18 22:00 Sodium Bicarbonate FEEDTUBE 325 mg PRN PRN Administration For Clogged Feeding Tube Sodium Chloride 10 ml 08/26/18 22:00 09/09/18 09:46 Sodium Chloride Flush Syringe 10 Ml IV 10 ml BID ANU Administration Sodium Chloride 10 ml 08/26/18 17:51 Sodium Chloride Flush Syringe 10 Ml IV PRN PRN LINE FLUSH Nutrition/Malnutrition Assess - Dietary Evaluation Nutrition/Malnutrition Findings: Nutrition Notes Start: 08/27/18 17 :13 Freq: Status: Active Protocol: Document 09/05/18 15:13 RM (Rec: 09/05/18 15:17 RM [id number]) Nutrition Notes Initial or Follow up Reassessment Current Diagnosis Sepsis Other Pertinent Diagnosis G tube, Dysphagia, Nonverbal, SIRS, UTI, Neprostomy tube displace Current Diet Jevity 1.2 at 65 ml/hr Labs/Tests Reviewed Pertinent Medications Reviewed Height 5 ft 5 in Weight 47.4 kg [place] Body Weight (kg) 56.81 BMI 17.4 Subjective/Other Information Observed Jevity 1.2 at goal rate. Per nurse pt is tolerating TF. Percent of energy/protein needs met: 100%/100% Burn Absent Trauma Absent #1 Nutrition Diagnosis Malnutrition Diagnosis Progress(for reassessment Continues documentation) Is patient on ventilator? No Is Patient Ambulatory and/or Out of Bed No REE-([facility]-confined to bed) 1335.792 Kcal/Kg value to use for calculation 38 Approximate Energy Requirements Using 1801 kcal/Kg Calculation Used for Recommendations Kcal/kg Additional Notes Protein Needs: 72-82g (1.5-1. 7g/kg) Fluid Needs: 1 ml/kcal Nutrition Intervention Nutrition Support: Jevity 1.2 at 65 ml/hr. Water flush of 100 mls q 4 hrs . Kcal 1,872 Protein (gm) 87 Fluid (mL) 1,259 Goal #1 TF tolerance Goal #2 Continue to meet at least 75% of calorie and protein needs via TF Anticipated Discharge Needs: Jevity 1.2 Follow-Up By: 09/12/18 Additional Comments Follow for TF tolerance
[2018-09-10] MEDS: SODIUM CHLORIDE 0.9% IV SCH ×2 (00:55→08:45)
[2018-09-10] MEDS: CEFTOLOZANE IV SCH ×2 (00:55→08:45)
[2018-09-10] MEDS: TAZOBACTAM IV SCH ×2 (00:55→08:45)
[2018-09-10] MEDS: NACL 0.45% 1000 ML 1,000 ML IV SCH (01:51)
[2018-09-10] MEDS: ZYVOX PO SCH (06:33)
[2018-09-10 06:46] LABS: BUN/Creatinine Ratio 20; Blood Urea Nitrogen 12 mg/dL (7-17); Calcium 11.5 mg/dL (8.4-10.2); Hemolysis Index 14
--- NOTE | 2018-09-10 08:00 | Hem/Onc Progress Note ---
Assessment and Plan 1. Large PE- emboli, - anticoagulation. 2. Hypercalcemia with renal stones, most likely either secondary to immobilization or parathyroid related issue. 3. Radiology shows bronchiectasis, cultures mentioned pseudomonas, heparin for the pulmonary embolism, nephrostomy tube issues. 4. The patient has a history of traumatic brain injury, nonverbal. 5. History of G-tube. h/o nephrostomy tube 6. I will follow the patient during inpatient stay and then in the clinic setting. The patient would need long-term anticoagulation. NOAC suggested at full dose for now and after a few months to 2.5 of Eliquis q. 12 hours. 09/10 - ct eliquis - pt on 5 q 12 after ~ 6 months option of reducing to 2.5 q 12 hypercalcemia - CT CAP - no bone or other neoplastic lesion PTH also not high - her immobilization may have a role - endocrine eval suggested awake - looks at you - smiled - non verbal - Patient Problems (1) Pulmonary embolism Current Visit: Yes Status: Acute Subjective Date of service: 09/10/18 Principal diagnosis: PE Interval history: awake - looks at you - smiled - non verbal Objective - Exam Narrative Exam: Pain none General appearance no acute distress Performance status - completely disabled Eyes blank stare ENT does not respond to questions LNs cervical not palpable Neck no mass Respiratory Normal Breath sounds - diminished b/l CVS S1 S2 + Extremities normal temperature - contracted limbs General GI Soft non tender PEG + Rectal deferred Female - deferred Skin warm Musculoskeletal generalized weakness Neurologically contracted extremities - Constitutional Vitals: Last Vital Signs Temp 98.0 F 09/10/18 05:10 Pulse 67 09/10/18 05:10 Resp 18 09/10/18 05:10 BP 110/63 09/10/18 05:10 Pulse Ox 100 09/10/18 05:10 - Labs Lab Results: Laboratory Results - last 24 hr 09/10/18 05:00 Sodium 141 Potassium 3.5 L Chloride 102.3 Carbon Dioxide 28 Anion Gap 14 BUN 12 Creatinine 0.6 L Estimated GFR > 60 BUN/Creatinine Ratio 20 Glucose 79 Calcium 11.5 H Medications & Allergies - Medications Allergies/Adverse Reactions: Allergies No Known Allergies Allergy (Unverified 08/26/18 14:14) Home Medications: Home Medications Medication Instructions Recorded Confirmed Last Taken Type Unobtainable 09/08/18 09/08/18 Unknown History Active Medications: Generic Name Dose Route Start Last Admin Trade Name Freq PRN Reason Stop Dose Admin Acetaminophen 650 mg 08/26/18 17:51 09/02/18 11:43 Tylenol PO 650 mg Q4H PRN Administration Pain MILD(1-3)/Fever >100.5/RENEE Albuterol 2.5 mg 08/26/18 17:51 Proventil IH Q4HRT PRN Shortness Of Breath Lipase/Protease/Amylase 1 each 08/27/18 17:23 08/28/18 22:00 Pancreazaaron Henry 10,500 Unit FEEDTUBE 1 each PRN PRN Administration For Clogged Feeding Tube Apixaban 5 mg 09/09/18 10:00 09/09/18 22:02 Eliquis PO 5 mg Q12HR ANU Administration Protocol Sodium Chloride 1,000 mls @ 125 mls/hr 08/26/18 18:00 09/10/18 01:51 Nacl 0.45% 1000 Ml IV 125 mls/hr DIRECT ANU Administration CEFTOLOZANE/TAZOBACTAM 1.5 gm/ 100 mls @ 100 mls/hr 09/04/18 00:00 09/10/18 00:55 Sodium Chloride IV 09/13/18 23:59 100 mls/hr Q8H ANU Administration Linezolid 600 mg 09/01/18 06:00 09/10/18 06:33 Zyvox PO 09/10/18 23:59 600 mg Q12H ANU Administration Protocol Ondansetron HCl 4 mg 08/26/18 17:51 Zofran IV Q8H PRN Nausea And Vomiting Oxycodone/Acetaminophen 1 tab 08/26/18 17:51 09/03/18 00:13 Percocet 5/325 PO 1 tab Q6H PRN Administration Pain, Moderate (4-6) Simple Syrup 15 ml 08/27/18 17:23 Simple Syrup FEEDTUBE PRN PRN Hypoglycemia Simple Syrup 30 ml 08/27/18 17:23 Simple Syrup FEEDTUBE PRN PRN Hypoglycemia Sodium Bicarbonate 325 mg 08/27/18 17:23 08/28/18 22:00 Sodium Bicarbonate FEEDTUBE 325 mg PRN PRN Administration For Clogged Feeding Tube Sodium Chloride 10 ml 08/26/18 22:00 09/09/18 22:02 Sodium Chloride Flush Syringe 10 Ml IV 10 ml BID ANU Administration Sodium Chloride 10 ml 08/26/18 17:51 Sodium Chloride Flush Syringe 10 Ml IV PRN PRN LINE FLUSH
[2018-09-10] MEDS: ELIQUIS PO SCH (09:54)
--- NOTE | 2018-09-10 10:33 | Progress Note ---
Assessment and Plan 1. Hypercalcemia: Likely from combination of volume depletion and immobilization. Calcium level is better but remains high. Vitamin D level is not elevated. Immunofixation negative for paraprotein. Increase water flushes through the PEG. 2. Acute kidney injury: Vasomotor RUDI in the setting of volume depletion. Renal function is better. Monitor renal function. Avoid nephrotoxic agents. 3. FEN: Hypernatremia, improved. Monitor lytes. 4. Severe sepsis: UTI. 5. Dysfunctional nephrostomy tubes: S/p new nephrostomy tubes. 6. Bilateral PE: Eliquis. 7. Anemia. 8. Encephalopathy: 2/2 to TBI. At her baseline. Subjective Date of service: 09/10/18 Principal diagnosis: PE Interval history: Patient was seen and examined at the bedside. Objective - Vital Signs Vital signs: Vital Signs - 12hr 09/09/18 09/10/18 09/10/18 23:20 05:10 08:19 Temperature 97.8 F 98.0 F Pulse Rate 74 67 Respiratory 18 18 Rate Blood Pressure 104/56 110/63 O2 Sat by Pulse 100 100 100 Oximetry 09/10/18 08:37 Temperature 97.6 F Pulse Rate 86 Respiratory 16 Rate Blood Pressure 100/54 O2 Sat by Pulse 97 Oximetry - General Appearance General appearance: well-developed, appears stated age, other (no distress) EENT: ATNC, PERRL Neck: supple Respiratory: Present: Clear to Ascultation Cardiology: regular, S1S2, no murmurs Gastrointestinal: normoactive bowel sounds, no tenderness, no distended, other (PEG tube, b/l nephrostomy tubes noted) Integumentary: no rash Neurologic: other (alert, tracking with eyes, non-verbal, not following any command) Musculoskeletal: other (no edema) - Lab 09/07/18 07:15 09/10/18 05:00 Most recent lab results Calcium 11.5 mg/dL (8.4-10.2) H 09/10/18 05:00 Phosphorus 2.90 mg/dL (2.5-4.5) 09/02/18 05:00 Magnesium 1.90 mg/dL (1.7-2.3) 09/07/18 07:15 Medications & Allergies - Medications Allergies/Adverse Reactions: Allergies No Known Allergies Allergy (Unverified 08/26/18 14:14) Home Medications: Home Medications Medication Instructions Recorded Confirmed Last Taken Type ALBUTEROL NEB's [Proventil 0.083% 2.5 mg IH Q4HRT PRN nebu 09/10/18 Unknown Rx NEBS] Apixaban [Eliquis] 5 mg PO Q12HR tablet 09/10/18 Unknown Rx Lipase/Protease/Amylase [Pancreaze 1 each FEEDTUBE PRN PRN capsule 09/10/18 Unknown Rx 10,500 Unit] Simple Syrup 15 ml FEEDTUBE PRN PRN oral.liqd 09/10/18 Unknown Rx Simple Syrup 30 ml FEEDTUBE PRN PRN oral.liqd 09/10/18 Unknown Rx Sodium Bicarbonate 325 mg FEEDTUBE PRN PRN tablet 09/10/18 Unknown Rx Active Medications: Generic Name Dose Route Start Last Admin Trade Name Freq PRN Reason Stop Dose Admin Acetaminophen 650 mg 08/26/18 17:51 09/02/18 11:43 Tylenol PO 650 mg Q4H PRN Administration Pain MILD(1-3)/Fever >100.5/RENEE Albuterol 2.5 mg 08/26/18 17:51 Proventil IH Q4HRT PRN Shortness Of Breath Lipase/Protease/Amylase 1 each 08/27/18 17:23 08/28/18 22:00 Bertha Henry 10,500 Unit FEEDTUBE 1 each PRN PRN Administration For Clogged Feeding Tube Apixaban 5 mg 09/09/18 10:00 09/10/18 09:54 Eliquis PO 5 mg Q12HR ANU Administration Protocol Sodium Chloride 1,000 mls @ 125 mls/hr 08/26/18 18:00 09/10/18 01:51 Nacl 0.45% 1000 Ml IV 125 mls/hr DIRECT ANU Administration CEFTOLOZANE/TAZOBACTAM 1.5 gm/ 100 mls @ 100 mls/hr 09/04/18 00:00 09/10/18 08:45 Sodium Chloride IV 09/13/18 23:59 100 mls/hr Q8H ANU Administration Linezolid 600 mg 09/01/18 06:00 09/10/18 06:33 Zyvox PO 09/10/18 23:59 600 mg Q12H ANU Administration Protocol Ondansetron HCl 4 mg 08/26/18 17:51 Zofran IV Q8H PRN Nausea And Vomiting Oxycodone/Acetaminophen 1 tab 08/26/18 17:51 09/03/18 00:13 Percocet 5/325 PO 1 tab Q6H PRN Administration Pain, Moderate (4-6) Simple Syrup 15 ml 08/27/18 17:23 Simple Syrup FEEDTUBE PRN PRN Hypoglycemia Simple Syrup 30 ml 08/27/18 17:23 Simple Syrup FEEDTUBE PRN PRN Hypoglycemia Sodium Bicarbonate 325 mg 08/27/18 17:23 08/28/18 22:00 Sodium Bicarbonate FEEDTUBE 325 mg PRN PRN Administration For Clogged Feeding Tube Sodium Chloride 10 ml 08/26/18 22:00 09/09/18 22:02 Sodium Chloride Flush Syringe 10 Ml IV 10 ml BID ANU Administration Sodium Chloride 10 ml 08/26/18 17:51 Sodium Chloride Flush Syringe 10 Ml IV PRN PRN LINE FLUSH
--- NOTE | 2018-09-10 10:42 | Progress Note ---
Assessment and Plan Cultures: Blood cultures 08/26/2018 Pseudomonas aeruginosa (carbapenem-resistant) and MDR Acinetobacter (indeterminate to Cefepime) Urine culture 08/26/2018 10-100K multiple sp. Urine culture from right BI TECHNICAL LEAD tube 08/27/2018 Pseudomonas and VRE Urine culture from left BI TECHNICAL LEAD tube 08/27/2018 Pseudomonas and VRE Assessment: 47 y/o female with history of chronic encephalopathy due to traumatic brain in [facility], dysphagia s/p PEG and bilateral nephrostomy tubes admitted on 08/26/2018 due to right-sided nephrostomy tube dislodgement for 24 hour: 1) Severe sepsis: resolved. Etiology most likely complicated UTI. 2) Complicated UTI with bilateral nephrostomy tubes and kidney stones: due to Pseudomonas and VRE. UA with 139 wbc, large LE. Patient was found septic with right-sided nephrostomy tube dislodgment and left-sided nephrostomy tube with some jordi-tract drainage. CT showed moderate right hydronephrosis, bilateral renal calculi, right renal collecting system gravel-like renal calculi, colonic distention, bilateral infiltrate with RLL consolidation. Patient taken to the OR on 08/27/2018 underwent Fl-guided right BI TECHNICAL LEAD tube insertion and left NT exchange. Urine culture from right BI TECHNICAL LEAD tube 08/27/2018 Pseudomonas and VRE. Urine culture from left BI TECHNICAL LEAD tube 08/27/2018 GNR and Enterocccus. s/p nephrostogram and nephrostomy tube exchange of bilateral nephrostomy tubes 09/06/18 - Dr. Newell following 3) Carbapenem-resistant Pseudomonas and MDR-Acinetobacter bacteremia: from UTI. Blood cultures 08/26/2018 Pseudomonas aeruginosa 4 of 4 bottles and MDR Acinetobacter (indeterminate to Cefepime) 1 of 4. 4) Hypernatremia/hypercalcemia: better 5) Presumed bilateral pneumonia. 6) Saddle pulmonary embolism: on anticoagulation Recommendations: continue zerbaxa (ceftolozane-tazobactam) 1.5 gm IV q8 hours D11 total 14 days until 09/13/2018. Order sent to case planner continue linezolid 600 mg PO BID - last dose today always contact isolation, patient at risk of readmissions needs to f/u with [facility] for further management of bilateral BI TECHNICAL LEAD tubes [facility] [employer] M: [phone] [phone] Subjective Date of service: 09/10/18 Principal diagnosis: PE Interval history: Patient seen and examined. Awake. Alert. Nonverbal. no fevers. Objective - Exam Narrative Exam: General appearance: Alert. Awake. Nonverbal. Eyes: anicteric sclerae, moist conjunctivae; no lid-lag; PERRLA HENT: Atraumatic; oropharynx clear with moist mucous membranes and no mucosal ulcerations/no oral thrush; normal hard and soft palate. Normal external ears. Neck: Trachea midline; supple, no thyromegaly or lymphadenopathy Lungs: CTA, with normal respiratory effort and no intercostal retractions CV: RRR no murmur Abdomen: Soft, non-tender; +PEG +Pedro Luis BI TECHNICAL LEAD tube Extremities: no edema, cyanosis Skin: Normal temperature, turgor and texture; no rash, ulcers or subcutaneous nodules Psych: no agitated Neuro: alert, calm - Constitutional Vitals: Vital Signs Temp Pulse Resp BP Pulse Ox 97.6 F 86 16 100/54 97 09/10/18 08:37 09/10/18 08:37 09/10/18 08:37 09/10/18 08:37 09/10/18 08:37 Temperature -Last 24 Hours Temperature 97.6 F Temperature 98.0 F Temperature 97.8 F Temperature 98.1 F Temperature 97.9 F Temperature 97.9 F - Labs CBC & Chem 7: 09/07/18 07:15 09/10/18 05:00 Labs: Abnormal lab results 09/10/18 Range/Units 05:00 Potassium 3.5 L (3.6-5.0) mmol/L Creatinine 0.6 L (0.7-1.2) mg/dL Calcium 11.5 H (8.4-10.2) mg/dL
--- NOTE | 2018-09-10 12:22 | Discharge Summary ---
Providers - Providers Date of Admission: 08/26/18 17:51 Attending physician: BRENDAN PERALTA MD 08/26/18 15:19 Consult to Physician [CONS] Urgent Comment: DR ARLEY HOUSE W/DR QUEZADA @1517 Consulting Provider: BEAN QUEZADA Physician Instructions: Reason For Exam: nephrostomy tube replacement 08/26/18 19:02 Consult to Dietitian/Nutrition [CONS] Routine Physician Instructions: Reason For Exam: Reason for Consult: Write/Manage Tube Feeding 08/28/18 08:16 Consult to Physician [CONS] Routine Comment: Consulting Provider: BEST RODRIGEZ Physician Instructions: Reason For Exam: Hypercalcemia,hypernatremia 08/29/18 08:20 Consult to Physician [CONS] Routine Comment: Consulting Provider: SARAH DE DIOS Physician Instructions: Reason For Exam: Sepsis 08/30/18 10:46 Consult to Physician [CONS] Routine Comment: Consulting Provider: JUDY SIERRA Physician Instructions: Reason For Exam: Hypercalcemia 08/31/18 17:34 Consult to Physician [CONS] Routine Comment: Consulting Provider: BEAN DANIELSON Physician Instructions: Reason For Exam: saddle pulmonary embolism 09/03/18 11:49 Consult to Case Management [CONS] Stat Services Needed at Discharge: Other Notified:: director of transportation Additional Physician Instructions: [facility] M [phone] O [phone] F [phone] OUTPATIENT PARENTERAL ANTIBIOTIC THERAPY ORDERS Diagnoses: 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 Remove PICC line after last dose unless otherwise instructed. Lines: PICC Lab monitoring: CBC, AST, ALT, creat, CRP once a week preferly on Monday morning. Please fax results to [phone] and call [phone] for critical lab results. Sarah Aiken Date: 09/03/2018 09/03/18 11:54 Consult to PICC Line RN [CONS] Stat Reason For Exam: IV antibiotics Type Line:: PICC Hospitalization Reason for admission: sepsis, dislodged nephrostomy tube Condition: Fair Hospital course: 47 YO Female SNF Resident at [facility] with Encephalopathy S/P TBI, Debility, Dysphagia, presents to ED for evaluation. Pt is nonverbal and unable to provide history. Pt history taken from ED staff, and [facility] staff. As per staff, the patient was found to have a dislodged Nephrostomy tube this morning. EMS notified, and patient transported to [facility]. Pt seen and evaluated in ED and found to have UTI complicated by SIRS, Volume depletion, as well as dislodged nephrostomy tube. Pt admitted to medical floor. IR team consulted in ED. Pending replacement of nephrostomy tube. No further history obtainable. Pt is able to protect her airway. No prior admission for review. All listed medication reconciled at time of admission. Sepsis. Blood cultures positive for multiple organisms Pseudomonas aeruginosa. A, Baumani Urine Pseudomonas and Enterococcus fecium contact isolation Multidrug resistant bacteria Discussed with ID; Cont Zerbaxa until 09/13/18, continue Zyvox until 09/10/18. IV antibiotics are arranged by ID at the time of discharge. Bilateral pneumonia; continue antibiotics as above saddle pulmonary embolism, seen on Ct chest; patient is on eliquis Consulted Dr. Danielson, Dr. Quezada Echo unremarkable, no right ventricle strain UTI pseudomonas aeruginosa and enterococcus faecium. Continue IV antibiotics as stated above. Neurogenic bladder. Cont. nephrostomy tube Toxic metabolic encephalopathy. Hypercalcemia. Likely from combination of volume depletion and immobilization. Continue IV fluids to correct volume depletion. It was like this while she was at [place], Oncology consulted and CT chest abdomen and pelvis showed no malignancy. PTH level is not high. Nephrology consulted and recommend to increase the free water through the peg tube and DC. Hypernatremia Now resolved Hypokalemia Resolved Severe protein calorie malnutrition. Continue tube feedings per dietitian. Chronic encephalopathy s/p TBI. Supportive care. Debility. Mobility protocols for pressure ulcer prophylaxis. patient was discharged with Iv antibiotic and eliquis. Disposition: DC/TX-03 SNF [facility] Time spent for discharge: 32 minutes - Discharge Diagnoses (1) Dehydration Status: Acute (2) Leukocytosis Status: Acute (3) Nephrostomy tube displaced Status: Acute (4) Pneumonia Status: Acute (5) Pulmonary embolism Status: Acute (6) Sepsis Status: Acute (7) Severe malnutrition Status: Acute (8) UTI (urinary tract infection) Status: Acute Qualifiers: Encounter type: initial encounter Core Measure Documentation - Palliative Care Palliative Care/ Comfort Measures: Not Applicable - Core Measures Any of the following diagnoses?: none Exam - Physical Exam Narrative exam: Patient is in persistent vegetative state. The patient appeared well nourished and normally developed. Vital signs as documented. Head exam is unremarkable. No scleral icterus . Neck is without jugular venous distension, thyromegaly, or carotid bruits. Lungs are clear to auscultation. Cardiac exam reveals regular rate and Rhythm. First and second heart sounds normal. No murmurs, rubs or gallops. Abdominal exam reveals normal bowel sounds, no masses, no organomegaly and no aortic enlargement. Extremities are nonedematous [employer]: Unresponsive - Constitutional Vitals: Temp Pulse Resp BP Pulse Ox 97.6 F 86 16 100/54 97 09/10/18 08:37 09/10/18 08:37 09/10/18 08:37 09/10/18 08:37 09/10/18 08:37 Plan Activity: other (bed bound) Weight Bearing Status: Non-Weight Bearing Diet: other (continue tube feeding) Follow up with: ALYCIA CHAUDHARY [Other] - 3-5 Days
[2018-09-10 12:56] VITALS: BP 114/62
== END 2018-09-10 15:55 | DRG 871 ==
LOC: ED 12:09 → 3A 17:51 → 4A 08-31 13:30
PROVIDERS: ADMIT Internal Medicine; ATTEND Internal Medicine
PROC: 0T25X0Z Change Drainage Device in Kidney, External Approach (ICD-10-PCS; principal; 2018-08-27)
PROC: BT131ZZ Fluoroscopy of Bilateral Kidneys using Low Osmolar Contrast (ICD-10-PCS; 2018-08-27)
PROC: 0T9030Z Drainage of Right Kidney with Drainage Device, Percutaneous Approach (ICD-10-PCS; 2018-08-27)
PROC: 0T25X0Z Change Drainage Device in Kidney, External Approach (ICD-10-PCS; 2018-09-06)
PROC: BT131ZZ Fluoroscopy of Bilateral Kidneys using Low Osmolar Contrast (ICD-10-PCS; 2018-09-06)
PROC: 0T25X0Z Change Drainage Device in Kidney, External Approach (ICD-10-PCS; 2018-09-06)
DX: A41.52 Sepsis due to Pseudomonas (principal); E43 Unspecified severe protein-calorie malnutrition; J18.9 Pneumonia, unspecified organism; I26.99 Other pulmonary embolism without acute cor pulmonale; N17.0 Acute kidney failure with tubular necrosis; I26.92 Saddle embolus of pulmonary artery without acute cor pulmonale; G92 Toxic encephalopathy; N39.0 Urinary tract infection, site not specified; E87.0 Hyperosmolality and hypernatremia; Z68.1 Body mass index [BMI] 19.9 or less, adult; N13.2 Hydronephrosis with renal and ureteral calculous obstruction; T83.022A Displacement of nephrostomy catheter, initial encounter; R65.20 Severe sepsis without septic shock; E86.0 Dehydration; E83.52 Hypercalcemia; E87.6 Hypokalemia; R13.10 Dysphagia, unspecified; N31.9 Neuromuscular dysfunction of bladder, unspecified; D64.9 Anemia, unspecified; Z93.1 Gastrostomy status
CPT/HCPCS: 36415; 50432; 50435; 71260; 74176; 80048; 80053; 81001; 82306; 82310; 82962; 83735; 83970; 84100; 84165; 85007; 85014; 85018; 85025; 85027; 85049; 85520; 85610; 85730; 86334; 87040; 87076; 87086; 87116; 87186; 93306; 94760; G0378; C1729; C1769; J0690; J0692; J0695; J0696; J1644; J1650; J1956; J2250; J3010; J3370; J3480; J3490; J7030; J7040; J7050; Q9967

== ENCOUNTER 2018-09-30 19:36 | Inpatient (IN) | payer OTHER ==
[2018-09-30] MEDS ORDERED: TYLENOL PR STA (19:49)
[2018-09-30] MEDS ORDERED: MAXIPIME/NS 2 GM/100 ML 2 GM/100 ML BAG IV ONE (19:50)
[2018-09-30] MEDS ORDERED: DIPRIVAN 10 MG/ML 1,000 MG/100 ML BOTTLE IV ONE (19:50)
--- NOTE | 2018-09-30 19:51 | Emergency Department Report ---
ED General Adult HPI - General Chief complaint: Dyspnea/Respdistress Stated complaint: RESPIRATORY DISTRESS Time Seen by Provider: 09/30/18 19:48 Source: EMS Mode of arrival: Stretcher Limitations: Altered Mental Status, Physical Limitation - History of Present Illness Initial comments: Patient is a 48-year-old senior care patient at this emergency room for fever and difficulty breathing. Patient was hypoxic upon initial arrival by EMS. Patient is in her skull for traumatic brain injury. EMS is not sure what the patient's baseline is. Patient is currently minimally responsive and tachypneic with increased work to breathe. Patient is tachycardic. -: Sudden - Related Data Home Medications Medication Instructions Recorded Confirmed Last Taken Amantadine 100 mg FEEDTUBE DAILY 09/30/18 09/30/18 Unknown Baclofen 10 mg FEEDTUBE BID 09/30/18 09/30/18 Unknown Bisacodyl 10 mg FL DAILY 09/30/18 09/30/18 Unknown Cholecalciferol (Vitamin D3) 5,000 unit FEEDTUBE DAILY 09/30/18 09/30/18 Unknown Colace CAP 100 mg FEEDTUBE BID 09/30/18 09/30/18 Unknown Famotidine 20 mg FEEDTUBE BID 09/30/18 09/30/18 Unknown Fentanyl 25 mcg TRANSDERMA Q72H 09/30/18 09/30/18 Unknown Ferrous Sulfate 325 mg FEEDTUBE TID 09/30/18 09/30/18 Unknown Glycopyrrolate 1 mg FEEDTUBE TID 09/30/18 09/30/18 Unknown Lactulose 30 ml FEEDTUBE BID 09/30/18 09/30/18 Unknown Lexapro 30 mg FEEDTUBE DAILY 09/30/18 09/30/18 Unknown Magnesium Oxide 400 400 mg FEEDTUBE DAILY 09/30/18 09/30/18 Unknown Meropenem 1 gm IV Q8H 09/30/18 09/30/18 Unknown Methylphenidate 10 mg FEEDTUBE BID 09/30/18 09/30/18 Unknown Metoclopramide HCl 10 mg FEEDTUBE Q8H 09/30/18 09/30/18 Unknown [place] 5-325 mg TAB 5 mg FEEDTUBE Q6H PRN 09/30/18 09/30/18 Unknown Polyethylene Glycol 3350 17 gram FEEDTUBE BID 09/30/18 09/30/18 Unknown Scopolamine 1.5 mg TRANSDERMA Q72H 09/30/18 09/30/18 Unknown Previous Rx's Medication Instructions Recorded Last Taken Type Lipase/Protease/Amylase [Pancreaze 1 each FEEDTUBE PRN PRN capsule 09/10/18 Unknown Rx 10,500 Unit] Simple Syrup 15 ml FEEDTUBE PRN PRN oral.liqd 09/10/18 Unknown Rx Simple Syrup 30 ml FEEDTUBE PRN PRN oral.liqd 09/10/18 Unknown Rx Allergies Allergy/AdvReac Type Severity Reaction Status Date / Time No Known Allergies Allergy Unverified 08/26/18 14:14 ED Review of Systems ROS: Stated complaint: RESPIRATORY DISTRESS Other details as noted in HPI Comment: Unobtainable due to pts medical conditions ED Past Medical Hx - Past Medical History Previous Medical History?: Yes Hx Hypertension: Yes Hx Diabetes: Yes Hx Arthritis: Yes Additional medical history: G tube, nephrostomy tube, dysphagia TBI. Right upper extremity PICC line - Surgical History Past Surgical History?: Yes Additional Surgical History: G-tube,. bilateral nephrostomy tubes. Right upper extremity PICC line - Social History Smoking Status: Unknown if ever smoked Substance Use Type: None - Medications Home Medications: Home Medications Medication Instructions Recorded Confirmed Last Taken Type Lipase/Protease/Amylase [Pancreaze 1 each FEEDTUBE PRN PRN capsule 09/10/18 Unknown Rx 10,500 Unit] Simple Syrup 15 ml FEEDTUBE PRN PRN oral.liqd 09/10/18 09/30/18 Unknown Rx Simple Syrup 30 ml FEEDTUBE PRN PRN oral.liqd 09/10/18 09/30/18 Unknown Rx Amantadine 100 mg FEEDTUBE DAILY 09/30/18 09/30/18 Unknown History Baclofen 10 mg FEEDTUBE BID 09/30/18 09/30/18 Unknown History Bisacodyl 10 mg FL DAILY 09/30/18 09/30/18 Unknown History Cholecalciferol (Vitamin D3) 5,000 unit FEEDTUBE DAILY 09/30/18 09/30/18 Unknown History Colace CAP 100 mg FEEDTUBE BID 09/30/18 09/30/18 Unknown History Famotidine 20 mg FEEDTUBE BID 09/30/18 09/30/18 Unknown History Fentanyl 25 mcg TRANSDERMA Q72H 09/30/18 09/30/18 Unknown History Ferrous Sulfate 325 mg FEEDTUBE TID 09/30/18 09/30/18 Unknown History Glycopyrrolate 1 mg FEEDTUBE TID 09/30/18 09/30/18 Unknown History Lactulose 30 ml FEEDTUBE BID 09/30/18 09/30/18 Unknown History Lexapro 30 mg FEEDTUBE DAILY 09/30/18 09/30/18 Unknown History Magnesium Oxide 400 400 mg FEEDTUBE DAILY 09/30/18 09/30/18 Unknown History Meropenem 1 gm IV Q8H 09/30/18 09/30/18 Unknown History Methylphenidate 10 mg FEEDTUBE BID 09/30/18 09/30/18 Unknown History Metoclopramide HCl 10 mg FEEDTUBE Q8H 09/30/18 09/30/18 Unknown History [place] 5-325 mg TAB 5 mg FEEDTUBE Q6H PRN 09/30/18 09/30/18 Unknown History Polyethylene Glycol 3350 17 gram FEEDTUBE BID 09/30/18 09/30/18 Unknown History Scopolamine 1.5 mg TRANSDERMA Q72H 09/30/18 09/30/18 Unknown History ED Physical Exam - General Limitations: Altered Mental Status, Physical Limitation General appearance: obtunded, in distress - Head Head exam: Present: atraumatic, normocephalic - Eye Eye exam: Present: normal appearance, PERRL Pupils: Present: normal accommodation - ENT ENT exam: Present: mucous membranes dry - Neck Neck exam: Present: normal inspection - Respiratory Respiratory exam: Present: respiratory distress, rhonchi, accessory muscle use, decreased breath sounds - Cardiovascular Cardiovascular Exam: Present: regular rate, normal rhythm. Absent: systolic murmur, diastolic murmur, rubs, gallop - GI/Abdominal GI/Abdominal exam: Present: soft, normal bowel sounds, other (patient has a nephrostomy tube.) - Extremities Exam Extremities exam: Present: normal inspection, other (right upper extremity PICC line) - Back Exam Back exam: Present: normal inspection - Neurological Exam Neurological exam: Present: altered - Skin Skin exam: Present: warm, dry, intact, normal color. Absent: rash ED Course Vital Signs 09/30/18 09/30/1819 19:42 19:45 20:00 Temperature 101 F H Pulse Rate 135 H 149 H 132 H Respiratory 14 22 24 Rate Blood Pressure 182/88 125/81 O2 Sat by Pulse 100 100 100 Oximetry 09/30/18 09/30/18 09/30/18 20:15 20:30 20:45 Temperature Pulse Rate 123 H 106 H 103 H Respiratory 24 18 24 Rate Blood Pressure 138/84 141/85 130/81 O2 Sat by Pulse 100 100 100 Oximetry 09/30/18 09/30/18 09/30/18 21:00 21:15 21:30 Temperature Pulse Rate 99 H 93 H 92 H Respiratory 24 23 24 Rate Blood Pressure 132/75 128/71 129/73 O2 Sat by Pulse 100 96 99 Oximetry 09/30/18 09/30/18 09/30/18 21:45 22:00 22:15 Temperature 99.8 F H Pulse Rate 91 H 88 91 H Respiratory 24 24 24 Rate Blood Pressure 134/71 130/72 134/78 O2 Sat by Pulse 99 100 100 Oximetry 09/30/18 09/30/18 09/30/18 22:30 22:45 23:00 Temperature Pulse Rate 88 82 82 Respiratory 24 24 24 Rate Blood Pressure 127/77 130/78 131/78 O2 Sat by Pulse 100 100 100 Oximetry 09/30/18 09/30/18 09/30/18 23:01 23:15 23:31 Temperature Pulse Rate 82 82 88 Respiratory 24 24 Rate Blood Pressure 128/77 128/78 126/73 O2 Sat by Pulse 100 96 100 Oximetry 09/30/18 10/01/18 10/01/18 23:45 00:00 00:15 Temperature Pulse Rate 84 93 H 84 Respiratory 24 24 24 Rate Blood Pressure 226/143 122/78 125/78 O2 Sat by Pulse 100 98 95 Oximetry - Reevaluation(s) Reevaluation #1: Initial evaluation done. Patient found to be hypoxic and tachypneic as well as increased work to breathe. Patient due to her mental status, Patient will be unable to tolerate BiPAP. Patient will be intubated. See procedure note 09/30/18 19:50 Reevaluation #2: Patient underwent an propofol drip. Patient's heart rate is improved. Patient' s blood pressure stable. 09/30/18 20:47 Reevaluation #3: Discussed case with family. Patient's heart rate is better. Patient's vital signs are stable. Patient is stable on the vent. Family states the patient was just discharged from here for urosepsis and given IV antibiotics but at the senior care the patient never received IV antibiotics or any type of tube feed flushing. 09/30/18 22:05 - Consultations Consultation #1: Hospitalist consulted for admission. Hospitalist to admit patient and assume care of patient. 09/30/18 22:05 - Intubation Time Out Performed: Yes Sedative: Etomidate Paralytic: Rocuronium Laryngoscope: fiberoptic video scope Size: 4 Assist Device Used: fiberoptic device ET Tube Size: 7.5 Tube Secured Location: teeth Tube Placement Confirmation: visualized tube passing t, equal breath sounds bilat, no breath sounds over epi, confirmation by capnometr Patient Tolerated Procedure: well, no complications Intubation Complications: none ED Medical Decision Making - Lab Data Result diagrams: 09/30/18 20:16 09/30/18 20:16 - EKG Data -: EKG Interpreted by [place] EKG shows normal: sinus rhythm, axis, intervals, QRS complexes, ST-T waves Rate: tachycardia - Radiology Data Radiology results: report reviewed, image reviewed CHEST 1 VIEW INDICATION / CLINICAL INFORMATION: ETT placement. COMPARISON: None available. FINDINGS: SUPPORT DEVICES: Endotracheal tube is present. The tip is in the mid trachea and is approximately 6.5 cm above the cy. HEART / MEDIASTINUM: No significant abnormality. LUNGS / PLEURA: Minimal patchy parenchymal disease is noted in the right upper and right lower lobe. This was described on recent chest CT of 08/30/2018.. No pneumothorax. ADDITIONAL FINDINGS: No significant additional findings. IMPRESSION: 1. Satisfactory positioning of ET tube. 2. Persistent patchy parenchymal disease within the right lung, as noted on prior chest CT scan. - Medical Decision Making Patient is a 48-year-old female that presents emergency room with sepsis and shortness of breath. Patient was intubated immediately upon arrival for increased shortness of breath altered mental status and tachypnea and hypoxia. See procedure notes. Patient has a right arm PICC line. Patient given fluids and antibiotics immediately after intubation. Patient found to be septic. Patient's symptoms most likely secondary to pneumonia and UTI. Patient's lactic acid improved with treatment. Patient found to have an elevated lactic acid initially. Patient's blood pressure stable, Heart rate improved. Patient had a code sepsis immediately upon arrival. - Differential Diagnosis uti, pna, sepsis. hypoxia. Critical Care Time: Yes Critical care attestation.: If time is entered above; I have spent that time in minutes in the direct care of this critically ill patient, excluding procedure time. Critical Care Time: 45 minutes ED Disposition Clinical Impression: Dehydration, Hypoxia Pneumonia Qualifiers: Pneumonia type: due to unspecified organism Laterality: right Lung location: unspecified part of lung Qualified Code(s): J18.9 - Pneumonia, unspecified organism Sepsis Qualifiers: Sepsis type: sepsis due to unspecified organism Qualified Code(s): A41.9 - Sepsis, unspecified organism Respiratory failure Qualifiers: Chronicity: acute Respiratory failure complication: hypoxia Qualified Code(s): J96.01 - Acute respiratory failure with hypoxia Renal failure Qualifiers: Renal failure chronicity: acute Acute renal failure type: unspecified Qualified Code(s): N17.9 - Acute kidney failure, unspecified UTI (urinary tract infection) Qualifiers: Urinary tract infection type: site unspecified Hematuria presence: with hematur ia Qualified Code(s): N39.0 - Urinary tract infection, site not specified; R31.9 - Hematuria, unspecified Disposition: DC-09 OP ADMIT IP TO THIS HOSP Is pt being admited?: Yes Does the pt Need Aspirin: No Condition: Critical Time of Disposition: 22:11
[2018-09-30] MEDS ORDERED: VASELINE LIP THERAPY TP PRN (19:53)
[2018-09-30] MEDS ORDERED: ARTIFICIAL TEARS OPHTH OINT OU PRN (19:53)
[2018-09-30] MEDS ORDERED: NACL 0.9% IV SCH (20:00)
[2018-09-30] MEDS: DIPRIVAN 10 MG/ML 1,000 MG/100 ML BOTTLE IV SCH ×3 (20:05→20:48)
[2018-09-30 20:33] LABS: Basophils # (Auto) 0.2 K/mm3 (0.0-0.1); Basophils % (Auto) 1.2 % (0.0-1.8); Eosinophils # (Auto) 0.1 K/mm3 (0.0-0.4); Eosinophils % (Auto) 0.6 % (0.0-4.3); Hematocrit 40.9 % (30.3-42.9); Hemoglobin 13.3 gm/dl (10.1-14.3); Lymphocytes # (Auto) 3.4 K/mm3 (1.2-5.4); Lymphocytes % (Auto) 23.7 % (13.4-35.0); Mean Corpuscular HGB Conc 33 % (30-34); Mean Corpuscular Volume 95 fl (79-97); Monocytes % (Auto) 7.3 % (0.0-7.3); Platelet Count 401 K/mm3 (140-440); Red Cell Distribution Width 19.8 % (13.2-15.2)
[2018-09-30 20:42] LABS: INR 1.04 (0.87-1.13)
--- NOTE | 2018-09-30 20:44 | XRay Report ---
CHEST 1 VIEW INDICATION / CLINICAL INFORMATION: ETT placement. COMPARISON: None available. FINDINGS: SUPPORT DEVICES: Endotracheal tube is present. The tip is in the mid trachea and is approximately 6.5 cm above the cy. HEART / MEDIASTINUM: No significant abnormality. LUNGS / PLEURA: Minimal patchy parenchymal disease is noted in the right upper and right lower lobe. This was described on recent chest CT of 08/30/2018.. No pneumothorax. ADDITIONAL FINDINGS: No significant additional findings. IMPRESSION: 1. Satisfactory positioning of ET tube. 2. Persistent patchy parenchymal disease within the right lung, as noted on prior chest CT scan. Signer Name: Becky Frey MD Signed: 09/30/2018 8:39 PM Workstation Name: [id number]
[2018-09-30] MEDS ORDERED: NACL 0.9% 1000 ML 1,000 ML IV ONE (20:48)
[2018-09-30 20:51] LABS: Alanine Aminotransferase 32 units/L (7-56); Albumin 3.9 g/dL (3.9-5); BUN/Creatinine Ratio 40; Blood Urea Nitrogen 56 mg/dL (7-17); Hemolysis Index 83
[2018-09-30 20:58] LABS: Calcium > 13.0 mg/dL (8.4-10.2)
[2018-09-30 22:06] LABS: Bilirubin,Urine NEG (Negative); Blood,Urine LG (Negative); Color,Urine Yellow (Yellow); Urobilinogen,Urine < 2.0 mg/dL (<2.0)
[2018-09-30 22:07] LABS: RBC,Urine > 182.0 /HPF (0.0-6.0)
[2018-09-30] MEDS ORDERED: ZEMURON IV ONE (23:00)
[2018-09-30] MEDS ORDERED: AMIDATE IV ONE (23:00)
[2018-09-30] MEDS ORDERED: ZOFRAN IV PRN (23:29)
[2018-09-30] MEDS ORDERED: TYLENOL PO PRN (23:29)
[2018-09-30] MEDS ORDERED: D50W (25GM) Syringe IV PRN (23:32)
[2018-09-30] MEDS ORDERED: VANCOMYCIN PHARMACY TO DOSE IV SCH (23:45)
[2018-09-30] MEDS ORDERED: NACL 0.45% 500 ML IV SCH (23:45)
[2018-09-30] MEDS: ZOSYN/NS 3.375GM/50ML 3.375 GM/50 ML BAG IV SCH (23:50)
[2018-10-01] MEDS ORDERED: VANCOMYCIN/NS 1 GM/250 ML 1 GM/250 ML BAG IV ONE
[2018-10-01] MEDS: DIPRIVAN 10 MG/ML 1,000 MG/100 ML BOTTLE IV SCH ×4 (00:01→06:11)
[2018-10-01] MEDS ORDERED: HEPARIN ONE (00:12)
[2018-10-01] MEDS: HEPARIN SUB-Q SCH ×3 (00:13→21:27)
--- NOTE | 2018-10-01 02:33 | XRay Report ---
CHEST 1 VIEW 10/01/2018 2:02 AM INDICATION / CLINICAL INFORMATION: follow up respiratory failure. COMPARISON: One view of the chest from 09/30/2018 FINDINGS: SUPPORT DEVICES: The ET tube has been slightly advanced with the tip located 7.6 cm above the cy. HEART / MEDIASTINUM: No significant abnormality. LUNGS / PLEURA: No significant pulmonary or pleural abnormality. No pneumothorax. ADDITIONAL FINDINGS: No significant additional findings. IMPRESSION: No acute findings. Signer Name: Yaniv Toribio MD Signed: 10/01/2018 2:29 AM Workstation Name: [id number]
[2018-10-01] MEDS: HumuLIN R SUB-Q SCH ×5 (02:36→20:40)
[2018-10-01 03:11] LABS: Calcium 11.2 mg/dL (8.4-10.2)
[2018-10-01] MEDS: ZOSYN/NS 3.375GM/50ML 3.375 GM/50 ML BAG IV SCH (05:18)
--- NOTE | 2018-10-01 05:52 | History and Physical Report ---
CHIEF COMPLAINT: Shortness of breath. Other complaint include rapid heartbeat and fever. HISTORY OF PRESENTING ILLNESS: The patient is a 48-year-old female brought from the half-way because of difficulty in breathing and fever. EMS was called and on arrival at the half-way, and the patient was noted to be hypoxic. There was no history of chest pain. No history of nausea or vomiting or diarrhea. The patient was brought in and evaluated and found to have respiratory failure and was intubated with mechanical ventilation. PAST MEDICAL HISTORY: Pertinent for hypertension, diabetes mellitus, arthritis, dysphagia. PAST SURGICAL HISTORY: Pertinent for gastrostomy tube placement, bilateral nephrostomy tubes, right upper extremity PICC line placement. FAMILY HISTORY: Unremarkable. SOCIAL HISTORY: The patient stays at a half-way, does not smoke, does not drink alcohol, and does not use illicit drugs. MEDICATIONS: The patient is on Pancrease 10,500 units through the feeding tube. Also, the patient is on Simple syrup 15 mL through the feeding tube and amantadine 100 mg per tube daily. The patient is also on baclofen 10 mg per tube b.i.d., bisacodyl 10 mg suppository rectally daily. The patient is on vitamin D3, 5000 units per tube daily and Colace cap 100 mg per feeding tube twice daily. The patient is on famotidine 20 mg per feeding tube and on fentanyl 25 mcg transdermal q.72 hours. The patient is on ferrous sulfate 325 mg per tube t.i.d., glycopyrrolate 1 mg per feeding tube t.i.d. and lactulose 20 mL per feeding tube b.i.d. The patient is also on Lexapro 30 mg per feeding tube daily and magnesium oxide 400 mg per feeding tube daily and on methylphenidate 20 mg per feeding tube twice daily and on meropenem 1 g IV q.8 hours. The patient is on metoclopramide 10 mg per feeding tube q.8 hours and [place] 5/325 mg per feeding tube q.6 hours. The patient is also on polyethylene glycol, MiraLax, 17 g per feeding tube twice daily and scopolamine 1.5 mg transdermally every 72 hours. ALLERGIES: There are no known drug allergies. REVIEW OF SYSTEMS: CONSTITUTIONAL: There is fever, there are no chills, and there is no diaphoresis. HEENT: There is no headache or sore throat. CARDIOVASCULAR SYSTEM: There is palpitation but no chest pains. No orthopnea. RESPIRATORY SYSTEM: Shortness of breath present and no cough. GASTROINTESTINAL SYSTEM: There is no nausea, no vomiting, no abdominal pain, diarrhea or constipation. NEUROLOGICAL SYSTEM: There is no numbness, no dizziness, no altered mental status. MUSCULOSKELETAL SYSTEM: There is no joint pain or swelling. DERMATOLOGICAL SYSTEM: There is no skin rash or itching. GENITOURINARY SYSTEM: There is no dysuria, hematuria, or flank pain. Rest of system review is normal. PHYSICAL EXAMINATION: GENERAL: At the time of exam, the patient was found to be sedated, intubated and mechanically ventilated and not in acute distress. VITAL SIGNS: At the initial time of presentation showed temperature of 101 degrees Fahrenheit, pulse of 135, respirations of 14, O2 sat of 100% via intubation and mechanical ventilation. HEENT: Show the pupils on the right side of the eye to be reactive to light and accommodation. The left eye pupil looks as if it is chronically nonreactive. The ET tube is noted to be in place through the mouth. NECK: Supple, with no JVD or carotid bruit. CARDIOVASCULAR SYSTEM: Showed normal first and second heart sounds, with no gallops or murmurs. RESPIRATORY SYSTEM: Showed good air entry on both sides of the lungs via ET tube and mechanical ventilation. There are no abnormal breath sounds. GASTROINTESTINAL SYSTEM: Showed abdomen to be full, soft, nontender, with no organomegaly or rigidity. NEUROLOGICAL: There are no focal deficits. The patient is sedated and intubated. MUSCULOSKELETAL SYSTEM: There is no joint swelling. DERMATOLOGICAL SYSTEM: There are no skin rashes. GENITOURINARY SYSTEM: Showing no costovertebral angle tenderness. PERTINENT LABORATORY DATA AND IMAGING STUDIES: The patient had chest x-ray done that shows the ET tube in place and there is finding of persistent patchy parenchyma disease within the right lung according to the radiologist and same is noted on prior chest CT scan. Lab results, the patient's CBC showed elevated white count of 14, 200 with normal hemoglobin, normal hematocrit, and CBC differential showing elevated segmented neutrophil count. The patient's blood gas shows elevated pH of 7.5 with normal pCO2 and high pO2 of 106 with normal O2 sat of 99% on FiO2 of 60. The patient's chemistry show high sodium level of 159, high chloride level of 113.7 with elevated BUN of 56 and slightly elevated creatinine level of 1.4 and high calcium level of greater than 13. The patient's initial lactic acid level was normal, but repeat lactic acid shows a high value of 2.3. The patient's urinalysis showed yellow cloudy urine with high urine wbc of 154 and large urine leukocyte esterase as well as high urine rbc of greater than 182 with presence of urine yeast. DIAGNOSES: 1. Respiratory failure needing mechanical ventilation. 2. Sepsis. 3. Hypernatremia. 4. Urinary tract infection. 5. Hypercalcemia. PLAN OF CARE: 1. The patient will be admitted to ICU. 2. The patient will have Accu-Chek every 4 hours followed by low-dose sliding scale using regular insulin coverage. 3 The patient will have Critical Care consult with Dr. Frausto because of ICU admission for mechanical ventilation. 4. The patient will have respiratory therapy consult to manage the ventilator. 5. The patient will be on IV Zosyn 3.375 g q.8 hours and will also be on IV vancomycin with pharmacy to dose. 6. The patient will be on 1/2 normal saline running at 150 mL an hour for management of sepsis. 7. The patient will have basic metabolic panel checked at about 2:00 a.m. and also 6 a.m. of 10/01/2018 to monitor the sodium level. 8. The patient will be on Tylenol 650 mg rectally as needed for fever and headache. 9. The patient will be on heparin 5000 units subcutaneously q.12 hours for DVT prophylaxis. 10. The patient will be on her home medication as shown in the medication reconciliation section, which will be administered through the feeding tube. 11. The patient will have a lactic acid level repeated this morning as part of sepsis management. JOB# [id number] [facility]/MICHELLE COWAN
[2018-10-01] MEDS ORDERED: NACL 0.45% 1000 ML 1,000 ML IV SCH ×2 (06:00→14:00)
--- NOTE | 2018-10-01 08:18 | Progress Note ---
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 She was discharged on Eliquis but this is not included in her medications History of traumatic brain injury Full code status History Interval history: Patient presented with fever, shortness of breath Hospitalist Physical - Physical exam Narrative exam: Gen: Not in acute distress, intubated,sedated HEENT: Normocephalic, atraumatic Neck: supple, no JVD Heart: S1 and S2 reg, no murmurs, rubs or gallop Lungs: Bilateral rhonchi, Abd: soft, non tender, non distended, normal BS, PEG tube, bilat nephrostomy tubes Ext: No edema, no clubbing, no cyanosis Neuro: Intubated, sedated - Constitutional Vitals: Temp Pulse Resp BP Pulse Ox 98.6 F 81 16 126/77 100 10/01/18 03:56 10/01/18 07:00 10/01/18 07:00 10/01/18 07:00 10/01/18 07:00 Results - Labs CBC & Chem 7: 09/30/18 20:16 10/01/18 08:15 Labs: Laboratory Last Values WBC 14.2 K/mm3 (4.5-11.0) H 09/30/18 20:16 RBC 4.30 M/mm3 (3.65-5.03) 09/30/18 20:16 Hgb 13.3 gm/dl (10.1-14.3) 09/30/18 20:16 Hct 40.9 % (30.3-42.9) 09/30/18 20:16 MCV 95 fl (79-97) 09/30/18 20:16 MCH 31 pg (28-32) 09/30/18 20:16 MCHC 33 % (30-34) 09/30/18 20:16 RDW 19.8 % (13.2-15.2) H 09/30/18 20:16 Plt Count 401 K/mm3 (140-440) 09/30/18 20:16 Lymph % (Auto) 23.7 % (13.4-35.0) 09/30/18 20:16 [place] % (Auto) 7.3 % (0.0-7.3) 09/30/18 20:16 Eos % (Auto) 0.6 % (0.0-4.3) 09/30/18 20:16 Baso % (Auto) 1.2 % (0.0-1.8) 09/30/18 20:16 Lymph # 3.4 K/mm3 (1.2-5.4) 09/30/18 20:16 [place] # 1.0 K/mm3 (0.0-0.8) H 09/30/18 20:16 Eos # 0.1 K/mm3 (0.0-0.4) 09/30/18 20:16 Baso # 0.2 K/mm3 (0.0-0.1) H 09/30/18 20:16 Seg Neutrophils % 67.2 % (40.0-70.0) 09/30/18 20:16 Seg Neutrophils # 9.5 K/mm3 (1.8-7.7) H 09/30/18 20:16 PT 13.3 Sec. (12.2-14.9) 09/30/18 20:16 INR 1.04 (0.87-1.13) 09/30/18 20:16 POC ABG pH 7.543 (7.35-7.45) H 10/01/18 04:53 POC ABG pCO2 35.4 (35-45) 09/30/18 21:02 POC ABG pO2 150 (80-105) H 10/01/18 04:53 POC ABG HCO3 24.5 (22-26 mml/L) 10/01/18 04:53 POC ABG Total CO2 25 (23-27mmol/L) 10/01/18 04:53 POC ABG O2 Sat 100 10/01/18 04:53 POC ABG Base Excess 2 ((-2) - (+3)mmol/L) 10/01/18 04:53 VBG pH 7.480 (7.320-7.420) H 09/30/18 20:16 40 % 10/01/18 04:53 Sodium 159 mmol/L (137-145) H 10/01/18 02:00 Potassium 3.4 mmol/L (3.6-5.0) L D 10/01/18 02:00 Chloride 122.4 mmol/L (98-107) H 10/01/18 02:00 Carbon Dioxide 25 mmol/L (22-30) D 10/01/18 02:00 15 mmol/L 10/01/18 02:00 BUN 48 mg/dL (7-17) H 10/01/18 02:00 1.2 mg/dL (0.7-1.2) 10/01/18 02:00 Estimated GFR 58 ml/min 10/01/18 02:00 40 % 10/01/18 02:00 Glucose 103 mg/dL (65-100) H 10/01/18 02:00 POC Glucose 93 (70-105) 10/01/18 05:24 Lactic Acid 2.30 mmol/L (0.7-2.0) H* 10/01/18 02:00 Calcium 11.2 mg/dL (8.4-10.2) H 10/01/18 02:00 0.30 mg/dL (0.1-1.2) 09/30/18 20:16 AST 36 units/L (5-40) 09/30/18 20:16 ALT 32 units/L (7-56) 09/30/18 20:16 139 units/L (35-129) H 09/30/18 20:16 10.0 g/dL (6.3-8.2) H 09/30/18 20:16 3.9 g/dL (3.9-5) 09/30/18 20:16 0.6 % 09/30/18 20:16 Yellow (Yellow) 09/30/18 21:40 Cloudy (Clear) 09/30/18 21:40 9.0 (5.0-7.0) H 09/30/18 21:40 Ur Specific [place] 1.015 (1.003-1.030) 09/30/18 21:40 100 mg/dl mg/dL (Negative) 09/30/18 21:40 Neg mg/dL (Negative) 09/30/18 21:40 Neg mg/dL (Negative) 09/30/18 21:40 Lg (Negative) 09/30/18 21:40 Neg (Negative) 09/30/18 21:40 Neg (Negative) 09/30/18 21:40 < 2.0 mg/dL (<2.0) 09/30/18 21:40 Ur Leukocyte Esterase Lg (Negative) 09/30/18 21:40 154.0 /HPF (0.0-6.0) H 09/30/18 21:40 > 182.0 /HPF (0.0-6.0) 09/30/18 21:40 U Epithel Cells (Auto) < 1.0 /HPF (0-13.0) 09/30/18 21:40 Ur Yeast w Hyphae Few /HPF 09/30/18 21:40 2+ /HPF 09/30/18 21:40 Active Medications - Current Medications Current Medications: Generic Name Dose Route Start Last Admin Trade Name Freq PRN Reason Stop Dose Admin Acetaminophen 650 mg 10/01/18 04:45 Tylenol [place] Q4H PRN Fever >101 Dextrose 50 ml 09/30/18 23:32 D50w (25gm) Syringe IV PRN PRN Hypoglycemia Heparin Sodium (Porcine) 5,000 unit 09/30/18 23:30 10/01/18 00:13 Heparin SUB-Q 5,000 unit Q12HR ANU Administration Hydrophilic Ointment 1 applic 09/30/18 19:53 Vaseline Lip Therapy TP Q2HR PRN Dry Lips Propofol 1,000 mg in 100 mls @ 1.569 mls/hr 09/30/18 20:00 10/01/18 06:46 Diprivan 10 Mg/Ml IV 40 mcg/kg/min TITR ANU 12.552 mls/hr Titration Protocol 5 MCG/KG/MIN Piperacillin Sod/Tazobactam Sod 3.375 gm in 50 mls @ 100 mls/hr 09/30/18 23:45 10/01/18 05:18 Zosyn/Ns 3.375gm/50ml IV 100 mls/hr Q8HR ANU Administration Protocol Vancomycin HCl 750 mg/ Sodium 265 mls @ 166.667 mls/hr 10/02/18 00:00 Chloride IV Q24H ANU Sodium Chloride 1,000 mls @ 150 mls/hr 10/01/18 06:00 10/01/18 05:46 Nacl 0.45% 1000 Ml IV 150 mls/hr DIRECT ANU Administration Insulin Human Regular 0 units 09/30/18 23:45 10/01/18 05:46 Humulin R SUB-Q Not Given Q4HR [facility] Protocol Multi-Ingred Cream/Lotion/Oil/Oint 1 applic 09/30/18 19:53 Artificial Tears Ophth Oint OU Q4HR PRN Dry Eye(s) Ondansetron HCl 4 mg 09/30/18 23:29 Zofran IV Q8H PRN Nausea And Vomiting
[2018-10-01 09:24] LABS: Calcium 11.4 mg/dL (8.4-10.2)
[2018-10-01] MEDS: PEPCID IV SCH ×2 (11:38→21:27)
[2018-10-01] MEDS: MERREM/NS 500 MG/50 ML 500 MG/50 ML BAG IV SCH ×2 (14:50→19:19)
[2018-10-01] MEDS ORDERED: SIMPLE SYRUP FEEDTUBE PRN ×2 (15:58)
--- NOTE | 2018-10-01 16:05 | Consultation ---
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 also has bilat nephrostomy tubes Medications and Allergies Allergies Allergy/AdvReac Type Severity Reaction Status Date / Time No Known Allergies Allergy Unverified 08/26/18 14:14 Home Medications Medication Instructions Recorded Confirmed Last Taken Type Lipase/Protease/Amylase [Pancreaze 1 each FEEDTUBE PRN PRN capsule 09/10/18 09/30/18 Unknown Rx 10,500 Unit] Simple Syrup 15 ml FEEDTUBE PRN PRN oral.liqd 09/10/18 09/30/18 Unknown Rx Simple Syrup 30 ml FEEDTUBE PRN PRN oral.liqd 09/10/18 09/30/18 Unknown Rx Amantadine 100 mg FEEDTUBE DAILY 09/30/18 09/30/18 Unknown History Baclofen 10 mg FEEDTUBE BID 09/30/18 09/30/18 Unknown History Bisacodyl 10 mg [place] DAILY 09/30/18 09/30/18 Unknown History Cholecalciferol (Vitamin D3) 5,000 unit FEEDTUBE DAILY 09/30/18 09/30/18 Unknown History Colace CAP 100 mg FEEDTUBE BID 09/30/18 09/30/18 Unknown History Famotidine 20 mg FEEDTUBE BID 09/30/18 09/30/18 Unknown History Fentanyl 25 mcg TRANSDERMA Q72H 09/30/18 09/30/18 Unknown History Ferrous Sulfate 325 mg FEEDTUBE TID 09/30/18 09/30/18 Unknown History Glycopyrrolate 1 mg FEEDTUBE TID 09/30/18 09/30/18 Unknown History Lactulose 30 ml FEEDTUBE BID 09/30/18 09/30/18 Unknown History Lexapro 30 mg FEEDTUBE DAILY 09/30/18 09/30/18 Unknown History Magnesium Oxide 400 400 mg FEEDTUBE DAILY 09/30/18 09/30/18 Unknown History Meropenem 1 gm IV Q8H 09/30/18 09/30/18 Unknown History Methylphenidate 10 mg FEEDTUBE BID 09/30/18 09/30/18 Unknown History Metoclopramide HCl 10 mg FEEDTUBE Q8H 09/30/18 09/30/18 Unknown History [place] 5-325 mg TAB 5 mg FEEDTUBE Q6H PRN 09/30/18 09/30/18 Unknown History Polyethylene Glycol 3350 17 gram FEEDTUBE BID 09/30/18 09/30/18 Unknown History Scopolamine 1.5 mg TRANSDERMA Q72H 09/30/18 09/30/18 Unknown History Active Meds: Active Medications Acetaminophen (Tylenol) 650 mg [place] Q4H PRN PRN Reason: Fever >101 Lipase/Protease/Amylase (Pancreaze Dr 10,500 Unit) 1 each FEEDTUBE PRN PRN PRN Reason: For Clogged Feeding Tube Dextrose (D50w (25gm) Syringe) 50 ml IV PRN PRN PRN Reason: Hypoglycemia Famotidine (Pepcid) 20 mg IV BID ANU Last Admin: 10/01/18 11:38 Dose: 20 mg Documented by: Heparin Sodium (Porcine) (Heparin) 5,000 unit SUB-Q Q12HR ANU Last Admin: 10/01/18 11:38 Dose: 5,000 unit Documented by: Hydrophilic Ointment (Vaseline Lip Therapy) 1 applic TP Q2HR PRN PRN Reason: Dry Lips Propofol (Diprivan 10 Mg/Ml) 1,000 mg in 100 mls @ 1.569 mls/hr IV TITR ANU; Protocol Last Titration: 10/01/18 11:44 Dose: 0 mcg/kg/min, 0 mls/hr Documented by: Vancomycin HCl 750 mg/ Sodium (Chloride) 265 mls @ 166.667 mls/hr IV Q24H ANU Meropenem (Merrem/Ns 500 Mg/50 Ml) 500 mg in 50 mls @ 50 mls/hr IV Q6HR ANU Last Admin: 10/01/18 14:50 Dose: 50 mls/hr Documented by: Sodium Chloride (Nacl 0.45% 1000 Ml) 1,000 mls @ 150 mls/hr IV DIRECT ANU Last Admin: 10/01/18 12:25 Dose: 150 mls/hr Documented by: Insulin Human Regular (Humulin R) 0 units SUB-Q Q6HR ANU; Protocol Multi-Ingred Cream/Lotion/Oil/Oint (Artificial Tears Ophth Oint) 1 applic OU Q4HR PRN PRN Reason: Dry Eye(s) Ondansetron HCl (Zofran) 4 mg IV Q8H PRN PRN Reason: Nausea And Vomiting Simple Syrup (Simple Syrup) 15 ml FEEDTUBE PRN PRN PRN Reason: Hypoglycemia Simple Syrup (Simple Syrup) 30 ml FEEDTUBE PRN PRN PRN Reason: Hypoglycemia Sodium Bicarbonate (Sodium Bicarbonate) 325 mg FEEDTUBE PRN PRN PRN Reason: For Clogged Feeding Tube Review of Systems ROS unobtainable: due to endotracheal tube Physical Examination Vital signs: Vital Signs Pulse Resp Pulse Ox 135 H 14 100 09/30/18 19:42 09/30/18 19:42 09/30/18 19:42 General appearance: other (contracted on vent ) Effort: normal, other (on vent ) Ascultation: Bilateral: diminished breath sounds Gastrointestinal: hypoactive bowel sounds Results - Laboratory Findings CBC and BMP: 09/30/18 20:16 10/01/18 08:15 ABG POC ABG pH 7.543 (7.35-7.45) H 10/01/18 04:53 POC ABG pO2 150 (80-105) H 10/01/18 04:53 POC ABG HCO3 24.5 (22-26 mml/L) 10/01/18 04:53 POC ABG Total CO2 25 (23-27mmol/L) 10/01/18 04:53 POC ABG O2 Sat 100 10/01/18 04:53 PT/INR, D-dimer PT 13.3 Sec. (12.2-14.9) 09/30/18 20:16 INR 1.04 (0.87-1.13) 09/30/18 20:16 Abnormal lab findings: Abnormal Labs 09/30/18 09/30/18 09/30/18 20:16 20:16 20:16 WBC 14.2 H RDW 19.8 H [place] # 1.0 H Baso # 0.2 H Seg Neutrophils # 9.5 H POC ABG pH POC ABG pO2 VBG pH Sodium 159 H Potassium Chloride 113.7 H Carbon Dioxide 32 H BUN 56 H Creatinine 1.4 H Glucose 110 H Lactic Acid 2.40 H* Calcium > 13.0 H* Alkaline Phosphatase 139 H Total Protein 10.0 H Urine pH Urine WBC (Auto) 09/30/18 09/30/18 09/30/18 20:16 21:02 21:40 WBC RDW [place] # Baso # Seg Neutrophils # POC ABG pH 7.528 H POC ABG pO2 106 H VBG pH 7.480 H Sodium Potassium Chloride Carbon Dioxide BUN Creatinine Glucose Lactic Acid Calcium Alkaline Phosphatase Total Protein Urine pH 9.0 H Urine WBC (Auto) 154.0 H 10/01/18 10/01/18 10/01/18 02:00 02:00 04:53 WBC RDW [place] # Baso # Seg Neutrophils # POC ABG pH 7.543 H POC ABG pO2 150 H VBG pH Sodium 159 H Potassium 3.4 L D Chloride 122.4 H Carbon Dioxide BUN 48 H Creatinine Glucose 103 H Lactic Acid 2.30 H* Calcium 11.2 H Alkaline Phosphatase Total Protein Urine pH Urine WBC (Auto) 10/01/18 08:15 WBC RDW [place] # Baso # Seg Neutrophils # POC ABG pH POC ABG pO2 VBG pH Sodium 158 H Potassium Chloride 122.9 H Carbon Dioxide BUN 45 H Creatinine Glucose Lactic Acid Calcium 11.4 H Alkaline Phosphatase Total Protein Urine pH Urine WBC (Auto) - Diagnostic Findings Chest x-ray: image reviewed (clear ), other Assessment and Plan 10/01 on vent septic on abx Will check old records monitor cont vent support at this point
[2018-10-01] MEDS: D5W 1,000 ML IV SCH (20:15)
[2018-10-01] MEDS: VANCOMYCIN 750 MG in NACL 0.9% 250ML 250 ML IV SCH (23:26)
[2018-10-02] MEDS: HumuLIN R SUB-Q SCH ×4 (00:08→18:23)
[2018-10-02] MEDS: MERREM/NS 500 MG/50 ML 500 MG/50 ML BAG IV SCH ×4 (00:31→18:48)
[2018-10-02] MEDS ORDERED: SCOPOLAMINE 1.5 MG TRANSDERMA SCH (01:15)
--- NOTE | 2018-10-02 02:55 | XRay Report ---
CHEST 1 VIEW 10/02/2018 2:12 AM INDICATION / CLINICAL INFORMATION: follow up respiratory failure. COMPARISON: One view of the chest from 10/01/2018. FINDINGS: SUPPORT DEVICES: Stable positioning of the ET tube. HEART / MEDIASTINUM: No significant abnormality. LUNGS / PLEURA: Right basilar opacities have mildly increased. The lungs are otherwise clear. No sign ificant pleural effusion. No pneumothorax. ADDITIONAL FINDINGS: No significant additional findings. IMPRESSION: Mildly increased right basilar opacities. Signer Name: Yaniv Toribio MD Signed: 10/02/2018 2:51 AM Workstation Name: [id number]
[2018-10-02] MEDS: TRANSDERM-SCOP TD SCH (04:07)
[2018-10-02 05:11] LABS: Hematocrit 31.6 % (30.3-42.9); Mean Corpuscular HGB Conc 33 % (30-34); Mean Corpuscular Volume 99 fl (79-97); Platelet Count 285 K/mm3 (140-440); Red Blood Count 3.21 M/mm3 (3.65-5.03); Red Cell Distribution Width 19.3 % (13.2-15.2)
[2018-10-02 05:23] LABS: Hemoglobin 10.3 gm/dl (10.1-14.3)
[2018-10-02 05:31] LABS: BUN/Creatinine Ratio 27; Blood Urea Nitrogen 30 mg/dL (7-17); Calcium 10.9 mg/dL (8.4-10.2); Hemolysis Index 11
--- NOTE | 2018-10-02 07:46 | Consultation ---
History of Present Illness - Reason for Consult Consult date: 10/02/18 sepsis, recent Pseudomonas bacteremia Requesting physician: ALYCIA VALENCIA - History of Present Illness 48 y/o female well known to ID service with history of chronic encephalopathy due to traumatic brain injury, dysphagia s/p PEG and bilateral nephrostomy tubes with kidney stones, intra-abdominal collection, chronic rectovesical fistula, multiple admission under different medical records numbers, recently seen with complicated UTI with bilateral nephrostomy tubes and kidney stones due to Pseudomonas and VRE with right-sided nephrostomy tube dislodgment and left-sided nephrostomy tube with some jordi-tract drainage. Patient taken to the OR on 08/27/2018 underwent Fl-guided right SHUTTLE FINAL INSPECTOR tube insertion and left NT exchange. Urine culture from right SHUTTLE FINAL INSPECTOR tube 08/27/2018 Pseudomonas and VRE. S/p nephrostogram and nephrostomy tube exchange of bilateral nephrostomy tubes 09/06/[address] Newell. Patient found to have a intraabdominal collection which was drained (no records of this in the chart). 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 Readmitted on 09/30/2018 due to 24 hour history of fever and SOB at longterm. Patient is currently intubated on the vent unable to provide a history. In the ED, temp 101, HR 135, R14, BP 182/88. WBC 14.2. Creat 1.4. UA shows wbc 154, large LE. CXR persistent right infiltrates. Blood culture 09/30/2018 no growth so far. Tracheal asp no growth so far. Patient was intubated in the ED. Review of Systems: unable to obtain intubated Medications and Allergies Allergies Allergy/AdvReac Type Severity Reaction Status Date / Time No Known Allergies Allergy Unverified 08/26/18 14:14 Home Medications Medication Instructions Recorded Confirmed Last Taken Type Lipase/Protease/Amylase [Pancreaze 1 each FEEDTUBE PRN PRN capsule 09/10/18 09/30/18 Unknown Rx 10,500 Unit] Simple Syrup 15 ml FEEDTUBE PRN PRN oral.liqd 09/10/18 09/30/18 Unknown Rx Simple Syrup 30 ml FEEDTUBE PRN PRN oral.liqd 09/10/18 09/30/18 Unknown Rx Amantadine 100 mg FEEDTUBE DAILY 09/30/18 09/30/18 Unknown History Baclofen 10 mg FEEDTUBE BID 09/30/18 09/30/18 Unknown History Bisacodyl 10 mg [place] DAILY 09/30/18 09/30/18 Unknown History Cholecalciferol (Vitamin D3) 5,000 unit FEEDTUBE DAILY 09/30/18 09/30/18 Unknown History Colace CAP 100 mg FEEDTUBE BID 09/30/18 09/30/18 Unknown History Famotidine 20 mg FEEDTUBE BID 09/30/18 09/30/18 Unknown History Fentanyl 25 mcg TRANSDERMA Q72H 09/30/18 09/30/18 Unknown History Ferrous Sulfate 325 mg FEEDTUBE TID 09/30/18 09/30/18 Unknown History Glycopyrrolate 1 mg FEEDTUBE TID 09/30/18 09/30/18 Unknown History Lactulose 30 ml FEEDTUBE BID 09/30/18 09/30/18 Unknown History Lexapro 30 mg FEEDTUBE DAILY 09/30/18 09/30/18 Unknown History Magnesium Oxide 400 400 mg FEEDTUBE DAILY 09/30/18 09/30/18 Unknown History Meropenem 1 gm IV Q8H 09/30/18 09/30/18 Unknown History Methylphenidate 10 mg FEEDTUBE BID 09/30/18 09/30/18 Unknown History Metoclopramide HCl 10 mg FEEDTUBE Q8H 09/30/18 09/30/18 Unknown History [place] 5-325 mg TAB 5 mg FEEDTUBE Q6H PRN 09/30/18 09/30/18 Unknown History Polyethylene Glycol 3350 17 gram FEEDTUBE BID 09/30/18 09/30/18 Unknown History Scopolamine 1.5 mg TRANSDERMA Q72H 09/30/18 09/30/18 Unknown History Active Meds: Active Medications Acetaminophen (Tylenol) 650 mg IA Q4H PRN PRN Reason: Fever >101 Lipase/Protease/Amylase (Bertha Dr 10,500 Unit) 1 each FEEDTUBE PRN PRN PRN Reason: For Clogged Feeding Tube Dextrose (D50w (25gm) Syringe) 50 ml IV PRN PRN PRN Reason: Hypoglycemia Famotidine (Pepcid) 20 mg IV BID [facility] Last Admin: 10/01/18 21:27 Dose: 20 mg Documented by: Heparin Sodium (Porcine) (Heparin) 5,000 unit SUB-Q Q12HR ANU Last Admin: 10/01/18 21:27 Dose: 5,000 unit Documented by: Hydrophilic Ointment (Vaseline Lip Therapy) 1 applic TP Q2HR PRN PRN Reason: Dry Lips Propofol (Diprivan 10 Mg/Ml) 1,000 mg in 100 mls @ 1.569 mls/hr IV TITR [facility]; Protocol Last Titration: 10/01/18 11:44 Dose: 0 mcg/kg/min, 0 mls/hr Documented by: Vancomycin HCl 750 mg/ Sodium (Chloride) 265 mls @ 166.667 mls/hr IV Q24H [facility] Last Admin: 10/01/18 23:26 Dose: 166.667 mls/hr Documented by: Meropenem (Merrem/Ns 500 Mg/50 Ml) 500 mg in 50 mls @ 50 mls/hr IV Q6HR [facility] Last Admin: 10/02/18 05:15 Dose: 50 mls/hr Documented by: Dextrose (D5w) 1,000 mls @ 100 mls/hr IV DIRECT ANU Last Admin: 10/01/18 20:15 Dose: 100 mls/hr Documented by: Insulin Human Regular (Humulin R) 0 units SUB-Q Q6HR [facility]; Protocol Last Admin: 10/02/18 05:23 Dose: Not Given Documented by: Multi-Ingred Cream/Lotion/Oil/Oint (Artificial Tears Ophth Oint) 1 applic OU Q4HR PRN PRN Reason: Dry Eye(s) Ondansetron HCl (Zofran) 4 mg IV Q8H PRN PRN Reason: Nausea And Vomiting Scopolamine (Transderm-Scop) 1 each TD Q3D [facility] Last Admin: 10/02/18 04:07 Dose: 1 each Documented by: Simple Syrup (Simple Syrup) 15 ml FEEDTUBE PRN PRN PRN Reason: Hypoglycemia Simple Syrup (Simple Syrup) 30 ml FEEDTUBE PRN PRN PRN Reason: Hypoglycemia Sodium Bicarbonate (Sodium Bicarbonate) 325 mg FEEDTUBE PRN PRN PRN Reason: For Clogged Feeding Tube Physical Examination - Physical Exam Narrative exam: General appearance: sedated on the vent Eyes: anicteric sclerae, moist conjunctivae; no lid-lag; PERRLA HENT: Atraumatic; oropharynx limited ETT Neck: supple Lungs: CTA, with normal respiratory effort and no intercostal retractions CV: RRR Abdomen: Soft, non-tender;PEG Extremities: cachetic Skin: No rash. Midchest scar. Psych:no agitated Neuro: sedated - Constitutional Vitals: Vital Signs Temp Pulse Resp BP Pulse Ox 98.4 F 62 16 123/68 100 10/02/18 04:00 10/02/18 07:00 10/02/18 07:00 10/02/18 07:00 10/02/18 07:00 Temperature -Last 24 Hours Temperature 98.4 F Temperature 98.3 F Temperature 98.8 F Temperature 97.8 F Temperature 98.1 F Temperature 97.3 F Results - Labs CBC & Chem 7: 10/02/18 04:45 10/02/18 04:45 Labs: Abnormal lab results 10/01/18 10/02/18 10/02/18 Range/Units 08:15 04:29 04:45 RBC (3.65-5.03) M/mm3 MCV (79-97) fl RDW (13.2-15.2) % POC ABG pO2 124 H (80-105) Sodium 158 H 148 H D (137-145) mmol/L Potassium 3.3 L (3.6-5.0) mmol/L Chloride 122.9 H 114.8 H (98-107) mmol/L BUN 45 H 30 H (7-17) mg/dL Glucose 105 H (65-100) mg/dL Calcium 11.4 H 10.9 H (8.4-10.2) mg/dL 10/02/18 Range/Units 04:45 RBC 3.21 L (3.65-5.03) M/mm3 MCV 99 H (79-97) fl RDW 19.3 H (13.2-15.2) % POC ABG pO2 (80-105) Sodium (137-145) mmol/L Potassium (3.6-5.0) mmol/L Chloride (98-107) mmol/L BUN (7-17) mg/dL Glucose (65-100) mg/dL Calcium (8.4-10.2) mg/dL Assessment and Plan Assessment: 48 y/o female well known to ID service with history of chronic encephalopathy due to traumatic brain injury, dysphagia s/p PEG and bilateral nephrostomy tubes with kidney stones, intrabdominal colection, chronic rectovesical fistula, multiple admission under different medical records numbers, recently with 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 Readmitted on 09/30/2018 due to 24 hour history of fever and SOB at longterm: 1) Sepsis: present on admission with fever, tachycardia, elevated lactate; source pneumonia and UTI. Blood culture 09/30/2018 no growth so far. 2) HAP: CXR with persistent right infiltrate. Tracheal asp no growth so far. 3) Complicated UTI with large rectovesical fistula, stones and bilateral SHUTTLE FINAL INSPECTOR tubes. This infection is incurable. Urine culture from right SHUTTLE FINAL INSPECTOR tube 08/27/2018 Pseudomonas and VRE. s/p nephrostogram and nephrostomy tube exchange of bilateral nephrostomy tubes 09/06/[address] Newell. 4) Periumbilical intraabdominal collectio which was drained (no records of this in the chart). Recommendations: contact isolation continue meropenem and vancomycin with PK follow up blood culture this infection is incurable consider hospice care Will follow. Sarah Ojeda MD Infectious Diseases [employer] [facility] ([facility] M [phone] O [phone]
[2018-10-02] MEDS: D5W 1,000 ML IV SCH ×2 (08:46→21:03)
[2018-10-02] MEDS ORDERED: POTASSIUM CHLORIDE FEEDTUBE ONE (09:00)
--- NOTE | 2018-10-02 09:13 | Consultation ---
History of Present Illness - Reason for Consult Consult date: 10/02/18 hypernatremia, other (Hypercalcemia) - History of Present Illness The patient is a 47 YO Female with history significant for Encephalopathy 2/2 TBI, PE, Hypercalcemia, Dysphagia s/p PEG, bilateral nephrostomy tubes and compl icated UTI who presented to [facility] ED on 09/30/2018 with one day h/o fever and SOB at senior living. Patient was intubated in the ED. Unable to get history from patient as she is intubated on the vent and there was no family member at the bedside. In the ED, temp was 101, HR 135, BP 182/88. Labs significant for WBC 14.2. Creat 1.4, Sodium 159 and Calcium >13. CXR persistent right infiltrates. Nephrology was consulted fo evaluation of RUDI and hypercalcemia. Past History Past Medical History: other (TBI, hypercalcemia, PE, PEG, b/l nephrostomy tubes) Medications and Allergies Allergies Allergy/AdvReac Type Severity Reaction Status Date / Time No Known Allergies Allergy Unverified 08/26/18 14:14 Home Medications Medication Instructions Recorded Confirmed Last Taken Type Lipase/Protease/Amylase [Pancreaze 1 each FEEDTUBE PRN PRN capsule 09/10/18 09/30/18 Unknown Rx 10,500 Unit] Simple Syrup 15 ml FEEDTUBE PRN PRN oral.liqd 09/10/18 09/30/18 Unknown Rx Simple Syrup 30 ml FEEDTUBE PRN PRN oral.liqd 09/10/18 09/30/18 Unknown Rx Amantadine 100 mg FEEDTUBE DAILY 09/30/18 09/30/18 Unknown History Baclofen 10 mg FEEDTUBE BID 09/30/18 09/30/18 Unknown History Bisacodyl 10 mg RI DAILY 09/30/18 09/30/18 Unknown History Cholecalciferol (Vitamin D3) 5,000 unit FEEDTUBE DAILY 09/30/18 09/30/18 Unknown History Colace CAP 100 mg FEEDTUBE BID 09/30/18 09/30/18 Unknown History Famotidine 20 mg FEEDTUBE BID 09/30/18 09/30/18 Unknown History Fentanyl 25 mcg TRANSDERMA Q72H 09/30/18 09/30/18 Unknown History Ferrous Sulfate 325 mg FEEDTUBE TID 09/30/18 09/30/18 Unknown History Glycopyrrolate 1 mg FEEDTUBE TID 09/30/18 09/30/18 Unknown History Lactulose 30 ml FEEDTUBE BID 09/30/18 09/30/18 Unknown History Lexapro 30 mg FEEDTUBE DAILY 09/30/18 09/30/18 Unknown History Magnesium Oxide 400 400 mg FEEDTUBE DAILY 09/30/18 09/30/18 Unknown History Meropenem 1 gm IV Q8H 09/30/18 09/30/18 Unknown History Methylphenidate 10 mg FEEDTUBE BID 09/30/18 09/30/18 Unknown History Metoclopramide HCl 10 mg FEEDTUBE Q8H 09/30/18 09/30/18 Unknown History [place] 5-325 mg TAB 5 mg FEEDTUBE Q6H PRN 09/30/18 09/30/18 Unknown History Polyethylene Glycol 3350 17 gram FEEDTUBE BID 09/30/18 09/30/18 Unknown History Scopolamine 1.5 mg TRANSDERMA Q72H 09/30/18 09/30/18 Unknown History Active Meds: Active Medications Acetaminophen (Tylenol) 650 mg RI Q4H PRN PRN Reason: Fever >101 Lipase/Protease/Amylase (Pancreaze Dr 10,500 Unit) 1 each FEEDTUBE PRN PRN PRN Reason: For Clogged Feeding Tube Dextrose (D50w (25gm) Syringe) 50 ml IV PRN PRN PRN Reason: Hypoglycemia Famotidine (Pepcid) 20 mg IV BID [facility] Last Admin: 10/01/18 21:27 Dose: 20 mg Documented by: Heparin Sodium (Porcine) (Heparin) 5,000 unit SUB-Q Q12HR ANU Last Admin: 10/01/18 21:27 Dose: 5,000 unit Documented by: Hydrophilic Ointment (Vaseline Lip Therapy) 1 applic TP Q2HR PRN PRN Reason: Dry Lips Propofol (Diprivan 10 Mg/Ml) 1,000 mg in 100 mls @ 1.569 mls/hr IV TITR [facility]; Protocol Last Titration: 10/01/18 11:44 Dose: 0 mcg/kg/min, 0 mls/hr Documented by: Vancomycin HCl 750 mg/ Sodium (Chloride) 265 mls @ 166.667 mls/hr IV Q24H [facility] Last Admin: 10/01/18 23:26 Dose: 166.667 mls/hr Documented by: Meropenem (Merrem/Ns 500 Mg/50 Ml) 500 mg in 50 mls @ 50 mls/hr IV Q6HR [facility] Last Admin: 10/02/18 05:15 Dose: 50 mls/hr Documented by: Dextrose (D5w) 1,000 mls @ 100 mls/hr IV DIRECT [facility] Last Admin: 10/02/18 08:46 Dose: 100 mls/hr Documented by: Insulin Human Regular (Humulin R) 0 units SUB-Q Q6HR [facility]; Protocol Last Admin: 10/02/18 05:23 Dose: Not Given Documented by: Multi-Ingred Cream/Lotion/Oil/Oint (Artificial Tears Ophth Oint) 1 applic OU Q4HR PRN PRN Reason: Dry Eye(s) Ondansetron HCl (Zofran) 4 mg IV Q8H PRN PRN Reason: Nausea And Vomiting Scopolamine (Transderm-Scop) 1 each TD Q3D [facility] Last Admin: 10/02/18 04:07 Dose: 1 each Documented by: Simple Syrup (Simple Syrup) 15 ml FEEDTUBE PRN PRN PRN Reason: Hypoglycemia Simple Syrup (Simple Syrup) 30 ml FEEDTUBE PRN PRN PRN Reason: Hypoglycemia Sodium Bicarbonate (Sodium Bicarbonate) 325 mg FEEDTUBE PRN PRN PRN Reason: For Clogged Feeding Tube Review of Systems ROS unobtainable: due to endotracheal tube Exam - Vital Signs Vital signs: Vital Signs Pulse Resp Pulse Ox 135 H 14 100 09/30/18 19:42 09/30/18 19:42 09/30/18 19:42 - General Appearance General appearance: well-developed, appears stated age, intubated, other (on vent) EENT: ATNC, PERRL Neck: Present: neck supple, trachea midline Respiratory: Clear to Ascultation Heart: regular, S1S2, no murmurs Gastrointestinal: Present: normoactive bowel sounds, other (PEG tube noted, b/l nephrostomy tubes noted) Integumentary: no rash, warm and dry Neurologic: other (opens eyes) Musculoskeletal: Present: other (no edema) Results - Lab Results 10/02/18 04:45 10/02/18 04:45 Most recent lab results Calcium 10.9 mg/dL (8.4-10.2) H 10/02/18 04:45 Assessment and Plan 1. Hypercalcemia: Likely from combination of volume depletion and immobilization. Continue IV fluids to correct volume depletion. Calcium level is better but remains high. Workup was negative during the prior admission. 2. Acute kidney injury: Vasomotor RUDI in the setting of volume depletion. Renal function is improving. Monitor renal function. Avoid nephrotoxic agents. 3. FEN: Hypernatremia, improving with IV D5W. Metabolic alkalosis, improving. Replete K. Monitor lytes. 4. Sepsis: UTI. Followed by ID. 5. Respiratory failure: On vent. 6. H/o Bilateral PE: Eliquis. 7. 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
[2018-10-02] MEDS: HEPARIN SUB-Q SCH ×2 (09:27→21:03)
[2018-10-02] MEDS: PEPCID IV SCH ×2 (09:27→21:03)
--- NOTE | 2018-10-02 11:47 | Progress Note ---
Assessment and Plan 10/01 on vent septic on abx Will check old records monitor cont vent support at this point 10/02 Extubated stable pulm pastrana continue current mgmt cc time 31min Subjective Date of service: 10/02/18 Principal diagnosis: sepsis, resp fail Interval history: 10/02 Weaned to cpap this am and sucessfully extubated Stable vs On tube feed abx arousable May be close to functional baseline Objective Vital Signs - 12hr 10/02/18 10/02/18 10/02/18 00:00 00:08 00:09 Temperature Pulse Rate 69 70 69 Pulse Rate [ 66 From Monitor] Respiratory 18 17 Rate Blood Pressure 120/69 120/69 120/69 O2 Sat by Pulse 100 100 100 Oximetry 10/02/18 10/02/18 10/02/18 01:00 02:00 03:00 Temperature Pulse Rate 67 70 63 Pulse Rate [ From Monitor] Respiratory 16 16 16 Rate Blood Pressure 126/74 112/65 122/65 O2 Sat by Pulse 100 100 100 Oximetry 10/02/18 10/02/18 10/02/18 04:00 04:25 05:00 Temperature 98.4 F Pulse Rate 63 64 62 Pulse Rate [ 61 From Monitor] Respiratory 21 16 Rate Blood Pressure 122/69 122/69 123/67 O2 Sat by Pulse 100 100 100 Oximetry 10/02/18 10/02/18 10/02/18 06:00 07:00 08:00 Temperature 97.9 F Pulse Rate 64 62 73 Pulse Rate [ 77 From Monitor] Respiratory 15 16 16 Rate Blood Pressure 123/69 123/68 129/75 O2 Sat by Pulse 100 100 100 Oximetry 10/02/18 10/02/18 10/02/18 08:10 09:00 10:00 Temperature Pulse Rate 70 75 71 Pulse Rate [ From Monitor] Respiratory 14 14 Rate Blood Pressure 123/68 118/68 122/72 O2 Sat by Pulse 100 100 100 Oximetry 10/02/18 10/02/18 10:29 11:00 Temperature Pulse Rate 82 Pulse Rate [ From Monitor] Respiratory 14 Rate Blood Pressure 124/65 O2 Sat by Pulse 98 100 Oximetry Constitutional: no acute distress, other (non verbal) Effort: normal, other (on vent ) Ascultation: Bilateral: diminished breath sounds Cardiovascular: regular rate and rhythm Gastrointestinal: hypoactive bowel sounds Neurologic: non-focal exam, unable to assess CBC and BMP: 10/02/18 04:45 10/02/18 04:45 ABG, PT/INR, D-dimer: ABG POC ABG pH 7.379 (7.35-7.45) 10/02/18 04:29 POC ABG pCO2 38.9 (35-45) 10/02/18 04:29 POC ABG pO2 124 (80-105) H 10/02/18 04:29 POC ABG HCO3 22.9 (22-26 mml/L) 10/02/18 04:29 POC ABG Total CO2 24 (23-27mmol/L) 10/02/18 04:29 POC ABG O2 Sat 99 10/02/18 04:29 PT/INR, D-dimer PT 13.3 Sec. (12.2-14.9) 09/30/18 20:16 INR 1.04 (0.87-1.13) 09/30/18 20:16 Abnormal lab findings: Abnormal Labs 09/30/18 09/30/18 09/30/18 20:16 20:16 20:16 WBC 14.2 H RBC MCV RDW 19.8 H [place] # 1.0 H Baso # 0.2 H Seg Neutrophils # 9.5 H POC ABG pH POC ABG pO2 VBG pH Sodium 159 H Potassium Chloride 113.7 H Carbon Dioxide 32 H BUN 56 H Creatinine 1.4 H Glucose 110 H Lactic Acid 2.40 H* Calcium > 13.0 H* Alkaline Phosphatase 139 H Total Protein 10.0 H Urine pH Urine WBC (Auto) 09/30/18 09/30/18 09/30/18 20:16 21:02 21:40 WBC RBC MCV RDW [place] # Baso # Seg Neutrophils # POC ABG pH 7.528 H POC ABG pO2 106 H VBG pH 7.480 H Sodium Potassium Chloride Carbon Dioxide BUN Creatinine Glucose Lactic Acid Calcium Alkaline Phosphatase Total Protein Urine pH 9.0 H Urine WBC (Auto) 154.0 H 10/01/18 10/01/18 10/01/18 02:00 02:00 04:53 WBC RBC MCV RDW [place] # Baso # Seg Neutrophils # POC ABG pH 7.543 H POC ABG pO2 150 H VBG pH Sodium 159 H Potassium 3.4 L D Chloride 122.4 H Carbon Dioxide BUN 48 H Creatinine Glucose 103 H Lactic Acid 2.30 H* Calcium 11.2 H Alkaline Phosphatase Total Protein Urine pH Urine WBC (Auto) 10/01/18 10/02/18 10/02/18 08:15 04:29 04:45 WBC RBC MCV RDW [place] # Baso # Seg Neutrophils # POC ABG pH POC ABG pO2 124 H VBG pH Sodium 158 H 148 H D Potassium 3.3 L Chloride 122.9 H 114.8 H Carbon Dioxide BUN 45 H 30 H Creatinine Glucose 105 H Lactic Acid Calcium 11.4 H 10.9 H Alkaline Phosphatase Total Protein Urine pH Urine WBC (Auto) 10/02/18 04:45 WBC RBC 3.21 L MCV 99 H RDW 19.3 H [place] # Baso # Seg Neutrophils # POC ABG pH POC ABG pO2 VBG pH Sodium Potassium Chloride Carbon Dioxide BUN Creatinine Glucose Lactic Acid Calcium Alkaline Phosphatase Total Protein Urine pH Urine WBC (Auto) Chest x-ray: image reviewed (neg 10/02)
--- NOTE | 2018-10-02 19:27 | Progress Note ---
Assessment and Plan Assessment and plan: The high probability of a clinically significant, sudden or life threatening deterioration of the [] system(s) required my full and direct attention, intervention and personal management. The aggregate critical care time was [] minutes. This time is in addition to time spent performing reported procedures but includes the following: [x] Data Review and interpretation [x] Patient assessment and monitoring of vital signs [x] Documentation [x] Medication orders and management Total Time Spent with Patient (Minutes): 31 min - Patient Problems (1) Hypernatremia Current Visit: Yes Status: Acute Plan to address problem: A sent hypovolemic hypernatremia. Seems to be improvement sodium is decreased from 155-148. (2) Respiratory failure Current Visit: Yes Status: Acute Qualifiers: Chronicity: acute Respiratory failure complication: hypoxia Qualified Code(s): J96.01 - Acute respiratory failure with hypoxia Plan to address problem: Patient presents with acute respiratory failure extubated today. If stable over p.m. would discharged to the regular floor. Patient satting well with just 2 L O2 now. 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 Currently continue contact precautions isolation. Patient on merrrem and vancomyin follow-up culture data. Infectious disease following. (4) UTI (urinary tract infection) Current Visit: Yes Status: Acute Qualifiers: Urinary tract infection type: site unspecified Hematuria presence: with hematuria Qualified Code(s): N39.0 - Urinary tract infection, site not specified; R31.9 - Hematuria, unspecified Plan to address problem: Currently taking IV antibiotics as mentioned above. (5) Pulmonary embolism Current Visit: No Status: Acute Plan to address problem: Will discuss with the [facility]. Patient has been back and forth to the hospital several times. And patient's anticoagulant was not restarted at some point. Patient was not on any anticoagulation at this point. We'll need to co nsider underlying embolism is possible etiologies well. Stable CT scan chest. History Interval history: A shunt remains nonverbal lethargic. Patient was extubated today. Currently vitals and hemodynamically stable. Patient traumatic brain injury 2 weeks present pulmonary embolus on [facility] Physical - Constitutional Vitals: Temp Pulse Resp BP Pulse Ox 98.4 F 79 16 116/66 100 10/02/18 16:00 10/02/18 18:00 10/02/18 18:00 10/02/18 18:00 10/02/18 18:00 General appearance: Present: no acute distress, other ( wheezing. Upper airways.) - EENT Eyes: Present: PERRL, EOM intact ENT: clear oral mucosa, poor dentition, no oropharyngeal erythema, no thrush - Neck Neck: Present: supple, normal ROM, other (history of intubation trach.) - Respiratory Respiratory: bilateral: diminished, rhonchi - Cardiovascular Rhythm: regular Heart Sounds: Present: S1 & S2 - Extremities Extremities: no ischemia, pulses intact, pulses symmetrical, normal temperature, normal color Extremity abnormal: edema, other (generalized weakness. Cognitively unable to reproduce some of the exercises.) Peripheral Pulses: within normal limits - Abdominal General gastrointestinal: soft, tender, hypoactive bowel sounds, no normal bowel sounds - Psychiatric Psychiatric: other (lethargic and encephalopathic.) - Neurologic Neurologic: focal deficits Results - Labs CBC & Chem 7: 10/02/18 04:45 10/02/18 04:45 Labs: Laboratory Last Values WBC 10.8 K/mm3 (4.5-11.0) 10/02/18 04:45 RBC 3.21 M/mm3 (3.65-5.03) L 10/02/18 04:45 Hgb 10.3 gm/dl (10.1-14.3) D 10/02/18 04:45 Hct 31.6 % (30.3-42.9) D 10/02/18 04:45 MCV 99 fl (79-97) H 10/02/18 04:45 MCH 32 pg (28-32) 10/02/18 04:45 MCHC 33 % (30-34) 10/02/18 04:45 RDW 19.3 % (13.2-15.2) H 10/02/18 04:45 Plt Count 285 K/mm3 (140-440) 10/02/18 04:45 Lymph % (Auto) 23.7 % (13.4-35.0) 09/30/18 20:16 Gray % (Auto) 7.3 % (0.0-7.3) 09/30/18 20:16 Eos % (Auto) 0.6 % (0.0-4.3) 09/30/18 20:16 Baso % (Auto) 1.2 % (0.0-1.8) 09/30/18 20:16 Lymph # 3.4 K/mm3 (1.2-5.4) 09/30/18 20:16 Gray # 1.0 K/mm3 (0.0-0.8) H 09/30/18 20:16 Eos # 0.1 K/mm3 (0.0-0.4) 09/30/18 20:16 Baso # 0.2 K/mm3 (0.0-0.1) H 09/30/18 20:16 Seg Neutrophils % 67.2 % (40.0-70.0) 09/30/18 20:16 Seg Neutrophils # 9.5 K/mm3 (1.8-7.7) H 09/30/18 20:16 PT 13.3 Sec. (12.2-14.9) 09/30/18 20:16 INR 1.04 (0.87-1.13) 09/30/18 20:16 POC ABG pH 7.379 (7.35-7.45) 10/02/18 04:29 POC ABG pCO2 38.9 (35-45) 10/02/18 04:29 POC ABG pO2 124 (80-105) H 10/02/18 04:29 POC ABG HCO3 22.9 (22-26 mml/L) 10/02/18 04:29 POC ABG Total CO2 24 (23-27mmol/L) 10/02/18 04:29 POC ABG O2 Sat 99 10/02/18 04:29 POC ABG Base Excess -2 ((-2) - (+3)mmol/L) 10/02/18 04:29 VBG pH 7.480 (7.320-7.420) H 09/30/18 20:16 25 % 10/02/18 04:29 Sodium 148 mmol/L (137-145) H D 10/02/18 04:45 Potassium 3.3 mmol/L (3.6-5.0) L 10/02/18 04:45 Chloride 114.8 mmol/L (98-107) H 10/02/18 04:45 Carbon Dioxide 24 mmol/L (22-30) 10/02/18 04:45 13 mmol/L 10/02/18 04:45 BUN 30 mg/dL (7-17) H 10/02/18 04:45 1.1 mg/dL (0.7-1.2) 10/02/18 04:45 Estimated GFR > 60 ml/min 10/02/18 04:45 27 % 10/02/18 04:45 Glucose 105 mg/dL (65-100) H 10/02/18 04:45 POC Glucose 92 (70-105) 10/02/18 18:18 Lactic Acid 1.50 mmol/L (0.7-2.0) 10/01/18 08:15 Calcium 10.9 mg/dL (8.4-10.2) H 10/02/18 04:45 0.30 mg/dL (0.1-1.2) 09/30/18 20:16 AST 36 units/L (5-40) 09/30/18 20:16 ALT 32 units/L (7-56) 09/30/18 20:16 139 units/L (35-129) H 09/30/18 20:16 10.0 g/dL (6.3-8.2) H 09/30/18 20:16 3.9 g/dL (3.9-5) 09/30/18 20:16 0.6 % 09/30/18 20:16 Triglycerides 145 mg/dL (2-149) 10/02/18 04:45 Yellow (Yellow) 09/30/18 21:40 Cloudy (Clear) 09/30/18 21:40 9.0 (5.0-7.0) H 09/30/18 21:40 Ur Specific [place] 1.015 (1.003-1.030) 09/30/18 21:40 100 mg/dl mg/dL (Negative) 09/30/18 21:40 Neg mg/dL (Negative) 09/30/18 21:40 Neg mg/dL (Negative) 09/30/18 21:40 Lg (Negative) 09/30/18 21:40 Neg (Negative) 09/30/18 21:40 Neg (Negative) 09/30/18 21:40 < 2.0 mg/dL (<2.0) 09/30/18 21:40 Ur Leukocyte Esterase Lg (Negative) 09/30/18 21:40 154.0 /HPF (0.0-6.0) H 09/30/18 21:40 > 182.0 /HPF (0.0-6.0) 09/30/18 21:40 U Epithel Cells (Auto) < 1.0 /HPF (0-13.0) 09/30/18 21:40 Ur Yeast w Hyphae Few /HPF 09/30/18 21:40 2+ /HPF 09/30/18 21:40 - Imaging and Cardiology Chest x-ray: report reviewed (echo), image reviewed Active Medications - Current Medications Current Medications: Generic Name Dose Route Start Last Admin Trade Name Freq PRN Reason Stop Dose Admin Acetaminophen 650 mg 10/01/18 04:45 Tylenol [place] Q4H PRN Fever >101 Lipase/Protease/Amylase 1 each 10/01/18 15:[address] 10,500 Unit FEEDTUBE PRN PRN For Clogged Feeding Tube Dextrose 50 ml 09/30/18 23:32 D50w (25gm) Syringe IV PRN PRN Hypoglycemia Famotidine 20 mg 10/01/18 10:00 10/02/18 09:27 Pepcid IV 20 mg BID ANU Administration Heparin Sodium (Porcine) 5,000 unit 09/30/18 23:30 10/02/18 09:27 Heparin SUB-Q 5,000 unit Q12HR ANU Administration Hydrophilic Ointment 1 applic 09/30/18 19:53 Vaseline Lip Therapy TP Q2HR PRN Dry Lips Propofol 1,000 mg in 100 mls @ 1.569 mls/hr 09/30/18 20:00 10/01/18 11:44 Diprivan 10 Mg/Ml IV 0 mcg/kg/min TITR ANU 0 mls/hr Titration Protocol 5 MCG/KG/MIN Vancomycin HCl 750 mg/ Sodium 265 mls @ 166.667 mls/hr 10/02/18 00:00 10/01/18 23:26 Chloride IV 166.667 mls/hr Q24H ANU Administration Meropenem 500 mg in 50 mls @ 50 mls/hr 10/01/18 13:00 10/02/18 18:48 Merrem/Ns 500 Mg/50 Ml IV 50 mls/hr Q6HR ANU Administration Dextrose 1,000 mls @ 100 mls/hr 10/01/18 20:00 10/02/18 08:46 D5w IV 100 mls/hr DIRECT ANU Administration Insulin Human Regular 0 units 10/01/18 18:00 10/02/18 18:23 Humulin R SUB-Q Not Given Q6HR ANU Protocol Multi-Ingred Cream/Lotion/Oil/Oint 1 applic 09/30/18 19:53 Artificial Tears Ophth Oint OU Q4HR PRN Dry Eye(s) Ondansetron HCl 4 mg 09/30/18 23:29 Zofran IV Q8H PRN Nausea And Vomiting Scopolamine 1 each 10/02/18 02:00 10/02/18 04:07 Transderm-Scop TD 1 each Q3D ANU Administration Simple Syrup 15 ml 10/01/18 15:58 Simple Syrup FEEDTUBE PRN PRN Hypoglycemia Simple Syrup 30 ml 10/01/18 15:58 Simple Syrup FEEDTUBE PRN PRN Hypoglycemia Sodium Bicarbonate 325 mg 10/01/18 15:58 Sodium Bicarbonate FEEDTUBE PRN PRN For Clogged Feeding Tube Nutrition/Malnutrition Assess - Dietary Evaluation Nutrition/Malnutrition Findings: Nutrition Notes Start: 10/01/18 15:44 Freq: Status: Active Protocol: Document 10/01/18 15:45 RM (Rec: 10/01/18 15:58 RM [id number]) Nutrition Notes Need for Assessment generated from: MD Order Initial or Follow up Assessment Current Diagnosis Diabetes,Hypertension Other Pertinent Diagnosis AMS, SOB, Hx TBI, PEG, Urosepsis Current Diet No diet ordered Labs/Tests Na 150 Pertinent Medications Reviewed Height 5 ft 1 in Weight 52.2 kg [place] Body Weight (kg) 47.72 BMI 21.7 Subjective/Other Information Consulted for TF recommendation. Screened for skin risk. Pt on vent and from [place]. Burn Absent Trauma Absent #1 Nutrition Diagnosis Inadequate oral intake Etiology Hx TBI As Evidenced by Signs and Symptoms No diet ordered, TF consult Is patient on ventilator? Yes Is Patient Ambulatory and/or Out of Bed No REE-([facility]-confined to bed) 1311.228 Calculation Used for Recommendations [facility] Additional Notes Protein Needs: 63-104g (1.2-2g /kg) Fluid Needs: 1 ml/kcal Nutrition Intervention Nutrition Support: Vital 1.2 at 45 ml/hr Water flush of 200 mls 4 hrs until hypernatremia resolves. Water flush of 100 mls q 4 hrs once hypernatremia resolves. Kcal 1,296 Protein (gm) 81 Fluid (mL) 876 Goal #1 TF tolerance Goal #2 Meet at least 80% of calorie and protein needs via TF Anticipated Discharge Needs: TF Follow-Up By: 10/03/18 Additional Comments Follow for new TF
[2018-10-02] MEDS: VANCOMYCIN 750 MG in NACL 0.9% 250ML 250 ML IV SCH (23:22)
[2018-10-03] MEDS: MERREM/NS 500 MG/50 ML 500 MG/50 ML BAG IV SCH ×3 (00:27→12:39)
[2018-10-03] MEDS: HumuLIN R SUB-Q SCH ×4 (00:38→18:45)
--- NOTE | 2018-10-03 03:06 | XRay Report ---
CHEST 1 VIEW 10/03/2018 2:07 AM INDICATION / CLINICAL INFORMATION: follow up respiratory failure. COMPARISON: One view of the chest from 10/02/2018 FINDINGS: The patient is rotated to the left. SUPPORT DEVICES: The ET tube has been removed. HEART / MEDIASTINUM: No significant abnormality. LUNGS / PLEURA: No significant pulmonary or pleural abnormality. No pneumothorax. ADDITIONAL FINDINGS: No significant additional findings. IMPRESSION: 1. No acute findings. 2. Interval extubation. Signer Name: Yaniv Toribio MD Signed: 10/03/2018 3:02 AM Workstation Name: [employer]
[2018-10-03 05:13] LABS: BUN/Creatinine Ratio 33; Blood Urea Nitrogen 26 mg/dL (7-17); Calcium 10.5 mg/dL (8.4-10.2); Hemolysis Index 9
[2018-10-03] MEDS ORDERED: VANCOMYCIN 750 MG in NACL 0.9% 250ML 250 ML IV SCH (10:00)
[2018-10-03] MEDS: PEPCID PO SCH ×2 (10:15→21:50)
[2018-10-03] MEDS: HEPARIN SUB-Q SCH ×2 (10:16→21:50)
--- NOTE | 2018-10-03 11:03 | Progress Note ---
Assessment and Plan 10/01 on vent septic on abx Will check old records monitor cont vent support at this point 10/02 Extubated stable pulm pasrtana continue current mgmt cc time 31min 10/03 See hosp note Mult problems on abx OK to go to floor Subjective Date of service: 10/03/18 Principal diagnosis: sepsis, resp fail Interval history: 10/02 Weaned to cpap this am and sucessfully extubated Stable vs On tube feed abx arousable May be close to functional baseline 10/03 eyes open non verbal Extubated 24h no resp problems presently Objective Vital Signs - 12hr 10/02/18 10/03/18 10/03/18 23:00 00:00 00:02 Temperature 96.7 F L Pulse Rate 68 74 72 Pulse Rate [ 63 From Monitor] Respiratory 11 L 15 16 Rate Blood Pressure 118/66 96/53 118/66 O2 Sat by Pulse 100 99 100 Oximetry 10/03/18 10/03/18 10/03/18 01:00 02:00 03:00 Temperature Pulse Rate 66 68 69 Pulse Rate [ From Monitor] Respiratory 15 17 13 Rate Blood Pressure 113/65 116/66 104/59 O2 Sat by Pulse 100 99 100 Oximetry 10/03/18 10/03/18 10/03/18 04:00 05:00 06:00 Temperature 97.5 F L Pulse Rate 73 63 67 Pulse Rate [ 64 From Monitor] Respiratory 11 L 11 L 15 Rate Blood Pressure 104/59 117/67 111/61 O2 Sat by Pulse 100 100 99 Oximetry 10/03/18 10/03/18 07:00 08:26 Temperature Pulse Rate 67 Pulse Rate [ From Monitor] Respiratory 14 Rate Blood Pressure 104/66 O2 Sat by Pulse 100 100 Oximetry Constitutional: no acute distress, other (non verbal) Eyes: non-icteric Neck: other (healed trach scar ) Effort: normal, other (on vent ) Ascultation: Bilateral: diminished breath sounds Cardiovascular: regular rate and rhythm Gastrointestinal: hypoactive bowel sounds Neurologic: non-focal exam, unable to assess CBC and BMP: 10/02/18 04:45 10/03/18 04:03 ABG, PT/INR, D-dimer: ABG POC ABG pH 7.379 (7.35-7.45) 10/02/18 04:29 POC ABG pCO2 38.9 (35-45) 10/02/18 04:29 POC ABG pO2 124 (80-105) H 10/02/18 04:29 POC ABG HCO3 22.9 (22-26 mml/L) 10/02/18 04:29 POC ABG Total CO2 24 (23-27mmol/L) 10/02/18 04:29 POC ABG O2 Sat 99 10/02/18 04:29 PT/INR, D-dimer PT 13.3 Sec. (12.2-14.9) 09/30/18 20:16 INR 1.04 (0.87-1.13) 09/30/18 20:16 Abnormal lab findings: Abnormal Labs 09/30/18 09/30/18 09/30/18 20:16 20:16 20:16 WBC 14.2 H RBC MCV RDW 19.8 H [place] # 1.0 H Baso # 0.2 H Seg Neutrophils # 9.5 H POC ABG pH POC ABG pO2 VBG pH Sodium 159 H Potassium Chloride 113.7 H Carbon Dioxide 32 H BUN 56 H Creatinine 1.4 H Glucose 110 H Lactic Acid 2.40 H* Calcium > 13.0 H* Alkaline Phosphatase 139 H Total Protein 10.0 H Urine pH Urine WBC (Auto) 09/30/18 09/30/18 09/30/18 20:16 21:02 21:40 WBC RBC MCV RDW [place] # Baso # Seg Neutrophils # POC ABG pH 7.528 H POC ABG pO2 106 H VBG pH 7.480 H Sodium Potassium Chloride Carbon Dioxide BUN Creatinine Glucose Lactic Acid Calcium Alkaline Phosphatase Total Protein Urine pH 9.0 H Urine WBC (Auto) 154.0 H 10/01/18 10/01/18 10/01/18 02:00 02:00 04:53 WBC RBC MCV RDW [place] # Baso # Seg Neutrophils # POC ABG pH 7.543 H POC ABG pO2 150 H VBG pH Sodium 159 H Potassium 3.4 L D Chloride 122.4 H Carbon Dioxide BUN 48 H Creatinine Glucose 103 H Lactic Acid 2.30 H* Calcium 11.2 H Alkaline Phosphatase Total Protein Urine pH Urine WBC (Auto) 10/01/18 10/02/18 10/02/18 08:15 04:29 04:45 WBC RBC MCV RDW [place] # Baso # Seg Neutrophils # POC ABG pH POC ABG pO2 124 H VBG pH Sodium 158 H 148 H D Potassium 3.3 L Chloride 122.9 H 114.8 H Carbon Dioxide BUN 45 H 30 H Creatinine Glucose 105 H Lactic Acid Calcium 11.4 H 10.9 H Alkaline Phosphatase Total Protein Urine pH Urine WBC (Auto) 10/02/18 10/03/18 04:45 04:03 WBC RBC 3.21 L MCV 99 H RDW 19.3 H [place] # Baso # Seg Neutrophils # POC ABG pH POC ABG pO2 VBG pH Sodium Potassium 3.5 L Chloride 108.6 H Carbon Dioxide BUN 26 H Creatinine Glucose Lactic Acid Calcium 10.5 H Alkaline Phosphatase Total Protein Urine pH Urine WBC (Auto)
--- NOTE | 2018-10-03 11:50 | Progress Note ---
Assessment and Plan 1. Hypercalcemia: Likely from combination of volume depletion and immobilization. Continue IV fluids. Calcium level is improving. Workup was negative during the prior admission. 2. Acute kidney injury: Vasomotor RUDI in the setting of volume depletion. Renal function is improving. Monitor renal function. Avoid nephrotoxic agents. 3. FEN: Hypernatremia, improving with IV D5W. Metabolic alkalosis, improving. Replete K. Monitor lytes. 4. Sepsis: UTI. Followed by ID. 5. Respiratory failure: S/p extubated. 6. H/o Bilateral PE. 7. 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 Subjective Date of service: 10/03/18 Principal diagnosis: sepsis, resp fail Interval history: Patient was seen and examined at the bedside. Objective - Vital Signs Vital signs: Vital Signs - 12hr 10/03/18 10/03/18 10/03/18 00:00 00:02 01:00 Temperature 96.7 F L Pulse Rate 74 72 66 Pulse Rate [ 63 From Monitor] Respiratory 15 16 15 Rate Blood Pressure 96/53 118/66 113/65 O2 Sat by Pulse 99 100 100 Oximetry 10/03/18 10/03/18 10/03/18 02:00 03:00 04:00 Temperature 97.5 F L Pulse Rate 68 69 73 Pulse Rate [ 64 From Monitor] Respiratory 17 13 11 L Rate Blood Pressure 116/66 104/59 104/59 O2 Sat by Pulse 99 100 100 Oximetry 10/03/18 10/03/18 10/03/18 05:00 06:00 07:00 Temperature Pulse Rate 63 67 67 Pulse Rate [ From Monitor] Respiratory 11 L 15 14 Rate Blood Pressure 117/67 111/61 104/66 O2 Sat by Pulse 100 99 100 Oximetry 10/03/18 08:26 Temperature Pulse Rate Pulse Rate [ From Monitor] Respiratory Rate Blood Pressure O2 Sat by Pulse 100 Oximetry - General Appearance General appearance: well-developed, appears stated age, other (not in distress) EENT: ATNC, PERRL Neck: other (Trachea midline) Respiratory: Present: Clear to Ascultation Cardiology: regular, S1S2, no murmurs Gastrointestinal: normoactive bowel sounds, no tenderness, no distended, other (PEG tube, bilateral nephrostomy tubes noted) Integumentary: no rash Neurologic: other (non-verbal, not following any command) Musculoskeletal: other (no edema) - Lab 10/02/18 04:45 10/03/18 04:03 Most recent lab results Calcium 10.5 mg/dL (8.4-10.2) H 10/03/18 04:03 Phosphorus 3.30 mg/dL (2.5-4.5) 10/03/18 04:03 Magnesium 2.00 mg/dL (1.7-2.3) 10/03/18 04:03 Medications & Allergies - Medications Allergies/Adverse Reactions: Allergies No Known Allergies Allergy (Unverified 08/26/18 14:14) Home Medications: Home Medications Medication Instructions Recorded Confirmed Last Taken Type Lipase/Protease/Amylase [Pancreaze 1 each FEEDTUBE PRN PRN capsule 09/10/18 09/30/18 Unknown Rx 10,500 Unit] Simple Syrup 15 ml FEEDTUBE PRN PRN oral.liqd 09/10/18 09/30/18 Unknown Rx Simple Syrup 30 ml FEEDTUBE PRN PRN oral.liqd 09/10/18 09/30/18 Unknown Rx Amantadine 100 mg FEEDTUBE DAILY 09/30/18 09/30/18 Unknown History Baclofen 10 mg FEEDTUBE BID 09/30/18 09/30/18 Unknown History Bisacodyl 10 mg MA DAILY 09/30/18 09/30/18 Unknown History Cholecalciferol (Vitamin D3) 5,000 unit FEEDTUBE DAILY 09/30/18 09/30/18 Unknown History Colace CAP 100 mg FEEDTUBE BID 09/30/18 09/30/18 Unknown History Famotidine 20 mg FEEDTUBE BID 09/30/18 09/30/18 Unknown History Fentanyl 25 mcg TRANSDERMA Q72H 09/30/18 09/30/18 Unknown History Ferrous Sulfate 325 mg FEEDTUBE TID 09/30/18 09/30/18 Unknown History Glycopyrrolate 1 mg FEEDTUBE TID 09/30/18 09/30/18 Unknown History Lactulose 30 ml FEEDTUBE BID 09/30/18 09/30/18 Unknown History Lexapro 30 mg FEEDTUBE DAILY 09/30/18 09/30/18 Unknown History Magnesium Oxide 400 400 mg FEEDTUBE DAILY 09/30/18 09/30/18 Unknown History Meropenem 1 gm IV Q8H 09/30/18 09/30/18 Unknown History Methylphenidate 10 mg FEEDTUBE BID 09/30/18 09/30/18 Unknown History Metoclopramide HCl 10 mg FEEDTUBE Q8H 09/30/18 09/30/18 Unknown History [place] 5-325 mg TAB 5 mg FEEDTUBE Q6H PRN 09/30/18 09/30/18 Unknown History Polyethylene Glycol 3350 17 gram FEEDTUBE BID 09/30/18 09/30/18 Unknown History Scopolamine 1.5 mg TRANSDERMA Q72H 09/30/18 09/30/18 Unknown History Active Medications: Generic Name Dose Route Start Last Admin Trade Name Freq PRN Reason Stop Dose Admin Acetaminophen 650 mg 10/01/18 04:45 Tylenol [place] Q4H PRN Fever >101 Lipase/Protease/Amylase 1 each 10/01/18 15:58 Pancreaze 10,500 Unit FEEDTUBE PRN PRN For Clogged Feeding Tube Dextrose 50 ml 09/30/18 23:32 D50w (25gm) Syringe IV PRN PRN Hypoglycemia Famotidine 20 mg 10/03/18 10:00 10/03/18 10:15 Pepcid PO 20 mg BID ANU Administration Heparin Sodium (Porcine) 5,000 unit 09/30/18 23:30 10/03/18 10:16 Heparin SUB-Q 5,000 unit Q12HR ANU Administration Hydrophilic Ointment 1 applic 09/30/18 19:53 Vaseline Lip Therapy TP Q2HR PRN Dry Lips Meropenem 500 mg in 50 mls @ 50 mls/hr 10/01/18 13:00 10/03/18 05:11 Merrem/Ns 500 Mg/50 Ml IV 50 mls/hr Q6HR ANU Administration Vancomycin HCl 750 mg/ Sodium 265 mls @ 166.667 mls/hr 10/03/18 10:00 10/03/18 11:03 Chloride IV 166.667 mls/hr Q12HR ANU Administration Insulin Human Regular 0 units 10/01/18 18:00 10/03/18 06:13 Humulin R SUB-Q Not Given Q6HR [facility] Protocol Multi-Ingred Cream/Lotion/Oil/Oint 1 applic 09/30/18 19:53 Artificial Tears Ophth Oint OU Q4HR PRN Dry Eye(s) Ondansetron HCl 4 mg 09/30/18 23:29 Zofran IV Q8H PRN Nausea And Vomiting Scopolamine 1 each 10/02/18 02:00 10/02/18 04:07 Transderm-Scop TD 1 each Q3D ANU Administration Simple Syrup 15 ml 10/01/18 15:58 Simple Syrup FEEDTUBE PRN PRN Hypoglycemia Simple Syrup 30 ml 10/01/18 15:58 Simple Syrup FEEDTUBE PRN PRN Hypoglycemia Sodium Bicarbonate 325 mg 10/01/18 15:58 Sodium Bicarbonate FEEDTUBE PRN PRN For Clogged Feeding Tube
[2018-10-03] MEDS ORDERED: POTASSIUM CHLORIDE FEEDTUBE ONE (13:00)
[2018-10-03] MEDS: TYLENOL PR PRN (14:06)
--- NOTE | 2018-10-03 15:09 | Progress Note ---
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 Readmitted on 09/30/2018 due to 24 hour history of fever and SOB at [facility]: 1) Sepsis: off pressors now, no fever, wbc back to normal; source pneumonia and UTI. Blood culture 09/30/2018 no growth so far. 2) HAP: CXR with persistent right infiltrate. Tracheal asp poor specimen 3) Complicated UTI with large rectovesical fistula, stones and bilateral LOSS PREVENTION GUARD tubes. This infection is incurable. Urine culture from right LOSS PREVENTION GUARD tube 08/27/2018 Pseudomonas and VRE. s/p nephrostogram and nephrostomy tube exchange of bilateral nephrostomy tubes 09/06/[address] Newell. 4) Periumbilical intraabdominal collectio which was drained (no records of this in the chart). Recommendations: contact isolation stop meropenem and vancomycin with PK start cefepime for now follow up blood culture this infection is incurable consider hospice care Dr Garland covering next 4 days. Will follow. Sarah Ojeda MD Infectious Diseases Repeater [facility] [phone] O [phone] Subjective Date of service: 10/03/18 Principal diagnosis: sepsis, resp fail Interval history: Now extubated, awake but non verbal, no fever, off pressors. Objective - Exam Narrative Exam: General appearance: awake no follows commands, debilitated Eyes: anicteric sclerae, moist conjunctivae; no lid-lag; PERRLA HENT: Atraumatic; oropharynx limited ETT Neck: supple Lungs: CTA CV: RRR Abdomen: Soft, non-tender; PEG Extremities: cachetic Skin: No rash. Midchest scar. Psych:no agitated Neuro: awake - Constitutional Vitals: Vital Signs Temp Pulse Resp BP Pulse Ox 97.5 F L 81 13 106/58 100 10/03/18 04:00 10/03/18 11:00 10/03/18 14:06 10/03/18 11:00 10/03/18 11:00 Temperature -Last 24 Hours Temperature 97.5 F Temperature 96.7 F Temperature 97.9 F Temperature 98.4 F - Labs CBC & Chem 7: 10/02/18 04:45 10/03/18 04:03 Labs: Abnormal lab results 10/03/18 Range/Units 04:03 Potassium 3.5 L (3.6-5.0) mmol/L Chloride 108.6 H (98-107) mmol/L BUN 26 H (7-17) mg/dL Calcium 10.5 H (8.4-10.2) mg/dL
[2018-10-03] MEDS: MAXIPIME/NS 2 GM/100 ML 2 GM/100 ML BAG IV SCH ×2 (17:33→21:50)
--- NOTE | 2018-10-03 18:32 | Progress Note ---
Assessment and Plan Assessment and plan: The high probability of a clinically significant, sudden or life threatening deterioration of the [] system(s) required my full and direct attention, intervention and personal management. The aggregate critical care time was [] minutes. This time is in addition to time spent performing reported procedures but includes the following: [x] Data Review and interpretation [x] Patient assessment and monitoring of vital signs [x] Documentation [x] Medication orders and management - Patient Problems (1) Hypernatremia Current Visit: Yes Status: Acute Plan to address problem: A sent hypovolemic hypernatremia. Seems to be improvement sodium is decreased from 155-148. Sodium has corrected to 144. (2) Respiratory failure Current Visit: Yes Status: Acute Qualifiers: Chronicity: acute Respiratory failure complication: hypoxia Qualified Code(s): J96.01 - Acute respiratory failure with hypoxia Plan to address problem: Patient presents with acute respiratory failure extubated today. Etiology pneumonia. Currently being treated with cefepime. Vancomycin meropenem discontinued. Patient sats well with just 2 L O2 now. (3) Sepsis Current Visit: Yes Status: Acute Qualifiers: Sepsis type: sepsis due to unspecified organism Qualified Code(s): A41.9 - Sepsis, unspecified organism Plan to address problem: Multifactorial blood cultures show no growth so far both pneumonia and urinary tract infection. Complicated UTI most likely aspiration pneumonia. ID following cefepime started vancomycin and Monopem discontinued. (4) UTI (urinary tract infection) Current Visit: Yes Status: Acute Qualifiers: Urinary tract infection type: site unspecified Hematuria presence: with hematuria Qualified Code(s): N39.0 - Urinary tract infection, site not specified; R31.9 - Hematuria, unspecified Plan to address problem: Currently taking IV antibiotics as mentioned above. (5) Pulmonary embolism Current Visit: No Status: Acute Plan to address problem: Will discuss with the [facility]. Patient has been back and forth to the hospital several times. And patient's anticoagulant was not restarted at some point. Patient was not on any anticoagulation at this point. We'll need to consider underlying embolism is possible etiologies well. Stable CT scan chest. 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 Resolving with electrolytes. (7) Severe malnutrition Current Visit: No Status: Acute History Interval history: Patient with significant improvement today. Patient off pressor support extubated. Stable to transfer to the floor. He remains encephalopathic. This is not new. Appears close to her baseline. Hospitalist Physical - Constitutional Vitals: Temp Pulse Resp BP Pulse Ox 97.5 F L 81 13 106/58 100 10/03/18 04:00 10/03/18 11:00 10/03/18 14:06 10/03/18 11:00 10/03/18 11:00 General appearance: Present: no acute distress, other ( wheezing. Upper airway s.) - EENT Eyes: Present: PERRL, EOM intact ENT: hearing intact, poor dentition, no thrush - Neck Neck: Present: supple, normal ROM - Respiratory Respiratory: right: rhonchi, bilateral: diminished, wheezing - Cardiovascular Rhythm: regular - Extremities Extremities: no ischemia, pulses intact, pulses symmetrical Extremity abnormal: edema Peripheral Pulses: within normal limits - Abdominal General gastrointestinal: soft, non-tender, non-distended, hypoactive bowel sounds - Integumentary Integumentary: Present: clear, warm, dry - Psychiatric Psychiatric: other (encephalopathic at baseline.) - Neurologic Neurologic: focal deficits Results - Labs CBC & Chem 7: 10/02/18 04:45 10/03/18 04:03 Labs: Laboratory Last Values WBC 10.8 K/mm3 (4.5-11.0) 10/02/18 04:45 RBC 3.21 M/mm3 (3.65-5.03) L 10/02/18 04:45 Hgb 10.3 gm/dl (10.1-14.3) D 10/02/18 04:45 Hct 31.6 % (30.3-42.9) D 10/02/18 04:45 MCV 99 fl (79-97) H 10/02/18 04:45 MCH 32 pg (28-32) 10/02/18 04:45 MCHC 33 % (30-34) 10/02/18 04:45 RDW 19.3 % (13.2-15.2) H 10/02/18 04:45 Plt Count 285 K/mm3 (140-440) 10/02/18 04:45 Lymph % (Auto) 23.7 % (13.4-35.0) 09/30/18 20:16 [place] % (Auto) 7.3 % (0.0-7.3) 09/30/18 20:16 Eos % (Auto) 0.6 % (0.0-4.3) 09/30/18 20:16 Baso % (Auto) 1.2 % (0.0-1.8) 09/30/18 20:16 Lymph # 3.4 K/mm3 (1.2-5.4) 09/30/18 20:16 [place] # 1.0 K/mm3 (0.0-0.8) H 09/30/18 20:16 Eos # 0.1 K/mm3 (0.0-0.4) 09/30/18 20:16 Baso # 0.2 K/mm3 (0.0-0.1) H 09/30/18 20:16 Seg Neutrophils % 67.2 % (40.0-70.0) 09/30/18 20:16 Seg Neutrophils # 9.5 K/mm3 (1.8-7.7) H 09/30/18 20:16 PT 13.3 Sec. (12.2-14.9) 09/30/18 20:16 INR 1.04 (0.87-1.13) 09/30/18 20:16 POC ABG pH 7.379 (7.35-7.45) 10/02/18 04:29 POC ABG pCO2 38.9 (35-45) 10/02/18 04:29 POC ABG pO2 124 (80-105) H 10/02/18 04:29 POC ABG HCO3 22.9 (22-26 mml/L) 10/02/18 04:29 POC ABG Total CO2 24 (23-27mmol/L) 10/02/18 04:29 POC ABG O2 Sat 99 10/02/18 04:29 POC ABG Base Excess -2 ((-2) - (+3)mmol/L) 10/02/18 04:29 VBG pH 7.480 (7.320-7.420) H 09/30/18 20:16 25 % 10/02/18 04:29 Sodium 144 mmol/L (137-145) 10/03/18 04:03 Potassium 3.5 mmol/L (3.6-5.0) L 10/03/18 04:03 Chloride 108.6 mmol/L (98-107) H 10/03/18 04:03 Carbon Dioxide 24 mmol/L (22-30) 10/03/18 04:03 15 mmol/L 10/03/18 04:03 BUN 26 mg/dL (7-17) H 10/03/18 04:03 0.8 mg/dL (0.7-1.2) 10/03/18 04:03 Estimated GFR > 60 ml/min 10/03/18 04:03 33 % 10/03/18 04:03 Glucose 91 mg/dL (65-100) 10/03/18 04:03 POC Glucose 87 (70-105) 10/03/18 17:48 Lactic Acid 1.50 mmol/L (0.7-2.0) 10/01/18 08:15 Calcium 10.5 mg/dL (8.4-10.2) H 10/03/18 04:03 Phosphorus 3.30 mg/dL (2.5-4.5) 10/03/18 04:03 Magnesium 2.00 mg/dL (1.7-2.3) 10/03/18 04:03 0.30 mg/dL (0.1-1.2) 09/30/18 20:16 AST 36 units/L (5-40) 09/30/18 20:16 ALT 32 units/L (7-56) 09/30/18 20:16 139 units/L (35-129) H 09/30/18 20:16 10.0 g/dL (6.3-8.2) H 09/30/18 20:16 3.9 g/dL (3.9-5) 09/30/18 20:16 0.6 % 09/30/18 20:16 Triglycerides 145 mg/dL (2-149) 10/02/18 04:45 Yellow (Yellow) 09/30/18 21:40 Cloudy (Clear) 09/30/18 21:40 9.0 (5.0-7.0) H 09/30/18 21:40 Ur Specific [place] 1.015 (1.003-1.030) 09/30/18 21:40 100 mg/dl mg/dL (Negative) 09/30/18 21:40 Neg mg/dL (Negative) 09/30/18 21:40 Neg mg/dL (Negative) 09/30/18 21:40 Lg (Negative) 09/30/18 21:40 Neg (Negative) 09/30/18 21:40 Neg (Negative) 09/30/18 21:40 < 2.0 mg/dL (<2.0) 09/30/18 21:40 Ur Leukocyte Esterase Lg (Negative) 09/30/18 21:40 154.0 /HPF (0.0-6.0) H 09/30/18 21:40 > 182.0 /HPF (0.0-6.0) 09/30/18 21:40 U Epithel Cells (Auto) < 1.0 /HPF (0-13.0) 09/30/18 21:40 Ur Yeast w Hyphae Few /HPF 09/30/18 21:40 2+ /HPF 09/30/18 21:40 - Imaging and Cardiology Chest x-ray: image reviewed Active Medications - Current Medications Current Medications: Generic Name Dose Route Start Last Admin Trade Name Jess PRN Reason Stop Dose Admin Acetaminophen 650 mg 10/01/18 04:45 10/03/18 14:06 Tylenol [place] 650 mg Q4H PRN Administration Fever >101 Lipase/Protease/Amylase 1 each 10/01/18 15:58 Pancreaze 10,500 Unit FEEDTUBE PRN PRN For Clogged Feeding Tube Dextrose 50 ml 09/30/18 23:32 D50w (25gm) Syringe IV PRN PRN Hypoglycemia Famotidine 20 mg 10/03/18 10:00 10/03/18 10:15 Pepcid PO 20 mg BID ANU Administration Heparin Sodium (Porcine) 5,000 unit 09/30/18 23:30 10/03/18 10:16 Heparin SUB-Q 5,000 unit Q12HR ANU Administration Hydrophilic Ointment 1 applic 09/30/18 19:53 Vaseline Lip Therapy TP Q2HR PRN Dry Lips Cefepime HCl 2 gm in 100 mls @ 200 mls/hr 10/03/18 16:00 10/03/18 17:33 Maxipime/Ns 2 Gm/100 Ml IV 200 mls/hr Q12HR ANU Administration Protocol Insulin Human Regular 0 units 10/01/18 18:00 10/03/18 12:40 Humulin R SUB-Q Not Given Q6HR [facility] Protocol Miscellaneous Medication 5,000 unit 10/04/18 10:00 Cholecalciferol (Vitamin D3) FEEDTUBE DAILY ANU Multi-Ingred Cream/Lotion/Oil/Oint 1 applic 09/30/18 19:53 Artificial Tears Ophth Oint OU Q4HR PRN Dry Eye(s) Ondansetron HCl 4 mg 09/30/18 23:29 Zofran IV Q8H PRN Nausea And Vomiting Scopolamine 1 each 10/02/18 02:00 10/02/18 04:07 Transderm-Scop TD 1 each Q3D ANU Administration Simple Syrup 15 ml 10/01/18 15:58 Simple Syrup FEEDTUBE PRN PRN Hypoglycemia Simple Syrup 30 ml 10/01/18 15:58 Simple Syrup FEEDTUBE PRN PRN Hypoglycemia Sodium Bicarbonate 325 mg 10/01/18 15:58 Sodium Bicarbonate FEEDTUBE PRN PRN For Clogged Feeding Tube Nutrition/Malnutrition Assess - Dietary Evaluation Nutrition/Malnutrition Findings: Nutrition Notes Start: 10/01/18 15:44 Freq: Status: Active Protocol: Document 10/03/18 15:24 RM (Rec: 10/03/18 15:31 RM [id number]) Nutrition Notes Initial or Follow up Reassessment Current Diagnosis Diabetes,Hypertension Other Pertinent Diagnosis AMS, SOB, Hx TBI, PEG Current Diet Vital 1.2 at 45 ml/hr Labs/Tests Na 144 K 3.5 Pertinent Medications Reviewed Height 5 ft 1 in Weight 56 kg [place] Body Weight (kg) 47.72 BMI 23.3 Subjective/Other Information Pt extubated yesterday. Earlier today observed Vital 1 .2 infusing at goal rate. Per nurse pt is tolerating TF. Pt later moved to LTAC. Percent of energy/protein needs met: 96%/100% Burn Absent Trauma Absent #1 Nutrition Diagnosis Inadequate oral intake Diagnosis Progress(for reassessment Continues documentation) Is patient on ventilator? No Is Patient Ambulatory and/or Out of Bed No REE-([facility]-confined to bed) 1356.792 Calculation Used for Recommendations [facility] Additional Notes Protein Needs: 45-56g (0.8-1g/ kg) Fluid Needs: 1 ml/kcal Nutrition Intervention Nutrition Support: Glucerna 1.2 at 50 ml/hr Water flush of 100 mls q 4 hrs . Kcal 1,440 Protein (gm) 72 Fluid (mL) 966 Goal #1 TF tolerance Goal #2 Meet at least 75% of calorie and protein needs via TF Anticipated Discharge Needs: TF Follow-Up By: 10/05/18 Additional Comments Follow for TF tolerance
[2018-10-04 05:58] LABS: BUN/Creatinine Ratio 34; Blood Urea Nitrogen 24 mg/dL (7-17); Calcium 11.2 mg/dL (8.4-10.2); Hemolysis Index 4
[2018-10-04] MEDS: HumuLIN R SUB-Q SCH ×4 (06:27→18:16)
[2018-10-04] MEDS ORDERED: POTASSIUM CHLORIDE FEEDTUBE ONE (06:32)
--- NOTE | 2018-10-04 09:35 | Progress Note ---
Assessment and Plan 1. Hypercalcemia: Likely from combination of volume depletion and immobilization. Increase water flushes. Monitor Calcium level. 2. Acute kidney injury: Vasomotor RUDI in the setting of volume depletion. Renal function is improving. Monitor renal function. Avoid nephrotoxic agents. 3. FEN: Hypernatremia, increase water flushes. Replete K. Monitor lytes. 4. Sepsis: PNA and UTI. Followed by ID. 5. Respiratory failure: S/p extubated. 6. H/o Bilateral PE. 7. 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 Subjective Date of service: 10/04/18 Principal diagnosis: sepsis, resp fail Interval history: Patient was seen and examined at the bedside. Objective - Vital Signs Vital signs: Vital Signs - 12hr 10/03/18 10/03/18 10/03/18 21:51 22:00 23:25 Temperature 97.4 F L Pulse Rate 80 67 Pulse Rate [ From Monitor] Respiratory 18 Rate Blood Pressure 105/70 O2 Sat by Pulse 99 99 Oximetry 10/03/18 10/03/18 10/04/18 23:26 23:34 03:15 Temperature Pulse Rate 67 110 H Pulse Rate [ 78 From Monitor] Respiratory 16 Rate Blood Pressure O2 Sat by Pulse 98 96 99 Oximetry 10/04/18 03:56 Temperature 97.8 F Pulse Rate 69 Pulse Rate [ From Monitor] Respiratory 17 Rate Blood Pressure 114/69 O2 Sat by Pulse 98 Oximetry - General Appearance General appearance: well-developed, appears stated age, other (no distress) EENT: ATNC, PERRL Neck: other (Trachea midline) Respiratory: Present: Clear to Ascultation Cardiology: regular, S1S2, no murmurs Gastrointestinal: normoactive bowel sounds, no tenderness, no distended, other (PEG tube, bilateral nephrostomy tubes noted) Integumentary: no rash, warm and dry Neurologic: aphasia, other (alert, not following any command) Musculoskeletal: other (no edema) - Lab 10/02/18 04:45 10/04/18 04:18 Most recent lab results Calcium 11.2 mg/dL (8.4-10.2) H 10/04/18 04:18 Phosphorus 3.30 mg/dL (2.5-4.5) 10/03/18 04:03 Magnesium 2.00 mg/dL (1.7-2.3) 10/03/18 04:03 Medications & Allergies - Medications Allergies/Adverse Reactions: Allergies No Known Allergies Allergy (Unverified 08/26/18 14:14) Home Medications: Home Medications Medication Instructions Recorded Confirmed Last Taken Type Lipase/Protease/Amylase [Pancreaze 1 each FEEDTUBE PRN PRN capsule 09/10/18 09/30/[address] 10,500 Unit] Simple Syrup 15 ml FEEDTUBE PRN PRN oral.liqd 09/10/18 09/30/18 Unknown Rx Simple Syrup 30 ml FEEDTUBE PRN PRN oral.liqd 09/10/18 09/30/18 Unknown Rx Amantadine 100 mg FEEDTUBE DAILY 09/30/18 09/30/18 Unknown History Baclofen 10 mg FEEDTUBE BID 09/30/18 09/30/18 Unknown History Bisacodyl 10 mg RI DAILY 09/30/18 09/30/18 Unknown History Cholecalciferol (Vitamin D3) 5,000 unit FEEDTUBE DAILY 09/30/18 09/30/18 Unknown History Colace CAP 100 mg FEEDTUBE BID 09/30/18 09/30/18 Unknown History Famotidine 20 mg FEEDTUBE BID 09/30/18 09/30/18 Unknown History Fentanyl 25 mcg TRANSDERMA Q72H 09/30/18 09/30/18 Unknown History Ferrous Sulfate 325 mg FEEDTUBE TID 09/30/18 09/30/18 Unknown History Glycopyrrolate 1 mg FEEDTUBE TID 09/30/18 09/30/18 Unknown History Lactulose 30 ml FEEDTUBE BID 09/30/18 09/30/18 Unknown History Lexapro 30 mg FEEDTUBE DAILY 09/30/18 09/30/18 Unknown History Magnesium Oxide 400 400 mg FEEDTUBE DAILY 09/30/18 09/30/18 Unknown History Meropenem 1 gm IV Q8H 09/30/18 09/30/18 Unknown History Methylphenidate 10 mg FEEDTUBE BID 09/30/18 09/30/18 Unknown History Metoclopramide HCl 10 mg FEEDTUBE Q8H 09/30/18 09/30/18 Unknown History [place] 5-325 mg TAB 5 mg FEEDTUBE Q6H PRN 09/30/18 09/30/18 Unknown History Polyethylene Glycol 3350 17 gram FEEDTUBE BID 09/30/18 09/30/18 Unknown History Scopolamine 1.5 mg TRANSDERMA Q72H 09/30/18 09/30/18 Unknown History Active Medications: Generic Name Dose Route Start Last Admin Trade Name Jess PRN Reason Stop Dose Admin Acetaminophen 650 mg 10/01/18 04:45 10/03/18 14:06 Tylenol [place] 650 mg Q4H PRN Administration Fever >101 Lipase/Protease/Amylase 1 each 10/01/18 15:[address] 10,500 Unit FEEDTUBE PRN PRN For Clogged Feeding Tube Cholecalciferol 5,000 unit 10/04/18 10:00 Vitamin D3 FEEDTUBE DAILY ANU Dextrose 50 ml 09/30/18 23:32 D50w (25gm) Syringe IV PRN PRN Hypoglycemia Famotidine 20 mg 10/03/18 10:00 10/03/18 21:50 Pepcid PO 20 mg BID ANU Administration Heparin Sodium (Porcine) 5,000 unit 09/30/18 23:30 10/03/18 21:50 Heparin SUB-Q 5,000 unit Q12HR ANU Administration Hydrophilic Ointment 1 applic 09/30/18 19:53 Vaseline Lip Therapy TP Q2HR PRN Dry Lips Cefepime HCl 2 gm in 100 mls @ 200 mls/hr 10/03/18 16:00 10/03/18 21:50 Maxipime/Ns 2 Gm/100 Ml IV 200 mls/hr Q12HR ANU Administration Protocol Insulin Human Regular 0 units 10/01/18 18:00 10/04/18 06:27 Humulin R SUB-Q Not Given Q6HR [facility] Protocol Multi-Ingred Cream/Lotion/Oil/Oint 1 applic 09/30/18 19:53 Artificial Tears Ophth Oint OU Q4HR PRN Dry Eye(s) Ondansetron HCl 4 mg 09/30/18 23:29 Zofran IV Q8H PRN Nausea And Vomiting Scopolamine 1 each 10/02/18 02:00 10/02/18 04:07 Transderm-Scop TD 1 each Q3D ANU Administration Simple Syrup 15 ml 10/01/18 15:58 Simple Syrup FEEDTUBE PRN PRN Hypoglycemia Simple Syrup 30 ml 10/01/18 15:58 Simple Syrup FEEDTUBE PRN PRN Hypoglycemia Sodium Bicarbonate 325 mg 10/01/18 15:58 Sodium Bicarbonate FEEDTUBE PRN PRN For Clogged Feeding Tube
[2018-10-04] MEDS ORDERED: CHOLECALCIFEROL 5000 UNIT FEEDTUBE SCH (10:00)
[2018-10-04] MEDS: VITAMIN D3 FEEDTUBE SCH (10:09)
[2018-10-04] MEDS: PEPCID PO SCH ×2 (10:09→21:55)
[2018-10-04] MEDS: MAXIPIME/NS 2 GM/100 ML 2 GM/100 ML BAG IV SCH ×2 (10:09→21:55)
[2018-10-04] MEDS: HEPARIN SUB-Q SCH ×2 (10:10→21:55)
--- NOTE | 2018-10-04 10:23 | Progress Note ---
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 Readmitted on 09/30/2018 due to 24 hour history of fever and SOB at intermediate: 1) Sepsis: off pressors now, no fever, wbc back to normal; source pneumonia and UTI. Blood culture 09/30/2018 no growth. urine culture no growth. 2) HAP: CXR with persistent right infiltrate. Tracheal asp poor specimen 3) Complicated UTI with large rectovesical fistula, stones and bilateral BEET TOPPER tubes. This infection is incurable. Urine culture from right BEET TOPPER tube 08/27/2018 Pseudomonas and VRE. s/p nephrostogram and nephrostomy tube exchange of bilateral nephrostomy tubes 09/06/[address] Newell. 4) Periumbilical intraabdominal collection which was drained (no records of this in the chart). Recommendations: contact isolation continue cefepime 2gm IV every 12 hours, D5 of D7 follow up blood culture this infection is incurable consider hospice care CBC ordered for tomorrow [facility] M: [id number] O:[phone] Subjective Date of service: 10/04/18 Principal diagnosis: sepsis, resp fail Interval history: Patient seen and examined. Awake. Alert. No acute distress observed. Nonverbal. Objective - Exam Narrative Exam: General appearance: awake no follows commands, debilitated Eyes: anicteric sclerae, moist conjunctivae; no lid-lag; PERRLA HENT: Atraumatic; oropharynx limited ETT Neck: supple Lungs: CTA CV: RRR Abdomen: Soft, non-tender; PEG Extremities: cachetic Skin: No rash. Midchest scar. Psych:calm Neuro: awake - Constitutional Vitals: Vital Signs Temp Pulse Resp BP Pulse Ox 98.5 F 83 18 118/72 98 10/04/18 08:19 10/04/18 08:19 10/04/18 08:19 10/04/18 08:19 10/04/18 08:19 Temperature -Last 24 Hours Temperature 98.5 F Temperature 97.8 F Temperature 97.4 F Temperature 98.2 F Temperature 98.0 F Temperature 98.0 F - Labs CBC & Chem 7: 10/02/18 04:45 10/04/18 04:18 Labs: Abnormal lab results 10/04/18 Range/Units 04:18 Sodium 146 H (137-145) mmol/L Potassium 3.5 L (3.6-5.0) mmol/L Chloride 110.8 H (98-107) mmol/L BUN 24 H (7-17) mg/dL Calcium 11.2 H (8.4-10.2) mg/dL
--- NOTE | 2018-10-04 10:54 | Progress Note ---
Assessment and Plan 10/01 on vent septic on abx Will check old records monitor cont vent support at this point 10/02 Extubated stable pulm pastrana continue current mgmt cc time 31min 10/03 See hosp note Mult problems on abx OK to go to floor 10/04 s/p intubation No obv resp problems on abx etc see ID note Will f/up prn Subjective Date of service: 10/04/18 Principal diagnosis: sepsis, resp fail Interval history: 10/02 Weaned to cpap this am and sucessfully extubated Stable vs On tube feed abx arousable May be close to functional baseline 10/03 eyes open non verbal Extubated 24h no resp problems presently 10/04 non responsive prob at functional baseline No resp issues Objective - Constitutional Vitals: Vital Signs - 12hr 10/03/18 10/03/18 10/03/18 23:25 23:26 23:34 Temperature 97.4 F L Pulse Rate 67 67 110 H Pulse Rate [ From Monitor] Respiratory 18 Rate Blood Pressure 105/70 O2 Sat by Pulse 99 98 96 Oximetry 10/04/18 10/04/18 10/04/18 03:15 03:56 08: Temperature 97.8 F 98.5 F Pulse Rate 69 83 Pulse Rate [ 78 From Monitor] Respiratory 16 17 18 Rate Blood Pressure 114/69 118/72 O2 Sat by Pulse 99 98 98 Oximetry General appearance: Present: no acute distress - Respiratory Respiratory: bilateral: diminished (grossly clear shallow resp ) - Labs CBC & Chem 7: 10/02/18 04:45 10/04/18 04:18 Labs: Abnormal lab results 10/04/18 Range/Units 04:18 Sodium 146 H (137-145) mmol/L Potassium 3.5 L (3.6-5.0) mmol/L Chloride 110.8 H (98-107) mmol/L BUN 24 H (7-17) mg/dL Calcium 11.2 H (8.4-10.2) mg/dL - Imaging and cardiology Chest x-ray: image reviewed (10/03 neg ) Medications & Allergies - Medications Allergies/Adverse Reactions: Allergies No Known Allergies Allergy (Unverified 08/26/18 14:14) Home Medications: Home Medications Medication Instructions Recorded Confirmed Last Taken Type Lipase/Protease/Amylase [Pancreaze 1 each FEEDTUBE PRN PRN capsule 09/10/18 09/30/18 Unknown Rx 10,500 Unit] Simple Syrup 15 ml FEEDTUBE PRN PRN oral.liqd 09/10/18 09/30/18 Unknown Rx Simple Syrup 30 ml FEEDTUBE PRN PRN oral.liqd 09/10/18 09/30/18 Unknown Rx Amantadine 100 mg FEEDTUBE DAILY 09/30/18 09/30/18 Unknown History Baclofen 10 mg FEEDTUBE BID 09/30/18 09/30/18 Unknown History Bisacodyl 10 mg DC DAILY 09/30/18 09/30/18 Unknown History Cholecalciferol (Vitamin D3) 5,000 unit FEEDTUBE DAILY 09/30/18 09/30/18 Unknown History Colace CAP 100 mg FEEDTUBE BID 09/30/18 09/30/18 Unknown History Famotidine 20 mg FEEDTUBE BID 09/30/18 09/30/18 Unknown History Fentanyl 25 mcg TRANSDERMA Q72H 09/30/18 09/30/18 Unknown History Ferrous Sulfate 325 mg FEEDTUBE TID 09/30/18 09/30/18 Unknown History Glycopyrrolate 1 mg FEEDTUBE TID 09/30/18 09/30/18 Unknown History Lactulose 30 ml FEEDTUBE BID 09/30/18 09/30/18 Unknown History Lexapro 30 mg FEEDTUBE DAILY 09/30/18 09/30/18 Unknown History Magnesium Oxide 400 400 mg FEEDTUBE DAILY 09/30/18 09/30/18 Unknown History Meropenem 1 gm IV Q8H 09/30/18 09/30/18 Unknown History Methylphenidate 10 mg FEEDTUBE BID 09/30/18 09/30/18 Unknown History Metoclopramide HCl 10 mg FEEDTUBE Q8H 09/30/18 09/30/18 Unknown History [place] 5-325 mg TAB 5 mg FEEDTUBE Q6H PRN 09/30/18 09/30/18 Unknown History Polyethylene Glycol 3350 17 gram FEEDTUBE BID 09/30/18 09/30/18 Unknown History Scopolamine 1.5 mg TRANSDERMA Q72H 09/30/18 09/30/18 Unknown History Active Medications: Generic Name Dose Route Start Last Admin Trade Name Freq PRN Reason Stop Dose Admin Acetaminophen 650 mg 10/01/18 04:45 10/03/18 14:06 Tylenol [place] 650 mg Q4H PRN Administration Fever >101 Lipase/Protease/Amylase 1 each 10/01/18 15:58 Pancrejossy [place] 10,500 Unit FEEDTUBE PRN PRN For Clogged Feeding Tube Cholecalciferol 5,000 unit 10/04/18 10:00 10/04/18 10:09 Vitamin D3 FEEDTUBE 5,000 unit DAILY ANU Administration Dextrose 50 ml 09/30/18 23:32 D50w (25gm) Syringe IV PRN PRN Hypoglycemia Famotidine 20 mg 10/03/18 10:00 10/04/18 10:09 Pepcid PO 20 mg BID ANU Administration Heparin Sodium (Porcine) 5,000 unit 09/30/18 23:30 10/04/18 10:10 Heparin SUB-Q 5,000 unit Q12HR ANU Administration Hydrophilic Ointment 1 applic 09/30/18 19:53 Vaseline Lip Therapy TP Q2HR PRN Dry Lips Cefepime HCl 2 gm in 100 mls @ 200 mls/hr 10/03/18 16:00 10/04/18 10:09 Maxipime/Ns 2 Gm/100 Ml IV 200 mls/hr Q12HR ANU Administration Protocol Insulin Human Regular 0 units 10/01/18 18:00 10/04/18 06:27 Humulin R SUB-Q Not Given Q6HR ANU Protocol Multi-Ingred Cream/Lotion/Oil/Oint 1 applic 09/30/18 19:53 Artificial Tears Ophth Oint OU Q4HR PRN Dry Eye(s) Ondansetron HCl 4 mg 09/30/18 23:29 Zofran IV Q8H PRN Nausea And Vomiting Scopolamine 1 each 10/02/18 02:00 10/02/18 04:07 Transderm-Scop TD 1 each Q3D ANU Administration Simple Syrup 15 ml 10/01/18 15:58 Simple Syrup FEEDTUBE PRN PRN Hypoglycemia Simple Syrup 30 ml 10/01/18 15:58 Simple Syrup FEEDTUBE PRN PRN Hypoglycemia Sodium Bicarbonate 325 mg 10/01/18 15:58 Sodium Bicarbonate FEEDTUBE PRN PRN For Clogged Feeding Tube
--- NOTE | 2018-10-04 12:51 | Progress Note ---
Assessment and Plan Assessment and plan: Sepsis: off pressors now, no fever, wbc back to normal; source pneumonia and UTI. Blood culture 09/30/2018 no growth. urine culture no growth. HAP: CXR with persistent right infiltrate. Tracheal asp poor specimen Acute hypoxic respiratory failure. Etiology secondary to above. Patient was recently intubated now extubated. Continue O2 to maintain sats Complicated UTI with large rectovesical fistula, stones and bilateral MILLWORK ESTIMATOR tubes. This infection is incurable. Urine culture from right MILLWORK ESTIMATOR tube 08/27/2018 Pseudomonas and VRE. s/p nephrostogram and nephrostomy tube exchange of bilateral nephrostomy tubes 09/06/[address] Newell. Periumbilical intraabdominal collection which was drained History of pulmonary embolism. Severe protein calorie malnutrition. Nutritional support. 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 Readmitted on 09/30/2018 due to 24 hour history of fever and SOB at snf: No new issues overnight. Hospitalist Physical - Constitutional Vitals: Temp Pulse Resp BP Pulse Ox 98.5 F 83 18 118/72 98 10/04/18 08:19 10/04/18 08:19 10/04/18 08:19 10/04/18 08:19 10/04/18 08:19 General appearance: Present: no acute distress - EENT Eyes: Present: PERRL, EOM intact ENT: hearing intact, clear oral mucosa, dentition normal - Neck Neck: Present: supple, normal ROM - Respiratory Respiratory effort: normal Respiratory: bilateral: CTA - Cardiovascular Rhythm: regular Heart Sounds: Present: S1 & S2. Absent: gallop, rub - Extremities Extremities: no ischemia, No edema, Full ROM Extremity abnormal: other (contractures) - Abdominal General gastrointestinal: soft, non-tender, non-distended, normal bowel sounds - Integumentary Integumentary: Present: clear, warm, dry - Neurologic Neurologic: CNII-XII intact, moves all extremities Results - Labs CBC & Chem 7: 10/02/18 04:45 10/04/18 04:18 Labs: Laboratory Last Values WBC 10.8 K/mm3 (4.5-11.0) 10/02/18 04:45 RBC 3.21 M/mm3 (3.65-5.03) L 10/02/18 04:45 Hgb 10.3 gm/dl (10.1-14.3) D 10/02/18 04:45 Hct 31.6 % (30.3-42.9) D 10/02/18 04:45 MCV 99 fl (79-97) H 10/02/18 04:45 MCH 32 pg (28-32) 10/02/18 04:45 MCHC 33 % (30-34) 10/02/18 04:45 RDW 19.3 % (13.2-15.2) H 10/02/18 04:45 Plt Count 285 K/mm3 (140-440) 10/02/18 04:45 Lymph % (Auto) 23.7 % (13.4-35.0) 09/30/18 20:16 [place] % (Auto) 7.3 % (0.0-7.3) 09/30/18 20:16 Eos % (Auto) 0.6 % (0.0-4.3) 09/30/18 20:16 Baso % (Auto) 1.2 % (0.0-1.8) 09/30/18 20:16 Lymph # 3.4 K/mm3 (1.2-5.4) 09/30/18 20:16 [place] # 1.0 K/mm3 (0.0-0.8) H 09/30/18 20:16 Eos # 0.1 K/mm3 (0.0-0.4) 09/30/18 20:16 Baso # 0.2 K/mm3 (0.0-0.1) H 09/30/18 20:16 Seg Neutrophils % 67.2 % (40.0-70.0) 09/30/18 20:16 Seg Neutrophils # 9.5 K/mm3 (1.8-7.7) H 09/30/18 20:16 PT 13.3 Sec. (12.2-14.9) 09/30/18 20:16 INR 1.04 (0.87-1.13) 09/30/18 20:16 POC ABG pH 7.379 (7.35-7.45) 10/02/18 04:29 POC ABG pCO2 38.9 (35-45) 10/02/18 04:29 POC ABG pO2 124 (80-105) H 10/02/18 04:29 POC ABG HCO3 22.9 (22-26 mml/L) 10/02/18 04:29 POC ABG Total CO2 24 (23-27mmol/L) 10/02/18 04:29 POC ABG O2 Sat 99 10/02/18 04:29 POC ABG Base Excess -2 ((-2) - (+3)mmol/L) 10/02/18 04:29 VBG pH 7.480 (7.320-7.420) H 09/30/18 20:16 25 % 10/02/18 04:29 Sodium 146 mmol/L (137-145) H 10/04/18 04:18 Potassium 3.5 mmol/L (3.6-5.0) L 10/04/18 04:18 Chloride 110.8 mmol/L (98-107) H 10/04/18 04:18 Carbon Dioxide 23 mmol/L (22-30) 10/04/18 04:18 16 mmol/L 10/04/18 04:18 BUN 24 mg/dL (7-17) H 10/04/18 04:18 0.7 mg/dL (0.7-1.2) 10/04/18 04:18 Estimated GFR > 60 ml/min 10/04/18 04:18 34 % 10/04/18 04:18 Glucose 86 mg/dL (65-100) 10/04/18 04:18 POC Glucose 88 (70-105) 10/04/18 11:17 Lactic Acid 1.50 mmol/L (0.7-2.0) 10/01/18 08:15 Calcium 11.2 mg/dL (8.4-10.2) H 10/04/18 04:18 Phosphorus 3.30 mg/dL (2.5-4.5) 10/03/18 04:03 Magnesium 2.00 mg/dL (1.7-2.3) 10/03/18 04:03 0.30 mg/dL (0.1-1.2) 09/30/18 20:16 AST 36 units/L (5-40) 09/30/18 20:16 ALT 32 units/L (7-56) 09/30/18 20:16 139 units/L (35-129) H 09/30/18 20:16 10.0 g/dL (6.3-8.2) H 09/30/18 20:16 3.9 g/dL (3.9-5) 09/30/18 20:16 0.6 % 09/30/18 20:16 Triglycerides 145 mg/dL (2-149) 10/02/18 04:45 Yellow (Yellow) 09/30/18 21:40 Cloudy (Clear) 09/30/18 21:40 9.0 (5.0-7.0) H 09/30/18 21:40 Ur Specific Etta 1.015 (1.003-1.030) 09/30/18 21:40 100 mg/dl mg/dL (Negative) 09/30/18 21:40 Neg mg/dL (Negative) 09/30/18 21:40 Neg mg/dL (Negative) 09/30/18 21:40 Lg (Negative) 09/30/18 21:40 Neg (Negative) 09/30/18 21:40 Neg (Negative) 09/30/18 21:40 < 2.0 mg/dL (<2.0) 09/30/18 21:40 Ur Leukocyte Esterase Lg (Negative) 09/30/18 21:40 154.0 /HPF (0.0-6.0) H 09/30/18 21:40 > 182.0 /HPF (0.0-6.0) 09/30/18 21:40 U Epithel Cells (Auto) < 1.0 /HPF (0-13.0) 09/30/18 21:40 Ur Yeast w Hyphae Few /HPF 09/30/18 21:40 2+ /HPF 09/30/18 21:40 Active Medications - Current Medications Current Medications: Generic Name Dose Route Start Last Admin Trade Name Freq PRN Reason Stop Dose Admin Acetaminophen 650 mg 07/22/19 04:45 10/03/18 14:06 Tylenol SD 650 mg Q4H PRN Administration Fever >101 Lipase/Protease/Amylase 1 each 10/01/18 15:58 Pancrejossy Henry 10,500 Unit FEEDTUBE PRN PRN For Clogged Feeding Tube Cholecalciferol 5,000 unit 10/04/18 10:00 10/04/18 10:09 Vitamin D3 FEEDTUBE 5,000 unit DAILY ANU Administration Dextrose 50 ml 09/30/18 23:32 D50w (25gm) Syringe IV PRN PRN Hypoglycemia Famotidine 20 mg 10/03/18 10:00 10/04/18 10:09 Pepcid PO 20 mg BID ANU Administration Heparin Sodium (Porcine) 5,000 unit 09/30/18 23:30 10/04/18 10:10 Heparin SUB-Q 5,000 unit Q12HR ANU Administration Hydrophilic Ointment 1 applic 09/30/18 19:53 Vaseline Lip Therapy TP Q2HR PRN Dry Lips Cefepime HCl 2 gm in 100 mls @ 200 mls/hr 10/03/18 16:00 10/04/18 10:09 Maxipime/Ns 2 Gm/100 Ml IV 200 mls/hr Q12HR ANU Administration Protocol Insulin Human Regular 0 units 10/01/18 18:00 10/04/18 06:27 Humulin R SUB-Q Not Given Q6HR ANU Protocol Multi-Ingred Cream/Lotion/Oil/Oint 1 applic 09/30/18 19:53 Artificial Tears Ophth Oint OU Q4HR PRN Dry Eye(s) Ondansetron HCl 4 mg 09/30/18 23:29 Zofran IV Q8H PRN Nausea And Vomiting Scopolamine 1 each 10/02/18 02:00 10/02/18 04:07 Transderm-Scop TD 1 each Q3D ANU Administration Simple Syrup 15 ml 10/01/18 15:58 Simple Syrup FEEDTUBE PRN PRN Hypoglycemia Simple Syrup 30 ml 10/01/18 15:58 Simple Syrup FEEDTUBE PRN PRN Hypoglycemia Sodium Bicarbonate 325 mg 10/01/18 15:58 Sodium Bicarbonate FEEDTUBE PRN PRN For Clogged Feeding Tube Nutrition/Malnutrition Assess - Dietary Evaluation Nutrition/Malnutrition Findings: Nutrition Notes Start: 10/01/18 15:44 Freq: Status: Active Protocol: Document 10/03/18 15:24 RM (Rec: 10/03/18 15:31 RM [id number]) Nutrition Notes Initial or Follow up Reassessment Current Diagnosis Diabetes,Hypertension Other Pertinent Diagnosis AMS, SOB, Hx TBI, PEG Current Diet Vital 1.2 at 45 ml/hr Labs/Tests Na 144 K 3.5 Pertinent Medications Reviewed Height 5 ft 1 in Weight 56 kg [place] Body Weight (kg) 47.72 BMI 23.3 Subjective/Other Information Pt extubated yesterday. Earlier today observed Vital 1 .2 infusing at goal rate. Per nurse pt is tolerating TF. Pt later moved to LTAC. Percent of energy/protein needs met: 96%/100% Burn Absent Trauma Absent #1 Nutrition Diagnosis Inadequate oral intake Diagnosis Progress(for reassessment Continues documentation) Is patient on ventilator? No Is Patient Ambulatory and/or Out of Bed No REE-([facility]-confined to bed) 1356.792 Calculation Used for Recommendations [facility] Additional Notes Protein Needs: 45-56g (0.8-1g/ kg) Fluid Needs: 1 ml/kcal Nutrition Intervention Nutrition Support: Glucerna 1.2 at 50 ml/hr Water flush of 100 mls q 4 hrs . Kcal 1,440 Protein (gm) 72 Fluid (mL) 966 Goal #1 TF tolerance Goal #2 Meet at least 75% of calorie and protein needs via TF Anticipated Discharge Needs: TF Follow-Up By: 10/05/18 Additional Comments Follow for TF tolerance
[2018-10-05 00:44] LABS: Basophils # (Auto) 0.2 K/mm3 (0.0-0.1); Basophils % (Auto) 1.7 % (0.0-1.8); Eosinophils # (Auto) 0.2 K/mm3 (0.0-0.4); Eosinophils % (Auto) 1.9 % (0.0-4.3); Hematocrit 35.2 % (30.3-42.9); Hemoglobin 11.8 gm/dl (10.1-14.3); Lymphocytes # (Auto) 3.4 K/mm3 (1.2-5.4); Lymphocytes % (Auto) 30.6 % (13.4-35.0); Mean Corpuscular HGB Conc 34 % (30-34); Mean Corpuscular Volume 93 fl (79-97); Monocytes # (Auto) 1.3 K/mm3 (0.0-0.8); Monocytes % (Auto) 12.1 % (0.0-7.3); Platelet Count 337 K/mm3 (140-440); Red Blood Count 3.79 M/mm3 (3.65-5.03); Red Cell Distribution Width 17.8 % (13.2-15.2)
[2018-10-05] MEDS: HumuLIN R SUB-Q SCH ×4 (01:42→21:26)
[2018-10-05] MEDS: TRANSDERM-SCOP TD SCH (02:16)
[2018-10-05 05:48] LABS: Hemolysis Index 3
[2018-10-05 06:18] LABS: BUN/Creatinine Ratio 43; Blood Urea Nitrogen 26 mg/dL (7-17)
[2018-10-05 07:18] LABS: Calcium 12.4 mg/dL (8.4-10.2)
--- NOTE | 2018-10-05 09:52 | Progress Note ---
Assessment and Plan 1. Hypercalcemia: Likely from combination of volume depletion and immobilization. Continue water flushes. Started on D5W. Monitor Calcium level. 2. Acute kidney injury: Vasomotor RUDI in the setting of volume depletion. Renal function is improving. Monitor renal function. Avoid nephrotoxic agents. 3. FEN: Hypernatremia, water flushes. Replete K. Monitor lytes. 4. Sepsis: PNA and UTI. Followed by ID. 5. Respiratory failure: S/p extubated. 6. H/o Bilateral PE. 7. 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 Subjective Date of service: 10/05/18 Principal diagnosis: sepsis, resp fail Interval history: Patient was seen and examined at the bedside. Objective - Vital Signs Vital signs: Vital Signs - 12hr 10/05/18 10/05/18 10/05/18 00:11 01:00 04:03 Temperature 97.8 F 97.6 F Pulse Rate 78 81 69 Respiratory 18 18 Rate Blood Pressure 116/66 108/67 O2 Sat by Pulse 98 98 Oximetry - General Appearance General appearance: well-developed, appears stated age, other (no distress) EENT: ATNC, PERRL Neck: supple Respiratory: Present: Clear to Ascultation Cardiology: regular, S1S2, no murmurs Gastrointestinal: normoactive bowel sounds, no tenderness, no distended, other (PEG tube noted, bilateral nephrostomy tubes) Integumentary: no rash Neurologic: other (alert, not following any command) Musculoskeletal: other (no edema) - Lab 10/05/18 00:12 10/05/18 04:33 Most recent lab results Calcium 12.4 mg/dL (8.4-10.2) H* 10/05/18 04:33 Phosphorus 3.30 mg/dL (2.5-4.5) 10/03/18 04:03 Magnesium 2.30 mg/dL (1.7-2.3) 10/05/18 04:33 Medications & Allergies - Medications Allergies/Adverse Reactions: Allergies No Known Allergies Allergy (Unverified 08/26/18 14:14) Home Medications: Home Medications Medication Instructions Recorded Confirmed Last Taken Type Lipase/Protease/Amylase [Pancreaze 1 each FEEDTUBE PRN PRN capsule 09/10/18 09/30/[address] 10,500 Unit] Simple Syrup 15 ml FEEDTUBE PRN PRN oral.liqd 09/10/18 09/30/18 Unknown Rx Simple Syrup 30 ml FEEDTUBE PRN PRN oral.liqd 09/10/18 09/30/18 Unknown Rx Amantadine 100 mg FEEDTUBE DAILY 09/30/18 09/30/18 Unknown History Baclofen 10 mg FEEDTUBE BID 09/30/18 09/30/18 Unknown History Bisacodyl 10 mg GA DAILY 09/30/18 09/30/18 Unknown History Cholecalciferol (Vitamin D3) 5,000 unit FEEDTUBE DAILY 09/30/18 09/30/18 Unknown History Colace CAP 100 mg FEEDTUBE BID 09/30/18 09/30/18 Unknown History Famotidine 20 mg FEEDTUBE BID 09/30/18 09/30/18 Unknown History Fentanyl 25 mcg TRANSDERMA Q72H 09/30/18 09/30/18 Unknown History Ferrous Sulfate 325 mg FEEDTUBE TID 09/30/18 09/30/18 Unknown History Glycopyrrolate 1 mg FEEDTUBE TID 09/30/18 09/30/18 Unknown History Lactulose 30 ml FEEDTUBE BID 09/30/18 09/30/18 Unknown History Lexapro 30 mg FEEDTUBE DAILY 09/30/18 09/30/18 Unknown History Magnesium Oxide 400 400 mg FEEDTUBE DAILY 09/30/18 09/30/18 Unknown History Meropenem 1 gm IV Q8H 09/30/18 09/30/18 Unknown History Methylphenidate 10 mg FEEDTUBE BID 09/30/18 09/30/18 Unknown History Metoclopramide HCl 10 mg FEEDTUBE Q8H 09/30/18 09/30/18 Unknown History [place] 5-325 mg TAB 5 mg FEEDTUBE Q6H PRN 09/30/18 09/30/18 Unknown History Polyethylene Glycol 3350 17 gram FEEDTUBE BID 09/30/18 09/30/18 Unknown History Scopolamine 1.5 mg TRANSDERMA Q72H 09/30/18 09/30/18 Unknown History Active Medications: Generic Name Dose Route Start Last Admin Trade Name Freq PRN Reason Stop Dose Admin Acetaminophen 650 mg 10/01/18 04:45 10/03/18 14:06 Tylenol GA 650 mg Q4H PRN Administration Fever >101 Lipase/Protease/Amylase 1 each 10/01/18 15:58 Pancrejossy Henry 10,500 Unit FEEDTUBE PRN PRN For Clogged Feeding Tube Cholecalciferol 5,000 unit 10/04/18 10:00 10/04/18 10:09 Vitamin D3 FEEDTUBE 5,000 unit DAILY ANU Administration Dextrose 50 ml 09/30/18 23:32 D50w (25gm) Syringe IV PRN PRN Hypoglycemia Famotidine 20 mg 10/03/18 10:00 10/04/18 21:55 Pepcid PO 20 mg BID ANU Administration Heparin Sodium (Porcine) 5,000 unit 09/30/18 23:30 10/04/18 21:55 Heparin SUB-Q 5,000 unit Q12HR ANU Administration Hydrophilic Ointment 1 applic 09/30/18 19:53 Vaseline Lip Therapy TP Q2HR PRN Dry Lips Cefepime HCl 2 gm in 100 mls @ 200 mls/hr 10/03/18 16:00 10/04/18 21:55 Maxipime/Ns 2 Gm/100 Ml IV 200 mls/hr Q12HR ANU Administration Protocol Insulin Human Regular 0 units 10/01/18 18:00 10/05/18 08:54 Humulin R SUB-Q Not Given Q6HR ANU Protocol Multi-Ingred Cream/Lotion/Oil/Oint 1 applic 09/30/18 19:53 Artificial Tears Ophth Oint OU Q4HR PRN Dry Eye(s) Ondansetron HCl 4 mg 09/30/18 23:29 Zofran IV Q8H PRN Nausea And Vomiting Scopolamine 1 each 10/02/18 02:00 10/05/18 02:16 Transderm-Scop TD 1 each Q3D ANU Administration Simple Syrup 15 ml 10/01/18 15:58 Simple Syrup FEEDTUBE PRN PRN Hypoglycemia Simple Syrup 30 ml 10/01/18 15:58 Simple Syrup FEEDTUBE PRN PRN Hypoglycemia Sodium Bicarbonate 325 mg 10/01/18 15:58 Sodium Bicarbonate FEEDTUBE PRN PRN For Clogged Feeding Tube
--- NOTE | 2018-10-05 09:58 | Progress Note ---
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 Readmitted on 09/30/2018 due to 24 hour history of fever and SOB at longterm: 1) Sepsis: Resolved. off pressors now, no fever, wbc back to normal; source pneumonia and UTI. Blood culture 09/30/2018 no growth. urine culture no growth. 2) HAP: CXR with persistent right infiltrate. Tracheal asp poor specimen 3) Complicated UTI with large rectovesical fistula, stones and bilateral STEAM OVEN OPERATOR tubes. This infection is incurable. Urine culture from right STEAM OVEN OPERATOR tube 08/27/2018 Pseudomonas and VRE. s/p nephrostogram and nephrostomy tube exchange of samara ateral nephrostomy tubes 09/06/[address] Newell. 4) Periumbilical intraabdominal collection which was drained (no records of this in the chart). Recommendations: contact isolation continue cefepime 2gm IV every 12 hours, D6 of D7 Dr. Garland will be rounding on Monday, please call for questions , . Monica De Jesus NP [facility] M: [phone] O:[phone] Subjective Date of service: 10/05/18 Principal diagnosis: sepsis, resp fail Interval history: Patient seen and examined. Awake. Alert. No acute distress observed. Nonverbal. Objective - Exam Narrative Exam: General appearance: awake no follows commands, debilitated Eyes: anicteric sclerae, moist conjunctivae; no lid-lag; PERRLA HENT: Atraumatic; oropharynx limited ETT Neck: supple Lungs: CTA CV: RRR Abdomen: Soft, non-tender; PEG Extremities: cachetic Skin: No rash. Midchest scar. Psych:calm Neuro: awake - Constitutional Vitals: Vital Signs Temp Pulse Resp BP Pulse Ox 97.6 F 69 18 108/67 98 10/05/18 04:03 10/05/18 04:03 10/05/18 04:03 10/05/18 04:03 10/05/18 04:03 Temperature -Last 24 Hours Temperature 97.6 F Temperature 97.8 F Temperature 98.1 F Temperature 98.1 F Temperature 98.2 F - Labs CBC & Chem 7: 10/05/18 00:12 10/05/18 04:33 Labs: Abnormal lab results 10/05/18 10/05/18 Range/Units 00:12 04:33 RDW 17.8 H (13.2-15.2) % [place] % (Auto) 12.1 H (0.0-7.3) % [place] # 1.3 H (0.0-0.8) K/mm3 Baso # 0.2 H (0.0-0.1) K/mm3 Sodium 148 H (137-145) mmol/L Chloride 112.0 H (98-107) mmol/L BUN 26 H (7-17) mg/dL Creatinine 0.6 L (0.7-1.2) mg/dL Glucose 107 H (65-100) mg/dL Calcium 12.4 H* (8.4-10.2) mg/dL
[2018-10-05] MEDS: VITAMIN D3 FEEDTUBE SCH (10:19)
[2018-10-05] MEDS: MAXIPIME/NS 2 GM/100 ML 2 GM/100 ML BAG IV SCH ×2 (10:20→21:29)
[2018-10-05] MEDS: HEPARIN SUB-Q SCH ×2 (10:20→21:29)
[2018-10-05] MEDS: PEPCID PO SCH ×2 (10:20→21:29)
[2018-10-05] MEDS ORDERED: POTASSIUM CHLORIDE FEEDTUBE NR (10:45)
[2018-10-05] MEDS ORDERED: KCL 40 MEQ in D5W 1,000 ML IV SCH (11:00)
--- NOTE | 2018-10-05 11:25 | Progress Note ---
Assessment and Plan Assessment and plan: Sepsis. Etiology secondary to pneumonia and UTI. Blood culture 09/30/2018 no growth. urine culture no growth. Infectious disease following and reports that the infection is incurable. Consider hospice care. Healthcare associated pneumonia. CXR with persistent right infiltrate. Tracheal asp poor specimen Acute hypoxic respiratory failure. Etiology secondary to above. Patient was recently intubated now extubated. 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 This infection is incurable. Urine culture from right PHYSICIAN UNDERWRITER tube 08/27/2018 Pseudomonas and VRE. s/p nephrostogram and nephrostomy tube exchange of samara ateral nephrostomy tubes 09/06/[address] Newell. Periumbilical intraabdominal collection which was drained History of pulmonary embolism. Severe protein calorie malnutrition. Nutritional support. 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 Readmitted on 09/30/2018 due to 24 hour history of fever and SOB at half-way: No new issues overnight. Hospitalist Physical - Constitutional Vitals: Temp Pulse Resp BP Pulse Ox 97.8 F 82 20 108/63 99 10/05/18 09:14 10/05/18 09:14 10/05/18 09:14 10/05/18 09:14 10/05/18 09:14 General appearance: Present: no acute distress - EENT Eyes: Present: PERRL, EOM intact ENT: hearing intact, clear oral mucosa, dentition normal - Neck Neck: Present: supple, normal ROM - Respiratory Respiratory effort: normal Respiratory: bilateral: CTA - Cardiovascular Rhythm: regular Heart Sounds: Present: S1 & S2. Absent: gallop, rub - Extremities Extremities: no ischemia, No edema, Full ROM Extremity abnormal: other (contractures) - Abdominal General gastrointestinal: soft, non-tender, non-distended, normal bowel sounds - Integumentary Integumentary: Present: clear, warm, dry - Neurologic Neurologic: other (confused) Results - Labs CBC & Chem 7: 10/05/18 00:12 10/05/18 04:33 Labs: Laboratory Last Values WBC 11.0 K/mm3 (4.5-11.0) 10/05/18 00:12 RBC 3.79 M/mm3 (3.65-5.03) 10/05/18 00:12 Hgb 11.8 gm/dl (10.1-14.3) 10/05/18 00:12 Hct 35.2 % (30.3-42.9) 10/05/18 00:12 MCV 93 fl (79-97) 10/05/18 00:12 MCH 31 pg (28-32) 10/05/18 00:12 MCHC 34 % (30-34) 10/05/18 00:12 RDW 17.8 % (13.2-15.2) H 10/05/18 00:12 Plt Count 337 K/mm3 (140-440) 10/05/18 00:12 Lymph % (Auto) 30.6 % (13.4-35.0) 10/05/18 00:12 [place] % (Auto) 12.1 % (0.0-7.3) H 10/05/18 00:12 Eos % (Auto) 1.9 % (0.0-4.3) 10/05/18 00:12 Baso % (Auto) 1.7 % (0.0-1.8) 10/05/18 00:12 Lymph # 3.4 K/mm3 (1.2-5.4) 10/05/18 00:12 [place] # 1.3 K/mm3 (0.0-0.8) H 10/05/18 00:12 Eos # 0.2 K/mm3 (0.0-0.4) 10/05/18 00:12 Baso # 0.2 K/mm3 (0.0-0.1) H 10/05/18 00:12 Seg Neutrophils % 53.7 % (40.0-70.0) 10/05/18 00:12 Seg Neutrophils # 5.9 K/mm3 (1.8-7.7) 10/05/18 00:12 PT 13.3 Sec. (12.2-14.9) 09/30/18 20:16 INR 1.04 (0.87-1.13) 09/30/18 20:16 POC ABG pH 7.379 (7.35-7.45) 10/02/18 04:29 POC ABG pCO2 38.9 (35-45) 10/02/18 04:29 POC ABG pO2 124 (80-105) H 10/02/18 04:29 POC ABG HCO3 22.9 (22-26 mml/L) 10/02/18 04:29 POC ABG Total CO2 24 (23-27mmol/L) 10/02/18 04:29 POC ABG O2 Sat 99 10/02/18 04:29 POC ABG Base Excess -2 ((-2) - (+3)mmol/L) 10/02/18 04:29 VBG pH 7.480 (7.320-7.420) H 09/30/18 20:16 25 % 10/02/18 04:29 Sodium 148 mmol/L (137-145) H 10/05/18 04:33 Potassium 3.7 mmol/L (3.6-5.0) 10/05/18 04:33 Chloride 112.0 mmol/L (98-107) H 10/05/18 04:33 Carbon Dioxide 26 mmol/L (22-30) 10/05/18 04:33 14 mmol/L 10/05/18 04:33 BUN 26 mg/dL (7-17) H 10/05/18 04:33 0.6 mg/dL (0.7-1.2) L 10/05/18 04:33 Estimated GFR > 60 ml/min 10/05/18 04:33 43 % 10/05/18 04:33 Glucose 107 mg/dL (65-100) H 10/05/18 04:33 POC Glucose 100 (70-105) 10/05/18 00:16 Lactic Acid 1.50 mmol/L (0.7-2.0) 10/01/18 08:15 Calcium 12.4 mg/dL (8.4-10.2) H* 10/05/18 04:33 Phosphorus 3.30 mg/dL (2.5-4.5) 10/03/18 04:03 Magnesium 2.30 mg/dL (1.7-2.3) 10/05/18 04:33 0.30 mg/dL (0.1-1.2) 09/30/18 20:16 AST 36 units/L (5-40) 09/30/18 20:16 ALT 32 units/L (7-56) 09/30/18 20:16 139 units/L (35-129) H 09/30/18 20:16 10.0 g/dL (6.3-8.2) H 09/30/18 20:16 3.9 g/dL (3.9-5) 09/30/18 20:16 0.6 % 09/30/18 20:16 Triglycerides 145 mg/dL (2-149) 10/02/18 04:45 Yellow (Yellow) 09/30/18 21:40 Cloudy (Clear) 09/30/18 21:40 9.0 (5.0-7.0) H 09/30/18 21:40 Ur Specific [place] 1.015 (1.003-1.030) 09/30/18 21:40 100 mg/dl mg/dL (Negative) 09/30/18 21:40 Neg mg/dL (Negative) 09/30/18 21:40 Neg mg/dL (Negative) 09/30/18 21:40 Lg (Negative) 09/30/18 21:40 Neg (Negative) 09/30/18 21:40 Neg (Negative) 09/30/18 21:40 < 2.0 mg/dL (<2.0) 09/30/18 21:40 Ur Leukocyte Esterase Lg (Negative) 09/30/18 21:40 154.0 /HPF (0.0-6.0) H 09/30/18 21:40 > 182.0 /HPF (0.0-6.0) 09/30/18 21:40 U Epithel Cells (Auto) < 1.0 /HPF (0-13.0) 09/30/18 21:40 Ur Yeast w Hyphae Few /HPF 09/30/18 21:40 2+ /HPF 09/30/18 21:40 Active Medications - Current Medications Current Medications: Generic Name Dose Route Start Last Admin Trade Name Freq PRN Reason Stop Dose Admin Acetaminophen 650 mg 10/01/18 04:45 10/03/18 14:06 Tylenol IN 650 mg Q4H PRN Administration Fever >101 Lipase/Protease/Amylase 1 each 10/01/18 15:58 Pancrejossy [place] 10,500 Unit FEEDTUBE PRN PRN For Clogged Feeding Tube Cholecalciferol 5,000 unit 10/04/18 10:00 10/05/18 10:19 Vitamin D3 FEEDTUBE 5,000 unit DAILY ANU Administration Dextrose 50 ml 09/30/18 23:32 D50w (25gm) Syringe IV PRN PRN Hypoglycemia Famotidine 20 mg 10/03/18 10:00 10/05/18 10:20 Pepcid PO 20 mg BID ANU Administration Heparin Sodium (Porcine) 5,000 unit 09/30/18 23:30 10/05/18 10:20 Heparin SUB-Q 5,000 unit Q12HR ANU Administration Hydrophilic Ointment 1 applic 09/30/18 19:53 Vaseline Lip Therapy TP Q2HR PRN Dry Lips Cefepime HCl 2 gm in 100 mls @ 200 mls/hr 10/03/18 16:00 10/05/18 10:20 Maxipime/Ns 2 Gm/100 Ml IV 200 mls/hr Q12HR ANU Administration Protocol Potassium Chloride 40 meq/ 1,020 mls @ 75 mls/hr 10/05/18 11:00 Dextrose IV DIRECT [facility] Insulin Human Regular 0 units 10/01/18 18:00 10/05/18 08:54 Humulin R SUB-Q Not Given Q6HR [facility] Protocol Multi-Ingred Cream/Lotion/Oil/Oint 1 applic 09/30/18 19:53 Artificial Tears Ophth Oint OU Q4HR PRN Dry Eye(s) Ondansetron HCl 4 mg 09/30/18 23:29 Zofran IV Q8H PRN Nausea And Vomiting Potassium Chloride 40 meq 10/05/18 10:45 Potassium Chloride FEEDTUBE 10/05/18 13:45 ONCE NR Scopolamine 1 each 10/02/18 02:00 10/05/18 02:16 Transderm-Scop TD 1 each Q3D ANU Administration Simple Syrup 15 ml 10/01/18 15:58 Simple Syrup FEEDTUBE PRN PRN Hypoglycemia Simple Syrup 30 ml 10/01/18 15:58 Simple Syrup FEEDTUBE PRN PRN Hypoglycemia Sodium Bicarbonate 325 mg 10/01/18 15:58 Sodium Bicarbonate FEEDTUBE PRN PRN For Clogged Feeding Tube Nutrition/Malnutrition Assess - Dietary Evaluation Nutrition/Malnutrition Findings: Nutrition Notes Start: 10/01/18 15:44 Freq: Status: Active Protocol: Document 10/03/18 15:24 RM (Rec: 10/03/18 15:31 RM [id number]) Nutrition Notes Initial or Follow up Reassessment Current Diagnosis Diabetes,Hypertension Other Pertinent Diagnosis AMS, SOB, Hx TBI, PEG Current Diet Vital 1.2 at 45 ml/hr Labs/Tests Na 144 K 3.5 Pertinent Medications Reviewed Height 5 ft 1 in Weight 56 kg [place] Body Weight (kg) 47.72 BMI 23.3 Subjective/Other Information Pt extubated yesterday. Earlier today observed Vital 1 .2 infusing at goal rate. Per nurse pt is tolerating TF. Pt later moved to . Percent of energy/protein needs met: 96%/100% Burn Absent Trauma Absent #1 Nutrition Diagnosis Inadequate oral intake Diagnosis Progress(for reassessment Continues documentation) Is patient on ventilator? No Is Patient Ambulatory and/or Out of Bed No REE-([facility]-confined to bed) 1356.792 Calculation Used for Recommendations [facility] Additional Notes Protein Needs: 45-56g (0.8-1g/ kg) Fluid Needs: 1 ml/kcal Nutrition Intervention Nutrition Support: Glucerna 1.2 at 50 ml/hr Water flush of 100 mls q 4 hrs . Kcal 1,440 Protein (gm) 72 Fluid (mL) 966 Goal #1 TF tolerance Goal #2 Meet at least 75% of calorie and protein needs via TF Anticipated Discharge Needs: TF Follow-Up By: 10/05/18 Additional Comments Follow for TF tolerance
[2018-10-06] MEDS: HumuLIN R SUB-Q SCH ×4 (01:34→18:09)
[2018-10-06 06:46] LABS: BUN/Creatinine Ratio 48; Blood Urea Nitrogen 29 mg/dL (7-17); Hemolysis Index 4
[2018-10-06 07:33] LABS: Calcium 12.5 mg/dL (8.4-10.2)
[2018-10-06] MEDS: PEPCID PO SCH ×2 (10:37→21:06)
[2018-10-06] MEDS: MAXIPIME/NS 2 GM/100 ML 2 GM/100 ML BAG IV SCH ×2 (10:37→21:06)
[2018-10-06] MEDS: HEPARIN SUB-Q SCH ×2 (10:37→21:06)
[2018-10-06] MEDS: VITAMIN D3 FEEDTUBE SCH (10:37)
--- NOTE | 2018-10-06 11:50 | Progress Note ---
Assessment and Plan 1. Hypercalcemia: Likely from combination of volume depletion and immobilization. Continue water flushes and IV fluids. Monitor Calcium level. Calcium level trending upwards. Will give her a dose of Pamidronate. 2. Acute kidney injury: Vasomotor RUDI in the setting of volume depletion. Renal function is better. Monitor renal function. Avoid nephrotoxic agents. 3. FEN: Hypernatremia, water flushes. Monitor lytes. 4. Sepsis: PNA and UTI. Followed by ID. 5. Respiratory failure: S/p extubated. 6. H/o Bilateral PE. 7. 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 Subjective Date of service: 10/06/18 Principal diagnosis: sepsis, resp fail Interval history: Patient was seen and examined at the bedside. Objective - Vital Signs Vital signs: Vital Signs - 12hr 10/06/18 10/06/18 04:14 08:13 Temperature 97.3 F L 97.1 F L Pulse Rate 86 87 Respiratory 19 18 Rate Blood Pressure 112/77 109/71 O2 Sat by Pulse 97 98 Oximetry - General Appearance General appearance: well-developed, appears stated age, other (no distress) EENT: ATNC, PERRL Neck: other (Trachea midline) Respiratory: Present: Clear to Ascultation Cardiology: regular, S1S2, no murmurs Gastrointestinal: normoactive bowel sounds, no tenderness, no distended, other (PEG tube noted, bilateral nephrostomy tubes noted) Integumentary: no rash Neurologic: other (opens eyes, not following any command) Musculoskeletal: other (no edema) - Lab 10/05/18 00:12 10/06/18 05:22 Most recent lab results Calcium 12.5 mg/dL (8.4-10.2) H* 10/06/18 05:22 Phosphorus 2.80 mg/dL (2.5-4.5) 10/06/18 05:22 Magnesium 2.30 mg/dL (1.7-2.3) 10/05/18 04:33 Medications & Allergies - Medications Allergies/Adverse Reactions: Allergies No Known Allergies Allergy (Unverified 08/26/18 14:14) Home Medications: Home Medications Medication Instructions Recorded Confirmed Last Taken Type Lipase/Protease/Amylase [Pancreaze 1 each FEEDTUBE PRN PRN capsule 09/10/18 09/30/[address] 10,500 Unit] Simple Syrup 15 ml FEEDTUBE PRN PRN oral.liqd 09/10/18 09/30/18 Unknown Rx Simple Syrup 30 ml FEEDTUBE PRN PRN oral.liqd 09/10/18 09/30/18 Unknown Rx Amantadine 100 mg FEEDTUBE DAILY 09/30/18 09/30/18 Unknown History Baclofen 10 mg FEEDTUBE BID 09/30/18 09/30/18 Unknown History Bisacodyl 10 mg VT DAILY 09/30/18 09/30/18 Unknown History Cholecalciferol (Vitamin D3) 5,000 unit FEEDTUBE DAILY 09/30/18 09/30/18 Unknown History Colace CAP 100 mg FEEDTUBE BID 09/30/18 09/30/18 Unknown History Famotidine 20 mg FEEDTUBE BID 09/30/18 09/30/18 Unknown History Fentanyl 25 mcg TRANSDERMA Q72H 09/30/18 09/30/18 Unknown History Ferrous Sulfate 325 mg FEEDTUBE TID 09/30/18 09/30/18 Unknown History Glycopyrrolate 1 mg FEEDTUBE TID 09/30/18 09/30/18 Unknown History Lactulose 30 ml FEEDTUBE BID 09/30/18 09/30/18 Unknown History Lexapro 30 mg FEEDTUBE DAILY 09/30/18 09/30/18 Unknown History Magnesium Oxide 400 400 mg FEEDTUBE DAILY 09/30/18 09/30/18 Unknown History Meropenem 1 gm IV Q8H 09/30/18 09/30/18 Unknown History Methylphenidate 10 mg FEEDTUBE BID 09/30/18 09/30/18 Unknown History Metoclopramide HCl 10 mg FEEDTUBE Q8H 09/30/18 09/30/18 Unknown History Pride 5-325 mg TAB 5 mg FEEDTUBE Q6H PRN 09/30/18 09/30/18 Unknown History Polyethylene Glycol 3350 17 gram FEEDTUBE BID 09/30/18 09/30/18 Unknown History Scopolamine 1.5 mg TRANSDERMA Q72H 09/30/18 09/30/18 Unknown History Active Medications: Generic Name Dose Route Start Last Admin Trade Name Freq PRN Reason Stop Dose Admin Acetaminophen 650 mg 10/01/18 04:45 10/03/18 14:06 Tylenol [place] 650 mg Q4H PRN Administration Fever >101 Lipase/Protease/Amylase 1 each 10/01/18 15:58 Pancrecolbye 10,500 Unit FEEDTUBE PRN PRN For Clogged Feeding Tube Cholecalciferol 5,000 unit 10/04/18 10:00 10/06/18 10:37 Vitamin D3 FEEDTUBE 5,000 unit DAILY ANU Administration Dextrose 50 ml 09/30/18 23:32 D50w (25gm) Syringe IV PRN PRN Hypoglycemia Famotidine 20 mg 10/03/18 10:00 10/06/18 10:37 Pepcid PO 20 mg BID ANU Administration Heparin Sodium (Porcine) 5,000 unit 09/30/18 23:30 10/06/18 10:37 Heparin SUB-Q 5,000 unit Q12HR ANU Administration Hydrophilic Ointment 1 applic 09/30/18 19:53 Vaseline Lip Therapy TP Q2HR PRN Dry Lips Cefepime HCl 2 gm in 100 mls @ 200 mls/hr 10/03/18 16:00 10/06/18 10:37 Maxipime/Ns 2 Gm/100 Ml IV 200 mls/hr Q12HR ANU Administration Protocol Potassium Chloride 40 meq/ 1,020 mls @ 75 mls/hr 10/05/18 11:00 Dextrose IV DIRECT [facility] Insulin Human Regular 0 units 10/01/18 18:00 10/06/18 06:27 Humulin R SUB-Q Not Given Q6HR [facility] Protocol Multi-Ingred Cream/Lotion/Oil/Oint 1 applic 09/30/18 19:53 Artificial Tears Ophth Oint OU Q4HR PRN Dry Eye(s) Ondansetron HCl 4 mg 09/30/18 23:29 Zofran IV Q8H PRN Nausea And Vomiting Scopolamine 1 each 10/02/18 02:00 10/05/18 02:16 Transderm-Scop TD 1 each Q3D ANU Administration Simple Syrup 15 ml 10/01/18 15:58 Simple Syrup FEEDTUBE PRN PRN Hypoglycemia Simple Syrup 30 ml 10/01/18 15:58 Simple Syrup FEEDTUBE PRN PRN Hypoglycemia Sodium Bicarbonate 325 mg 10/01/18 15:58 Sodium Bicarbonate FEEDTUBE PRN PRN For Clogged Feeding Tube
--- NOTE | 2018-10-06 12:01 | Progress Note ---
Assessment and Plan Assessment and plan: Sepsis. Etiology secondary to pneumonia and UTI. Blood culture 09/30/2018 no growth. urine culture no growth. Infectious disease following and reports that the infection is incurable. Consider hospice care. Healthcare associated pneumonia. CXR with persistent right infiltrate. Tracheal asp poor specimen Acute hypoxic respiratory failure. Etiology secondary to above. Patient was recently intubated now extubated. 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 This infection is incurable. Urine culture from right POULTRY FARMWORKER tube 08/27/2018 Pseudomonas and VRE. s/p nephrostogram and nephrostomy tube exchange of samara ateral nephrostomy tubes 09/06/[address] Newell. Periumbilical intraabdominal collection which was drained History of pulmonary embolism. Severe protein calorie malnutrition. Nutritional support. I had advanced care planning discussions with the sister and mother at the bedside regarding palliative care and potentially hospice. Family will speak with infectious disease regarding infections as noted above. 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 Readmitted on 09/30/2018 due to 24 hour history of fever and SOB at care home: No new issues overnight. Hospitalist Physical - Constitutional Vitals: Temp Pulse Resp BP Pulse Ox 97.1 F L 87 18 109/71 98 10/06/18 08:13 10/06/18 08:13 10/06/18 08:13 10/06/18 08:13 10/06/18 08:13 General appearance: Present: no acute distress - EENT Eyes: Present: PERRL, EOM intact ENT: hearing intact, clear oral mucosa, dentition normal - Neck Neck: Present: supple, normal ROM - Respiratory Respiratory effort: normal Respiratory: bilateral: CTA - Cardiovascular Rhythm: regular Heart Sounds: Present: S1 & S2. Absent: gallop, rub - Extremities Extremities: no ischemia, No edema, Full ROM - Abdominal General gastrointestinal: soft, non-tender, non-distended, normal bowel sounds - Integumentary Integumentary: Present: clear, warm, dry - Neurologic Neurologic: CNII-XII intact, moves all extremities Results - Labs CBC & Chem 7: 10/05/18 00:12 10/06/18 05:22 Labs: Laboratory Last Values WBC 11.0 K/mm3 (4.5-11.0) 10/05/18 00:12 RBC 3.79 M/mm3 (3.65-5.03) 10/05/18 00:12 Hgb 11.8 gm/dl (10.1-14.3) 10/05/18 00:12 Hct 35.2 % (30.3-42.9) 10/05/18 00:12 MCV 93 fl (79-97) 10/05/18 00:12 MCH 31 pg (28-32) 10/05/18 00:12 MCHC 34 % (30-34) 10/05/18 00:12 RDW 17.8 % (13.2-15.2) H 10/05/18 00:12 Plt Count 337 K/mm3 (140-440) 10/05/18 00:12 Lymph % (Auto) 30.6 % (13.4-35.0) 10/05/18 00:12 [place] % (Auto) 12.1 % (0.0-7.3) H 10/05/18 00:12 Eos % (Auto) 1.9 % (0.0-4.3) 10/05/18 00:12 Baso % (Auto) 1.7 % (0.0-1.8) 10/05/18 00:12 Lymph # 3.4 K/mm3 (1.2-5.4) 10/05/18 00:12 [place] # 1.3 K/mm3 (0.0-0.8) H 10/05/18 00:12 Eos # 0.2 K/mm3 (0.0-0.4) 10/05/18 00:12 Baso # 0.2 K/mm3 (0.0-0.1) H 10/05/18 00:12 Seg Neutrophils % 53.7 % (40.0-70.0) 10/05/18 00:12 Seg Neutrophils # 5.9 K/mm3 (1.8-7.7) 10/05/18 00:12 PT 13.3 Sec. (12.2-14.9) 09/30/18 20:16 INR 1.04 (0.87-1.13) 09/30/18 20:16 POC ABG pH 7.379 (7.35-7.45) 10/02/18 04:29 POC ABG pCO2 38.9 (35-45) 10/02/18 04:29 POC ABG pO2 124 (80-105) H 10/02/18 04:29 POC ABG HCO3 22.9 (22-26 mml/L) 10/02/18 04:29 POC ABG Total CO2 24 (23-27mmol/L) 10/02/18 04:29 POC ABG O2 Sat 99 10/02/18 04:29 POC ABG Base Excess -2 ((-2) - (+3)mmol/L) 10/02/18 04:29 VBG pH 7.480 (7.320-7.420) H 09/30/18 20:16 25 % 10/02/18 04:29 Sodium 144 mmol/L (137-145) 10/06/18 05:22 Potassium 4.1 mmol/L (3.6-5.0) 10/06/18 05:22 Chloride 108.1 mmol/L (98-107) H 10/06/18 05:22 Carbon Dioxide 26 mmol/L (22-30) 10/06/18 05:22 14 mmol/L 10/06/18 05:22 BUN 29 mg/dL (7-17) H 10/06/18 05:22 0.6 mg/dL (0.7-1.2) L 10/06/18 05:22 Estimated GFR > 60 ml/min 10/06/18 05:22 48 % 10/06/18 05:22 Glucose 108 mg/dL (65-100) H 10/06/18 05:22 POC Glucose 98 (70-105) 10/06/18 06:33 Lactic Acid 1.50 mmol/L (0.7-2.0) 10/01/18 08:15 Calcium 12.5 mg/dL (8.4-10.2) H* 10/06/18 05:22 Phosphorus 2.80 mg/dL (2.5-4.5) 10/06/18 05:22 Magnesium 2.30 mg/dL (1.7-2.3) 10/05/18 04:33 0.30 mg/dL (0.1-1.2) 09/30/18 20:16 AST 36 units/L (5-40) 09/30/18 20:16 ALT 32 units/L (7-56) 09/30/18 20:16 139 units/L (35-129) H 09/30/18 20:16 10.0 g/dL (6.3-8.2) H 09/30/18 20:16 3.9 g/dL (3.9-5) 09/30/18 20:16 0.6 % 09/30/18 20:16 Triglycerides 145 mg/dL (2-149) 10/02/18 04:45 Yellow (Yellow) 09/30/18 21:40 Cloudy (Clear) 09/30/18 21:40 9.0 (5.0-7.0) H 09/30/18 21:40 Ur Specific [place] 1.015 (1.003-1.030) 09/30/18 21:40 100 mg/dl mg/dL (Negative) 09/30/18 21:40 Neg mg/dL (Negative) 09/30/18 21:40 Neg mg/dL (Negative) 09/30/18 21:40 Lg (Negative) 09/30/18 21:40 Neg (Negative) 09/30/18 21:40 Neg (Negative) 09/30/18 21:40 < 2.0 mg/dL (<2.0) 09/30/18 21:40 Ur Leukocyte Esterase Lg (Negative) 09/30/18 21:40 154.0 /HPF (0.0-6.0) H 09/30/18 21:40 > 182.0 /HPF (0.0-6.0) 09/30/18 21:40 U Epithel Cells (Auto) < 1.0 /HPF (0-13.0) 09/30/18 21:40 Ur Yeast w Hyphae Few /HPF 09/30/18 21:40 2+ /HPF 09/30/18 21:40 Active Medications - Current Medications Current Medications: Generic Name Dose Route Start Last Admin Trade Name Freq PRN Reason Stop Dose Admin Acetaminophen 650 mg 10/01/18 04:45 10/03/18 14:06 Tylenol [place] 650 mg Q4H PRN Administration Fever >101 Lipase/Protease/Amylase 1 each 10/01/18 15:[address] 10,500 Unit FEEDTUBE PRN PRN For Clogged Feeding Tube Cholecalciferol 5,000 unit 10/04/18 10:00 10/06/18 10:37 Vitamin D3 FEEDTUBE 5,000 unit DAILY ANU Administration Dextrose 50 ml 09/30/18 23:32 D50w (25gm) Syringe IV PRN PRN Hypoglycemia Famotidine 20 mg 10/03/18 10:00 10/06/18 10:37 Pepcid PO 20 mg BID ANU Administration Heparin Sodium (Porcine) 5,000 unit 09/30/18 23:30 10/06/18 10:37 Heparin SUB-Q 5,000 unit Q12HR ANU Administration Hydrophilic Ointment 1 applic 09/30/18 19:53 Vaseline Lip Therapy TP Q2HR PRN Dry Lips Cefepime HCl 2 gm in 100 mls @ 200 mls/hr 10/03/18 16:00 10/06/18 10:37 Maxipime/Ns 2 Gm/100 Ml IV 200 mls/hr Q12HR ANU Administration Protocol Potassium Chloride 40 meq/ 1,020 mls @ 75 mls/hr 10/05/18 11:00 Dextrose IV DIRECT ANU Pamidronate Disodium 90 mg/ 1,010 mls @ 100 mls/hr 10/06/18 13:00 Sodium Chloride IV 10/06/18 23:05 ONCE ONE Insulin Human Regular 0 units 10/01/18 18:00 10/06/18 06:27 Humulin R SUB-Q Not Given Q6HR [facility] Protocol Multi-Ingred Cream/Lotion/Oil/Oint 1 applic 09/30/18 19:53 Artificial Tears Ophth Oint OU Q4HR PRN Dry Eye(s) Ondansetron HCl 4 mg 09/30/18 23:29 Zofran IV Q8H PRN Nausea And Vomiting Scopolamine 1 each 10/02/18 02:00 10/05/18 02:16 Transderm-Scop TD 1 each Q3D ANU Administration Simple Syrup 15 ml 10/01/18 15:58 Simple Syrup FEEDTUBE PRN PRN Hypoglycemia Simple Syrup 30 ml 10/01/18 15:58 Simple Syrup FEEDTUBE PRN PRN Hypoglycemia Sodium Bicarbonate 325 mg 10/01/18 15:58 Sodium Bicarbonate FEEDTUBE PRN PRN For Clogged Feeding Tube Nutrition/Malnutrition Assess - Dietary Evaluation Nutrition/Malnutrition Findings: Nutrition Notes Start: 10/01/18 15:44 Freq: Status: Active Protocol: Document 10/05/18 16:56 RM (Rec: 10/05/18 17:01 RM [id number]) Nutrition Notes Initial or Follow up Reassessment Current Diagnosis Diabetes,Hypertension Other Pertinent Diagnosis AMS, SOB, Hx TBI, PEG Current Diet Vital 1.2 at 45 ml/hr Labs/Tests Na 148 Pertinent Medications Reviewed Height 5 ft 1 in Weight 52.6 kg [place] Body Weight (kg) 47.72 BMI 21.9 Subjective/Other Information Observed Vital HP infusing at time of visit. [employer]st clarified to nurse that Glucerna is ordered. Nurse stated that she would change TF. Burn Absent Trauma Absent #1 Nutrition Diagnosis Inadequate oral intake Diagnosis Progress(for reassessment Continues documentation) Is patient on ventilator? No Is Patient Ambulatory and/or Out of Bed No REE-([facility]-confined to bed) 1316.028 Calculation Used for Recommendations [facility] Additional Notes Protein Needs: 45-56g (0.8-1g/ kg) Fluid Needs: 1 ml/kcal Nutrition Intervention Nutrition Support: Glucerna 1.2 at 50 ml/hr Water flush of 150 mls q 4 hrs until hypernatremia resolves. Water flush of 100 mls q 4 hrs once hypernatremia resolves. Kcal 1,440 Protein (gm) 72 Fluid (mL) 966 Goal #1 TF tolerance Goal #2 Meet at least 75% of calorie and protein needs via TF Anticipated Discharge Needs: TF Follow-Up By: 10/08/18 Additional Comments Follow for correct TF, TF tolerance
[2018-10-06] MEDS ORDERED: AREDIA 90 MG in NACL 0.9% 1000 ML 1,000 ML IV ONE (13:00)
[2018-10-07] MEDS: HumuLIN R SUB-Q SCH ×4 (02:42→18:24)
[2018-10-07 06:06] LABS: BUN/Creatinine Ratio 35; Blood Urea Nitrogen 28 mg/dL (7-17); Hemolysis Index 3
[2018-10-07 06:13] LABS: Calcium > 13.0 mg/dL (8.4-10.2)
--- NOTE | 2018-10-07 09:52 | Progress Note ---
Assessment and Plan Assessment and plan: Sepsis. Etiology secondary to pneumonia and UTI. Blood culture 09/30/2018 no growth. urine culture no growth. Infectious disease following and reports that the infection is incurable. Consider hospice care. Healthcare associated pneumonia. CXR with persistent right infiltrate. Tracheal asp poor specimen Acute hypoxic respiratory failure. Etiology secondary to above. Patient was recently intubated now extubated. 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 This infection is incurable. Urine culture from right BUNK HOUSE WORKER tube 08/27/2018 Pseudomonas and VRE. s/p nephrostogram and nephrostomy tube exchange of samara ateral nephrostomy tubes 09/06/[address] Newell. Periumbilical intraabdominal collection which was drained History of pulmonary embolism. Severe protein calorie malnutrition. Nutritional support. I had advanced care planning discussions with the sister and mother at the bedside regarding palliative care and potentially hospice. Family will speak with infectious disease regarding infections as noted above. 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 Readmitted on 09/30/2018 due to 24 hour history of fever [facility]: No new issues overnight. Hospitalist Physical - Constitutional Vitals: Temp Pulse Resp BP Pulse Ox 97.8 F 85 16 109/71 95 10/07/18 07:46 10/07/18 07:46 10/07/18 07:46 10/07/18 07:46 10/07/18 07:46 General appearance: Present: no acute distress - EENT Eyes: Present: PERRL, EOM intact ENT: hearing intact, clear oral mucosa, dentition normal - Neck Neck: Present: supple, normal ROM - Respiratory Respiratory effort: normal Respiratory: bilateral: CTA - Cardiovascular Rhythm: regular Heart Sounds: Present: S1 & S2. Absent: gallop, rub - Extremities Extremities: no ischemia, No edema, Full ROM, abnormal (bilateral contractures) - Abdominal General gastrointestinal: soft, non-tender, non-distended, normal bowel sounds - Integumentary Integumentary: Present: clear, warm, dry - Neurologic Neurologic: CNII-XII intact, moves all extremities, other (encephalopathic) Results - Labs CBC & Chem 7: 10/05/18 00:12 10/07/18 04:09 Labs: Laboratory Last Values WBC 11.0 K/mm3 (4.5-11.0) 10/05/18 00:12 RBC 3.79 M/mm3 (3.65-5.03) 10/05/18 00:12 Hgb 11.8 gm/dl (10.1-14.3) 10/05/18 00:12 Hct 35.2 % (30.3-42.9) 10/05/18 00:12 MCV 93 fl (79-97) 10/05/18 00:12 MCH 31 pg (28-32) 10/05/18 00:12 MCHC 34 % (30-34) 10/05/18 00:12 RDW 17.8 % (13.2-15.2) H 10/05/18 00:12 Plt Count 337 K/mm3 (140-440) 10/05/18 00:12 Lymph % (Auto) 30.6 % (13.4-35.0) 10/05/18 00:12 [place] % (Auto) 12.1 % (0.0-7.3) H 10/05/18 00:12 Eos % (Auto) 1.9 % (0.0-4.3) 10/05/18 00:12 Baso % (Auto) 1.7 % (0.0-1.8) 10/05/18 00:12 Lymph # 3.4 K/mm3 (1.2-5.4) 10/05/18 00:12 [place] # 1.3 K/mm3 (0.0-0.8) H 10/05/18 00:12 Eos # 0.2 K/mm3 (0.0-0.4) 10/05/18 00:12 Baso # 0.2 K/mm3 (0.0-0.1) H 10/05/18 00:12 Seg Neutrophils % 53.7 % (40.0-70.0) 10/05/18 00:12 Seg Neutrophils # 5.9 K/mm3 (1.8-7.7) 10/05/18 00:12 PT 13.3 Sec. (12.2-14.9) 09/30/18 20:16 INR 1.04 (0.87-1.13) 09/30/18 20:16 POC ABG pH 7.379 (7.35-7.45) 10/02/18 04:29 POC ABG pCO2 38.9 (35-45) 10/02/18 04:29 POC ABG pO2 124 (80-105) H 10/02/18 04:29 POC ABG HCO3 22.9 (22-26 mml/L) 10/02/18 04:29 POC ABG Total CO2 24 (23-27mmol/L) 10/02/18 04:29 POC ABG O2 Sat 99 10/02/18 04:29 POC ABG Base Excess -2 ((-2) - (+3)mmol/L) 10/02/18 04:29 VBG pH 7.480 (7.320-7.420) H 09/30/18 20:16 25 % 10/02/18 04:29 Sodium 143 mmol/L (137-145) 10/07/18 04:09 Potassium 5.0 mmol/L (3.6-5.0) D 10/07/18 04:09 Chloride 103.5 mmol/L (98-107) 10/07/18 04:09 Carbon Dioxide 27 mmol/L (22-30) 10/07/18 04:09 18 mmol/L 10/07/18 04:09 BUN 28 mg/dL (7-17) H 10/07/18 04:09 0.8 mg/dL (0.7-1.2) 10/07/18 04:09 Estimated GFR > 60 ml/min 10/07/18 04:09 35 % 10/07/18 04:09 Glucose 98 mg/dL (65-100) 10/07/18 04:09 POC Glucose 84 (70-105) 10/06/18 23:36 Lactic Acid 1.50 mmol/L (0.7-2.0) 10/01/18 08:15 Calcium > 13.0 mg/dL (8.4-10.2) H* 10/07/18 04:09 Phosphorus 2.80 mg/dL (2.5-4.5) 10/06/18 05:22 Magnesium 2.30 mg/dL (1.7-2.3) 10/05/18 04:33 0.30 mg/dL (0.1-1.2) 09/30/18 20:16 AST 36 units/L (5-40) 09/30/18 20:16 ALT 32 units/L (7-56) 09/30/18 20:16 139 units/L (35-129) H 09/30/18 20:16 10.0 g/dL (6.3-8.2) H 09/30/18 20:16 3.9 g/dL (3.9-5) 09/30/18 20:16 0.6 % 09/30/18 20:16 Triglycerides 145 mg/dL (2-149) 10/02/18 04:45 Yellow (Yellow) 09/30/18 21:40 Cloudy (Clear) 09/30/18 21:40 9.0 (5.0-7.0) H 09/30/18 21:40 Ur Specific [place] 1.015 (1.003-1.030) 09/30/18 21:40 100 mg/dl mg/dL (Negative) 09/30/18 21:40 Neg mg/dL (Negative) 09/30/18 21:40 Neg mg/dL (Negative) 09/30/18 21:40 Lg (Negative) 09/30/18 21:40 Neg (Negative) 09/30/18 21:40 Neg (Negative) 09/30/18 21:40 < 2.0 mg/dL (<2.0) 09/30/18 21:40 Ur Leukocyte Esterase Lg (Negative) 09/30/18 21:40 154.0 /HPF (0.0-6.0) H 09/30/18 21:40 > 182.0 /HPF (0.0-6.0) 09/30/18 21:40 U Epithel Cells (Auto) < 1.0 /HPF (0-13.0) 09/30/18 21:40 Ur Yeast w Hyphae Few /HPF 09/30/18 21:40 2+ /HPF 09/30/18 21:40 Active Medications - Current Medications Current Medications: Generic Name Dose Route Start Last Admin Trade Name Freq PRN Reason Stop Dose Admin Acetaminophen 650 mg 10/01/18 04:45 10/03/18 14:06 Tylenol [place] 650 mg Q4H PRN Administration Fever >101 Lipase/Protease/Amylase 1 each 10/01/18 15:58 Pancreaze 10,500 Unit FEEDTUBE PRN PRN For Clogged Feeding Tube Cholecalciferol 5,000 unit 10/04/18 10:00 10/06/18 10:37 Vitamin D3 FEEDTUBE 5,000 unit DAILY ANU Administration Dextrose 50 ml 09/30/18 23:32 D50w (25gm) Syringe IV PRN PRN Hypoglycemia Famotidine 20 mg 10/03/18 10:00 10/06/18 21:06 Pepcid PO 20 mg BID ANU Administration Heparin Sodium (Porcine) 5,000 unit 09/30/18 23:30 10/06/18 21:06 Heparin SUB-Q 5,000 unit Q12HR ANU Administration Hydrophilic Ointment 1 applic 09/30/18 19:53 Vaseline Lip Therapy TP Q2HR PRN Dry Lips Cefepime HCl 2 gm in 100 mls @ 200 mls/hr 10/03/18 16:00 10/06/18 21:06 Maxipime/Ns 2 Gm/100 Ml IV 200 mls/hr Q12HR ANU Administration Protocol Potassium Chloride 40 meq/ 1,020 mls @ 75 mls/hr 10/05/18 11:00 10/07/18 07:48 Dextrose IV 75 mls/hr DIRECT ANU Administration Insulin Human Regular 0 units 10/01/18 18:00 10/07/18 07:07 Humulin R SUB-Q Not Given Q6HR ANU Protocol Multi-Ingred Cream/Lotion/Oil/Oint 1 applic 09/30/18 19:53 Artificial Tears Ophth Oint OU Q4HR PRN Dry Eye(s) Ondansetron HCl 4 mg 09/30/18 23:29 Zofran IV Q8H PRN Nausea And Vomiting Scopolamine 1 each 10/02/18 02:00 10/05/18 02:16 Transderm-Scop TD 1 each Q3D ANU Administration Simple Syrup 15 ml 10/01/18 15:58 Simple Syrup FEEDTUBE PRN PRN Hypoglycemia Simple Syrup 30 ml 10/01/18 15:58 Simple Syrup FEEDTUBE PRN PRN Hypoglycemia Sodium Bicarbonate 325 mg 10/01/18 15:58 Sodium Bicarbonate FEEDTUBE PRN PRN For Clogged Feeding Tube Nutrition/Malnutrition Assess - Dietary Evaluation Nutrition/Malnutrition Findings: Nutrition Notes Start: 10/01/18 15:44 Freq: Status: Active Protocol: Document 10/05/18 16:56 RM (Rec: 10/05/18 17:01 RM [id number]) Nutrition Notes Initial or Follow up Reassessment Current Diagnosis Diabetes,Hypertension Other Pertinent Diagnosis AMS, SOB, Hx TBI, PEG Current Diet Vital 1.2 at 45 ml/hr Labs/Tests Na 148 Pertinent Medications Reviewed Height 5 ft 1 in Weight 52.6 kg [place] Body Weight (kg) 47.72 BMI 21.9 Subjective/Other Information Observed Vital HP infusing at time of visit. Construction Services Technician clarified to nurse that Glucerna is ordered. Nurse stated that she would change TF. Burn Absent Trauma Absent #1 Nutrition Diagnosis Inadequate oral intake Diagnosis Progress(for reassessment Continues documentation) Is patient on ventilator? No Is Patient Ambulatory and/or Out of Bed No REE-([facility]-confined to bed) 1316.028 Calculation Used for Recommendations [facility][1] Additional Notes Protein Needs: 45-56g (0.8-1g/ kg) Fluid Needs: 1 ml/kcal Nutrition Intervention Nutrition Support: Glucerna 1.2 at 50 ml/hr Water flush of 150 mls q 4 hrs until hypernatremia resolves. Water flush of 100 mls q 4 hrs once hypernatremia resolves. Kcal 1,440 Protein (gm) 72 Fluid (mL) 966 Goal #1 TF tolerance Goal #2 Meet at least 75% of calorie and protein needs via TF Anticipated Discharge Needs: TF Follow-Up By: 10/08/18 Additional Comments Follow for correct TF, TF tolerance
[2018-10-07] MEDS: MAXIPIME/NS 2 GM/100 ML 2 GM/100 ML BAG IV SCH (10:18)
[2018-10-07] MEDS: HEPARIN SUB-Q SCH ×2 (10:19→23:13)
[2018-10-07] MEDS: PEPCID PO SCH ×2 (10:19→23:13)
[2018-10-07] MEDS: VITAMIN D3 FEEDTUBE SCH (10:19)
--- NOTE | 2018-10-07 11:42 | Progress Note ---
Assessment and Plan 1. Hypercalcemia: Likely from combination of volume depletion and immobilization. Change IV fluids to 1/2 NS. Monitor Calcium level. Calcium level trending upwards. S/p Pamidronate yesterday. Stop Vitamin D. 2. Acute kidney injury: Vasomotor RUDI in the setting of volume depletion. Renal function is better. Monitor renal function. Avoid nephrotoxic agents. 3. FEN: Hypernatremia, water flushes. Monitor lytes. 4. Sepsis: PNA and UTI. Followed by ID. 5. Respiratory failure: S/p extubated. 6. H/o Bilateral PE. 7. 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 Subjective Date of service: 10/07/18 Principal diagnosis: sepsis, resp fail Interval history: Patient was seen and examined at the bedside. Objective - Vital Signs Vital signs: Vital Signs - 12hr 10/07/18 10/07/18 03:13 07:46 Temperature 97.4 F L 97.8 F Pulse Rate 75 85 Respiratory 16 16 Rate Blood Pressure 108/59 109/71 O2 Sat by Pulse 98 95 Oximetry - General Appearance General appearance: well-developed, appears stated age, other (no distress) EENT: ATNC, PERRL Neck: supple Respiratory: Present: Clear to Ascultation Cardiology: regular, S1S2, no murmurs Gastrointestinal: normoactive bowel sounds, no tenderness, no distended, other (PEG tube noted, b/l nephrostomy tubes noted) Integumentary: no rash, warm and dry Neurologic: other (opens eyes, non-verbal, not following any command) Musculoskeletal: other (no edema) - Lab 10/05/18 00:12 10/07/18 04:09 Most recent lab results Calcium > 13.0 mg/dL (8.4-10.2) H* 10/07/18 04:09 Phosphorus 2.80 mg/dL (2.5-4.5) 10/06/18 05:22 Magnesium 2.30 mg/dL (1.7-2.3) 10/05/18 04:33 Medications & Allergies - Medications Allergies/Adverse Reactions: Allergies No Known Allergies Allergy (Unverified 08/26/18 14:14) Home Medications: Home Medications Medication Instructions Recorded Confirmed Last Taken Type Lipase/Protease/Amylase [Pancreaze 1 each FEEDTUBE PRN PRN capsule 09/10/18 09/30/18 Unknown Rx 10,500 Unit] Simple Syrup 15 ml FEEDTUBE PRN PRN oral.liqd 09/10/18 09/30/18 Unknown Rx Simple Syrup 30 ml FEEDTUBE PRN PRN oral.liqd 09/10/18 09/30/18 Unknown Rx Amantadine 100 mg FEEDTUBE DAILY 09/30/18 09/30/18 Unknown History Baclofen 10 mg FEEDTUBE BID 09/30/18 09/30/18 Unknown History Bisacodyl 10 mg [place] DAILY 09/30/18 09/30/18 Unknown History Cholecalciferol (Vitamin D3) 5,000 unit FEEDTUBE DAILY 09/30/18 09/30/18 Unknown History Colace CAP 100 mg FEEDTUBE BID 09/30/18 09/30/18 Unknown History Famotidine 20 mg FEEDTUBE BID 09/30/18 09/30/18 Unknown History Fentanyl 25 mcg TRANSDERMA Q72H 09/30/18 09/30/18 Unknown History Ferrous Sulfate 325 mg FEEDTUBE TID 09/30/18 09/30/18 Unknown History Glycopyrrolate 1 mg FEEDTUBE TID 09/30/18 09/30/18 Unknown History Lactulose 30 ml FEEDTUBE BID 09/30/18 09/30/18 Unknown History Lexapro 30 mg FEEDTUBE DAILY 09/30/18 09/30/18 Unknown History Magnesium Oxide 400 400 mg FEEDTUBE DAILY 09/30/18 09/30/18 Unknown History Meropenem 1 gm IV Q8H 09/30/18 09/30/18 Unknown History Methylphenidate 10 mg FEEDTUBE BID 09/30/18 09/30/18 Unknown History Metoclopramide HCl 10 mg FEEDTUBE Q8H 09/30/18 09/30/18 Unknown History [place] 5-325 mg TAB 5 mg FEEDTUBE Q6H PRN 09/30/18 09/30/18 Unknown History Polyethylene Glycol 3350 17 gram FEEDTUBE BID 09/30/18 09/30/18 Unknown History Scopolamine 1.5 mg TRANSDERMA Q72H 09/30/18 09/30/18 Unknown History Active Medications: Generic Name Dose Route Start Last Admin Trade Name Freq PRN Reason Stop Dose Admin Acetaminophen 650 mg 10/01/18 04:45 10/03/18 14:06 Tylenol [place] 650 mg Q4H PRN Administration Fever >101 Lipase/Protease/Amylase 1 each 10/01/18 15:58 Pancrejossy [place] 10,500 Unit FEEDTUBE PRN PRN For Clogged Feeding Tube Cholecalciferol 5,000 unit 10/04/18 10:00 10/07/18 10:19 Vitamin D3 FEEDTUBE 5,000 unit DAILY ANU Administration Dextrose 50 ml 09/30/18 23:32 D50w (25gm) Syringe IV PRN PRN Hypoglycemia Famotidine 20 mg 10/03/18 10:00 10/07/18 10:19 Pepcid PO 20 mg BID ANU Administration Heparin Sodium (Porcine) 5,000 unit 09/30/18 23:30 10/07/18 10:19 Heparin SUB-Q 5,000 unit Q12HR ANU Administration Hydrophilic Ointment 1 applic 09/30/18 19:53 Vaseline Lip Therapy TP Q2HR PRN Dry Lips Cefepime HCl 2 gm in 100 mls @ 200 mls/hr 10/03/18 16:00 10/07/18 10:18 Maxipime/Ns 2 Gm/100 Ml IV 200 mls/hr Q12HR ANU Administration Protocol Potassium Chloride 40 meq/ 1,020 mls @ 75 mls/hr 10/05/18 11:00 10/07/18 07:48 Dextrose IV 75 mls/hr DIRECT ANU Administration Insulin Human Regular 0 units 10/01/18 18:00 10/07/18 07:07 Humulin R SUB-Q Not Given Q6HR ANU Protocol Multi-Ingred Cream/Lotion/Oil/Oint 1 applic 09/30/18 19:53 Artificial Tears Ophth Oint OU Q4HR PRN Dry Eye(s) Ondansetron HCl 4 mg 09/30/18 23:29 Zofran IV Q8H PRN Nausea And Vomiting Scopolamine 1 each 10/02/18 02:00 10/05/18 02:16 Transderm-Scop TD 1 each Q3D ANU Administration Simple Syrup 15 ml 10/01/18 15:58 Simple Syrup FEEDTUBE PRN PRN Hypoglycemia Simple Syrup 30 ml 10/01/18 15:58 Simple Syrup FEEDTUBE PRN PRN Hypoglycemia Sodium Bicarbonate 325 mg 10/01/18 15:58 Sodium Bicarbonate FEEDTUBE PRN PRN For Clogged Feeding Tube
--- NOTE | 2018-10-07 12:05 | Progress Note ---
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 Readmitted on 09/30/2018 due to 24 hour history of [facility]: 1) Sepsis: Resolved. off pressors now, no fever, wbc back to normal; source pneumonia and UTI. Blood culture 09/30/2018 no growth. urine culture no growth. 2) HAP: CXR with persistent right infiltrate. 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 This infection is incurable. Urine culture from right GEM STONE CUTTER tube 08/27/2018 Pseudomonas and VRE. s/p nephrostogram and nephrostomy tube exchange of samara ateral nephrostomy tubes 09/06/[address] Newell. 4) Periumbilical intraabdominal collection which was drained (no records of this in the chart). Recommendations: contact isolation clinically stable, monitor off antibiotics ID is signing off, please call for questions Monica De Jesus NP [facility] M: [id number] O:[phone] Subjective Date of service: 10/07/18 Principal diagnosis: sepsis, resp fail Interval history: Patient seen and examined. Awake. Alert. No acute distress observed. Nonverbal. Objective - Exam Narrative Exam: General appearance: awake, does not follow commands, debilitated Eyes: anicteric sclerae, moist conjunctivae; no lid-lag; PERRLA HENT: Atraumatic; oropharynx limited ETT Neck: supple Lungs: CTA CV: RRR Abdomen: Soft, non-tender; PEG Extremities: cachetic Skin: No rash. Midchest scar. Psych:calm Neuro: awake - Constitutional Vitals: Vital Signs Temp Pulse Resp BP Pulse Ox 97.8 F 80 16 109/71 95 10/07/18 07:46 10/07/18 10:00 10/07/18 07:46 10/07/18 07:46 10/07/18 07:46 Temperature -Last 24 Hours Temperature 97.8 F Temperature 97.4 F Temperature 97.6 F Temperature 97.7 F Temperature 98.7 F - Labs CBC & Chem 7: 10/05/18 00:12 10/07/18 04:09 Labs: Abnormal lab results 10/06/18 10/07/18 Range/Units 12:38 04:09 BUN 28 H (7-17) mg/dL POC Glucose 110 H (70-105) Calcium > 13.0 H* (8.4-10.2) mg/dL
[2018-10-07] MEDS: NACL 0.45% 1000 ML 1,000 ML IV SCH (16:59)
[2018-10-08] MEDS: HumuLIN R SUB-Q SCH ×4 (00:34→19:24)
[2018-10-08] MEDS: TRANSDERM-SCOP TD SCH (02:39)
[2018-10-08 06:25] LABS: BUN/Creatinine Ratio 40; Blood Urea Nitrogen 28 mg/dL (7-17); Calcium 11.9 mg/dL (8.4-10.2); Hemolysis Index 11
--- NOTE | 2018-10-08 08:44 | Progress Note ---
Assessment and Plan 1. Hypercalcemia: Likely from combination of volume depletion and immobilization. Continue 1/2 NS. S/p Pamidronate. Calcium level is improving. Monitor Calcium level. 2. Acute kidney injury: Vasomotor RUDI in the setting of volume depletion. Renal function is better. Monitor renal function. Avoid nephrotoxic agents. 3. FEN: Hypernatremia, improved. Monitor lytes. 4. Sepsis: PNA and UTI. Followed by ID. 5. Respiratory failure: S/p extubated. 6. H/o Bilateral PE. 7. 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 Subjective Date of service: 10/08/18 Principal diagnosis: sepsis, resp fail Interval history: Patient was seen and examined at the bedside. Objective - Vital Signs Vital signs: Vital Signs - 12hr 10/07/18 10/07/18 10/07/18 22:00 23:00 23:09 Temperature Pulse Rate 116 H 96 H Respiratory 20 18 Rate Blood Pressure 113/67 O2 Sat by Pulse 99 Oximetry 10/07/18 10/08/18 10/08/18 23:25 04:24 04:27 Temperature 98.8 F 98.6 F Pulse Rate 88 Respiratory 20 Rate Blood Pressure 136/85 O2 Sat by Pulse 100 Oximetry 10/08/18 08:01 Temperature 97.8 F Pulse Rate 89 Respiratory 18 Rate Blood Pressure 113/67 O2 Sat by Pulse 98 Oximetry - General Appearance General appearance: well-developed, appears stated age, other (not in distress) EENT: ATNC, PERRL Neck: other (Trachea midline) Respiratory: Present: Clear to Ascultation Cardiology: regular, S1S2, no murmurs Gastrointestinal: normoactive bowel sounds, no tenderness, no distended, other (PEG tube, bilateral nephrostomy tubes) Integumentary: no rash Neurologic: other (alert, non-focal, not following any command) Musculoskeletal: other (no edema) - Lab 10/05/18 00:12 10/08/18 05:40 Most recent lab results Calcium 11.9 mg/dL (8.4-10.2) H 10/08/18 05:40 Phosphorus 2.80 mg/dL (2.5-4.5) 10/06/18 05:22 Magnesium 2.30 mg/dL (1.7-2.3) 10/05/18 04:33 Medications & Allergies - Medications Allergies/Adverse Reactions: Allergies No Known Allergies Allergy (Unverified 08/26/18 14:14) Home Medications: Home Medications Medication Instructions Recorded Confirmed Last Taken Type Lipase/Protease/Amylase [Pancreaze 1 each FEEDTUBE PRN PRN capsule 09/10/18 09/30/18 Unknown Rx 10,500 Unit] Simple Syrup 15 ml FEEDTUBE PRN PRN oral.liqd 09/10/18 09/30/18 Unknown Rx Simple Syrup 30 ml FEEDTUBE PRN PRN oral.liqd 09/10/18 09/30/18 Unknown Rx Amantadine 100 mg FEEDTUBE DAILY 09/30/18 09/30/18 Unknown History Baclofen 10 mg FEEDTUBE BID 09/30/18 09/30/18 Unknown History Bisacodyl 10 mg [place] DAILY 09/30/18 09/30/18 Unknown History Cholecalciferol (Vitamin D3) 5,000 unit FEEDTUBE DAILY 09/30/18 09/30/18 Unknown History Colace CAP 100 mg FEEDTUBE BID 09/30/18 09/30/18 Unknown History Famotidine 20 mg FEEDTUBE BID 09/30/18 09/30/18 Unknown History Fentanyl 25 mcg TRANSDERMA Q72H 09/30/18 09/30/18 Unknown History Ferrous Sulfate 325 mg FEEDTUBE TID 09/30/18 09/30/18 Unknown History Glycopyrrolate 1 mg FEEDTUBE TID 09/30/18 09/30/18 Unknown History Lactulose 30 ml FEEDTUBE BID 09/30/18 09/30/18 Unknown History Lexapro 30 mg FEEDTUBE DAILY 09/30/18 09/30/18 Unknown History Magnesium Oxide 400 400 mg FEEDTUBE DAILY 09/30/18 09/30/18 Unknown History Meropenem 1 gm IV Q8H 09/30/18 09/30/18 Unknown History Methylphenidate 10 mg FEEDTUBE BID 09/30/18 09/30/18 Unknown History Metoclopramide HCl 10 mg FEEDTUBE Q8H 09/30/18 09/30/18 Unknown History [place] 5-325 mg TAB 5 mg FEEDTUBE Q6H PRN 09/30/18 09/30/18 Unknown History Polyethylene Glycol 3350 17 gram FEEDTUBE BID 09/30/18 09/30/18 Unknown History Scopolamine 1.5 mg TRANSDERMA Q72H 09/30/18 09/30/18 Unknown History Active Medications: Generic Name Dose Route Start Last Admin Trade Name Jess PRN Reason Stop Dose Admin Acetaminophen 650 mg 10/01/18 04:45 10/03/18 14:06 Tylenol [place] 650 mg Q4H PRN Administration Fever >101 Lipase/Protease/Amylase 1 each 10/01/18 15:58 Pancreaze 10,500 Unit FEEDTUBE PRN PRN For Clogged Feeding Tube Dextrose 50 ml 09/30/18 23:32 D50w (25gm) Syringe IV PRN PRN Hypoglycemia Famotidine 20 mg 10/03/18 10:00 10/07/18 23:13 Pepcid PO 20 mg BID ANU Administration Heparin Sodium (Porcine) 5,000 unit 09/30/18 23:30 10/07/18 23:13 Heparin SUB-Q 5,000 unit Q12HR ANU Administration Hydrophilic Ointment 1 applic 09/30/18 19:53 Vaseline Lip Therapy TP Q2HR PRN Dry Lips Sodium Chloride 1,000 mls @ 75 mls/hr 10/07/18 17:00 10/07/18 16:59 Nacl 0.45% 1000 Ml IV 75 mls/hr DIRECT ANU Administration Insulin Human Regular 0 units 10/01/18 18:00 10/08/18 06:00 Humulin R SUB-Q Not Given Q6HR ANU Protocol Multi-Ingred Cream/Lotion/Oil/Oint 1 applic 09/30/18 19:53 Artificial Tears Ophth Oint OU Q4HR PRN Dry Eye(s) Ondansetron HCl 4 mg 09/30/18 23:29 Zofran IV Q8H PRN Nausea And Vomiting Scopolamine 1 each 10/02/18 02:00 10/08/18 02:39 Transderm-Scop TD 1 each Q3D ANU Administration Simple Syrup 15 ml 10/01/18 15:58 Simple Syrup FEEDTUBE PRN PRN Hypoglycemia Simple Syrup 30 ml 10/01/18 15:58 Simple Syrup FEEDTUBE PRN PRN Hypoglycemia Sodium Bicarbonate 325 mg 10/01/18 15:58 Sodium Bicarbonate FEEDTUBE PRN PRN For Clogged Feeding Tube
[2018-10-08] MEDS: PEPCID PO SCH ×2 (09:40→21:07)
[2018-10-08] MEDS: HEPARIN SUB-Q SCH ×2 (09:40→21:07)
[2018-10-08] MEDS: NACL 0.45% 1000 ML 1,000 ML IV SCH ×2 (09:41→21:31)
[2018-10-08] MEDS ORDERED: PROVENTIL IH PRN (12:00)
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
--- NOTE | 2018-10-08 15:41 | Progress Note ---
Subjective Date of service: 10/08/18 Principal diagnosis: sepsis, resp fail Interval history: A/P: Sepsis. Etiology secondary to pneumonia and UTI. Blood culture 09/30/2018 no growth. urine culture no growth. Infectious disease following and reports that the infection is incurable. Consider hospice care. Healthcare associated pneumonia. CXR with persistent right infiltrate. Tracheal asp poor specimen Acute hypoxic respiratory failure. Etiology secondary to above. Patient was recently intubated now extubated. Continue O2 to maintain sats Complicated UTI with large rectovesical fistula, stones and bilateral CRUSHER TENDER tubes. This infection is incurable. Urine culture from right CRUSHER TENDER tube 08/27/2018 Pseudomonas and VRE. s/p nephrostogram and nephrostomy tube exchange of bilateral nephrostomy tubes 09/06/[address] Newell. Periumbilical intraabdominal collection which was drained History of pulmonary embolism. History of chronic encephalopathy/TBI Severe protein calorie malnutrition. Nutritional support. Hypercalcemia Secondary to chronic immobilization and volume depletion Status post treated with pamidronate Serum calcium trending down Nephrology note reviewed AKA : Resolved Subjective Patient is nonverbal Opens eyes but does not follow simple commands Objective - Constitutional Vitals: Vital Signs - 12hr 10/08/18 10/08/18 10/08/18 04:24 04:27 08:01 Temperature 98.6 F 97.8 F Pulse Rate 88 89 Respiratory 20 18 Rate Blood Pressure 136/85 113/67 O2 Sat by Pulse 100 98 Oximetry 10/08/18 10/08/18 10:56 11:59 Temperature 98.9 F Pulse Rate 77 Respiratory 18 Rate Blood Pressure 114/73 O2 Sat by Pulse 99 99 Oximetry General appearance: Present: no acute distress - EENT Eyes: PERRL - Neck Neck: other (moderately stiff in all directions) - Respiratory Respiratory effort: normal Respiratory: bilateral: CTA, diminished - Cardiovascular Rhythm: regular Heart Sounds: Present: S1 & S2 Extremities: No edema Extremity abnormal: deformity (flexion contracture left wrist) - Gastrointestinal General gastrointestinal: Present: soft, non-tender, other (has a PEG tube) - Musculoskeletal Musculoskeletal: other (muscle wasting) - Neurologic Neurologic: other (Limited exam due to chronic encephalopathy/TBI) - Labs CBC & Chem 7: 10/05/18 00:12 10/08/18 05:40 Labs: Abnormal lab results 10/08/18 Range/Units 05:40 BUN 28 H (7-17) mg/dL Glucose 101 H (65-100) mg/dL Calcium 11.9 H (8.4-10.2) mg/dL
[2018-10-09] MEDS: HumuLIN R SUB-Q SCH ×4 (00:39→18:13)
[2018-10-09 06:32] LABS: BUN/Creatinine Ratio 40; Blood Urea Nitrogen 28 mg/dL (7-17); Calcium 10.8 mg/dL (8.4-10.2); Hemolysis Index 13
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
[2018-10-09] MEDS: PEPCID PO SCH ×2 (10:16→23:37)
[2018-10-09] MEDS: HEPARIN SUB-Q SCH ×2 (10:17→23:36)
--- NOTE | 2018-10-09 13:35 | Progress Note ---
Assessment and Plan 1. Hypercalcemia: Likely from combination of volume depletion and immobilization. Continue IV fluids. S/p Pamidronate. Calcium level is improving. Monitor Calcium level. 2. Acute kidney injury: Vasomotor RUDI in the setting of volume depletion. Renal function is better. Monitor renal function. Avoid nephrotoxic agents. 3. FEN: Monitor lytes. 4. Sepsis: HCAP. Complicated UTI. Followed by ID. 5. Respiratory failure: S/p extubated. 6. H/o Bilateral PE. 7. 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 Subjective Date of service: 10/09/18 Principal diagnosis: sepsis, resp fail Interval history: Patient was seen and examined at the bedside. Objective - Vital Signs Vital signs: Vital Signs - 12hr 10/09/18 10/09/18 10/09/18 04:34 08:47 10:00 Temperature 97.8 F 98.1 F Pulse Rate 76 74 Pulse Rate [ 78 Apical] Pulse Rate [ 78 Left Dorsalis Pedis] Pulse Rate [ 78 Left Radial] Pulse Rate [ 78 Right Dorsalis Pedis] Pulse Rate [ 78 Right Radial] Respiratory 18 18 Rate Blood Pressure 112/63 92/59 O2 Sat by Pulse 98 97 Oximetry 10/09/18 11:30 Temperature 97.9 F Pulse Rate 76 Pulse Rate [ Apical] Pulse Rate [ Left Dorsalis Pedis] Pulse Rate [ Left Radial] Pulse Rate [ Right Dorsalis Pedis] Pulse Rate [ Right Radial] Respiratory 18 Rate Blood Pressure 99/61 O2 Sat by Pulse 100 Oximetry - General Appearance General appearance: well-developed, appears stated age, other (emaciated, no distress) EENT: ATNC, PERRL Neck: other (Trachea midline) Respiratory: Present: Clear to Ascultation Cardiology: regular, S1S2, no murmurs Gastrointestinal: normoactive bowel sounds, no tenderness, no distended, other (PEG tube noted) Integumentary: warm and dry Neurologic: other (opens eyes, non-verbal, not following any command) Musculoskeletal: other (no edema) - Lab 10/05/18 00:12 10/09/18 04:23 Most recent lab results Calcium 10.8 mg/dL (8.4-10.2) H 10/09/18 04:23 Phosphorus 2.80 mg/dL (2.5-4.5) 10/06/18 05:22 Magnesium 2.30 mg/dL (1.7-2.3) 10/05/18 04:33 Medications & Allergies - Medications Allergies/Adverse Reactions: Allergies No Known Allergies Allergy (Unverified 08/26/18 14:14) Home Medications: Home Medications Medication Instructions Recorded Confirmed Last Taken Type Lipase/Protease/Amylase [Pancreaze 1 each FEEDTUBE PRN PRN capsule 09/10/18 09/30/18 Unknown Rx 10,500 Unit] Simple Syrup 15 ml FEEDTUBE PRN PRN oral.liqd 09/10/18 09/30/18 Unknown Rx Simple Syrup 30 ml FEEDTUBE PRN PRN oral.liqd 09/10/18 09/30/18 Unknown Rx Amantadine 100 mg FEEDTUBE DAILY 09/30/18 09/30/18 Unknown History Baclofen 10 mg FEEDTUBE BID 09/30/18 09/30/18 Unknown History Bisacodyl 10 mg NE DAILY 09/30/18 09/30/18 Unknown History Cholecalciferol (Vitamin D3) 5,000 unit FEEDTUBE DAILY 09/30/18 09/30/18 Unknown History Colace CAP 100 mg FEEDTUBE BID 09/30/18 09/30/18 Unknown History Famotidine 20 mg FEEDTUBE BID 09/30/18 09/30/18 Unknown History Fentanyl 25 mcg TRANSDERMA Q72H 09/30/18 09/30/18 Unknown History Ferrous Sulfate 325 mg FEEDTUBE TID 09/30/18 09/30/18 Unknown History Glycopyrrolate 1 mg FEEDTUBE TID 09/30/18 09/30/18 Unknown History Lactulose 30 ml FEEDTUBE BID 09/30/18 09/30/18 Unknown History Lexapro 30 mg FEEDTUBE DAILY 09/30/18 09/30/18 Unknown History Magnesium Oxide 400 400 mg FEEDTUBE DAILY 09/30/18 09/30/18 Unknown History Meropenem 1 gm IV Q8H 09/30/18 09/30/18 Unknown History Methylphenidate 10 mg FEEDTUBE BID 09/30/18 09/30/18 Unknown History Metoclopramide HCl 10 mg FEEDTUBE Q8H 09/30/18 09/30/18 Unknown History [place] 5-325 mg TAB 5 mg FEEDTUBE Q6H PRN 09/30/18 09/30/18 Unknown History Polyethylene Glycol 3350 17 gram FEEDTUBE BID 09/30/18 09/30/18 Unknown History Scopolamine 1.5 mg TRANSDERMA Q72H 09/30/18 09/30/18 Unknown History Active Medications: Generic Name Dose Route Start Last Admin Trade Name Freq PRN Reason Stop Dose Admin Acetaminophen 650 mg 10/01/18 04:45 10/03/18 14:06 Tylenol [place] 650 mg Q4H PRN Administration Fever >101 Albuterol 2.5 mg 10/08/18 12:00 Proventil IH Q4HRT PRN Shortness Of Breath Lipase/Protease/Amylase 1 each 10/01/18 15:58 Pancreazaaron [place] 10,500 Unit FEEDTUBE PRN PRN For Clogged Feeding Tube Dextrose 50 ml 09/30/18 23:32 D50w (25gm) Syringe IV PRN PRN Hypoglycemia Famotidine 20 mg 10/03/18 10:00 10/09/18 10:16 Pepcid PO 20 mg BID ANU Administration Heparin Sodium (Porcine) 5,000 unit 09/30/18 23:30 10/09/18 10:17 Heparin SUB-Q 5,000 unit Q12HR ANU Administration Hydrophilic Ointment 1 applic 09/30/18 19:53 Vaseline Lip Therapy TP Q2HR PRN Dry Lips Sodium Chloride 1,000 mls @ 75 mls/hr 10/07/18 17:00 10/08/18 21:31 Nacl 0.45% 1000 Ml IV 75 mls/hr DIRECT ANU Administration Insulin Human Regular 0 units 10/01/18 18:00 10/09/18 11:45 Humulin R SUB-Q Not Given Q6HR ANU Protocol Multi-Ingred Cream/Lotion/Oil/Oint 1 applic 09/30/18 19:53 Artificial Tears Ophth Oint OU Q4HR PRN Dry Eye(s) Ondansetron HCl 4 mg 09/30/18 23:29 Zofran IV Q8H PRN Nausea And Vomiting Scopolamine 1 each 10/02/18 02:00 10/08/18 02:39 Transderm-Scop TD 1 each Q3D ANU Administration Simple Syrup 15 ml 10/01/18 15:58 Simple Syrup FEEDTUBE PRN PRN Hypoglycemia Simple Syrup 30 ml 10/01/18 15:58 Simple Syrup FEEDTUBE PRN PRN Hypoglycemia Sodium Bicarbonate 325 mg 10/01/18 15:58 Sodium Bicarbonate FEEDTUBE PRN PRN For Clogged Feeding Tube
[2018-10-09] MEDS: NACL 0.45% 1000 ML 1,000 ML IV SCH (14:24)
[2018-10-10] MEDS: HumuLIN R SUB-Q SCH ×4 (03:29→19:25)
[2018-10-10] MEDS: PEPCID PO SCH ×2 (09:17→22:29)
[2018-10-10] MEDS: HEPARIN SUB-Q SCH ×2 (09:17→22:29)
[2018-10-10 10:01] LABS: BUN/Creatinine Ratio 42; Blood Urea Nitrogen 25 mg/dL (7-17); Calcium 10.6 mg/dL (8.4-10.2); Hemolysis Index 35
--- NOTE | 2018-10-10 10:15 | Progress Note ---
Assessment and Plan 1. Hypercalcemia: Likely from combination of volume depletion and immobilization. Continue IV fluids. S/p Pamidronate. Calcium level is improving. Monitor Calcium level. 2. Acute kidney injury: Vasomotor RUDI in the setting of volume depletion. Renal function is better. Monitor renal function. Avoid nephrotoxic agents. 3. FEN: Monitor lytes. 4. Sepsis: HCAP. Complicated UTI. Followed by ID. 5. Respiratory failure: S/p extubated. 6. H/o Bilateral PE. 7. 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 Subjective Date of service: 10/10/18 Principal diagnosis: sepsis, resp fail Interval history: Patient was seen and examined at the bedside. Objective - Vital Signs Vital signs: Vital Signs - 12hr 10/10/18 07:03 Temperature 97.4 F L Pulse Rate 79 Respiratory 18 Rate Blood Pressure 107/65 O2 Sat by Pulse 98 Oximetry - General Appearance General appearance: well-developed, appears stated age, other (no distress) EENT: ATNC, PERRL Neck: other (Trachea midline) Respiratory: Present: Clear to Ascultation Cardiology: regular, S1S2, no murmurs Gastrointestinal: normoactive bowel sounds, no tenderness, no distended, other (PEG and b/l nephrostomy tubes noted) Integumentary: no rash Neurologic: other (alert, non-verbal, not following any command) Musculoskeletal: other (no edema) - Lab 10/05/18 00:12 10/10/18 08:55 Most recent lab results Calcium 10.6 mg/dL (8.4-10.2) H 10/10/18 08:55 Phosphorus 2.80 mg/dL (2.5-4.5) 10/06/18 05:22 Magnesium 2.30 mg/dL (1.7-2.3) 10/05/18 04:33 Medications & Allergies - Medications Allergies/Adverse Reactions: Allergies No Known Allergies Allergy (Unverified 08/26/18 14:14) Home Medications: Home Medications Medication Instructions Recorded Confirmed Last Taken Type Lipase/Protease/Amylase [Pancreaze 1 each FEEDTUBE PRN PRN capsule 09/10/[address] 10,500 Unit] Simple Syrup 15 ml FEEDTUBE PRN PRN oral.liqd 09/10/18 09/30/18 Unknown Rx Simple Syrup 30 ml FEEDTUBE PRN PRN oral.liqd 09/10/18 09/30/18 Unknown Rx Amantadine 100 mg FEEDTUBE DAILY 09/30/18 09/30/18 Unknown History Baclofen 10 mg FEEDTUBE BID 09/30/18 09/30/18 Unknown History Bisacodyl 10 mg AR DAILY 09/30/18 09/30/18 Unknown History Cholecalciferol (Vitamin D3) 5,000 unit FEEDTUBE DAILY 09/30/18 09/30/18 Unknown History Colace CAP 100 mg FEEDTUBE BID 09/30/18 09/30/18 Unknown History Famotidine 20 mg FEEDTUBE BID 09/30/18 09/30/18 Unknown History Fentanyl 25 mcg TRANSDERMA Q72H 09/30/18 09/30/18 Unknown History Ferrous Sulfate 325 mg FEEDTUBE TID 09/30/18 09/30/18 Unknown History Glycopyrrolate 1 mg FEEDTUBE TID 09/30/18 09/30/18 Unknown History Lactulose 30 ml FEEDTUBE BID 09/30/18 09/30/18 Unknown History Lexapro 30 mg FEEDTUBE DAILY 09/30/18 09/30/18 Unknown History Magnesium Oxide 400 400 mg FEEDTUBE DAILY 09/30/18 09/30/18 Unknown History Meropenem 1 gm IV Q8H 09/30/18 09/30/18 Unknown History Methylphenidate 10 mg FEEDTUBE BID 09/30/18 09/30/18 Unknown History Metoclopramide HCl 10 mg FEEDTUBE Q8H 09/30/18 09/30/18 Unknown History [place] 5-325 mg TAB 5 mg FEEDTUBE Q6H PRN 09/30/18 09/30/18 Unknown History Polyethylene Glycol 3350 17 gram FEEDTUBE BID 09/30/18 09/30/18 Unknown History Scopolamine 1.5 mg TRANSDERMA Q72H 09/30/18 09/30/18 Unknown History Active Medications: Generic Name Dose Route Start Last Admin Trade Name Freq PRN Reason Stop Dose Admin Acetaminophen 650 mg 10/01/18 04:45 10/03/18 14:06 Tylenol [place] 650 mg Q4H PRN Administration Fever >101 Albuterol 2.5 mg 10/08/18 12:00 Proventil IH Q4HRT PRN Shortness Of Breath Lipase/Protease/Amylase 1 each 10/01/18 15:58 Pancrejossy Henry 10,500 Unit FEEDTUBE PRN PRN For Clogged Feeding Tube Dextrose 50 ml 09/30/18 23:32 D50w (25gm) Syringe IV PRN PRN Hypoglycemia Famotidine 20 mg 10/03/18 10:00 10/10/18 09:17 Pepcid PO 20 mg BID ANU Administration Heparin Sodium (Porcine) 5,000 unit 09/30/18 23:30 10/10/18 09:17 Heparin SUB-Q 5,000 unit Q12HR ANU Administration Hydrophilic Ointment 1 applic 09/30/18 19:53 Vaseline Lip Therapy TP Q2HR PRN Dry Lips Sodium Chloride 1,000 mls @ 75 mls/hr 10/07/18 17:00 10/09/18 14:24 Nacl 0.45% 1000 Ml IV 75 mls/hr DIRECT ANU Administration Insulin Human Regular 0 units 10/01/18 18:00 10/10/18 07:38 Humulin R SUB-Q Not Given Q6HR ANU Protocol Multi-Ingred Cream/Lotion/Oil/Oint 1 applic 09/30/18 19:53 Artificial Tears Ophth Oint OU Q4HR PRN Dry Eye(s) Ondansetron HCl 4 mg 09/30/18 23:29 Zofran IV Q8H PRN Nausea And Vomiting Scopolamine 1 each 10/02/18 02:00 10/08/18 02:39 Transderm-Scop TD 1 each Q3D ANU Administration Simple Syrup 15 ml 10/01/18 15:58 Simple Syrup FEEDTUBE PRN PRN Hypoglycemia Simple Syrup 30 ml 10/01/18 15:58 Simple Syrup FEEDTUBE PRN PRN Hypoglycemia Sodium Bicarbonate 325 mg 10/01/18 15:58 Sodium Bicarbonate FEEDTUBE PRN PRN For Clogged Feeding Tube
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
[2018-10-11] MEDS: HumuLIN R SUB-Q SCH ×4 (00:08→18:25)
[2018-10-11] MEDS: TRANSDERM-SCOP TD SCH (02:48)
[2018-10-11] MEDS: SODIUM BICARBONATE FEEDTUBE PRN ×3 (02:50→17:24)
[2018-10-11] MEDS: PANCREAZE DR 10,500 UNIT FEEDTUBE PRN ×3 (02:50→17:25)
[2018-10-11 05:32] LABS: BUN/Creatinine Ratio 42; Blood Urea Nitrogen 21 mg/dL (7-17); Calcium 10.2 mg/dL (8.4-10.2); Hemolysis Index 49
--- NOTE | 2018-10-11 09:26 | Progress Note ---
Assessment and Plan 1. Hypercalcemia: Likely from combination of volume depletion and immobilization. S/p Pamidronate. Calcium level is better. Will stop IV fluids. Increase free water flushes to 200 ml Q4hrs. Monitor Calcium level. 2. Acute kidney injury: Vasomotor RUDI in the setting of volume depletion. Renal function is better. Monitor renal function. Avoid nephrotoxic agents. 3. FEN: Monitor lytes. 4. Sepsis: HCAP. Complicated UTI. Followed by ID. 5. Respiratory failure: S/p extubated. 6. H/o Bilateral PE. 7. 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 Subjective Date of service: 10/11/18 Principal diagnosis: sepsis, resp fail Interval history: Patient was seen and examined at the bedside. Objective - Vital Signs Vital signs: Vital Signs - 12hr 10/10/18 23:18 Temperature 98.1 F Pulse Rate 91 H O2 Sat by Pulse 97 Oximetry - General Appearance General appearance: well-developed, appears stated age, other (no distress) EENT: ATNC, PERRL Neck: other (Trachea midline) Respiratory: Present: Clear to Ascultation Cardiology: regular, S1S2, no murmurs Gastrointestinal: normoactive bowel sounds, no tenderness, no distended, other (PEG tube, b/l nephrostomy tubes noted) Integumentary: no rash Neurologic: other (alert, not following any command) Musculoskeletal: other (no edema) - Lab 10/05/18 00:12 10/11/18 04:23 Most recent lab results Calcium 10.2 mg/dL (8.4-10.2) 10/11/18 04:23 Phosphorus 2.80 mg/dL (2.5-4.5) 10/06/18 05:22 Magnesium 2.30 mg/dL (1.7-2.3) 10/05/18 04:33 Medications & Allergies - Medications Allergies/Adverse Reactions: Allergies No Known Allergies Allergy (Unverified 08/26/18 14:14) Home Medications: Home Medications Medication Instructions Recorded Confirmed Last Taken Type Lipase/Protease/Amylase [Pancreaze 1 each FEEDTUBE PRN PRN capsule 09/10/18 09/30/[address] 10,500 Unit] Simple Syrup 15 ml FEEDTUBE PRN PRN oral.liqd 09/10/18 09/30/18 Unknown Rx Simple Syrup 30 ml FEEDTUBE PRN PRN oral.liqd 09/10/18 09/30/18 Unknown Rx Amantadine 100 mg FEEDTUBE DAILY 09/30/18 09/30/18 Unknown History Baclofen 10 mg FEEDTUBE BID 09/30/18 09/30/18 Unknown History Bisacodyl 10 mg SD DAILY 09/30/18 09/30/18 Unknown History Cholecalciferol (Vitamin D3) 5,000 unit FEEDTUBE DAILY 09/30/18 09/30/18 Unknown History Colace CAP 100 mg FEEDTUBE BID 09/30/18 09/30/18 Unknown History Famotidine 20 mg FEEDTUBE BID 09/30/18 09/30/18 Unknown History Fentanyl 25 mcg TRANSDERMA Q72H 09/30/18 09/30/18 Unknown History Ferrous Sulfate 325 mg FEEDTUBE TID 09/30/18 09/30/18 Unknown History Glycopyrrolate 1 mg FEEDTUBE TID 09/30/18 09/30/18 Unknown History Lactulose 30 ml FEEDTUBE BID 09/30/18 09/30/18 Unknown History Lexapro 30 mg FEEDTUBE DAILY 09/30/18 09/30/18 Unknown History Magnesium Oxide 400 400 mg FEEDTUBE DAILY 09/30/18 09/30/18 Unknown History Meropenem 1 gm IV Q8H 09/30/18 09/30/18 Unknown History Methylphenidate 10 mg FEEDTUBE BID 09/30/18 09/30/18 Unknown History Metoclopramide HCl 10 mg FEEDTUBE Q8H 09/30/18 09/30/18 Unknown History [place] 5-325 mg TAB 5 mg FEEDTUBE Q6H PRN 09/30/18 09/30/18 Unknown History Polyethylene Glycol 3350 17 gram FEEDTUBE BID 09/30/18 09/30/18 Unknown History Scopolamine 1.5 mg TRANSDERMA Q72H 09/30/18 09/30/18 Unknown History Active Medications: Generic Name Dose Route Start Last Admin Trade Name Freq PRN Reason Stop Dose Admin Acetaminophen 650 mg 10/01/18 04:45 10/03/18 14:06 Tylenol SD 650 mg Q4H PRN Administration Fever >101 Albuterol 2.5 mg 10/08/18 12:00 Proventil IH Q4HRT PRN Shortness Of Breath Lipase/Protease/Amylase 1 each 10/01/18 15:58 10/11/18 02:50 Pancrejossy Henry 10,500 Unit FEEDTUBE 1 each PRN PRN Administration For Clogged Feeding Tube Dextrose 50 ml 09/30/18 23:32 D50w (25gm) Syringe IV PRN PRN Hypoglycemia Famotidine 20 mg 10/03/18 10:00 10/10/18 22:29 Pepcid PO Not Given BID ANU Heparin Sodium (Porcine) 5,000 unit 09/30/18 23:30 10/10/18 22:29 Heparin SUB-Q 5,000 unit Q12HR ANU Administration Hydrophilic Ointment 1 applic 09/30/18 19:53 Vaseline Lip Therapy TP Q2HR PRN Dry Lips Sodium Chloride 1,000 mls @ 75 mls/hr 10/07/18 17:00 10/09/18 14:24 Nacl 0.45% 1000 Ml IV 75 mls/hr DIRECT ANU Administration Insulin Human Regular 0 units 10/01/18 18:00 10/11/18 06:49 Humulin R SUB-Q Not Given Q6HR ANU Protocol Multi-Ingred Cream/Lotion/Oil/Oint 1 applic 09/30/18 19:53 Artificial Tears Ophth Oint OU Q4HR PRN Dry Eye(s) Ondansetron HCl 4 mg 09/30/18 23:29 Zofran IV Q8H PRN Nausea And Vomiting Scopolamine 1 each 10/02/18 02:00 10/11/18 02:48 Transderm-Scop TD 1 each Q3D ANU Administration Simple Syrup 15 ml 10/01/18 15:58 Simple Syrup FEEDTUBE PRN PRN Hypoglycemia Simple Syrup 30 ml 10/01/18 15:58 Simple Syrup FEEDTUBE PRN PRN Hypoglycemia Sodium Bicarbonate 325 mg 10/01/18 15:58 10/11/18 02:50 Sodium Bicarbonate FEEDTUBE 325 mg PRN PRN Administration For Clogged Feeding Tube
[2018-10-11] MEDS: HEPARIN SUB-Q SCH ×2 (10:43→22:15)
[2018-10-11] MEDS: PEPCID PO SCH ×2 (10:44→22:15)
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
[2018-10-12] MEDS: HumuLIN R SUB-Q SCH ×4 (02:40→18:29)
[2018-10-12 05:56] LABS: BUN/Creatinine Ratio 34; Blood Urea Nitrogen 24 mg/dL (7-17); Hemolysis Index 8
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
--- NOTE | 2018-10-12 08:25 | Progress Note ---
Assessment and Plan 1. Hypercalcemia: Likely from combination of volume depletion and immobilization. S/p Pamidronate. Calcium level is better. Continue free water flushes. Monitor Calcium level. 2. Acute kidney injury: Vasomotor RUDI in the setting of volume depletion. Renal function is better. Monitor renal function. Avoid nephrotoxic agents. 3. FEN: Monitor lytes. 4. Sepsis: HCAP. Complicated UTI. Followed by ID. 5. Respiratory failure: S/p extubated. 6. H/o Bilateral PE. 7. 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 Subjective Date of service: 10/12/18 Principal diagnosis: sepsis, resp fail Interval history: Patient was seen and examined at the bedside. Objective - Vital Signs Vital signs: Vital Signs - 12hr 10/12/18 10/12/18 00:40 05:40 Temperature 97.5 F L 97.5 F L Pulse Rate 81 84 Respiratory 16 16 Rate Blood Pressure 112/63 98/59 O2 Sat by Pulse 100 99 Oximetry - General Appearance General appearance: well-developed, appears stated age, other (no distress) EENT: ATNC, PERRL Neck: other (Trachea midline) Respiratory: Present: Clear to Ascultation Cardiology: regular, S1S2, no murmurs Gastrointestinal: normoactive bowel sounds, no tenderness, other (PEG tube, b/l nephrstomy noted) Integumentary: other (no edema) Neurologic: other (alert, not following any command, non-verbal) Musculoskeletal: other (no edema) - Lab 10/05/18 00:12 10/12/18 05:16 Most recent lab results Calcium 10.0 mg/dL (8.4-10.2) 10/12/18 05:16 Phosphorus 2.80 mg/dL (2.5-4.5) 10/06/18 05:22 Magnesium 2.30 mg/dL (1.7-2.3) 10/05/18 04:33 Medications & Allergies - Medications Allergies/Adverse Reactions: Allergies No Known Allergies Allergy (Unverified 08/26/18 14:14) Home Medications: Home Medications Medication Instructions Recorded Confirmed Last Taken Type Amantadine 100 mg FEEDTUBE DAILY 09/30/18 09/30/18 Unknown History Baclofen 10 mg FEEDTUBE BID 09/30/18 09/30/18 Unknown History Bisacodyl 10 mg HI DAILY 09/30/18 09/30/18 Unknown History Cholecalciferol (Vitamin D3) 5,000 unit FEEDTUBE DAILY 09/30/18 09/30/18 Unknown History Colace CAP 100 mg FEEDTUBE BID 09/30/18 09/30/18 Unknown History Famotidine 20 mg FEEDTUBE BID 09/30/18 09/30/18 Unknown History Ferrous Sulfate 325 mg FEEDTUBE TID 09/30/18 09/30/18 Unknown History Glycopyrrolate 1 mg FEEDTUBE TID 09/30/18 09/30/18 Unknown History Lexapro 30 mg FEEDTUBE DAILY 09/30/18 09/30/18 Unknown History Magnesium Oxide 400 400 mg FEEDTUBE DAILY 09/30/18 09/30/18 Unknown History Metoclopramide HCl 10 mg FEEDTUBE Q8H 09/30/18 09/30/18 Unknown History ALBUTEROL NEB's [Proventil 0.083% 2.5 mg IH Q4HRT PRN #30 nebu 10/11/18 Unknown Rx NEBS] Acetaminophen [Acetaminophen 2 tab HI Q4H PRN #15 supp.rect 10/11/18 Unknown Rx SUPPOS] Famotidine [Pepcid] 20 mg PO BID #15 tablet 10/11/18 Unknown Rx Insulin Regular, Human [HumuLIN R] 1 dose SUB-Q Q6HR PRN #1000 units 10/11/18 Unknown Rx Lipase/Protease/Amylase [Pancreaze 1 each FEEDTUBE PRN PRN #30 capsule 10/11/[address] 10,500 Unit] Min Oil/Petrolatum [Artificial 1 applic OU Q4HR PRN tube 10/11/18 Unknown Rx Tears Ophth Oint] [place] 5-325 mg TAB 5 mg FEEDTUBE Q6H PRN #15 10/11/18 Unknown Rx Petrolatum,White [Vaseline Lip 1 applic TP Q2HR PRN tube 10/11/18 Unknown Rx Therapy] Scopolamine 1.5 mg TRANSDERMA Q72H #15 /03/3109/30/18 Unknown Rx Simple Syrup 15 ml FEEDTUBE PRN PRN #30 10/11/18 Unknown Rx oral.liqd Simple Syrup 30 ml FEEDTUBE PRN PRN #30 10/11/18 Unknown Rx oral.liqd Sodium Bicarbonate 325 mg FEEDTUBE PRN PRN #30 tablet 10/11/18 Unknown Rx Active Medications: Generic Name Dose Route Start Last Admin Trade Name Freq PRN Reason Stop Dose Admin Acetaminophen 650 mg 10/01/18 04:45 10/03/18 14:06 Tylenol HI 650 mg Q4H PRN Administration Fever >101 Albuterol 2.5 mg 10/08/18 12:00 Proventil IH Q4HRT PRN Shortness Of Breath Lipase/Protease/Amylase 1 each 10/01/18 15:58 10/11/18 17:[address] 10,500 Unit FEEDTUBE 1 each PRN PRN Administration For Clogged Feeding Tube Dextrose 50 ml 09/30/18 23:32 D50w (25gm) Syringe IV PRN PRN Hypoglycemia Famotidine 20 mg 10/03/18 10:00 10/11/18 22:15 Pepcid PO 20 mg BID ANU Administration Heparin Sodium (Porcine) 5,000 unit 09/30/18 23:30 10/11/18 22:15 Heparin SUB-Q 5,000 unit Q12HR ANU Administration Hydrophilic Ointment 1 applic 09/30/18 19:53 Vaseline Lip Therapy TP Q2HR PRN Dry Lips Insulin Human Regular 0 units 10/01/18 18:00 10/12/18 05:57 Humulin R SUB-Q Not Given Q6HR [facility] Protocol Multi-Ingred Cream/Lotion/Oil/Oint 1 applic 09/30/18 19:53 Artificial Tears Ophth Oint OU Q4HR PRN Dry Eye(s) Ondansetron HCl 4 mg 09/30/18 23:29 Zofran IV Q8H PRN Nausea And Vomiting Scopolamine 1 each 10/02/18 02:00 10/11/18 02:48 Transderm-Scop TD 1 each Q3D ANU Administration Simple Syrup 15 ml 10/01/18 15:58 Simple Syrup FEEDTUBE PRN PRN Hypoglycemia Simple Syrup 30 ml 10/01/18 15:58 Simple Syrup FEEDTUBE PRN PRN Hypoglycemia Sodium Bicarbonate 325 mg 10/01/18 15:58 10/11/18 17:24 Sodium Bicarbonate FEEDTUBE 325 mg PRN PRN Administration For Clogged Feeding Tube
[2018-10-12] MEDS: PEPCID PO SCH ×2 (12:19→21:40)
[2018-10-12] MEDS: HEPARIN SUB-Q SCH ×2 (12:19→21:40)
[2018-10-12] MEDS: PANCREAZE DR 10,500 UNIT FEEDTUBE PRN (18:33)
[2018-10-12] MEDS: SODIUM BICARBONATE FEEDTUBE PRN (18:33)
[2018-10-13] MEDS: HumuLIN R SUB-Q SCH ×4 (00:20→17:28)
[2018-10-13] MEDS: PEPCID PO SCH ×2 (10:47→22:50)
[2018-10-13] MEDS: HEPARIN SUB-Q SCH ×2 (10:48→23:30)
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
--- NOTE | 2018-10-13 13:40 | Progress Note ---
Assessment and Plan 1. Hypercalcemia: Likely from combination of volume depletion and immobilization. S/p Pamidronate. Calcium level is better. Continue free water flushes. Monitor Calcium level. 2. Acute kidney injury: Vasomotor RUDI in the setting of volume depletion. Renal function is better. Monitor renal function. Avoid nephrotoxic agents. 3. FEN: Monitor lytes. 4. Sepsis: HCAP. Complicated UTI. Followed by ID. 5. Respiratory failure: S/p extubated. 6. H/o Bilateral PE. 7. 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 Subjective Date of service: 10/13/18 Principal diagnosis: sepsis, resp fail Interval history: Patient was seen and examined at the bedside. Objective - Vital Signs Vital signs: Vital Signs - 12hr 10/13/18 05:34 Temperature 98.2 F Pulse Rate 79 Respiratory 20 Rate Blood Pressure 104/64 O2 Sat by Pulse 96 Oximetry - General Appearance General appearance: well-developed, appears stated age, other (no distress) EENT: ATNC, PERRL Neck: other (Trachea midline) Respiratory: Present: Clear to Ascultation Cardiology: regular, S1S2, no murmurs Gastrointestinal: normoactive bowel sounds, no tenderness, no distended, other (PEG tube, b/l nephrostomy) Integumentary: no rash, warm and dry Neurologic: other (alert, non-verbal, not following any command) Musculoskeletal: other (no edema) - Lab 10/05/18 00:12 10/12/18 05:16 Most recent lab results Calcium 10.0 mg/dL (8.4-10.2) 10/12/18 05:16 Phosphorus 2.80 mg/dL (2.5-4.5) 10/06/18 05:22 Magnesium 2.30 mg/dL (1.7-2.3) 10/05/18 04:33 Medications & Allergies - Medications Allergies/Adverse Reactions: Allergies No Known Allergies Allergy (Unverified 08/26/18 14:14) Home Medications: Home Medications Medication Instructions Recorded Confirmed Last Taken Type Amantadine 100 mg FEEDTUBE DAILY 09/30/18 09/30/18 Unknown History Baclofen 10 mg FEEDTUBE BID 09/30/18 09/30/18 Unknown History Bisacodyl 10 mg NC DAILY 09/30/18 09/30/18 Unknown History Cholecalciferol (Vitamin D3) 5,000 unit FEEDTUBE DAILY 09/30/18 09/30/18 Unknown History Colace CAP 100 mg FEEDTUBE BID 09/30/18 09/30/18 Unknown History Famotidine 20 mg FEEDTUBE BID 09/30/18 09/30/18 Unknown History Ferrous Sulfate 325 mg FEEDTUBE TID 09/30/18 09/30/18 Unknown History Glycopyrrolate 1 mg FEEDTUBE TID 09/30/18 09/30/18 Unknown History Lexapro 30 mg FEEDTUBE DAILY 09/30/18 09/30/18 Unknown History Magnesium Oxide 400 400 mg FEEDTUBE DAILY 09/30/18 09/30/18 Unknown History Metoclopramide HCl 10 mg FEEDTUBE Q8H 09/30/18 09/30/18 Unknown History ALBUTEROL NEB's [Proventil 0.083% 2.5 mg IH Q4HRT PRN #30 nebu 10/11/18 Unknown Rx NEBS] Acetaminophen [Acetaminophen 2 tab NC Q4H PRN #15 supp.rect 10/11/18 Unknown Rx SUPPOS] Famotidine [Pepcid] 20 mg PO BID #15 tablet 10/11/18 Unknown Rx Insulin Regular, Human [HumuLIN R] 1 dose SUB-Q Q6HR PRN #1000 units 10/11/18 Unknown Rx Lipase/Protease/Amylase [Pancreaze 1 each FEEDTUBE PRN PRN #30 capsule 10/11/[address] 10,500 Unit] Min Oil/Petrolatum [Artificial 1 applic OU Q4HR PRN tube 10/11/18 Unknown Rx Tears Ophth Oint] [place] 5-325 mg TAB 5 mg FEEDTUBE Q6H PRN #15 10/11/18 Unknown Rx Petrolatum,White [Vaseline Lip 1 applic TP Q2HR PRN tube 10/11/18 Unknown Rx Therapy] Scopolamine 1.5 mg TRANSDERMA Q72H #15 10/11/18 09/30/18 Unknown Rx Simple Syrup 15 ml FEEDTUBE PRN PRN #30 10/11/18 Unknown Rx oral.liqd Simple Syrup 30 ml FEEDTUBE PRN PRN #30 10/11/18 Unknown Rx oral.liqd Sodium Bicarbonate 325 mg FEEDTUBE PRN PRN #30 tablet 10/11/18 Unknown Rx Active Medications: Generic Name Dose Route Start Last Admin Trade Name Freq PRN Reason Stop Dose Admin Acetaminophen 650 mg 10/01/18 04:45 10/03/18 14:06 Tylenol [place] 650 mg Q4H PRN Administration Fever >101 Albuterol 2.5 mg 10/08/18 12:00 Proventil IH Q4HRT PRN Shortness Of Breath Lipase/Protease/Amylase 1 each 10/01/18 15:58 10/12/18 18:[address] 10,500 Unit FEEDTUBE 1 each PRN PRN Administration For Clogged Feeding Tube Dextrose 50 ml 09/30/18 23:32 D50w (25gm) Syringe IV PRN PRN Hypoglycemia Famotidine 20 mg 10/03/18 10:00 10/13/18 10:47 Pepcid PO 20 mg BID ANU Administration Heparin Sodium (Porcine) 5,000 unit 09/30/18 23:30 10/13/18 10:48 Heparin SUB-Q 5,000 unit Q12HR ANU Administration Hydrophilic Ointment 1 applic 09/30/18 19:53 Vaseline Lip Therapy TP Q2HR PRN Dry Lips Insulin Human Regular 0 units 10/01/18 18:00 10/13/18 06:13 Humulin R SUB-Q Not Given Q6HR [facility] Protocol Multi-Ingred Cream/Lotion/Oil/Oint 1 applic 09/30/18 19:53 Artificial Tears Ophth Oint OU Q4HR PRN Dry Eye(s) Ondansetron HCl 4 mg 09/30/18 23:29 Zofran IV Q8H PRN Nausea And Vomiting Scopolamine 1 each 10/02/18 02:00 10/11/18 02:48 Transderm-Scop TD 1 each Q3D ANU Administration Simple Syrup 15 ml 10/01/18 15:58 Simple Syrup FEEDTUBE PRN PRN Hypoglycemia Simple Syrup 30 ml 10/01/18 15:58 Simple Syrup FEEDTUBE PRN PRN Hypoglycemia Sodium Bicarbonate 325 mg 10/01/18 15:58 10/12/18 18:33 Sodium Bicarbonate FEEDTUBE 325 mg PRN PRN Administration For Clogged Feeding Tube
[2018-10-14] MEDS: HumuLIN R SUB-Q SCH ×4 (00:41→18:51)
[2018-10-14] MEDS: TRANSDERM-SCOP TD SCH (01:56)
[2018-10-14] MEDS: HEPARIN SUB-Q SCH ×2 (09:51→22:22)
[2018-10-14] MEDS: PEPCID PO SCH ×2 (09:51→22:22)
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
[2018-10-15] MEDS: HumuLIN R SUB-Q SCH ×4 (00:27→18:00)
[2018-10-15 05:26] LABS: BUN/Creatinine Ratio 36; Blood Urea Nitrogen 29 mg/dL (7-17); Calcium 10.1 mg/dL (8.4-10.2); Hemolysis Index 2
[2018-10-15] MEDS: HEPARIN SUB-Q SCH ×2 (10:05→21:48)
[2018-10-15] MEDS: PEPCID PO SCH ×2 (10:06→21:48)
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
[2018-10-15] MEDS ORDERED: KIONEX PO ONE (13:00)
--- NOTE | 2018-10-15 13:46 | Progress Note ---
Assessment and Plan 1. Hypercalcemia: Likely from combination of volume depletion and immobilization. S/p Pamidronate. Calcium level is better. Continue free water flushes. Monitor Calcium level. 2. Acute kidney injury: Vasomotor RUDI in the setting of volume depletion. Renal function is better. Monitor renal function. Avoid nephrotoxic agents. 3. FEN: Hyperkalemia, kayexalate ordered. Monitor lytes. 4. Sepsis: HCAP. Complicated UTI. Followed by ID. 5. Respiratory failure: S/p extubated. 6. H/o Bilateral PE. 7. 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 Subjective Date of service: 10/15/18 Principal diagnosis: sepsis, resp fail Interval history: Patient was seen and examined at the bedside. Objective - Vital Signs Vital signs: Vital Signs - 12hr 10/15/18 05:36 Temperature 97.6 F Pulse Rate 86 Respiratory 18 Rate Blood Pressure 97/61 O2 Sat by Pulse 100 Oximetry - General Appearance General appearance: well-developed, appears stated age, other (no distress) EENT: ATNC, PERRL Neck: other (Trachea midline) Respiratory: Present: Clear to Ascultation Cardiology: regular, S1S2, no murmurs Gastrointestinal: normoactive bowel sounds, no tenderness, no distended, other (PEG tube, b/l nephrostomy tubes noted) Integumentary: other (no rash) Neurologic: other (alert, non-verbal, not following any command) Musculoskeletal: other (no edema) - Lab 10/05/18 00:12 10/16/18 09:02 Most recent lab results Calcium 10.1 mg/dL (8.4-10.2) 10/15/18 04:48 Phosphorus 2.80 mg/dL (2.5-4.5) 10/06/18 05:22 Magnesium 2.30 mg/dL (1.7-2.3) 10/05/18 04:33 Medications & Allergies - Medications Allergies/Adverse Reactions: Allergies No Known Allergies Allergy (Unverified 08/26/18 14:14) Home Medications: Home Medications Medication Instructions Recorded Confirmed Last Taken Type Amantadine 100 mg FEEDTUBE DAILY 09/30/18 09/30/18 Unknown History Baclofen 10 mg FEEDTUBE BID 09/30/18 09/30/18 Unknown History Bisacodyl 10 mg MA DAILY 09/30/18 09/30/18 Unknown History Cholecalciferol (Vitamin D3) 5,000 unit FEEDTUBE DAILY 09/30/18 09/30/18 Unknown History Colace CAP 100 mg FEEDTUBE BID 09/30/18 09/30/18 Unknown History Famotidine 20 mg FEEDTUBE BID 09/30/18 09/30/18 Unknown History Ferrous Sulfate 325 mg FEEDTUBE TID 09/30/18 09/30/18 Unknown History Glycopyrrolate 1 mg FEEDTUBE TID 09/30/18 09/30/18 Unknown History Lexapro 30 mg FEEDTUBE DAILY 09/30/18 09/30/18 Unknown History Magnesium Oxide 400 400 mg FEEDTUBE DAILY 09/30/18 09/30/18 Unknown History Metoclopramide HCl 10 mg FEEDTUBE Q8H 09/30/18 09/30/18 Unknown History ALBUTEROL NEB's [Proventil 0.083% 2.5 mg IH Q4HRT PRN #30 nebu 10/11/18 Unknown Rx NEBS] Acetaminophen [Acetaminophen 2 tab MA Q4H PRN #15 supp.rect 10/11/18 Unknown Rx SUPPOS] Famotidine [Pepcid] 20 mg PO BID #15 tablet 10/11/18 Unknown Rx Insulin Regular, Human [HumuLIN R] 1 dose SUB-Q Q6HR PRN #1000 units 10/11/18 Unknown Rx Lipase/Protease/Amylase [Pancreaze 1 each FEEDTUBE PRN PRN #30 capsule 10/11/[address] 10,500 Unit] Min Oil/Petrolatum [Artificial 1 applic OU Q4HR PRN tube 10/11/18 Unknown Rx Tears Ophth Oint] Bricelyn 5-325 mg TAB 5 mg FEEDTUBE Q6H PRN #15 10/11/18 Unknown Rx Petrolatum,White [Vaseline Lip 1 applic TP Q2HR PRN tube 10/11/18 Unknown Rx Therapy] Scopolamine 1.5 mg TRANSDERMA Q72H #15 10/11/18 09/30/18 Unknown Rx Simple Syrup 15 ml FEEDTUBE PRN PRN #30 10/11/18 Unknown Rx oral.liqd Simple Syrup 30 ml FEEDTUBE PRN PRN #30 10/11/18 Unknown Rx oral.liqd Sodium Bicarbonate 325 mg FEEDTUBE PRN PRN #30 tablet 10/11/18 Unknown Rx Active Medications: Generic Name Dose Route Start Last Admin Trade Name Orestesq PRN Reason Stop Dose Admin Acetaminophen 650 mg 10/01/18 04:45 10/03/18 14:06 Tylenol [place] 650 mg Q4H PRN Administration Fever >101 Albuterol 2.5 mg 10/08/18 12:00 Proventil IH Q4HRT PRN Shortness Of Breath Lipase/Protease/Amylase 1 each 10/01/18 15:58 10/12/18 18:[address] 10,500 Unit FEEDTUBE 1 each PRN PRN Administration For Clogged Feeding Tube Dextrose 50 ml 09/30/18 23:32 D50w (25gm) Syringe IV PRN PRN Hypoglycemia Famotidine 20 mg 10/03/18 10:00 10/15/18 10:06 Pepcid PO 20 mg BID ANU Administration Heparin Sodium (Porcine) 5,000 unit 09/30/18 23:30 10/15/18 10:05 Heparin SUB-Q 5,000 unit Q12HR ANU Administration Hydrophilic Ointment 1 applic 09/30/18 19:53 Vaseline Lip Therapy TP Q2HR PRN Dry Lips Insulin Human Regular 0 units 10/01/18 18:00 10/15/18 06:20 Humulin R SUB-Q Not Given Q6HR [facility] Protocol Multi-Ingred Cream/Lotion/Oil/Oint 1 applic 09/30/18 19:53 Artificial Tears Ophth Oint OU Q4HR PRN Dry Eye(s) Ondansetron HCl 4 mg 09/30/18 23:29 Zofran IV Q8H PRN Nausea And Vomiting Scopolamine 1 each 10/02/18 02:00 10/14/18 01:56 Transderm-Scop TD 1 each Q3D ANU Administration Simple Syrup 15 ml 10/01/18 15:58 Simple Syrup FEEDTUBE PRN PRN Hypoglycemia Simple Syrup 30 ml 10/01/18 15:58 Simple Syrup FEEDTUBE PRN PRN Hypoglycemia Sodium Bicarbonate 325 mg 10/01/18 15:58 10/12/18 18:33 Sodium Bicarbonate FEEDTUBE 325 mg PRN PRN Administration For Clogged Feeding Tube
[2018-10-15] MEDS: TYLENOL PR PRN (14:11)
[2018-10-15] MEDS: PANCREAZE DR 10,500 UNIT FEEDTUBE PRN (22:15)
[2018-10-16] MEDS: HumuLIN R SUB-Q SCH ×4 (00:14→18:05)
[2018-10-16] MEDS: HEPARIN SUB-Q SCH ×2 (09:25→22:14)
[2018-10-16] MEDS: PANCREAZE DR 10,500 UNIT FEEDTUBE PRN (09:26)
[2018-10-16] MEDS: SODIUM BICARBONATE FEEDTUBE PRN (09:26)
[2018-10-16 09:56] LABS: BUN/Creatinine Ratio 36; Blood Urea Nitrogen 25 mg/dL (7-17); Hemolysis Index 7
[2018-10-16] MEDS: PEPCID PO SCH ×2 (12:18→22:14)
--- NOTE | 2018-10-16 14:04 | Progress Note ---
Assessment and Plan 1. Hypercalcemia: Likely from combination of volume depletion and immobilization. S/p Pamidronate. Calcium level is better. Continue free water flushes. Monitor Calcium level. 2. Acute kidney injury: Vasomotor RUDI in the setting of volume depletion. Renal function is better. Monitor renal function. Avoid nephrotoxic agents. 3. FEN: Hyperkalemia, improved. Monitor lytes. 4. Sepsis: Resolved. ID signed off. 5. Respiratory failure: S/p extubated. 6. H/o Bilateral PE. 7. 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 Subjective Date of service: 10/16/18 Principal diagnosis: sepsis, resp fail Interval history: Patient was seen and examined at the bedside. Objective - Vital Signs Vital signs: Vital Signs - 12hr 10/16/18 10/16/18 05:13 11:41 Temperature 97.8 F 97.8 F Pulse Rate 98 H 102 H Respiratory 18 18 Rate Blood Pressure 101/54 92/54 O2 Sat by Pulse 97 100 Oximetry - General Appearance General appearance: well-developed, appears stated age, other (no distress) EENT: ATNC, PERRL Neck: other (Trachea midline) Respiratory: Present: Clear to Ascultation Cardiology: regular, S1S2, no murmurs Gastrointestinal: normoactive bowel sounds, no tenderness, no distended, other (PEG tube and b/l nephrostomy tubes noted) Integumentary: other (no edema) Neurologic: other (not following any command, non-verbal, alert) Musculoskeletal: other (no edema) - Lab 10/05/18 00:12 10/16/18 09:02 Most recent lab results Calcium 10.0 mg/dL (8.4-10.2) 10/16/18 09:02 Phosphorus 2.80 mg/dL (2.5-4.5) 10/06/18 05:22 Magnesium 2.30 mg/dL (1.7-2.3) 10/05/18 04:33 Medications & Allergies - Medications Allergies/Adverse Reactions: Allergies No Known Allergies Allergy (Unverified 08/26/18 14:14) Home Medications: Home Medications Medication Instructions Recorded Confirmed Last Taken Type Amantadine 100 mg FEEDTUBE DAILY 09/30/18 09/30/18 Unknown History Baclofen 10 mg FEEDTUBE BID 09/30/18 09/30/18 Unknown History Bisacodyl 10 mg AR DAILY 09/30/18 09/30/18 Unknown History Cholecalciferol (Vitamin D3) 5,000 unit FEEDTUBE DAILY 09/30/18 09/30/18 Unknown History Colace CAP 100 mg FEEDTUBE BID 09/30/18 09/30/18 Unknown History Famotidine 20 mg FEEDTUBE BID 09/30/18 09/30/18 Unknown History Ferrous Sulfate 325 mg FEEDTUBE TID 09/30/18 09/30/18 Unknown History Glycopyrrolate 1 mg FEEDTUBE TID 09/30/18 09/30/18 Unknown History Lexapro 30 mg FEEDTUBE DAILY 09/30/18 09/30/18 Unknown History Magnesium Oxide 400 400 mg FEEDTUBE DAILY 09/30/18 09/30/18 Unknown History Metoclopramide HCl 10 mg FEEDTUBE Q8H 09/30/18 09/30/18 Unknown History ALBUTEROL NEB's [Proventil 0.083% 2.5 mg IH Q4HRT PRN #30 nebu 10/11/18 Unknown Rx NEBS] Acetaminophen [Acetaminophen 2 tab AR Q4H PRN #15 supp.rect 10/11/18 Unknown Rx SUPPOS] Famotidine [Pepcid] 20 mg PO BID #15 tablet 10/11/18 Unknown Rx Insulin Regular, Human [HumuLIN R] 1 dose SUB-Q Q6HR PRN #1000 units 10/11/18 Unknown Rx Lipase/Protease/Amylase [Pancreaze 1 each FEEDTUBE PRN PRN #30 capsule 10/11/[address] 10,500 Unit] Min Oil/Petrolatum [Artificial 1 applic OU Q4HR PRN tube 10/11/18 Unknown Rx Tears Ophth Oint] [place] 5-325 mg TAB 5 mg FEEDTUBE Q6H PRN #15 10/11/18 Unknown Rx Petrolatum,White [Vaseline Lip 1 applic TP Q2HR PRN tube 10/11/18 Unknown Rx Therapy] Scopolamine 1.5 mg TRANSDERMA Q72H #15 10/11/18 09/30/18 Unknown Rx Simple Syrup 15 ml FEEDTUBE PRN PRN #30 10/11/18 Unknown Rx oral.liqd Simple Syrup 30 ml FEEDTUBE PRN PRN #30 10/11/18 Unknown Rx oral.liqd Sodium Bicarbonate 325 mg FEEDTUBE PRN PRN #30 tablet 10/11/18 Unknown Rx Active Medications: Generic Name Dose Route Start Last Admin Trade Name Freq PRN Reason Stop Dose Admin Acetaminophen 650 mg 10/01/18 04:45 10/15/18 14:11 Tylenol AR 650 mg Q4H PRN Administration Fever >101 Albuterol 2.5 mg 10/08/18 12:00 Proventil IH Q4HRT PRN Shortness Of Breath Lipase/Protease/Amylase 1 each 10/01/18 15:58 10/16/18 09:26 Pancreaze 10,500 Unit FEEDTUBE 1 each PRN PRN Administration For Clogged Feeding Tube Dextrose 50 ml 09/30/18 23:32 D50w (25gm) Syringe IV PRN PRN Hypoglycemia Famotidine 20 mg 10/03/18 10:00 10/16/18 12:18 Pepcid PO 20 mg BID ANU Administration Heparin Sodium (Porcine) 5,000 unit 09/30/18 23:30 10/16/18 09:25 Heparin SUB-Q 5,000 unit Q12HR ANU Administration Hydrophilic Ointment 1 applic 09/30/18 19:53 Vaseline Lip Therapy TP Q2HR PRN Dry Lips Insulin Human Regular 0 units 10/01/18 18:00 10/16/18 12:00 Humulin R SUB-Q Not Given Q6HR ANU Protocol Multi-Ingred Cream/Lotion/Oil/Oint 1 applic 09/30/18 19:53 Artificial Tears Ophth Oint OU Q4HR PRN Dry Eye(s) Ondansetron HCl 4 mg 09/30/18 23:29 Zofran IV Q8H PRN Nausea And Vomiting Scopolamine 1 each 10/02/18 02:00 10/14/18 01:56 Transderm-Scop TD 1 each Q3D ANU Administration Simple Syrup 15 ml 10/01/18 15:58 Simple Syrup FEEDTUBE PRN PRN Hypoglycemia Simple Syrup 30 ml 10/01/18 15:58 Simple Syrup FEEDTUBE PRN PRN Hypoglycemia Sodium Bicarbonate 325 mg 10/01/18 15:58 10/16/18 09:26 Sodium Bicarbonate FEEDTUBE 325 mg PRN PRN Administration For Clogged Feeding Tube
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
[2018-10-17] MEDS: HumuLIN R SUB-Q SCH ×3 (00:39→18:41)
[2018-10-17] MEDS: TRANSDERM-SCOP TD SCH (01:03)
[2018-10-17 05:29] LABS: BUN/Creatinine Ratio 39; Blood Urea Nitrogen 27 mg/dL (7-17); Calcium 10.2 mg/dL (8.4-10.2); Hemolysis Index 0
[2018-10-17] MEDS: HEPARIN SUB-Q SCH ×3 (08:37→22:39)
[2018-10-17] MEDS: PEPCID PO SCH ×3 (08:37→23:12)
--- NOTE | 2018-10-17 10:53 | Progress Note ---
Assessment and Plan 1. Hypercalcemia: Likely from combination of volume depletion and immobilization. S/p Pamidronate. Calcium level is better. Continue free water flushes. Monitor Calcium level. 2. Acute kidney injury: Vasomotor RUDI in the setting of volume depletion. Renal function is better. Monitor renal function. Avoid nephrotoxic agents. 3. FEN: Hyperkalemia, improved. Monitor lytes. 4. Sepsis: Resolved. ID signed off. 5. Respiratory failure: S/p extubated. 6. H/o Bilateral PE. 7. 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 Will see patient intermittently if needed. Subjective Date of service: 10/17/18 Principal diagnosis: sepsis, resp fail Interval history: Patient was seen and examined at the bedside. Objective - Vital Signs Vital signs: Vital Signs - 12hr 10/17/18 10/17/18 00:03 05:57 Temperature 98.2 F 98.2 F Pulse Rate 84 91 H Respiratory 18 18 Rate Blood Pressure 93/56 101/70 O2 Sat by Pulse 97 92 Oximetry - General Appearance General appearance: well-developed, appears stated age, other (no distress) EENT: ATNC, PERRL Neck: other (Trachea midline) Respiratory: Present: Clear to Ascultation Cardiology: regular, S1S2, no murmurs Gastrointestinal: normoactive bowel sounds, no tenderness, no distended, other (PEG tube, b/l nephrostomy tubes noted) Integumentary: no rash Neurologic: other (non-verbal, not following any command) Musculoskeletal: other (no edema) - Lab 10/05/18 00:12 10/17/18 04:36 Most recent lab results Calcium 10.2 mg/dL (8.4-10.2) 10/17/18 04:36 Phosphorus 3.00 mg/dL (2.5-4.5) 10/17/18 04:36 Magnesium 2.20 mg/dL (1.7-2.3) 10/17/18 04:36 Medications & Allergies - Medications Allergies/Adverse Reactions: Allergies No Known Allergies Allergy (Unverified 08/26/18 14:14) Home Medications: Home Medications Medication Instructions Recorded Confirmed Last Taken Type Amantadine 100 mg FEEDTUBE DAILY 09/30/18 09/30/18 Unknown History Baclofen 10 mg FEEDTUBE BID 09/30/18 09/30/18 Unknown History Bisacodyl 10 mg FL DAILY 09/30/18 09/30/18 Unknown History Cholecalciferol (Vitamin D3) 5,000 unit FEEDTUBE DAILY 09/30/18 09/30/18 Unknown History Colace CAP 100 mg FEEDTUBE BID 09/30/18 09/30/18 Unknown History Famotidine 20 mg FEEDTUBE BID 09/30/18 09/30/18 Unknown History Ferrous Sulfate 325 mg FEEDTUBE TID 09/30/18 09/30/18 Unknown History Glycopyrrolate 1 mg FEEDTUBE TID 09/30/18 09/30/18 Unknown History Lexapro 30 mg FEEDTUBE DAILY 09/30/18 09/30/18 Unknown History Magnesium Oxide 400 400 mg FEEDTUBE DAILY 09/30/18 09/30/18 Unknown History Metoclopramide HCl 10 mg FEEDTUBE Q8H 09/30/18 09/30/18 Unknown History ALBUTEROL NEB's [Proventil 0.083% 2.5 mg IH Q4HRT PRN #30 nebu 10/11/18 Unknown Rx NEBS] Acetaminophen [Acetaminophen 2 tab FL Q4H PRN #15 supp.rect 10/11/18 Unknown Rx SUPPOS] Famotidine [Pepcid] 20 mg PO BID #15 tablet 10/11/18 Unknown Rx Insulin Regular, Human [HumuLIN R] 1 dose SUB-Q Q6HR PRN #1000 units 10/11/18 Unknown Rx Lipase/Protease/Amylase [Pancreaze 1 each FEEDTUBE PRN PRN #30 capsule 10/11/[address] 10,500 Unit] Min Oil/Petrolatum [Artificial 1 applic OU Q4HR PRN tube 10/11/18 Unknown Rx Tears Ophth Oint] [place] 5-325 mg TAB 5 mg FEEDTUBE Q6H PRN #15 10/11/18 Unknown Rx Petrolatum,White [Vaseline Lip 1 applic TP Q2HR PRN tube 10/11/18 Unknown Rx Therapy] Scopolamine 1.5 mg TRANSDERMA Q72H #15 10/11/18 09/30/18 Unknown Rx Simple Syrup 15 ml FEEDTUBE PRN PRN #30 10/11/18 Unknown Rx oral.liqd Simple Syrup 30 ml FEEDTUBE PRN PRN #30 10/11/18 Unknown Rx oral.liqd Sodium Bicarbonate 325 mg FEEDTUBE PRN PRN #30 tablet 10/11/18 Unknown Rx Active Medications: Generic Name Dose Route Start Last Admin Trade Name Freq PRN Reason Stop Dose Admin Acetaminophen 650 mg 10/01/18 04:45 10/15/18 14:11 Tylenol [place] 650 mg Q4H PRN Administration Fever >101 Albuterol 2.5 mg 10/08/18 12:00 Proventil IH Q4HRT PRN Shortness Of Breath Lipase/Protease/Amylase 1 each 10/01/18 15:58 10/16/18 09:26 Pancreaze 10,500 Unit FEEDTUBE 1 each PRN PRN Administration For Clogged Feeding Tube Dextrose 50 ml 09/30/18 23:32 D50w (25gm) Syringe IV PRN PRN Hypoglycemia Famotidine 20 mg 10/03/18 10:00 10/17/18 10:42 Pepcid PO Not Given BID [facility] Heparin Sodium (Porcine) 5,000 unit 09/30/18 23:30 10/17/18 10:41 Heparin SUB-Q Not Given Q12HR [facility] Hydrophilic Ointment 1 applic 09/30/18 19:53 Vaseline Lip Therapy TP Q2HR PRN Dry Lips Insulin Human Regular 0 units 10/01/18 18:00 10/17/18 06:41 Humulin R SUB-Q Not Given Q6HR [facility] Protocol Multi-Ingred Cream/Lotion/Oil/Oint 1 applic 09/30/18 19:53 Artificial Tears Ophth Oint OU Q4HR PRN Dry Eye(s) Ondansetron HCl 4 mg 09/30/18 23:29 Zofran IV Q8H PRN Nausea And Vomiting Scopolamine 1 each 10/02/18 02:00 10/17/18 01:03 Transderm-Scop TD 1 each Q3D ANU Administration Simple Syrup 15 ml 10/01/18 15:58 Simple Syrup FEEDTUBE PRN PRN Hypoglycemia Simple Syrup 30 ml 10/01/18 15:58 Simple Syrup FEEDTUBE PRN PRN Hypoglycemia Sodium Bicarbonate 325 mg 10/01/18 15:58 10/16/18 09:26 Sodium Bicarbonate FEEDTUBE 325 mg PRN PRN Administration For Clogged Feeding Tube
[2018-10-18] MEDS: HumuLIN R SUB-Q SCH ×5 (00:14→23:01)
[2018-10-18] MEDS: PANCREAZE DR 10,500 UNIT FEEDTUBE PRN (00:24)
[2018-10-18] MEDS: SODIUM BICARBONATE FEEDTUBE PRN (00:25)
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
[2018-10-18] MEDS: PEPCID PO SCH ×2 (12:38→22:51)
--- NOTE | 2018-10-18 16:07 | Event Note ---
Date: 10/18/18 PEG tube got clogged, consult GI for further recommendation, hold TF, start iV fluid
[2018-10-18] MEDS: D5NS 1,000 ML IV SCH (16:24)
--- NOTE | 2018-10-18 17:24 | Gastroenterology Consultation ---
History of Present Illness - Reason for Consult Consult date: 10/18/18 Malfunctioning PEG Requesting physician: MONI ENRIQUEZ - History of Present Illness The patient is nonverbal (TBI) and can provide no history. 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 The tube has become clogged (per nursing) with inability to flush. There has been no fevers/chills/or intolerance of feeds. Imaging in August showed the tube in good position. There has been no melena. Past History Past Medical History: other (TBI, hypercalcemia, PE, PEG, b/l nephrostomy tubes) Past Surgical History: Other (PEG/nephrostomy tubes) Social history: other (Lives in a facility). denies: smoking, alcohol abuse Family history: no significant family history Medications and Allergies Allergies Allergy/AdvReac Type Severity Reaction Status Date / Time No Known Allergies Allergy Unverified 08/26/18 14:14 Home Medications Medication Instructions Recorded Confirmed Last Taken Type Amantadine 100 mg FEEDTUBE DAILY 09/30/18 09/30/18 Unknown History Baclofen 10 mg FEEDTUBE BID 09/30/18 09/30/18 Unknown History Bisacodyl 10 mg OR DAILY 09/30/18 09/30/18 Unknown History Cholecalciferol (Vitamin D3) 5,000 unit FEEDTUBE DAILY 09/30/18 09/30/18 Unknown History Colace CAP 100 mg FEEDTUBE BID 09/30/18 09/30/18 Unknown History Famotidine 20 mg FEEDTUBE BID 09/30/18 09/30/18 Unknown History Ferrous Sulfate 325 mg FEEDTUBE TID 09/30/18 09/30/18 Unknown History Glycopyrrolate 1 mg FEEDTUBE TID 09/30/18 09/30/18 Unknown History Lexapro 30 mg FEEDTUBE DAILY 09/30/18 09/30/18 Unknown History Magnesium Oxide 400 400 mg FEEDTUBE DAILY 09/30/18 09/30/18 Unknown History Metoclopramide HCl 10 mg FEEDTUBE Q8H 09/30/18 09/30/18 Unknown History ALBUTEROL NEB's [Proventil 0.083% 2.5 mg IH Q4HRT PRN #30 nebu 10/11/18 Unknown Rx NEBS] Acetaminophen [Acetaminophen 2 tab OR Q4H PRN #15 supp.rect 10/11/18 Unknown Rx SUPPOS] Famotidine [Pepcid] 20 mg PO BID #15 tablet 10/11/18 Unknown Rx Insulin Regular, Human [HumuLIN R] 1 dose SUB-Q Q6HR PRN #1000 units 10/11/18 Unknown Rx Lipase/Protease/Amylase [Pancreaze 1 each FEEDTUBE PRN PRN #30 capsule 10/11/[address] 10,500 Unit] Min Oil/Petrolatum [Artificial 1 applic OU Q4HR PRN tube 10/11/18 Unknown Rx Tears Ophth Oint] [place] 5-325 mg TAB 5 mg FEEDTUBE Q6H PRN #15 10/11/18 Unknown Rx Petrolatum,White [Vaseline Lip 1 applic TP Q2HR PRN tube 10/11/18 Unknown Rx Therapy] Scopolamine 1.5 mg TRANSDERMA Q72H #15 10/11/18 09/30/18 Unknown Rx Simple Syrup 15 ml FEEDTUBE PRN PRN #30 10/11/18 Unknown Rx oral.liqd Simple Syrup 30 ml FEEDTUBE PRN PRN #30 10/11/18 Unknown Rx oral.liqd Sodium Bicarbonate 325 mg FEEDTUBE PRN PRN #30 tablet 10/11/18 Unknown Rx Active Meds: Active Medications Acetaminophen (Tylenol) 650 mg OR Q4H PRN PRN Reason: Fever >101 Last Admin: 10/15/18 14:11 Dose: 650 mg Documented by: Albuterol (Proventil) 2.5 mg IH Q4HRT PRN PRN Reason: Shortness Of Breath Lipase/Protease/Amylase (Pancreaze Dr 10,500 Unit) 1 each FEEDTUBE PRN PRN PRN Reason: For Clogged Feeding Tube Last Admin: 10/18/18 00:24 Dose: 1 each Documented by: Dextrose (D50w (25gm) Syringe) 50 ml IV PRN PRN PRN Reason: Hypoglycemia Famotidine (Pepcid) 20 mg PO BID [facility] Last Admin: 10/18/18 12:38 Dose: 20 mg Documented by: Heparin Sodium (Porcine) (Heparin) 5,000 unit SUB-Q Q12HR ANU Last Admin: 10/17/18 22:39 Dose: 5,000 unit Documented by: Hydrophilic Ointment (Vaseline Lip Therapy) 1 applic TP Q2HR PRN PRN Reason: Dry Lips Dextrose/Sodium Chloride (D5ns) 1,000 mls @ 42 mls/hr IV DIRECT [facility] Last Admin: 10/18/18 16:24 Dose: 42 mls/hr Documented by: Insulin Human Regular (Humulin R) 0 units SUB-Q Q6HR ANU; Protocol Last Admin: 10/18/18 14:08 Dose: Not Given Documented by: Multi-Ingred Cream/Lotion/Oil/Oint (Artificial Tears Ophth Oint) 1 applic OU Q4HR PRN PRN Reason: Dry Eye(s) Ondansetron HCl (Zofran) 4 mg IV Q8H PRN PRN Reason: Nausea And Vomiting Scopolamine (Transderm-Scop) 1 each TD Q3D [facility] Last Admin: 10/17/18 01:03 Dose: 1 each Documented by: Simple Syrup (Simple Syrup) 15 ml FEEDTUBE PRN PRN PRN Reason: Hypoglycemia Simple Syrup (Simple Syrup) 30 ml FEEDTUBE PRN PRN PRN Reason: Hypoglycemia Sodium Bicarbonate (Sodium Bicarbonate) 325 mg FEEDTUBE PRN PRN PRN Reason: For Clogged Feeding Tube Last Admin: 10/18/18 00:25 Dose: 325 mg Documented by: I HAVE REVIEWED AND RECONCILED MEDICATIONS Review of Systems - Review of Systems ROS unobtainable: due to mental status Exam - Constitutional Vital Signs: Temp Pulse Resp BP Pulse Ox 98.5 F 66 18 105/58 95 10/18/18 11:28 10/18/18 11:28 10/18/18 11:28 10/18/18 11:28 10/18/18 11:28 General appearance: no acute distress - EENT Eyes: PERRL, EOM intact ENT: clear oral mucosa, dentition normal - Neck Neck: supple, normal ROM - Respiratory Respiratory effort: normal Respiratory: bilateral: CTA - Cardiovascular Rhythm: regular Heart Sounds: Present: S1 & S2 Extremities: no ischemia, No edema - Gastrointestinal General gastrointestinal: Present: soft, non-tender, non-distended, other (PEG in epigastric region. Tube site C/D/I. Unable to flush tube; large amount of apparent impacted tube feeds.) - Labs CBC & Chem 7: 10/05/18 00:12 10/17/18 04:36 Lab Results: Laboratory Results - last 24 hr 10/17/18 10/18/18 10/18/18 23:45 06:26 11:38 POC Glucose 87 105 100 Assessment and Plan - Patient Problems (1) Malfunction of gastrostomy tube Current Visit: Yes Status: Acute Plan to address problem: - Will plan exchange of tube; if necessary will use endoscopy to place. - NPO and start IV fluids. - OK to continue daily heparin and ASA.
[2018-10-18] MEDS: HEPARIN SUB-Q SCH ×2 (22:49→22:50)
[2018-10-19] MEDS: HumuLIN R SUB-Q SCH ×4 (00:18→17:58)
[2018-10-19] MEDS: SODIUM BICARBONATE FEEDTUBE PRN (04:46)
[2018-10-19] MEDS: PANCREAZE DR 10,500 UNIT FEEDTUBE PRN (04:46)
--- NOTE | 2018-10-19 10:35 | XRay Report ---
G-TUBE STUDY HISTORY: Malfunctioning PEG tube FINDINGS: City Detective film of the abdomen demonstrates a PEG tube in the epigastric region as well as bilat eral nephrostomy tubes. The bowel gas pattern is unremarkable. A second image was obtained following injection of 50 cc of Omnipaque 300 through the PEG tube. Contrast outlines the stomach and proximal small bowel. There is no evidence for extravasation or obstruction. IMPRESSION: The peg tube terminates in the stomach. No evidence for extravasation. Signer Name: Dale Medrano Jr, MD Signed: 10/19/2018 10:30 AM Workstation Name: [id number]
--- NOTE | 2018-10-19 11:04 | Gastroenterology Progress Note ---
Assessment and Plan 1.malfunction of G-tube -PEG now functioning well per nursing report -upon exam, PEG flushed w/o difficulty -PEG site w/o s/s of infection/bleeding -patient tolerating TFs -will order G-tube study to confirm placement -If above negative, okay to resume use of PEG for feedings/medications -continue daily PEG care Subjective Date of service: 10/19/18 Principal diagnosis: malfunctioning PEG Interval history: Nursing reports PEG now functioning. Upon exam, PEG flushed w/o difficulty. PEG site w/o s/s of infection/bleeding. Tolerating TFs. Objective - Constitutional Vitals: Temp Pulse Resp BP Pulse Ox 97.5 F L 76 18 100/63 100 10/19/18 05:17 10/19/18 05:17 10/19/18 05:17 10/19/18 05:17 10/19/18 05:17 General appearance: no acute distress - Respiratory Respiratory effort: normal - Gastrointestinal General gastrointestinal: Present: soft, non-distended, normal bowel sounds, other (+PEG) - Labs CBC & Chem 7: 10/05/18 00:12 10/17/18 04:36 Labs: Laboratory Results - last 24 hr 10/18/18 10/18/18 10/18/18 11:38 17:35 22:46 POC Glucose 100 95 91 10/19/18 05:21 POC Glucose 93
[2018-10-19] MEDS: PEPCID PO SCH ×2 (11:10→23:01)
[2018-10-19] MEDS: HEPARIN SUB-Q SCH ×2 (11:10→23:01)
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
[2018-10-19] MEDS: D5NS 1,000 ML IV SCH (15:24)
[2018-10-20] MEDS: HumuLIN R SUB-Q SCH ×3 (01:10→18:30)
[2018-10-20] MEDS: TRANSDERM-SCOP TD SCH (03:33)
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
[2018-10-20] MEDS: HEPARIN SUB-Q SCH ×2 (11:05→22:28)
[2018-10-20] MEDS: PEPCID PO SCH ×2 (11:05→22:28)
[2018-10-20] MEDS: D5NS 1,000 ML IV SCH (16:08)
[2018-10-21] MEDS: HumuLIN R SUB-Q SCH ×5 (00:42→19:36)
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
[2018-10-21] MEDS: HEPARIN SUB-Q SCH ×2 (10:40→21:04)
[2018-10-21] MEDS: PEPCID PO SCH ×2 (10:40→21:03)
[2018-10-22] MEDS: HumuLIN R SUB-Q SCH ×5 (06:03→19:33)
[2018-10-22] MEDS: PEPCID PO SCH ×2 (09:23→23:17)
[2018-10-22] MEDS: HEPARIN SUB-Q SCH ×2 (09:23→21:45)
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
[2018-10-22] MEDS: D5NS 1,000 ML IV SCH (13:13)
[2018-10-22] MEDS: PANCREAZE DR 10,500 UNIT FEEDTUBE PRN (23:17)
[2018-10-22] MEDS: SODIUM BICARBONATE FEEDTUBE PRN (23:19)
[2018-10-23] MEDS: HumuLIN R SUB-Q SCH ×3 (00:37→13:12)
[2018-10-23] MEDS: TRANSDERM-SCOP TD SCH (01:44)
[2018-10-23] MEDS: SODIUM BICARBONATE FEEDTUBE PRN (05:44)
[2018-10-23] MEDS: PANCREAZE DR 10,500 UNIT FEEDTUBE PRN (05:46)
[2018-10-23] MEDS: HEPARIN SUB-Q SCH (09:17)
[2018-10-23] MEDS: PEPCID PO SCH (09:17)
--- NOTE | 2018-10-23 10:56 | Discharge Summary ---
Providers - Providers Date of Admission: 09/30/18 23:21 Date of discharge: 10/23/18 Attending physician: JW SOLARES 09/30/18 19:53 Consult to Dietitian/Nutrition [CONS] Routine Physician Instructions: Reason For Exam: Reason for Consult: Evaluate nutritional intake 10/01/18 10:45 Consult to Dietitian/Nutrition [CONS] Routine Physician Instructions: Reason For Exam: Reason for Consult: Write/Manage Tube Feeding Consult to Physician [CONS] Routine Comment: Consulting Provider: AUNDREA DE DIOS Physician Instructions: Reason For Exam: Sepsis,recent pseudomonas 10/02/18 07:00 Consult to Physician [CONS] Routine Comment: Please call in morning Consulting Provider: BEST RODRIGEZ Physician Instructions: Reason For Exam: Hypernatremia, hypercalcemia 10/18/18 16:05 Consult to Physician [CONS] Routine Comment: Consulting Provider: VICKY BURDICK Physician Instructions: Reason For Exam: clogged peg tube [facility]: Poor Disposition: DC/[place]-03 SNF W [facility] CERT Core Measure Documentation - Palliative Care Palliative Care/ Comfort Measures: Not Applicable - Core Measures Any of the following diagnoses?: none Exam - Constitutional Vitals: Temp Pulse Resp BP Pulse Ox 97.3 F L 87 18 103/59 90 10/23/18 07:55 10/22/18 17:18 10/23/18 07:55 10/23/18 07:55 10/23/18 07:55 Plan Follow up with: AUNDREA DE DIOS MD [Staff Physician] - 7 Days OROVADA DIANA JOHNSON MD [Primary Care Provider] - 7 Days Prescriptions: [place] 5-325 mg TAB 5 mg FEEDTUBE Q6H PRN #15 PRN Reason: Pain , Severe (7-10)
[2018-10-23 12:25] VITALS: BP 88/50
== END 2018-10-23 13:10 | DRG 871 ==
LOC: ED 19:36 → CC1 23:21 → 4A 10-03 15:36 → 3A 10-09 15:30
PROVIDERS: ADMIT Internal Medicine; ATTEND Internal Medicine
PROC: 5A1945Z Respiratory Ventilation, 24-96 Consecutive Hours (ICD-10-PCS; principal; 2018-09-30)
PROC: 0BH17EZ Insertion of Endotracheal Airway into Trachea, Via Natural or Artificial Opening (ICD-10-PCS; 2018-09-30)
PROC: 4A033R1 Measurement of Arterial Saturation, Peripheral, Percutaneous Approach (ICD-10-PCS; 2018-10-02)
DX: A41.9 Sepsis, unspecified organism (principal); J96.01 Acute respiratory failure with hypoxia; J18.9 Pneumonia, unspecified organism; N17.0 Acute kidney failure with tubular necrosis; E43 Unspecified severe protein-calorie malnutrition; G93.41 Metabolic encephalopathy; N39.0 Urinary tract infection, site not specified; K94.23 Gastrostomy malfunction; E87.0 Hyperosmolality and hypernatremia; N32.1 Vesicointestinal fistula; Z66 Do not resuscitate; E83.52 Hypercalcemia; Y83.8 Other surgical procedures as the cause of abnormal reaction of the patient, or of later complication, without mention of misadventure at the time of the procedure; Y82.8 Other medical devices associated with adverse incidents; I10 Essential (primary) hypertension; R13.10 Dysphagia, unspecified; E11.9 Type 2 diabetes mellitus without complications; E86.0 Dehydration; M19.90 Unspecified osteoarthritis, unspecified site; Z79.899 Other long term (current) drug therapy; Z86.711 Personal history of pulmonary embolism; Z87.442 Personal history of urinary calculi; Z68.23 Body mass index [BMI] 23.0-23.9, adult
CPT/HCPCS: 36415; 36600; 71045; 74018; 80048; 80053; 81001; 82140; 82803; 82805; 82962; 83735; 84100; 84132; 84478; 85025; 85027; 85610; 87040; 87086; 87205; 93005; 93010; 94002; 94003; 94640; 94760; G0378; J0692; J1644; J2185; J2430; J2543; J2704; J3370; J3480; J7030; J7042; J7050; J7070; Q9967